=== PATIENT | female | born 1950 | race Caucasian/White ===

== ENCOUNTER 2016-09-23 23:29 | Emergency (ER) | payer OTHER ==
[~2016-09-23] VITALS: Ht 162.6 cm; Wt 63.5 kg
[~2016-09-23 23:29] MED LIST: CEPH500C2 PO; MIRT15TA7 PO; PRIM250T PO; RISP2TAB23 PO; SIMV10TA6 PO
[2016-09-24] MEDS ORDERED: IV NS 0.9% 500 ML BAG IV ONE
[2016-09-24] MEDS ORDERED: ONDANSETRON HCL/PF 4 MG/2 ML VIAL IVP ONE
[2016-09-24] MEDS ORDERED: IV NS 0.9% 500 ML IV ONE (00:31)
[2016-09-24] MEDS ORDERED: IV SET PRIMARY 1 EA INFUS.SET MC ONE (00:31)
[2016-09-24] MEDS ORDERED: ONDANSETRON HCL/PF 4 MG/2 ML VIAL ONE (00:31)
[2016-09-24 00:34] LABS: BASOPHILS % (AUTO) 0.4 % (0.0-2.0); DIFF TOTAL % 100 %; EOSINOPHILS # (AUTO) 0.3 /CMM (0.0-0.7); EOSINOPHILS % (AUTO) 2.9 % (0.0-6.0); HEMATOCRIT 34 % (33-45); HEMOGLOBIN 11.5 g/dL (11.5-14.8); LYMPHOCYTES # (AUTO) 3.5 /CMM (0.8-4.8); LYMPHOCYTES % (AUTO) 36.1 % (20.0-44.0); MEAN CORPUSCULAR HEMOGLOBIN 31 PG (26.0-33.0); MEAN CORPUSCULAR HGB CONC 34 g/dl (31.0-36.0); MEAN CORPUSCULAR VOLUME 91 fL (82-100); MONOCYTES # (AUTO) 0.5 /CMM (0.1-1.30); MONOCYTES % (AUTO) 5.1 % (2.0-12.0); NEUTROPHILS # (AUTO) 5.3 /CMM (1.8-8.9); NEUTROPHILS % (AUTO) 55.5 % (43.0-81.0); PLATELET COUNT (AUTO) 302 /CMM (150-450); RED BLOOD CELL COUNT(AUTO) 3.74 MIL/uL (4.0-5.2); WHITE BLOOD COUNT (AUTO) 9.6 K/uL (4.3-11.0)
[2016-09-24 00:47] LABS: ANION GAP 10 (5-14); CALCIUM, SERUM 8.6 mg/dL (8.5-10.1); CARBON DIOXIDE 27 mmol/L (21-32); CHLORIDE 97 mmol/L (98-107); CREATININE 0.6 mg/dL (0.6-1.3); GFR 100 mL/min (>60); GLUCOSE 104 mg/dL (74-106); POTASSIUM 3.8 mmol/L (3.5-5.1); SODIUM SERUM 130 mmol/L (136-145); UREA NITROGEN, BLOOD 11 mg/dL (7-18)
[2016-09-24] MEDS ORDERED: IOHEXOL-350 100 ML VIAL IV ONE (00:49)
[2016-09-24] MEDS ORDERED: IV NS 0.9% 250 ML IV ONE (00:49)
[2016-09-24] MEDS ORDERED: CT SWABBABLE VALVE TRANS SET 1 EA INFUS.SET MC ONE (00:49)
[2016-09-24 00:52] LABS: TROPONIN I < 0.017 ng/mL (0.00-0.056)
[2016-09-24 00:53] LABS: ALANINE AMINOTRANSFERASE 18 U/L (12-78); ALBUMIN 3.1 g/dL (3.4-5.0); ASPARTATE AMINOTRANSFERASE 13 U/L (15-37); BILIRUBIN,DIRECT 0.1 mg/dL (0.0-0.2); BILIRUBIN,TOTAL 0.2 mg/dL (0.2-1.0); INDIRECT BILIRUBIN 0.1 mg/dL (0.0-1.1); TOTAL PROTEIN, SERUM 6.6 g/dL (6.4-8.2)
[2016-09-24 00:56] LABS: INR 1.03 (0.87-1.13); PROTHROMBIN TIME 11.1 SECS (9.5-12.7)
[2016-09-24 01:17] LABS: KETONES,URINE NEGATIVE (NEGATIVE); LEUKOCYTE ESTERASE ,URINE NEGATIVE (NEGATIVE)
[2016-09-24 01:28] LABS: ADD UA MICROSCOPIC YES
[2016-09-24 01:30] LABS: ADD URINE CULTURE YES; RBC,URINE NONE SEEN /HPF (0-2); WBC,URINE 0-2 /HPF (0-3)
[2016-09-24 03:14] VITALS: BP 102/66
== END 2016-09-24 04:54 | disposition home or self-care (01) ==
LOC: ER 23:31
DX: K59.00 Constipation, unspecified (principal); I26.99 Other pulmonary embolism without acute cor pulmonale; K21.9 Gastro-esophageal reflux disease without esophagitis; I10 Essential (primary) hypertension; E11.9 Type 2 diabetes mellitus without complications; F17.200 Nicotine dependence, unspecified, uncomplicated; Z90.49 Acquired absence of other specified parts of digestive tract
CPT/HCPCS: 36415; 71275; 74176; 80048; 80076; 81001; 83690; 84484; 85025; 85730; 87086; 93005; 96374; 99285; A4606; J2405; J7040; J7050; Q9967; Z7610; 81000-TC; 87186-TC

== ENCOUNTER 2017-01-06 14:08 | Inpatient (IN) | payer OTHER ==
[~2017-01-06] VITALS: Ht 162.6 cm; Wt 54.4 kg
--- NOTE | 2017-01-06 14:10 | NUR ---
MARIA ANTONIA FROM STREET-- PER REPORT PATIENT WAS FOUND WANDERING. PATIENT RECEIVED, AWAKE,HOWEVER CONFUSED. APPEARS IN NO APPARENT DISTRESS. RESPIRATION EVEN AND UNLABORED. NO SOB, NO SI, NO HI NOTED. VSS,
[2017-01-06] MEDS ORDERED: OLANZAPINE 5 MG/TAB.RAPDIS ONE (14:24)
--- NOTE | 2017-01-06 14:24 | NUR ---
CALL PLACED TO ART RADIO TELEVISION TECHNICAL DIRECTOR FOR PSYCH EVAL
[2017-01-06] MEDS ORDERED: OLANZAPINE 5 MG TABLET ONE (14:28)
[2017-01-06] MEDS: OLANZAPINE 5 MG TABLET PO ONE ×2 (14:29→15:12)
[2017-01-06] MEDS ORDERED: OLANZAPINE 10 MG VIAL IM ONE ×2 (14:33→15:30)
[2017-01-06] MEDS ORDERED: WATER FOR INJECTION,STERILE 10 ML ONE (14:34)
--- NOTE | 2017-01-06 14:44 | NUR ---
PATIENT REFUSED OANH RAMIREZ,. PER MD GARCIA ORDER WILL BE CHANGED TO IM Addendum: 01/06/17 at 1612 by CHIQUIS REFUSED OANH P.O
[2017-01-06 14:50] LABS: BASOPHILS % (AUTO) 0.3 % (0.0-2.0); EOSINOPHILS # (AUTO) 0.1 /CMM (0.0-0.7); EOSINOPHILS % (AUTO) 0.8 % (0.0-6.0); HEMATOCRIT 36 % (33-45); HEMOGLOBIN 12.4 g/dL (11.5-14.8); LYMPHOCYTES # (AUTO) 1.1 /CMM (0.8-4.8); LYMPHOCYTES % (AUTO) 16.6 % (20.0-44.0); MEAN CORPUSCULAR HEMOGLOBIN 32 PG (26.0-33.0); MEAN CORPUSCULAR HGB CONC 35 g/dl (31.0-36.0); MEAN CORPUSCULAR VOLUME 92 fL (82-100); MONOCYTES # (AUTO) 0.3 /CMM (0.1-1.30); MONOCYTES % (AUTO) 3.9 % (2.0-12.0); NEUTROPHILS # (AUTO) 5.3 /CMM (1.8-8.9); NEUTROPHILS % (AUTO) 78.4 % (43.0-81.0); PLATELET COUNT (AUTO) 315 /CMM (150-450); RDW COEFFICIENT OF VARIATION 13.4 (11.5-15.0); RED BLOOD CELL COUNT(AUTO) 3.91 MIL/uL (4.0-5.2); WHITE BLOOD COUNT (AUTO) 6.8 K/uL (4.3-11.0)
[2017-01-06] MEDS ORDERED: SENN8.6T6 PO (14:54)
[2017-01-06] MEDS ORDERED: BISA10SU8 RC (14:54)
[2017-01-06] MEDS ORDERED: MORP15TA PO (14:54)
[2017-01-06] MEDS ORDERED: MULT-659 PO (14:54)
[2017-01-06] MEDS ORDERED: DOCU-25 PO (14:54)
[2017-01-06] MEDS ORDERED: NA P133E RC (14:54)
[2017-01-06] MEDS ORDERED: PRIM250T PO (14:54)
[2017-01-06] MEDS ORDERED: POLY17PO4 PO (14:54)
[2017-01-06] MEDS ORDERED: HYDR4TAB57 PO (14:54)
[2017-01-06] MEDS ORDERED: LORA0.5T PO (14:54)
[2017-01-06] MEDS ORDERED: ACET100V5 INH (14:54)
[2017-01-06] MEDS ORDERED: AMIN30LI4 PO (14:54)
[2017-01-06] MEDS ORDERED: LIDO30AD10 TP (14:54)
[2017-01-06] MEDS ORDERED: ALBU8.5H2 IH (14:54)
[2017-01-06] MEDS ORDERED: ZINC220C8 PO (14:54)
[2017-01-06] MEDS ORDERED: PANT40TA4 PO (14:54)
[2017-01-06] MEDS ORDERED: ASCO500T9 PO (14:54)
[2017-01-06] MEDS ORDERED: METO25TA6 PO (14:54)
[2017-01-06] MEDS ORDERED: PHEN20EL5 PO (14:54)
[2017-01-06] MEDS ORDERED: MAGN400O6 PO (14:54)
[2017-01-06] MEDS ORDERED: RISP0.2515 PO (14:54)
[2017-01-06 15:06] LABS: ALANINE AMINOTRANSFERASE 16 U/L (12-78); ALBUMIN 3.4 g/dL (3.4-5.0); ALCOHOL, BLOOD < 3 mg/dL (0-0); ALKALINE PHOSPHATASE 218 U/L (46-116); ASPARTATE AMINOTRANSFERASE 16 U/L (15-37); BILIRUBIN,DIRECT 0.1 mg/dL (0.0-0.2); BILIRUBIN,TOTAL 0.2 mg/dL (0.2-1.0); CALCIUM, SERUM 8.9 mg/dL (8.5-10.1); CARBON DIOXIDE 28 mmol/L (21-32); CHLORIDE 98 mmol/L (98-107); CREATININE 0.5 mg/dL (0.6-1.3); GLUCOSE 102 mg/dL (74-106); POTASSIUM 3.9 mmol/L (3.5-5.1); SODIUM SERUM 133 mmol/L (136-145); TOTAL PROTEIN, SERUM 7.4 g/dL (6.4-8.2); UREA NITROGEN, BLOOD 8 mg/dL (7-18)
[2017-01-06 15:07] LABS: ACETAMINOPHEN 0 ug/ml (10-30); SALICYLATE 2.1 mg/dL (2.8-20.0)
--- NOTE | 2017-01-06 16:12 | NUR ---
Patient is resting comfortably in bed with eyes closed. Easily aroused. VSS
--- NOTE | 2017-01-06 16:20 | NUR ---
MIGUEL A RN AT BEDSIDE FOR EVAL
--- NOTE | 2017-01-06 18:00 | NUR ---
PER MD GARCIA, NO NEED FOR IN AND OUT CATH-- CAN WAIT FOR PATIENT TO GIVE URINE SAMPLE
--- NOTE | 2017-01-06 18:08 | NUR ---
CALLED NURSING YARN TESTER FOR M/S BED
--- NOTE | 2017-01-06 19:04 | NUR ---
PT TRANSPORTED TO MS 2. VSS
[2017-01-06 19:15] VITALS: BP 144/82
--- NOTE | 2017-01-06 19:15 | NUR ---
RECEIVED NEW ADMISSION FROM ER WITH DX OF ACUTE PSYCHOSIS, ALERT AND ORIENTED X3 WITH EPISODES OF FORGETFULNESS, TALKING TO SELF, NO SOB, NO RESPIRATORY DISTRESS, TOLERATING ROOM AIR, SPO2 98%, COMPLAINING OF PAIN OF 8/10, PER REPORT AND CONFIRMED BY CAREGIVER, JIMMY, HAS CHRONIC PAIN AND IS A PAIN SEEKER. LUNG SOUNDS ARE CLEAR, ABDOMEN SOFT AND NON-TENDER, NOTED OLD VERTICAL SCAR FROM CHEST TO ABDOMEN, S/P RIGHT HIP REPLACEMENT ON 12/01/16, RIGHT LATERAL THIGH SX SITE WITH ANDRIA NOTED, NO DRAINAGE, SX SITE IS CLEAN AND DRY, CHANGED DRESSING AND PHOTO TAKEN. OVERALL SKIN CONDITION IS INTACT, RIGHT LOWER LEG HAS NON-PITTING EDEMA. FOUND A PACK OF CIGARETTES IN KARLIE POCKET, PATIENT DENIES SMOKING. PER CAREGIVER JIMMY, "SHE SMOKES A LOT". PATIENT STATED SHE HAS MULTIPLE CANCER IN LUNGS, LIVER, AGAIN, PER CAREGIVER, IT IS NOT TRUE. KEPT SAFE AND COMFORTABLE, GIVEN BED BATH, ORIENTED TO ROOM AND USE OF CALL LIGHT. WILL CONTINUE TO MONITOR.
[2017-01-06] MEDS ORDERED: MAG HYDROX/AL HYDROX/SIMETH 30 ML UDC PO PRN (19:30)
[2017-01-06] MEDS ORDERED: Z GUARD REMEDY 2 OZ OINT TP PRN (19:30)
[2017-01-06] MEDS ORDERED: LIDOCAINE 5% (PATCH) 1 EA PATCH TP SCH (19:30)
[2017-01-06] MEDS ORDERED: ALBUTEROL FS 2.5 MG/3 ML VIAL.NEB NEB PRN (19:30)
[2017-01-06] MEDS ORDERED: BISACODYL SUPP (10 MG) 10 MG/SUPP.RECT SUPP.RECT RC PRN (19:30)
[2017-01-06] MEDS ORDERED: MAGNESIUM HYDROXIDE 30 ML UDC PO PRN (19:30)
[2017-01-06] MEDS ORDERED: ACETAMINOPHEN 325 MG TABLET PO PRN (19:30)
[2017-01-06] MEDS ORDERED: NA PHOS,M-B/NA PHOS,DI-BA 1 EA ENEMA RC PRN (19:30)
[2017-01-06] MEDS ORDERED: ONDANSETRON HCL/PF 4 MG/2 ML VIAL IVP PRN (19:30)
[2017-01-06] MEDS ORDERED: SENNOSIDES 8.6 MG TABLET PO PRN (19:30)
[2017-01-06] MEDS: LORAZEPAM 0.5 MG TABLET PO PRN (19:54)
--- NOTE | 2017-01-06 20:34 | NUR ---
PLACED CALL TO DR. GABRIEL MELENDEZ PAIN MANAGEMENT TO VERIFY DOSE OF MORPHINE AND LIDODERM PATCH LOCATION
[2017-01-06] MEDS: ENOXAPARIN SODIUM 40 MG/0.4 ML DISP.SYRIN SQ SCH (20:46)
--- NOTE | 2017-01-06 21:00 | NUR ---
PER PATIENT, HAS $100 BILL, NO MONEY FOUND WITH BELONGINGS
[2017-01-06] MEDS: SIMVASTATIN 10 MG TABLET PO SCH (21:06)
[2017-01-06] MEDS: MIRTAZAPINE 15 MG TABLET PO SCH (21:06)
[2017-01-06] MEDS: DOCUSATE SODIUM 100 MG CAPSULE PO SCH (21:07)
--- NOTE | 2017-01-06 21:17 | NUR ---
DR. MELENDEZ CALLED BACK UNABLE TO VERIFY MORPHINE DOSE OVER THE PHONE, NO ACCESS TO PT'S FILE. WILL ENDORSED IN THE AM TO CALL OFFICE. LIDODERM PATCH VERIFIED TO BE PLACED ON LOWER BACK
--- NOTE | 2017-01-06 21:30 | NUR ---
UNABLE TO VERIFY PHENOBARBITAL DOSE, PHONE NUMBER LISTED FOR [facility] IS NON WORKING NUMBER.
[2017-01-06 22:14] VITALS: BP 144/88
--- NOTE | 2017-01-07 01:30 | NUR ---
RESTING COMFORTABLY, NO DISTRESS, RESPIRATION EVEN AND UNLABORED, BED ALARM TURNED ON, WILL CONTINUE TO MONITOR
--- NOTE | 2017-01-07 01:57 | NUR ---
PATIENT WOKE UP REQUESTING PAIN MEDICATION, EXPLAINED TO PATIENT NO PAIN MEDICATION ORDERED, BECOMES AGITATED. NOTIFIED MD, NO NEW ORDER.
[2017-01-07] MEDS: LORAZEPAM 0.5 MG TABLET PO PRN ×2 (02:13→19:48)
--- NOTE | 2017-01-07 03:30 | NUR ---
PATIENT AWAKEN, ASKING FOR PAIN MEDICATION, EXPLAINED TO PATIENT NO PAIN MEDICATION ORDERED, HAS TO VERIFY MORPHINE DOSE, PATIENT BECOMES AGITATED, TALKING TO THE WALL, REDIRECTED PATIENT TO LOOK AT RN, CONTINUED TALKING TO WALL AND CEILING.
--- NOTE | 2017-01-07 03:45 | NUR ---
PATIENT WENT BACK TO SLEEP, RESPIRATION EVEN AND UNLABORED, WILL CONTINUE TO MONITOR.
--- NOTE | 2017-01-07 06:39 | NUR ---
PATIENT IN BED, ALERT AND AWAKE, ASKING FOR PAIN MEDICATION, EXPLAINED TO PATIENT WILL HAVE TO VERIFY WITH PAIN MD THE MORPHINE DOSE, PATIENT STILL INSISTING TO GET PAIN MEDICATION. NO SOB, PROVIDED GOOD PERINEAL CARE, SLEPT FOR 6.5 HOURS INTERMITTENTLY, KEPT SAFE AND COMFORTABLE, CALL LIGHT WITHIN REACH.
[2017-01-07 06:51] LABS: BASOPHILS % (AUTO) 0.3 % (0.0-2.0); EOSINOPHILS % (AUTO) 0.3 % (0.0-6.0); HEMATOCRIT 37 % (33-45); HEMOGLOBIN 12.8 g/dL (11.5-14.8); LYMPHOCYTES # (AUTO) 1.4 /CMM (0.8-4.8); LYMPHOCYTES % (AUTO) 30.6 % (20.0-44.0); MEAN CORPUSCULAR HEMOGLOBIN 32 PG (26.0-33.0); MEAN CORPUSCULAR HGB CONC 34 g/dl (31.0-36.0); MEAN CORPUSCULAR VOLUME 93 fL (82-100); MONOCYTES # (AUTO) 0.2 /CMM (0.1-1.30); MONOCYTES % (AUTO) 4.6 % (2.0-12.0); NEUTROPHILS # (AUTO) 2.9 /CMM (1.8-8.9); NEUTROPHILS % (AUTO) 64.2 % (43.0-81.0); PLATELET COUNT (AUTO) 296 /CMM (150-450); RDW COEFFICIENT OF VARIATION 14.1 (11.5-15.0); RED BLOOD CELL COUNT(AUTO) 3.98 MIL/uL (4.0-5.2); WHITE BLOOD COUNT (AUTO) 4.5 K/uL (4.3-11.0)
[2017-01-07 07:00] LABS: CALCIUM, SERUM 8.7 mg/dL (8.5-10.1); CREATININE 0.4 mg/dL (0.6-1.3); MAGNESIUM 1.9 mg/dL (1.8-2.4); PHOSPHORUS 3.5 mg/dL (2.5-4.9); POTASSIUM 3.6 mmol/L (3.5-5.1)
[2017-01-07 07:05] LABS: THYROID STIMULATING HORMONE 0.907 uIU/mL (0.358-3.74)
[2017-01-07] MEDS ORDERED: PANTOPRAZOLE 40 MG TABLET.DR PO SCH (07:30)
[2017-01-07 08:00] VITALS: BP 140/73
--- NOTE | 2017-01-07 08:00 | NUR ---
RN OPENING NOTES RECEIVED PATIENT ON BED, AWAKE. ALERT AND ORIENTED X 3. PATIENT TALKING TO SELF. NO ACUTE DISTRESS, NO SHORTNESS OF BREATH NOTED. COMPLAINING PAIN, PAIN MEDICATION GIVEN ORDERED. IV SITE INTACT AND PATENT. BED IN LOWEST POSITION. CALL LIGHT WITHIN REACH. WILL CONTINUE TO MONITOR.
[2017-01-07] MEDS: PANTOPRAZOLE 40 MG TABLET.DR PO SCH (08:33)
[2017-01-07] MEDS: PRIMIDONE 250 MG TABLET PO SCH ×2 (08:33→17:31)
[2017-01-07] MEDS: ASCORBIC ACID 500 MG TABLET PO SCH (08:34)
[2017-01-07] MEDS: ZINC SULFATE 220 MG CAPSULE PO SCH (08:34)
[2017-01-07] MEDS: POLYETHYLENE GLYCOL 3350 17 GM POWD.PACK PO SCH (08:34)
[2017-01-07] MEDS: MULTIVITAMINS W-MINERALS 1 TAB TABLET PO SCH (08:34)
[2017-01-07] MEDS: MORPHINE SULFATE IR 15 MG TABLET PO SCH ×3 (08:36→20:58)
[2017-01-07] MEDS ORDERED: PHENOBARBITAL 20 MG/5 ML UDC PO SCH (09:00)
[2017-01-07] MEDS ORDERED: risperiDONE 0.25 MG TABLET PO SCH (09:00)
[2017-01-07] MEDS: PHENOBARBITAL 30 MG TABLET PO SCH ×2 (09:59→17:28)
[2017-01-07] MEDS: LIDOCAINE 5% (PATCH) 1 EA PATCH TP SCH (09:59)
[2017-01-07] MEDS: METOPROLOL TARTRATE 25 MG TABLET PO SCH ×2 (09:59→17:00)
--- NOTE | 2017-01-07 11:49 | NUR ---
[facility] CALLED SAYING THAT THE PT'S GALLBLADDER WAS SURGICALLY REMOVED BY REVIEWING PT'S CT SCAN SO THE US GALLBLADDER IS IMPOSSIBLE.NOTIFIED DR JOSE DEGROOT AND CANCELLED THE US GALLBLADDER PROCEDURE.
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
--- NOTE | 2017-01-07 13:00 | NUR ---
PATIENT ASKING FOR PAIN MEDICATION. PATIENT WAS ASKED WHERE THE PAIN IS AND PATIENT STARTED YELLING AT THE STAFF "I HAVE PAIN ALL OVER MY ABDOMEN AND BACK BECAUSE I HAVE CANCER". PATIENT STARTED TALKING TO SELF AND CURSING. EXPLAINED TO THE PATIENT THAT MEDICATION IS DUE IN THE NEXT 2 HOURS. PATIENT CONTINUED TO YELL AND CURSE, AND TALKING TO SELF. WILL CONTINUE TO MONITOR
--- NOTE | 2017-01-07 13:10 | NUR ---
PATIENT REFUSED LORAZEPAM 0.5MG AFTER OPENING IT. LORAZEPAM 0.5MG WASTED WITNESS BY RN, GABI CANTRELL.
--- NOTE | 2017-01-07 14:29 | NUR ---
GRICELDA contacted [facility] Guidry to speak with administration to inquire if Pt. can be admitted to their facility. GRICELDA was informed by that administration is closed and will be open on Tuesday. GRICELDA updated CRN Harlette. GRICELDA contacted DANIEL Hamm and informed her to follow through with the psych. consult and contact [facility] so pt. can be assessed by psychiatrist on-call.
--- NOTE | 2017-01-07 15:00 | NUR ---
PATIENT COMPLAIN OF PAIN IN THE ABDOMEN. MORPHINE IS SCHEDULED AT 1800, LAST DOSE WAS GIVEN AT 0836, MEDICATION IS EVERY 6 HOURS. VERIFIED PHARMACY,SELA. FAUST TO GIVE MEDICATIONS PER PHARMACYSELA..
[2017-01-07 16:00] VITALS: BP 108/66
--- NOTE | 2017-01-07 16:52 | NUR ---
PT COMFORTABLY SLEEPING WITH NO S/S OF PAIN OR DISTRESS.
--- NOTE | 2017-01-07 17:00 | NUR ---
PT WOKE UP TALKING TO HERSELF CONTINUOUSLY-PT REFUSED TO HAVE HER RT THIGH SURGICAL ANDRIA REMOVED TILL IT'S BEING SEEN BY AN ORTHO DOCTOR.NOTIFIED DR GARCIA.
[2017-01-07] MEDS: risperiDONE 1 MG TABLET PO SCH (17:31)
--- NOTE | 2017-01-07 18:19 | NUR ---
RN CLOSING NOTES PATIENT ON BED SLEEPING. RESPIRATIONS EVEN AND UNLABORED. NO ACUTE DISTRESS NOTED. BED IN LOWEST POSITION, SIDERAILS UP X2. CALL LIGHT WITHIN REACH. WILL ENDORSE TO REFERRAL SPECIALIST RN FOR CONTINUITY OF CARE.
--- NOTE | 2017-01-07 19:20 | NUR ---
EDER SEEN PATIENT COMING OUT OF HER ROOM WITH FFW, VERBALIZING MEDS SHE NEED TO TAKE APPARENTLY WAS OVERDUE. REVIEWED WITH PATIENT MEDS SHE IS TAKING AND TIME FRAME. APPEARS TO UNDERSTAND, STATED WILL TAKE HER MEDS AT DUE TIME. ASSISTED BACK TO ROOM, ALL NEEDS ATTENDED.
--- NOTE | 2017-01-07 19:50 | NUR ---
MSRN CALLED FOR ATIVAN, 1 TAB 0.5MG PO ADMINISTERED. TALKS TO SELF ALL THE TIME.
[2017-01-07 20:00] VITALS: BP 100/65
--- NOTE | 2017-01-07 20:15 | NUR ---
EDER QUIET THIS TIME, CLOSELY WATCHED.
[2017-01-07] MEDS: SIMVASTATIN 10 MG TABLET PO SCH (20:59)
[2017-01-07] MEDS: MIRTAZAPINE 15 MG TABLET PO SCH (21:03)
[2017-01-07] MEDS: ENOXAPARIN SODIUM 40 MG/0.4 ML DISP.SYRIN SQ SCH (21:03)
[2017-01-07] MEDS: DOCUSATE SODIUM 100 MG CAPSULE PO SCH (21:04)
--- NOTE | 2017-01-07 21:05 | NUR ---
MSRN AWAKENED, DUE MEDS ADMINISTERED EXCEPT COLACE. STATED HAD 2 BM TODAY. VERBALIZING BOTH HIPS PAINFUL . MS IR GIVEN ORDERED. NO OTHER NEEDS MADE.
--- NOTE | 2017-01-07 22:54 | NUR ---
MSRN SLEEPING APPEARS COMFORTABLE. CLOSELY WATCHED.
--- NOTE | 2017-01-08 00:43 | NUR ---
MSRN AWAKENED, ABLE TO PROVIDE URINE SPECIMEN, VERBALIZES PAIN REMINDED OF TIME FRAME, AGREED. WELL UNDERSTOOD. ASKED IF SHE CAN HAVE ATIVAN, EXPLAINED NOT TIME YET TO HAVE ANOTHER DOSE OF ATIVAN. GOOD LISTENER. TRYING TO GO BACK TO SLEEP.
[2017-01-08] MEDS: MORPHINE SULFATE IR 15 MG TABLET PO SCH ×4 (03:33→21:02)
--- NOTE | 2017-01-08 03:45 | NUR ---
MSRN DUE MS IR 75 MG PO ADMINISTERED ORDERED. WENT OUT OF THE ROOM ,AMBULATE FEW STEPS, THEN BACK TO BED. HAS BEEN COOPERATIVE. TALKS TO SELF MOST OF THE TIME AFTER TAKING HER ROUTINE MS.
--- NOTE | 2017-01-08 07:34 | NUR ---
RN OPENING NOTES RECEIVED PATIENT ON BED, AWAKE. ALERT AND ORIENTED X 3. PATIENT TALKING TO SELF. RESPIRATIONS EVEN AND UNLABORED, NO ACUTE DISTRESS NOTED. IV SITE INTACT AND PATENT. BED IN LOWEST POSITION. CALL LIGHT WITHIN REACH. WILL CONTINUE TO MONITOR.
[2017-01-08] MEDS: PANTOPRAZOLE 40 MG TABLET.DR PO SCH (07:52)
[2017-01-08 08:00] VITALS: BP 115/69
[2017-01-08] MEDS: METOPROLOL TARTRATE 25 MG TABLET PO SCH ×2 (09:00→16:33)
[2017-01-08] MEDS: MULTIVITAMINS W-MINERALS 1 TAB TABLET PO SCH (09:37)
[2017-01-08] MEDS: ZINC SULFATE 220 MG CAPSULE PO SCH (09:37)
[2017-01-08] MEDS: ASCORBIC ACID 500 MG TABLET PO SCH (09:38)
[2017-01-08] MEDS: PHENOBARBITAL 30 MG TABLET PO SCH ×2 (09:38→16:32)
[2017-01-08] MEDS: PRIMIDONE 250 MG TABLET PO SCH ×2 (09:38→16:31)
[2017-01-08] MEDS: risperiDONE 1 MG TABLET PO SCH ×2 (09:40→17:54)
[2017-01-08] MEDS: POLYETHYLENE GLYCOL 3350 17 GM POWD.PACK PO SCH (09:40)
[2017-01-08] MEDS: LIDOCAINE 5% (PATCH) 1 EA PATCH TP SCH (09:49)
--- NOTE | 2017-01-08 11:20 | NUR ---
FOLLOW UP MADE WITH DR RAPHAEL WHO STATED THAT HE IS GOING TO SEE THE PT NOT TILL LATER AND WANTS THE ANDRIA ON RT HIP BE REMOVED.INFORMED PT ABOUT DR MOSELEY'S VISIT AND AGREED TO HAVE THE ANDRIA BE REMOVED.
--- NOTE | 2017-01-08 11:50 | NUR ---
REMOVED PT'S RT LATERAL HIP SURGICAL ANDRIA S/P SX FOR 1 MONTH-ABLE TO REMOVE 80 ANDRIA WITH MINIMAL BLEEDING AND NOTED SOME 3 ANDRIA SITES WITH MINIMAL PUS AND BLOOD DRAINING OUT OF THE SITE.CLEANSED SURGICAL SITE WITH NS.PT TOLERATED WELL.APPLIED STERI STRIPS AND COVERED WITH SURGICAL DRESSING.
[2017-01-08 16:00] VITALS: BP 108/61
--- NOTE | 2017-01-08 16:53 | NUR ---
INFORMED PT REGARDING MRSA POSITIVE NARES AND PT TEACHING DONE.PLACED PT ON CONTACT ISOLATION PRECAUTIONS.PT VERBALIZED UNDERSTANDING OF PRECAUTIONS.
--- NOTE | 2017-01-08 17:21 | NUR ---
SEEN BY DR RAPHAEL WITH ORDERS FOR RT FEMUR XRAY AND CARRIED OUT.
--- NOTE | 2017-01-08 18:10 | NUR ---
RN CLOSING NOTES PATIENT ON BED RESTING. PATIENT IS CALM, TALKING TO SELF. RESPIRATIONS EVEN AND UNLABORED. NO ACUTE DISTRESS NOTED. ALL NEEDS ATTENDED AND PROVIDED. KEPT PATIENT CLEAN AND COMFORTABLE. MAINTAINED A SAFE ENVIRONMENT. BED IN LOW POSITION, CALL LIGHTS IN REACH. WILL ENDORSED TO THE HEEL COVERER RN FOR CONTINUITY OF CARE.
--- NOTE | 2017-01-08 19:56 | NUR ---
PATIENT N BED, ALERT AND ORIENTED X2, CALM AT THIS TIME, COOPERATIVE, WITH EPISODES OF AGITATION AND TALKING TO SELF, NO SOB, COMPLAINING OF 7/10 TO LOWER BACK AND RIGHT LEG, RECEIVED MORPHINE SCHEDULED FROM PRIOR SHIFT, ABDOMEN SOFT AND NON-TENDER, RIGHT LATERAL THIGH SURGICAL SITE IS SECURED WITH DRESSING, NO BLEEDING NOTED, ABLE TO USE BEDPAN, BP IS 95/51 HR 77, PUT PATIENT ON TRENDELENBERG POSITION. WILL CHECK BP AGAIN. KEPT SAFE AND COMFORTABLE, CALL LIGHT WITHIN REACH.
[2017-01-08 20:00] VITALS: BP 95/51
[2017-01-08] MEDS: SIMVASTATIN 10 MG TABLET PO SCH (21:02)
[2017-01-08] MEDS: MIRTAZAPINE 15 MG TABLET PO SCH (21:02)
[2017-01-08] MEDS: DOCUSATE SODIUM 100 MG CAPSULE PO SCH (21:02)
[2017-01-08] MEDS: ENOXAPARIN SODIUM 40 MG/0.4 ML DISP.SYRIN SQ SCH (21:03)
[2017-01-08] MEDS: MUPIROCIN OINT 2% 22 GM TUBE SCH (21:09)
[2017-01-08] MEDS ORDERED: QUETIAPINE FUMARATE 25 MG TABLET PO SCH (22:00)
--- NOTE | 2017-01-09 01:41 | NUR ---
PATIENT AWAKE, RESTLESS, NOT IN APPARENT DISTRESS, REDIRECTABLE, KEPT SAFE, WILL CONTINUE TO MONITOR.
[2017-01-09] MEDS: MORPHINE SULFATE IR 15 MG TABLET PO SCH ×4 (03:04→20:48)
--- NOTE | 2017-01-09 03:07 | NUR ---
PATIENT COUNTING THE HOURS FOR NEXT MORPHINE DOSE. GIVEN MORPHINE, PATIENT IS ALERT AND AWAKE, PER PATIENT PAIN IS ON THE ABDOMEN, PUT ON 2LPM VIA NC, KEPT HOB ELEVATED, WILL CONTINUE TO MONITOR.
--- NOTE | 2017-01-09 07:00 | NUR ---
PATIENT IN BED, ALERT AND AWAKE, WITH EPISODES OF RESTLESSNESS, TALKING TO SELF, NO SOB, NO RESPIRATORY DISTRESS, NO RESIDUAL DROWSINESS FROM MORPHINE, V/S REMAINED STABLE, 02 SAT ABOVE 93%, PUT ON 2LPM VIA NC WHILE ON MORPHINE. NO ADVERSE CHANGE OF CONDITION DURING SHIFT, ALL DUE MEDICATIONS GIVEN, KEPT SAFE, CALL LIGHT WITHIN REACH.
--- NOTE | 2017-01-09 07:31 | NUR ---
MS RN NOTES RECEIVED REPORT. PATIENT IS A/OX2-3, PATIENT IS TALKING TO HERSELF. PATIENT RESTING COMFORTABLY IN BED. NO S/S OF ACUTE DISTRESS NOTED. NO S/S OF SOB NOTED. IV IS PATENT AND INTACT. CALL LIGHT IS WITHIN REACH. BED IS IN LOWEST, LOCKED POSITION. WILL CONTINUE TO MONITOR THROUGHOUT SHIFT.
[2017-01-09 08:00] VITALS: BP 103/63
[2017-01-09] MEDS: ASCORBIC ACID 500 MG TABLET PO SCH (08:39)
[2017-01-09] MEDS: MULTIVITAMINS W-MINERALS 1 TAB TABLET PO SCH (08:39)
[2017-01-09] MEDS: risperiDONE 1 MG TABLET PO SCH ×2 (08:39→17:09)
[2017-01-09] MEDS: PHENOBARBITAL 30 MG TABLET PO SCH ×2 (08:40→17:09)
[2017-01-09] MEDS: ZINC SULFATE 220 MG CAPSULE PO SCH (08:40)
[2017-01-09] MEDS: PANTOPRAZOLE 40 MG TABLET.DR PO SCH (08:40)
[2017-01-09] MEDS: PRIMIDONE 250 MG TABLET PO SCH ×2 (08:40→17:09)
[2017-01-09] MEDS: POLYETHYLENE GLYCOL 3350 17 GM POWD.PACK PO SCH (08:41)
[2017-01-09] MEDS: MUPIROCIN OINT 2% 22 GM TUBE SCH ×2 (08:47→21:09)
[2017-01-09] MEDS: METOPROLOL TARTRATE 25 MG TABLET PO SCH ×2 (08:48→17:00)
[2017-01-09] MEDS: LIDOCAINE 5% (PATCH) 1 EA PATCH TP SCH (09:45)
[2017-01-09 15:50] VITALS: BP_SYST 93; BP_SYST 99; BP_DIAS 48; BP_DIAS 54
--- NOTE | 2017-01-09 19:10 | NUR ---
MS RN NOTES PATIENT IS A/OX2. PATIENT HAS SOME PERIODS OF CONFUSION AND TENDS TO TALK TO HERSELF AT TIMES. NO DISTRESS NOTED. NO SOB NOTED. IV PATENT AND INTACT. CALL LIGHT WITHIN REACH. BED IS IN LOWEST, LOCKED POSITION. WILL ENDORSE CARE TO PM SHIFT.
--- NOTE | 2017-01-09 19:30 | NUR ---
PATIENT IN BED, ALERT AND AWAKE, WITH EPISODES OF RESTLESSNESS, TALKING TO SELF, NO SOB, NO RESPIRATORY DISTRESS. V/S REMAINED STABLE, 02 SAT ABOVE 93%, PUT ON 2LPM VIA NC WHILE BED LOCKED AND IN LOWEST POSITION. SIDE RAILS UP, CALL LIGHT WITHIN REACH. WILL CONTINUE TO MONITOR.
[2017-01-09 20:00] VITALS: BP 90/53
[2017-01-09] MEDS: ENOXAPARIN SODIUM 40 MG/0.4 ML DISP.SYRIN SQ SCH (20:48)
[2017-01-09] MEDS: DOCUSATE SODIUM 100 MG CAPSULE PO SCH (21:09)
[2017-01-09] MEDS: QUETIAPINE FUMARATE 100 MG TABLET PO SCH (21:09)
[2017-01-09] MEDS: SIMVASTATIN 10 MG TABLET PO SCH (21:09)
[2017-01-09] MEDS ORDERED: QUETIAPINE FUMARATE 25 MG TABLET PO SCH (22:00)
[2017-01-10] MEDS: MORPHINE SULFATE IR 15 MG TABLET PO SCH ×4 (04:13→20:36)
--- NOTE | 2017-01-10 07:24 | NUR ---
AM RN NOTE Received patient awake lying in her bed. No acute distress noted resp even and non-labored. IV site intact and patent. Will continue to monitor. Bed in low locked position.
[2017-01-10 08:00] VITALS: BP 116/63
[2017-01-10] MEDS: PHENOBARBITAL 30 MG TABLET PO SCH ×2 (08:12→16:31)
[2017-01-10] MEDS: POLYETHYLENE GLYCOL 3350 17 GM POWD.PACK PO SCH (08:12)
[2017-01-10] MEDS: ZINC SULFATE 220 MG CAPSULE PO SCH (08:12)
[2017-01-10] MEDS: PANTOPRAZOLE 40 MG TABLET.DR PO SCH (08:12)
[2017-01-10] MEDS: risperiDONE 1 MG TABLET PO SCH ×2 (08:12→16:31)
[2017-01-10] MEDS: MULTIVITAMINS W-MINERALS 1 TAB TABLET PO SCH (08:12)
[2017-01-10] MEDS: ASCORBIC ACID 500 MG TABLET PO SCH (08:12)
[2017-01-10] MEDS: METOPROLOL TARTRATE 25 MG TABLET PO SCH ×2 (08:13→16:32)
[2017-01-10] MEDS: LIDOCAINE 5% (PATCH) 1 EA PATCH TP SCH (08:15)
[2017-01-10] MEDS: PRIMIDONE 250 MG TABLET PO SCH ×2 (08:16→16:31)
[2017-01-10] MEDS: MUPIROCIN OINT 2% 22 GM TUBE SCH ×2 (08:18→20:33)
[2017-01-10] MEDS ORDERED: QUET100T PO (11:20)
[2017-01-10] MEDS ORDERED: PHEN30TA40 PO (11:21)
[2017-01-10] MEDS ORDERED: RISP1TAB7 PO (11:21)
--- NOTE | 2017-01-10 15:00 | NUR ---
AM RN NOTE Discharge order given by Dr. Sam. Dunaway (CM) working on placement.
--- NOTE | 2017-01-10 15:27 | NUR ---
AM RN NOTE Received call from Kim COE) for CXR for placement, order placed.
[2017-01-10 16:00] VITALS: BP_SYST 100; BP_SYST 88; BP_DIAS 55; BP_DIAS 59
--- NOTE | 2017-01-10 18:00 | NUR ---
AM RN NOTE Gume (OMAR) spoke with pt regarding discharging her to [facility] in [place]. Pt started to yell and scream and does not want to go there.
--- NOTE | 2017-01-10 18:43 | NUR ---
AM RN NOTE Pt awake, calm and eating her dinner in her room. Will endorse care to next shift.
--- NOTE | 2017-01-10 19:30 | NUR ---
MS RN OPENING NOTES: PT IN BED, AOX2, ON ROOM AIR, BREATHING EVEN AND UNLABORED. APPEARS CONFUSED, SPEAKING TO SELF, ANSWERS ERRATICALLY TO QUESTIONS. STATES THAT SHE HAS PAIN OVER HER HIP, BUT ALSO OVER HER RIBS WHICH SHE TERMED "CANCER". WHEN ASKED ABOUT BEING DISCHARGED TO [facility], PATIENT STATES THAT SHE IS GETTING UPSET AND THAT SHE WANTS TO GO TO HER PREFERRED [facility], [facility] IN [place], AND THAT SHE WILL BE STAYING HERE FOR TONIGHT. PIV OVER LAC G 20 INTACT AND PATENT TO FLUSH. PROVIDED FOR COMFORT AND SAFETY. WILL CONT TO MONITOR.
--- NOTE | 2017-01-10 19:51 | NUR ---
RN NOTES: ABRAHAN ART MD BALL SHAGGER TO INFORM ABOUT PATIENT'S REFUSAL TO GO TO [facility] FOR HER, AND THAT SHE WANTS TO GO TO ANOTHER [facility] ( [facility] IN [place], AT [facility]).
[2017-01-10 20:00] VITALS: BP 97/59
--- NOTE | 2017-01-10 20:02 | NUR ---
RN NOTES: DR HANSON CALLED BACK, INFORMED MD OF PATIENT'S REFUSAL TO GO TO THE CARE HOME THAT ACCEPTED HER, AND HER PLAN TO STAY HERE FOR TONIGHT BEFORE GOING TO HER PREFERRED CARE HOME TOMORROW. PER MD, SEE IF PATIENT HAS A POA, HOWEVER, PATIENT ONLY HAS 1 STAMPING MILL TENDER ON FILE, SISTER VINAYAK IZAGUIRRE [phone]. PATIENT STILL CONFUSED AND TALKING TO HERSELF.
[2017-01-10] MEDS: ENOXAPARIN SODIUM 40 MG/0.4 ML DISP.SYRIN SQ SCH (20:41)
--- NOTE | 2017-01-10 20:57 | NUR ---
RN NOTES: INFORMED NURSE LIQUEFACTION AND REGASIFICATION HELPER REGARDING PATIENT'S REFUSAL TO BE TRANSFERRED TO [facility], AND THAT NO DPOA WAS ABLE TO BE CONTACTED.
[2017-01-10] MEDS: SIMVASTATIN 10 MG TABLET PO SCH ×2 (22:00→23:40)
[2017-01-10] MEDS: QUETIAPINE FUMARATE 100 MG TABLET PO SCH ×2 (22:00→23:40)
[2017-01-10] MEDS: DOCUSATE SODIUM 100 MG CAPSULE PO SCH ×2 (22:00→23:40)
--- NOTE | 2017-01-10 22:00 | NUR ---
RN NOTES: MEDS SCHEDULED FOR 2200 PM NOT YET ADMINISTERED PATIENT IS ASLEEP.
--- NOTE | 2017-01-10 23:02 | NUR ---
RN NOTES: PATIENT WOKE UP FOR A LITTLE WHILE BUT WENT BACK TO SLEEP IMMEDIATELY, MEDS SCHEDULED FOR 2200 PM NOT ADMINISTERED AT THIS TIME.
[2017-01-11] MEDS: MORPHINE SULFATE IR 15 MG TABLET PO SCH ×3 (03:59→14:34)
[2017-01-11 04:00] VITALS: BP 105/81
--- NOTE | 2017-01-11 06:34 | NUR ---
MS RN CLOSING NOTES: PATIENT IN BED, AOX2, ON ROOM AIR, BREATHING EVEN AND UNLABORED. STILL APPEARS CONFUSED BUT CALM. COMPLAINS OF INTERMITTENT PAIN OVER HER R HIP SCALED AT 6/10, CONTINUED WITH CURRENT PAIN MEDS. R HIP DRESSING CLEAN AND INTACT. MORNING CARE RENDERED. DUE MEDS GIVEN. PROVIDED FOR COMFORT AND SAFETY. NO ACUTE CHANGE IN CONDITION NOTED THROUGH SHIFT. WILL ENDORSE TO AM RN FOR SHARON.
[2017-01-11] MEDS: PANTOPRAZOLE 40 MG TABLET.DR PO SCH (06:41)
--- NOTE | 2017-01-11 07:15 | NUR ---
MS RN OPENING NOTES: PATIENT RECEIVED ASLEEP IN BED, EASILY AWAKENS. ALERT AND ORIENTED X2, VERBALLY RESPONSIVE WITH NO C/O PAIN OR DISCOMFORTS AT THIS TIME. ON ROOM AIR, BREATHING EVEN AND UNLABORED. IV ACCESS ON LAC G #20 INTACT AND PATENT. CALL LIGHT WITHIN REACH. BED LOW AND LOCKED. ALL SAFETY PRECAUTIONS WILL BE MAINTAINED. WILL CONT TO MONITOR ACCORDINGLY.
[2017-01-11 08:00] VITALS: BP 110/69
[2017-01-11] MEDS: MUPIROCIN OINT 2% 22 GM TUBE SCH (08:45)
[2017-01-11] MEDS: MULTIVITAMINS W-MINERALS 1 TAB TABLET PO SCH (08:46)
[2017-01-11] MEDS: POLYETHYLENE GLYCOL 3350 17 GM POWD.PACK PO SCH (08:46)
[2017-01-11] MEDS: PRIMIDONE 250 MG TABLET PO SCH ×2 (08:47→16:22)
[2017-01-11] MEDS: PHENOBARBITAL 30 MG TABLET PO SCH ×2 (08:47→16:21)
[2017-01-11] MEDS: risperiDONE 1 MG TABLET PO SCH ×2 (08:48→16:21)
[2017-01-11] MEDS: METOPROLOL TARTRATE 25 MG TABLET PO SCH ×2 (08:48→16:23)
[2017-01-11] MEDS: ZINC SULFATE 220 MG CAPSULE PO SCH (08:51)
[2017-01-11] MEDS: LIDOCAINE 5% (PATCH) 1 EA PATCH TP SCH (08:51)
[2017-01-11] MEDS: ASCORBIC ACID 500 MG TABLET PO SCH (08:51)
--- NOTE | 2017-01-11 15:52 | NUR ---
RN NOTES PATIENT WITH ORDER FOR DISCHARGE TODAY AT [facility] AND CARE AT [facility] BUT PT REFUSING TO GO AND STARTED CURSING STAFF. CAMPAIGN ASSOCIATE ALREADY SPOKE TO JIMMY, THE CAREGIVER/CONSULTING HR PROFESSIONAL OF [facility] AND EXPECTING THE PT IN THE SAID BOARD AND [facility] WHEN SHE IS DISCHARGE. I CALLED JIMMY TO GIVE EXACT ADDRESS AND GAVE ME THE ADDRESS: [address] [place] [address]. WILL PREPARE PATIENT FOR DISCHARGE.
[2017-01-11 16:00] VITALS: BP_SYST 96; BP_SYST 98; BP_DIAS 58
[2017-01-11 16:23] VITALS: BP 96/58
--- NOTE | 2017-01-11 16:23 | NUR ---
MS RN NOTES PARK INTERPRETIVE RANGER WENT TO PATIENT AND EXPLAINED THAT SHE'S TO BE DISCHARGED AND JIMMY EXPECTING HER AT THE BOARD AND CARE BUT SHE'S REFUSING AND CURSING. PARK INTERPRETIVE RANGER SAID TO CALL SECURITY. PARK INTERPRETIVE RANGER LEFT ROOM TO CALL SECURITY.
--- NOTE | 2017-01-11 17:00 | NUR ---
MS/RN DISCHARGED NOTES PATIENT DISCHARGED TO [facility] AND [facility] MED[facility] ST[facility]. PATIENT REFUSING ASSISTANCE FROM STAFF WHILE PREPARING AND CHANGING CLOTHES. SHE DIDN'T WANT ALSO TO BE TOUCH. SHE LEFT UNIT AT 1445H VIA WHEELCHAIR ACCOMPANIED BY THIS SUPERVISORY CLERK AND [facility] TO [facility] SHE'S CONTINUOUSLY CURSING WHILE BEING TRANSPORTED FROM THE FLOOR TO THE TAXI. PT ALSO REFUSED PHOTOS OF SKIN TO BE TAKEN. TRIED TO GIVE HEALTH TEACHINGS BUT SHE'S NOT LISTENING, SAME REFUSING TO SIGN DISCHARGE INSTRUCTIONS. ALL DISCHARGE PAPERS AND DOCUMENTS GIVEN WHILE IN THE TAXI. MD AWARE OF DISCHARGE.
== END 2017-01-11 16:45 | disposition home or self-care (01) | DRG 751 ==
LOC: ER 14:09 → MEDSG2 18:55
DX: F23 Brief psychotic disorder (principal); J44.9 Chronic obstructive pulmonary disease, unspecified; F31.2 Bipolar disorder, current episode manic severe with psychotic features; I10 Essential (primary) hypertension; E11.9 Type 2 diabetes mellitus without complications; K21.9 Gastro-esophageal reflux disease without esophagitis; F17.210 Nicotine dependence, cigarettes, uncomplicated; Z96.641 Presence of right artificial hip joint; Z86.711 Personal history of pulmonary embolism; Z79.899 Other long term (current) drug therapy; Z85.89 Personal history of malignant neoplasm of other organs and systems
CPT/HCPCS: 36415; 71010-TC; 73552; 80048-TC; 80061-TC; 80076-TC; 80305; 83735-TC; 84100-TC; 84443-TC; 85025-TC; 87081-TC; 97001-TC; A4606; G0480; J1650; J3490; Z7610

== ENCOUNTER 2017-04-02 00:09 | Emergency (ER) | payer MEDICAID, OTHER ==
[~2017-04-02] VITALS: Ht 162.6 cm; Wt 52.2 kg
[~2017-04-02 00:09] MED LIST changes: +ALBU8.5H2 IH; +AMIN30LI4 PO; +ASCO500T9 PO; +BISA10SU8 RC; -CEPH500C2 PO; +DOCU-25 PO; +LIDO30AD10 TP; +LORA0.5T PO; +MAGN400O6 PO; +METO25TA6 PO; -MIRT15TA7 PO; +MORP15TA PO; +MULT-659 PO; +NA P133E RC; +PANT40TA4 PO; +PHEN30TA40 PO; +POLY17PO4 PO; +QUET100T PO; +RISP1TAB7 PO; -RISP2TAB23 PO; +SENN8.6T6 PO; +ZINC220C8 PO
--- NOTE | 2017-04-02 00:15 | NUR ---
To bed 2 [facility] paramedics c/o RLQ abdominal pain. She states moderate dysuria (burning) only with urination, no radiation. denies back pain,fever,chills, denies vaginal bleeding or discharge. Pt aaox4 no acute distress noted, resp even and unlabored. pending er md shah.
--- NOTE | 2017-04-02 00:20 | NUR ---
urine sample collected and sent to lab.
[2017-04-02 01:43] LABS: APPEARANCE,URINE SL CLOUDY (CLEAR); BILIRUBIN,URINE NEGATIVE (NEGATIVE); BLOOD, URINE NEGATIVE Ery/uL (NEGATIVE); COLOR,URINE YELLOW (YELLOW); KETONES,URINE NEGATIVE (NEGATIVE); LEUKOCYTE ESTERASE ,URINE NEGATIVE (NEGATIVE); NITRITE, URINE POSITIVE (NEGATIVE); PROTEIN,URINE NEGATIVE (NEGATIVE); UGLUCOSE NEGATIVE (NEGATIVE); UROBILINOGEN,URINE 0.2 EU/dL (0.2)
[2017-04-02 01:49] LABS: BACTERIA,URINE 3+ /HPF (None Seen); RBC,URINE 0-2 /HPF (0-2); SQUAMOUS EPITHELIAL CELL,UR Moderate /HPF (None Seen); WBC,URINE 0-2 /HPF (0-3)
--- NOTE | 2017-04-02 01:55 | NUR ---
PT ASLEEP, NO ACUTE DISTRESS NOTED, RESP EVEN AND UNLABORED. CALL LIGHT WITHIN REACH.
--- NOTE | 2017-04-02 02:47 | NUR ---
CALLED [facility] AND [facility], . UNABLE TO LEAVE .
--- NOTE | 2017-04-02 03:37 | NUR ---
CALLED [facility], . UNABLE TO REACH STAFF OR LEAVE .
--- NOTE | 2017-04-02 05:00 | NUR ---
MULTIPLE CALLS TO [facility] MADE. UNABLE TO REACH STAFF.
--- NOTE | 2017-04-02 06:02 | NUR ---
CALLED [facility], NO ANSWER.
--- NOTE | 2017-04-02 06:26 | NUR ---
CALLED [facility], NO ANSWER.
--- NOTE | 2017-04-02 07:21 | NUR ---
REPORT GIVEN TO ELIANE LYON.
--- NOTE | 2017-04-02 08:50 | NUR ---
REPORT GIVEN TO FRANKY SANCHEZ,[facility] HCW FOR SHARON,HOA CALLED FOR [place]
[2017-04-02 09:15] VITALS: BP 126/77
--- NOTE | 2017-04-02 09:25 | NUR ---
REPORT GIVEN TO EMT FOR SHARON
== END 2017-04-02 09:31 | disposition home or self-care (01) ==
LOC: ER 00:11
DX: N30.90 Cystitis, unspecified without hematuria (principal); E11.9 Type 2 diabetes mellitus without complications; I10 Essential (primary) hypertension; Z90.49 Acquired absence of other specified parts of digestive tract; F17.200 Nicotine dependence, unspecified, uncomplicated
CPT/HCPCS: 81000-TC; 87086-TC; 87186-TC; A4606; Z7610

== ENCOUNTER 2018-10-08 13:42 | Emergency (ER) | payer SELFPAY ==
[~2018-10-08] VITALS: Ht 162.6 cm; Wt 72.1 kg
[~2018-10-08 13:42] MED LIST changes: -ALBU8.5H2 IH; +ALBU8.5H8 IH; +DOCU-141 PO; -DOCU-25 PO; +SENN-168 PO; -SENN8.6T6 PO
--- NOTE | 2018-10-08 13:48 | NUR ---
PT BBRA FROM [facility] FOR PELVIC PAIN AND CP RADIATING TO ARMPIT PAIN; PT AAOX2-3, PT ON MONITOR ,VSS, PENDING MD CAMARILLO
[2018-10-08 14:18] LABS: BASOPHILS # (AUTO) 0.1 /CMM (0.0-0.2); EOSINOPHILS % (AUTO) 2.8 % (0.0-6.0); HEMATOCRIT 39 % (33-45); HEMOGLOBIN 13.2 g/dL (11.5-14.8); LYMPHOCYTES # (AUTO) 2.9 /CMM (0.8-4.8); LYMPHOCYTES % (AUTO) 53.2 % (20.0-44.0); MEAN CORPUSCULAR HGB CONC 34 g/dl (31.0-36.0); MEAN CORPUSCULAR VOLUME 91 fL (82-100); MONOCYTES # (AUTO) 0.4 /CMM (0.1-1.30); NEUTROPHILS # (AUTO) 1.9 /CMM (1.8-8.9); PLATELET COUNT (AUTO) 368 /CMM (150-450); RED BLOOD CELL COUNT(AUTO) 4.24 MIL/uL (4.0-5.2); WHITE BLOOD COUNT (AUTO) 5.4 K/uL (4.3-11.0)
[2018-10-08 14:47] LABS: CALCIUM, SERUM 9.1 mg/dL (8.5-10.1); CARBON DIOXIDE 29 mmol/L (21-32); CHLORIDE 96 mmol/L (98-107); CREATININE 0.5 mg/dL (0.6-1.3); GLUCOSE 91 mg/dL (74-106); POTASSIUM 4.1 mmol/L (3.5-5.1); SODIUM SERUM 131 mmol/L (136-145); UREA NITROGEN, BLOOD 7 mg/dL (7-18)
[2018-10-08] MEDS ORDERED: IV NS 0.9% 500 ML IV ONE (15:00)
[2018-10-08] MEDS ORDERED: MORPHINE SULFATE INJ 2 MG/ML DISP.SYRIN IV ONE (15:00)
[2018-10-08] MEDS ORDERED: MORPHINE SULFATE INJ 10 MG/ML DISP.SYRIN ONE (15:09)
[2018-10-08 15:48] LABS: APPEARANCE,URINE Clear (CLEAR); BILIRUBIN,URINE Negative (NEGATIVE); BLOOD, URINE Trace-intact Ery/uL (NEGATIVE); COLOR,URINE Yellow (YELLOW); KETONES,URINE Negative (NEGATIVE); LEUKOCYTE ESTERASE ,URINE Negative (NEGATIVE); NITRITE, URINE Positive (NEGATIVE); PROTEIN,URINE Negative (NEGATIVE); UGLUCOSE Negative (NEGATIVE); UROBILINOGEN,URINE 0.2 EU/dL (0.2)
[2018-10-08 15:56] LABS: BACTERIA,URINE 2+ /HPF (None Seen); SQUAMOUS EPITHELIAL CELL,UR Few /HPF (None Seen)
[2018-10-08] MEDS ORDERED: KETOROLAC TROMETHAMINE INJ 30 MG/ML VIAL IV ONE (17:00)
[2018-10-08] MEDS ORDERED: CEFTRIAXONE 1GM BAG (ER ONLY) 1 GM/50 ML PIGGYBACK IV ONE (17:00)
[2018-10-08] MEDS ORDERED: CEFTRIAXONE 1GM BAG (ER ONLY) 50 ML IV ONE (17:16)
[2018-10-08] MEDS ORDERED: KETOROLAC TROMETHAMINE INJ 30 MG/ML VIAL ONE (17:16)
--- NOTE | 2018-10-08 17:57 | NUR ---
CALLED [facility] 7:30PM TRIP [phone]
--- NOTE | 2018-10-08 20:00 | NUR ---
PT LEFT IN STABLE CONDITON, VSS, NAD, PT WILL BE TRANSPORTED TO [address] [place] [address] [facility]. PT LEFT VIA GURNEY WITH PRIVATE AMBULANCE WITH 2 RESOLUTION MANAGER.
[2018-10-08 21:04] VITALS: BP 122/64
== END 2018-10-08 21:04 ==
LOC: ER 13:44
DX: N39.0 Urinary tract infection, site not specified (principal); M25.551 Pain in right hip; I10 Essential (primary) hypertension; G40.909 Epilepsy, unspecified, not intractable, without status epilepticus; I25.10 Atherosclerotic heart disease of native coronary artery without angina pectoris; F20.0 Paranoid schizophrenia; F17.200 Nicotine dependence, unspecified, uncomplicated; Z79.899 Other long term (current) drug therapy; Z85.6 Personal history of leukemia
CPT/HCPCS: 36415; 71045; 72170; 80048; 81001; 84484; 85025; 87086; 93005; 96365; 96375; 99284; J0696; J1885; J2270; J7040; 81000-TC

== ENCOUNTER 2018-10-19 15:45 | Emergency (ER) | payer SELFPAY | END 2018-10-19 17:07 | disposition left against medical advice (07) | LOC: ER 15:53 | DX: Z53.21 Procedure and treatment not carried out due to patient leaving prior to being seen by health care provider (principal) ==

== ENCOUNTER 2018-10-25 18:44 | Emergency (ER) | payer SELFPAY ==
[~2018-10-25] VITALS: Ht 162.6 cm; Wt 67.6 kg
--- NOTE | 2018-10-25 18:44 | NUR ---
BIBRA 860 C/O RIGHT LEG PAIN, DENIES RECENT TRAUMA OR INJURY, TO ER BED 1, HOOKED TO MONITOR, AWAITING MD CAMARILLO.
--- NOTE | 2018-10-25 19:29 | NUR ---
REPORT GIVEN TO SAMUEL SANCHEZ FOR SHARON
--- NOTE | 2018-10-25 19:30 | NUR ---
XAVIER OTTO AT BEDSIDE.
[2018-10-25] MEDS ORDERED: ONDANSETRON 4 MG TAB.RAPDIS ONE (19:43)
[2018-10-25] MEDS ORDERED: MORPHINE SULFATE INJ 4 MG/ML DISP.SYRIN ONE (19:43)
--- NOTE | 2018-10-25 19:46 | NUR ---
XRAY AT BEDSIDE.
[2018-10-25] MEDS ORDERED: MORPHINE SULFATE INJ 2 MG/ML DISP.SYRIN IM ONE (20:00)
[2018-10-25] MEDS ORDERED: ONDANSETRON 4 MG TAB.RAPDIS SL ONE (20:00)
--- NOTE | 2018-10-25 21:13 | NUR ---
PT TAKEN TO CT.
--- NOTE | 2018-10-25 21:15 | NUR ---
PT RETURNED FROM CT.
--- NOTE | 2018-10-25 21:25 | NUR ---
PT PUT ON BEDPAN. URINE SAMPLE OBTAINED AND SENT TO LAB.
[2018-10-25 21:49] LABS: APPEARANCE,URINE Clear (CLEAR); BILIRUBIN,URINE Negative (NEGATIVE); BLOOD, URINE Negative Ery/uL (NEGATIVE); COLOR,URINE Yellow (YELLOW); KETONES,URINE Negative (NEGATIVE); LEUKOCYTE ESTERASE ,URINE Trace (NEGATIVE); NITRITE, URINE Negative (NEGATIVE); PROTEIN,URINE Negative (NEGATIVE); UGLUCOSE Negative (NEGATIVE); UROBILINOGEN,URINE 0.2 EU/dL (0.2)
[2018-10-25 21:53] LABS: BACTERIA,URINE Few /HPF (None Seen); RBC,URINE 0-2 /HPF (0-2); SQUAMOUS EPITHELIAL CELL,UR Few /HPF (None Seen); URINE AMORPHOUS URATE Few /HPF (None Seen); WBC,URINE 2-3/HPF /HPF (0-3)
--- NOTE | 2018-10-25 22:40 | NUR ---
[facility] CALLED ETA [phone]. TRANSPORT #[id number]
--- NOTE | 2018-10-25 22:49 | NUR ---
SHEEBA AT [facility] NOTIFIED THAT PT WILL BE RETURNING.
--- NOTE | 2018-10-25 23:30 | NUR ---
PT RESTING IN BED COMFORTABLY, NAD NOTED. WILL CONTINUE TO MONITOR.
[2018-10-26 00:16] VITALS: BP 115/81
== END 2018-10-26 00:21 | disposition home or self-care (01) ==
LOC: ER 18:46
DX: M25.551 Pain in right hip (principal); I10 Essential (primary) hypertension; I25.10 Atherosclerotic heart disease of native coronary artery without angina pectoris; F20.0 Paranoid schizophrenia; F17.200 Nicotine dependence, unspecified, uncomplicated; Z79.899 Other long term (current) drug therapy
CPT/HCPCS: 72170; 72192; 73551; 81001; 96372; 99284; J2270; Q0162; 73552; 81000-TC

== ENCOUNTER 2018-11-06 00:12 | Emergency (ER) | payer SELFPAY ==
[~2018-11-06] VITALS: Ht 162.6 cm; Wt 59.0 kg
--- NOTE | 2018-11-06 00:32 | NUR ---
PT BIBRA. C/O "HAVING BLOODY STOOLS FOR X2 HRS" -SOB -ACUTE DISTRESS. AXO4. AMBULATORY
[2018-11-06] MEDS ORDERED: ONDANSETRON HCL/PF 4 MG/2 ML VIAL ONE (00:38)
[2018-11-06] MEDS ORDERED: MORPHINE SULFATE INJ 4 MG/ML DISP.SYRIN ONE (00:38)
[2018-11-06 00:55] LABS: BASOPHILS # (AUTO) 0.1 /CMM (0.0-0.2); EOSINOPHILS % (AUTO) 3.1 % (0.0-6.0); HEMATOCRIT 37 % (33-45); HEMOGLOBIN 12.8 g/dL (11.5-14.8); LYMPHOCYTES # (AUTO) 3.2 /CMM (0.8-4.8); LYMPHOCYTES % (AUTO) 52.8 % (20.0-44.0); MEAN CORPUSCULAR HGB CONC 35 g/dl (31.0-36.0); MEAN CORPUSCULAR VOLUME 91 fL (82-100); MONOCYTES # (AUTO) 0.4 /CMM (0.1-1.30); MONOCYTES % (AUTO) 7.5 % (2.0-12.0); NEUTROPHILS # (AUTO) 2.1 /CMM (1.8-8.9); NEUTROPHILS % (AUTO) 35.6 % (43.0-81.0); PLATELET COUNT (AUTO) 317 /CMM (150-450); RED BLOOD CELL COUNT(AUTO) 4.09 MIL/uL (4.0-5.2)
[2018-11-06] MEDS ORDERED: ONDANSETRON HCL/PF 4 MG/2 ML VIAL IVP ONE (01:00)
[2018-11-06] MEDS ORDERED: IV NS 0.9% 500 ML BAG IV ONE (01:00)
[2018-11-06] MEDS ORDERED: MORPHINE SULFATE INJ 2 MG/ML DISP.SYRIN IV ONE (01:00)
[2018-11-06 01:03] LABS: CARBON DIOXIDE 27 mmol/L (21-32); CHLORIDE 98 mmol/L (98-107); CREATININE 0.5 mg/dL (0.6-1.3); GLUCOSE 83 mg/dL (74-106); POTASSIUM 3.8 mmol/L (3.5-5.1); SODIUM SERUM 133 mmol/L (136-145); UREA NITROGEN, BLOOD 6 mg/dL (7-18)
[2018-11-06 01:09] LABS: ALANINE AMINOTRANSFERASE 27 U/L (12-78); ALBUMIN 3.7 g/dL (3.4-5.0); ALKALINE PHOSPHATASE 91 U/L (46-116); ASPARTATE AMINOTRANSFERASE 15 U/L (15-37); BILIRUBIN,TOTAL 0.2 mg/dL (0.2-1.0); LIPASE 107 U/L (73-393); TOTAL PROTEIN, SERUM 7.2 g/dL (6.4-8.2)
--- NOTE | 2018-11-06 03:42 | NUR ---
[facility] CALLED ETA 30 MIN. TRIP#[id number]
[2018-11-06 04:00] VITALS: BP 112/71
== END 2018-11-06 04:02 | disposition home or self-care (01) ==
LOC: ER 00:16
DX: R10.84 Generalized abdominal pain (principal); G40.909 Epilepsy, unspecified, not intractable, without status epilepticus; I10 Essential (primary) hypertension; I25.10 Atherosclerotic heart disease of native coronary artery without angina pectoris; F20.0 Paranoid schizophrenia; F17.200 Nicotine dependence, unspecified, uncomplicated; Z85.6 Personal history of leukemia; Z60.2 Problems related to living alone
CPT/HCPCS: 36415; 71045; 74176; 80048; 80076; 83690; 84484; 85025; 85730; 86850; 93005; 96374; 96375; 99284; J2270; J2405; J7030 ×2; J7040

== ENCOUNTER 2018-11-09 20:45 | Emergency (ER) | payer SELFPAY ==
[~2018-11-09] VITALS: Ht 162.6 cm; Wt 49.9 kg
[2018-11-09 20:49] VITALS: BP 136/74
[2018-11-09] MEDS ORDERED: HYDROMORPHONE HCL 2 MG TABLET PO PRN (21:30)
[2018-11-09] MEDS ORDERED: HYDROMORPHONE HCL 2 MG TABLET ONE (21:33)
[2018-11-09 21:46] LABS: APPEARANCE,URINE Cloudy (CLEAR); BILIRUBIN,URINE Negative (NEGATIVE); BLOOD, URINE Negative Ery/uL (NEGATIVE); COLOR,URINE Yellow (YELLOW); KETONES,URINE Negative (NEGATIVE); LEUKOCYTE ESTERASE ,URINE Small (NEGATIVE); NITRITE, URINE Positive (NEGATIVE); PH,URINE 6.5 (5.0-8.0); PROTEIN,URINE Negative (NEGATIVE); UGLUCOSE Negative (NEGATIVE); UROBILINOGEN,URINE 0.2 EU/dL (0.2)
[2018-11-09 21:53] LABS: BACTERIA,URINE Few /HPF (None Seen); RBC,URINE 0-2 /HPF (0-2); SQUAMOUS EPITHELIAL CELL,UR Few /HPF (None Seen)
--- NOTE | 2018-11-09 22:22 | NUR ---
CALLED [facility] FOR TRANSPORTATION. ETA [phone]. TRIP NUMBER [id number]
== END 2018-11-09 23:29 ==
LOC: ER 20:49
DX: G89.29 Other chronic pain (principal); I10 Essential (primary) hypertension; I25.10 Atherosclerotic heart disease of native coronary artery without angina pectoris; F20.0 Paranoid schizophrenia; F17.200 Nicotine dependence, unspecified, uncomplicated; Z60.2 Problems related to living alone; Z95.818 Presence of other cardiac implants and grafts; Z79.899 Other long term (current) drug therapy
CPT/HCPCS: 81000-TC

== ENCOUNTER 2018-11-10 15:40 | Emergency (ER) | payer SELFPAY ==
[~2018-11-10] VITALS: Ht 162.6 cm; Wt 68.0 kg
--- NOTE | 2018-11-10 16:06 | NUR ---
PATIENT FROM [facility]. SPOKE TO AMADO-DIVING SUPERVISOR AT [phone], STATED "THE PATIENT FREQUENTLY CALLS 911. I CALLED 911/PD TODAY BECAUSE PATIENT BECAME AGGRESSIVE TO US". PER ADMIN, THEY ONLY PROVIDE PATIENT WITH GABAPENTIN. PRIMARY NURSE AND DR. ZUNIGA AWARE.
--- NOTE | 2018-11-10 16:15 | NUR ---
JUAN DORMAN AT BED SIDE.
[2018-11-10] MEDS ORDERED: OLANZAPINE 5 MG TABLET ONE (16:22)
[2018-11-10] MEDS ORDERED: HYDROCODONE/APAP 10/325MG 1 EA TABLET ONE (16:22)
--- NOTE | 2018-11-10 16:29 | NUR ---
Social service consult requested by ER. Pt. is a 68 years old female who was admitted to the [facility] ER for behavioral concerns. SW met with pt. at ER bedside. Pt. was sitting up in her bed. Pt. is engaged in the visit but appears confused at times. Pt. is oriented x 3. Pt. currently resides at [facility] at [address] [place] [address]. . Pt. emergency contact is listed at her sister, Yeni Garcia , but pt. states she is no longer her emergency contact and she does not have one at this time. Pt. states that she receives income and believes that she has [facility]. Pt. is dissatisfied with her current placement and would like to move to a different facility. Pt. is interested in speaking with a [employer]. GRICELDA notified [facility] [employer] Kim with the aforementioned information. No other services requested at this time. GRICELDA is available if needed.
[2018-11-10] MEDS ORDERED: HYDROCODONE/APAP 10/325MG 1 EA TABLET PO ONE (16:30)
[2018-11-10] MEDS ORDERED: OLANZAPINE 5 MG TABLET PO ONE (16:30)
--- NOTE | 2018-11-10 18:23 | NUR ---
CALLED [facility] FOR TRANSPORT ETA OF 1450 WAS GIVEN. TRIP#[id number]
--- NOTE | 2018-11-10 18:40 | NUR ---
DISCHARGE INSTRUCTIONS PROVIDED TO PATIENT AND VERBALIZED UNDERSTANDING. RX PROVIDED. AWAITING FOR TRANSPORTATION.
--- NOTE | 2018-11-10 19:31 | NUR ---
ENDORSED TO KYREE SANCHEZ FOR [facility]. PATIENT IS WAITING FOR TRANSPORTATION.
[2018-11-10 21:43] VITALS: BP 109/67
== END 2018-11-10 21:53 ==
LOC: ER 15:45
DX: G89.29 Other chronic pain (principal); I10 Essential (primary) hypertension; I25.10 Atherosclerotic heart disease of native coronary artery without angina pectoris; F20.0 Paranoid schizophrenia; F17.200 Nicotine dependence, unspecified, uncomplicated; Z95.818 Presence of other cardiac implants and grafts; Z60.2 Problems related to living alone; Z79.899 Other long term (current) drug therapy

== ENCOUNTER 2018-11-21 07:35 | Emergency (ER) | payer SELFPAY ==
[~2018-11-21] VITALS: Ht 162.6 cm; Wt 75.3 kg
[2018-11-21] MEDS ORDERED: KETOROLAC TROMETHAMINE INJ 30 MG/ML VIAL IM ONE (08:00)
[2018-11-21] MEDS ORDERED: KETOROLAC TROMETHAMINE INJ 30 MG/ML VIAL ONE (08:01)
[2018-11-21 08:37] LABS: BASOPHILS # (AUTO) 0.1 /CMM (0.0-0.2); BASOPHILS % (AUTO) 0.6 % (0.0-2.0); HEMATOCRIT 36 % (33-45); HEMOGLOBIN 12.8 g/dL (11.5-14.8); LYMPHOCYTES # (AUTO) 3.5 /CMM (0.8-4.8); LYMPHOCYTES % (AUTO) 42.4 % (20.0-44.0); MEAN CORPUSCULAR HGB CONC 35 g/dl (31.0-36.0); MEAN CORPUSCULAR VOLUME 91 fL (82-100); MONOCYTES # (AUTO) 0.5 /CMM (0.1-1.30); MONOCYTES % (AUTO) 6.5 % (2.0-12.0); NEUTROPHILS % (AUTO) 48.5 % (43.0-81.0); PLATELET COUNT (AUTO) 286 /CMM (150-450); RED BLOOD CELL COUNT(AUTO) 3.98 MIL/uL (4.0-5.2); WHITE BLOOD COUNT (AUTO) 8.2 K/uL (4.3-11.0)
--- NOTE | 2018-11-21 08:40 | NUR ---
patient presented to the ER from [facility] c/o generalized weakness when she woke up this morning. On room air, breathing evenly and unlabored. Connected to the monitor and pulse ox. kept comfortable, will continue to monitor accordingly.
[2018-11-21 08:43] LABS: CALCIUM, SERUM 8.8 mg/dL (8.5-10.1); CARBON DIOXIDE 31 mmol/L (21-32); CHLORIDE 95 mmol/L (98-107); CREATININE 0.5 mg/dL (0.6-1.3); GLUCOSE 99 mg/dL (74-106); POTASSIUM 4.1 mmol/L (3.5-5.1); SODIUM SERUM 129 mmol/L (136-145); UREA NITROGEN, BLOOD 13 mg/dL (7-18)
--- NOTE | 2018-11-21 09:59 | NUR ---
ER REGISTRAR CALLED FOR ASSISTANCE W/ TX BACK TO FACILITY
--- NOTE | 2018-11-21 11:00 | NUR ---
Social work consult: social work therapist met with pt regarding her possible discharge back to her assisted living [facility]. Pt gave social work therapist her social security number, social work therapist spoke with admission who stated they have ran both social security numbers pt has provided, admission has also contacted facility and used all face sheet information to verify insurance for discharge back to facility. No insurance has been confirmed, social work therapist spoke with central office repairer supervisor that only option is to dispatch an ambulance from hospital contract. fiber worker forwarded information to RN.
--- NOTE | 2018-11-21 11:11 | NUR ---
TRIP NUMBER [id number] ETA IS 1300 PER JONEL
[2018-11-21 12:52] VITALS: BP 115/82
--- NOTE | 2018-11-21 12:53 | NUR ---
Patient discharged to [facility] in stable condition. Written and verbal after care instructions given. Patient verbalizes understanding of instruction.
== END 2018-11-21 12:53 ==
LOC: ER 07:37
DX: R07.89 Other chest pain (principal); G40.909 Epilepsy, unspecified, not intractable, without status epilepticus; I10 Essential (primary) hypertension; I25.10 Atherosclerotic heart disease of native coronary artery without angina pectoris; F20.0 Paranoid schizophrenia; F17.200 Nicotine dependence, unspecified, uncomplicated; Z60.2 Problems related to living alone; Z95.818 Presence of other cardiac implants and grafts; Z79.899 Other long term (current) drug therapy
CPT/HCPCS: 36415; 71045; 80048; 84484; 85025; 93005; 96372; 99284; 99406; J1885

== ENCOUNTER 2018-11-25 20:14 | Emergency (ER) | payer SELFPAY ==
[~2018-11-25] VITALS: Ht 162.6 cm; Wt 55.3 kg
[2018-11-25 20:24] VITALS: BP 112/76
--- NOTE | 2018-11-25 20:30 | NUR ---
PT BIBRA C/O HEADACHE. PT DOES NOT GIVE CLEAR ANSWERS DURING ASSESSMENT. NOTED MULTIPLE WRISTBANDS FROM [facility] ON ARM. NO ACUTE DISTRESS NOTED AT THIS TIME. WAITING MD CAMARILLO
--- NOTE | 2018-11-25 20:40 | NUR ---
MD AT BEDSIDE FOR EVALUATION
[2018-11-25] MEDS ORDERED: KETOROLAC TROMETHAMINE INJ 30 MG/ML VIAL ONE (20:46)
--- NOTE | 2018-11-25 20:52 | NUR ---
PT REQUESTING FOR MORPHINE ONLY. STATES "TORADOL DOESN'T HELP MY BRAIN". INFORMED PT THE MD WILL NOT ORDER MORPHINE, PT ACCEPTED TORADOL DOSE. MD AWARE.
--- NOTE | 2018-11-25 20:56 | NUR ---
Patient discharged to home in stable condition. Written and verbal after care instructions given. Patient verbalizes understanding of instruction. Pt ambulatory with a steady gait
[2018-11-25] MEDS ORDERED: KETOROLAC TROMETHAMINE INJ 60 MG/2 ML VIAL IM ONE (21:00)
== END 2018-11-25 20:57 | disposition home or self-care (01) ==
LOC: ER 20:25
DX: G89.29 Other chronic pain (principal); F11.20 Opioid dependence, uncomplicated; R51 Headache; G40.909 Epilepsy, unspecified, not intractable, without status epilepticus; I10 Essential (primary) hypertension; I25.10 Atherosclerotic heart disease of native coronary artery without angina pectoris; F20.0 Paranoid schizophrenia; F17.200 Nicotine dependence, unspecified, uncomplicated; Z95.818 Presence of other cardiac implants and grafts; Z60.2 Problems related to living alone; Z79.899 Other long term (current) drug therapy
CPT/HCPCS: 96372; 99283; J1885

== ENCOUNTER 2018-12-03 13:58 | Emergency (ER) | payer SELFPAY ==
[~2018-12-03] VITALS: Ht 162.6 cm; Wt 55.3 kg
--- NOTE | 2018-12-03 14:10 | NUR ---
[id number], FROM HOME, C/O ABD PAIN SINCE THIS MORNING 02/24 PS. A/OX3, BREATHING EVEN AND UNLABORED, NO SOB NOTED, PLACED ON THE MONITOR. WAITING FOR MD CAMARILLO.
[2018-12-03] MEDS ORDERED: MORPHINE SULFATE INJ 2 MG/ML DISP.SYRIN IV ONE (14:30)
[2018-12-03] MEDS ORDERED: MORPHINE SULFATE INJ 2 MG/ML DISP.SYRIN ONE (14:35)
[2018-12-03 14:36] LABS: BASOPHILS # (AUTO) 0.1 /CMM (0.0-0.2); BASOPHILS % (AUTO) 0.9 % (0.0-2.0); EOSINOPHILS % (AUTO) 3.1 % (0.0-6.0); HEMATOCRIT 39 % (33-45); HEMOGLOBIN 13.5 g/dL (11.5-14.8); LYMPHOCYTES # (AUTO) 2.8 /CMM (0.8-4.8); LYMPHOCYTES % (AUTO) 40.6 % (20.0-44.0); MEAN CORPUSCULAR HGB CONC 35 g/dl (31.0-36.0); MEAN CORPUSCULAR VOLUME 92 fL (82-100); MONOCYTES # (AUTO) 0.6 /CMM (0.1-1.30); MONOCYTES % (AUTO) 8.2 % (2.0-12.0); NEUTROPHILS # (AUTO) 3.2 /CMM (1.8-8.9); NEUTROPHILS % (AUTO) 47.2 % (43.0-81.0); PLATELET COUNT (AUTO) 369 /CMM (150-450); RED BLOOD CELL COUNT(AUTO) 4.25 MIL/uL (4.0-5.2); WHITE BLOOD COUNT (AUTO) 6.8 K/uL (4.3-11.0)
[2018-12-03 14:43] LABS: CALCIUM, SERUM 9.1 mg/dL (8.5-10.1); CARBON DIOXIDE 31 mmol/L (21-32); CHLORIDE 96 mmol/L (98-107); CREATININE 0.7 mg/dL (0.6-1.3); GLUCOSE 98 mg/dL (74-106); SODIUM SERUM 134 mmol/L (136-145); UREA NITROGEN, BLOOD 9 mg/dL (7-18)
[2018-12-03 14:49] LABS: ALANINE AMINOTRANSFERASE 39 U/L (12-78); ALBUMIN 3.9 g/dL (3.4-5.0); ALKALINE PHOSPHATASE 100 U/L (46-116); ASPARTATE AMINOTRANSFERASE 18 U/L (15-37); BILIRUBIN,TOTAL 0.2 mg/dL (0.2-1.0); LIPASE 143 U/L (73-393); TOTAL PROTEIN, SERUM 7.7 g/dL (6.4-8.2)
[2018-12-03] MEDS ORDERED: LOPE2TAB25 PO (14:55)
[2018-12-03] MEDS ORDERED: AMLO2.5T2 PO (14:55)
[2018-12-03] MEDS ORDERED: ARIP20TA4 PO (14:55)
[2018-12-03] MEDS ORDERED: TEMA15CA PO (14:55)
[2018-12-03] MEDS ORDERED: FAMO20TA80 PO (14:55)
[2018-12-03] MEDS ORDERED: HYDR4TAB57 PO (14:55)
[2018-12-03] MEDS ORDERED: PHEN16.22 PO (14:55)
[2018-12-03] MEDS ORDERED: MAGN400O6 PO (14:55)
[2018-12-03] MEDS ORDERED: IBUP-1953 PO (14:55)
[2018-12-03] MEDS ORDERED: SODI100037 PO (14:55)
[2018-12-03] MEDS ORDERED: ONDA4TAB11 PO (14:55)
[2018-12-03] MEDS ORDERED: FURO-145 PO (14:55)
[2018-12-03] MEDS ORDERED: TYL2T PO (14:55)
[2018-12-03] MEDS ORDERED: MORP15TA7 PO (14:55)
[2018-12-03] MEDS ORDERED: GABA-536 PO (14:55)
[2018-12-03 14:56] LABS: APPEARANCE,URINE Clear (CLEAR); BILIRUBIN,URINE Negative (NEGATIVE); BLOOD, URINE Negative Ery/uL (NEGATIVE); COLOR,URINE Yellow (YELLOW); KETONES,URINE Negative (NEGATIVE); LEUKOCYTE ESTERASE ,URINE Negative (NEGATIVE); NITRITE, URINE Negative (NEGATIVE); PROTEIN,URINE Negative (NEGATIVE); UGLUCOSE Negative (NEGATIVE); UROBILINOGEN,URINE 0.2 EU/dL (0.2)
--- NOTE | 2018-12-03 16:00 | NUR ---
[facility]IVA CALLED TRIP NUMBER #[id number] ETA 2606 SPOKE TO CHRISTI
--- NOTE | 2018-12-03 16:19 | NUR ---
PATIENT A/OX4, BREATHING EVEN AND UNLABORED, NO SOB NOTED, DENIES PAIN OR DISCOMFORT AT THIS TIME. CLEARED FOR DISCHARGE. WAITING FOR TRANSPORTATION.
[2018-12-03 16:34] VITALS: BP 119/63
--- NOTE | 2018-12-03 18:03 | NUR ---
Patient discharged to snf in stable condition picked up by ambulance, NAD, VSS. Written and verbal after care instructions given. Patient verbalizes understanding of instruction.
== END 2018-12-03 18:04 ==
LOC: ER 14:05
DX: R10.84 Generalized abdominal pain (principal); G40.909 Epilepsy, unspecified, not intractable, without status epilepticus; R51 Headache; I25.10 Atherosclerotic heart disease of native coronary artery without angina pectoris; F20.0 Paranoid schizophrenia; F17.200 Nicotine dependence, unspecified, uncomplicated; Z85.6 Personal history of leukemia; Z95.5 Presence of coronary angioplasty implant and graft; Z60.2 Problems related to living alone
CPT/HCPCS: 36415; 70450; 74176; 80048; 80076; 80184 ×2; 80188; 81001; 83690; 84484; 85025; 93005; 96374; 99285; J2270; 81000-TC

== ENCOUNTER 2018-12-10 06:59 | Emergency (ER) ==
[~2018-12-10] VITALS: Ht 162.6 cm; Wt 59.9 kg
[~2018-12-10 06:59] MED LIST changes: -ALBU8.5H8 IH; -AMIN30LI4 PO; +AMLO2.5T2 PO; +ARIP20TA4 PO; -ASCO500T9 PO; -BISA10SU8 RC; -DOCU-141 PO; +FAMO20TA80 PO; +FURO-145 PO; +GABA-536 PO; +HYDR4TAB57 PO; +IBUP-1953 PO; -LIDO30AD10 TP; +LOPE2TAB25 PO; -LORA0.5T PO; -METO25TA6 PO; -MORP15TA PO; +MORP15TA7 PO; -MULT-659 PO; -NA P133E RC; +ONDA4TAB11 PO; -PANT40TA4 PO; +PHEN16.22 PO; -PHEN30TA40 PO; -POLY17PO4 PO; -QUET100T PO; -RISP1TAB7 PO; -SENN-168 PO; -SIMV10TA6 PO; +SODI100037 PO; +TEMA15CA PO; +TYL2T PO; -ZINC220C8 PO
--- NOTE | 2018-12-10 07:03 | NUR ---
PT MARIA ANTONIA FROM [facility] BLEED; PT AAOX4, PT ON MONITOR, VSS, NAD NOTED, PENDING MD CAMARILLO
[2018-12-10 07:43] LABS: BASOPHILS # (AUTO) 0.1 /CMM (0.0-0.2); BASOPHILS % (AUTO) 0.7 % (0.0-2.0); EOSINOPHILS % (AUTO) 1.7 % (0.0-6.0); HEMATOCRIT 36 % (33-45); HEMOGLOBIN 12.7 g/dL (11.5-14.8); LYMPHOCYTES % (AUTO) 41.4 % (20.0-44.0); MEAN CORPUSCULAR HGB CONC 36 g/dl (31.0-36.0); MEAN CORPUSCULAR VOLUME 91 fL (82-100); MONOCYTES # (AUTO) 0.6 /CMM (0.1-1.30); MONOCYTES % (AUTO) 7.8 % (2.0-12.0); NEUTROPHILS # (AUTO) 3.5 /CMM (1.8-8.9); NEUTROPHILS % (AUTO) 48.4 % (43.0-81.0); PLATELET COUNT (AUTO) 353 /CMM (150-450); WHITE BLOOD COUNT (AUTO) 7.1 K/uL (4.3-11.0)
[2018-12-10 07:58] LABS: CALCIUM, SERUM 8.5 mg/dL (8.5-10.1); CREATININE 0.5 mg/dL (0.6-1.3); POTASSIUM 3.8 mmol/L (3.5-5.1)
[2018-12-10 08:04] LABS: ALBUMIN 3.5 g/dL (3.4-5.0); BILIRUBIN,DIRECT 0.1 mg/dL (0.0-0.2); BILIRUBIN,TOTAL 0.2 mg/dL (0.2-1.0); TOTAL PROTEIN, SERUM 6.8 g/dL (6.4-8.2)
--- NOTE | 2018-12-10 08:38 | NUR ---
[facility] PAUL. ETA 0900, TRIP # [id number]
--- NOTE | 2018-12-10 08:39 | NUR ---
Patient discharged to home in stable condition. Written and verbal after care instructions given. Patient verbalizes understanding of instruction.
[2018-12-10 08:41] VITALS: BP 132/60
--- NOTE | 2018-12-10 09:02 | NUR ---
[facility] CALLED WITH NEW ETA IS 8125.
--- NOTE | 2018-12-10 10:36 | NUR ---
Patient discharged to home in stable condition. Written and verbal after care instructions given. Patient verbalizes understanding of instruction. IV removed. Catheter intact and site benign. Pressure and 4x4 applied to site. No bleeding noted.
== END 2018-12-10 10:37 | disposition home or self-care (01) ==
LOC: ER 07:32
DX: K62.5 Hemorrhage of anus and rectum (principal); G40.909 Epilepsy, unspecified, not intractable, without status epilepticus; I10 Essential (primary) hypertension; I25.10 Atherosclerotic heart disease of native coronary artery without angina pectoris; F20.0 Paranoid schizophrenia; F17.200 Nicotine dependence, unspecified, uncomplicated; Z95.818 Presence of other cardiac implants and grafts; Z60.2 Problems related to living alone; Z79.899 Other long term (current) drug therapy
CPT/HCPCS: 36415; 80048-TC; 80076-TC; 85025-TC; 85730-TC; 86850-TC

== ENCOUNTER 2018-12-13 19:47 | Emergency (ER) | payer SELFPAY ==
[~2018-12-13] VITALS: Ht 162.6 cm; Wt 54.4 kg
--- NOTE | 2018-12-13 20:30 | NUR ---
MARIA ANTONIA [facility] FOR [facility], AFRAID PEOPLE WANT TO KILL HER, C/O RECTAL BLEEDING, NO N/V, NO ABD PAIN. PT AAOX3, VSS. DENIES CP, SOB, DIZZINESS AT THIS TIME. WILL CONT TO MONITOR.
[2018-12-13 21:53] LABS: BASOPHILS # (AUTO) 0.1 /CMM (0.0-0.2); BASOPHILS % (AUTO) 1.3 % (0.0-2.0); EOSINOPHILS % (AUTO) 2.4 % (0.0-6.0); HEMATOCRIT 36 % (33-45); HEMOGLOBIN 12.8 g/dL (11.5-14.8); LYMPHOCYTES # (AUTO) 3.5 /CMM (0.8-4.8); LYMPHOCYTES % (AUTO) 43.8 % (20.0-44.0); MEAN CORPUSCULAR HGB CONC 36 g/dl (31.0-36.0); MEAN CORPUSCULAR VOLUME 92 fL (82-100); MONOCYTES # (AUTO) 0.6 /CMM (0.1-1.30); MONOCYTES % (AUTO) 7.8 % (2.0-12.0); NEUTROPHILS # (AUTO) 3.6 /CMM (1.8-8.9); NEUTROPHILS % (AUTO) 44.7 % (43.0-81.0); PLATELET COUNT (AUTO) 333 /CMM (150-450)
[2018-12-13 22:03] LABS: CALCIUM, SERUM 8.8 mg/dL (8.5-10.1); CARBON DIOXIDE 26 mmol/L (21-32); CHLORIDE 96 mmol/L (98-107); CREATININE 0.5 mg/dL (0.6-1.3); GLUCOSE 97 mg/dL (74-106); POTASSIUM 3.9 mmol/L (3.5-5.1); SODIUM SERUM 131 mmol/L (136-145); UREA NITROGEN, BLOOD 12 mg/dL (7-18)
--- NOTE | 2018-12-13 22:04 | NUR ---
URINE COLLECTED & SENT TO LAB.
[2018-12-13 22:06] LABS: APPEARANCE,URINE Slightly Cloudy (CLEAR); BILIRUBIN,URINE Negative (NEGATIVE); BLOOD, URINE Negative Ery/uL (NEGATIVE); COLOR,URINE Yellow (YELLOW); KETONES,URINE Negative (NEGATIVE); LEUKOCYTE ESTERASE ,URINE Negative (NEGATIVE); NITRITE, URINE Positive (NEGATIVE); PROTEIN,URINE Negative (NEGATIVE); UGLUCOSE Negative (NEGATIVE); UROBILINOGEN,URINE 0.2 EU/dL (0.2)
[2018-12-13 22:09] LABS: ALANINE AMINOTRANSFERASE 29 U/L (12-78); ALBUMIN 3.4 g/dL (3.4-5.0); ALKALINE PHOSPHATASE 81 U/L (46-116); ASPARTATE AMINOTRANSFERASE 16 U/L (15-37); BILIRUBIN,TOTAL 0.2 mg/dL (0.2-1.0); SALICYLATE 5.3 mg/dL (2.8-20.0); TOTAL PROTEIN, SERUM 6.8 g/dL (6.4-8.2)
[2018-12-13 22:13] LABS: ACETAMINOPHEN 0 ug/ml (10-30); ALCOHOL, BLOOD < 3 mg/dL (0-0)
--- NOTE | 2018-12-13 22:25 | NUR ---
CALLED [facility] FOR PSYCH EVAL, ETA WITHIN THE HOUR.
[2018-12-13 22:33] LABS: RBC,URINE 0-2 /HPF (0-2)
[2018-12-13 22:34] LABS: BACTERIA,URINE Many /HPF (None Seen); SQUAMOUS EPITHELIAL CELL,UR Few /HPF (None Seen)
[2018-12-13] MEDS ORDERED: OLANZAPINE 5 MG TABLET PO ONE (23:00)
[2018-12-13] MEDS ORDERED: OLANZAPINE 5 MG TABLET ONE (23:15)
--- NOTE | 2018-12-13 23:41 | NUR ---
CALLED [facility] FOR TRANSPORT BACK TO [facility], ETA 0115 AM, TRIP #[id number]
--- NOTE | 2018-12-14 02:17 | NUR ---
pt ok to be discharged home per ace bush at bedside for transport back to [facility].
[2018-12-14 02:18] VITALS: BP 124/80
== END 2018-12-14 02:19 ==
LOC: ER 19:47
DX: F22 Delusional disorders (principal); N39.0 Urinary tract infection, site not specified; I10 Essential (primary) hypertension; G40.909 Epilepsy, unspecified, not intractable, without status epilepticus; I25.10 Atherosclerotic heart disease of native coronary artery without angina pectoris; F17.200 Nicotine dependence, unspecified, uncomplicated; Z79.899 Other long term (current) drug therapy
CPT/HCPCS: 36415; 80048; 80076; 80305; 80307; 80329; 81001; 85025; 87086; 99284; G0480; 81000-TC

== ENCOUNTER 2019-03-26 15:49 | Emergency (ER) | payer MEDICAID ==
[~2019-03-26] VITALS: Ht 175.3 cm; Wt 68.0 kg
[2019-03-26 15:56] VITALS: BP 152/89
[2019-03-26] MEDS ORDERED: HYDROCODONE/APAP 10/325MG 1 EA TABLET ONE (16:19)
[2019-03-26] MEDS ORDERED: HYDROCODONE/APAP 10/325MG 1 EA TABLET PO ONE (16:30)
--- NOTE | 2019-03-26 16:58 | NUR ---
CALLED [facility] FOR TRANSPORT BACK TO [facility], ETA 90 MIN, TRIP #[id number]
== END 2019-03-26 18:51 ==
LOC: ER 15:49
DX: S52.531D Colles' fracture of right radius, subsequent encounter for closed fracture with routine healing (principal); I10 Essential (primary) hypertension; G40.909 Epilepsy, unspecified, not intractable, without status epilepticus; I25.10 Atherosclerotic heart disease of native coronary artery without angina pectoris; F20.0 Paranoid schizophrenia; F17.200 Nicotine dependence, unspecified, uncomplicated; Z79.899 Other long term (current) drug therapy; X58.XXXD Exposure to other specified factors, subsequent encounter

== ENCOUNTER 2019-04-02 13:28 | Emergency (ER) | payer MEDICAID ==
[~2019-04-02] VITALS: Ht 175.3 cm; Wt 68.9 kg
--- NOTE | 2019-04-02 13:40 | NUR ---
CALLED FACILITY (SNF) TO VERIFY IF PATIENT FOLLOWED UP WITH ORTHO. PER STAFF WILL GIVE US A CALL BACK.
--- NOTE | 2019-04-02 13:48 | NUR ---
PRABHJOT RILEY AT BEDSIDE.
--- NOTE | 2019-04-02 13:51 | NUR ---
FACILITY CALLED BACK RE: PATIENT.
[2019-04-02] MEDS ORDERED: HYDROCODONE/APAP 10/325MG 1 EA TABLET ONE (14:00)
[2019-04-02] MEDS ORDERED: HYDROCODONE/APAP 10/325MG 1 EA TABLET PO ONE (14:00)
[2019-04-02 14:16] LABS: BASOPHILS % (AUTO) 0.4 % (0.0-2.0); HEMATOCRIT 38 % (33-45); HEMOGLOBIN 12.4 g/dL (11.5-14.8); LYMPHOCYTES # (AUTO) 2.7 /CMM (0.8-4.8); LYMPHOCYTES % (AUTO) 49.2 % (20.0-44.0); MEAN CORPUSCULAR HGB CONC 33 g/dl (31.0-36.0); MEAN CORPUSCULAR VOLUME 95 fL (82-100); MONOCYTES # (AUTO) 0.5 /CMM (0.1-1.30); MONOCYTES % (AUTO) 8.2 % (2.0-12.0); NEUTROPHILS # (AUTO) 2.2 /CMM (1.8-8.9); NEUTROPHILS % (AUTO) 39.2 % (43.0-81.0); PLATELET COUNT (AUTO) 322 /CMM (150-450); RED BLOOD CELL COUNT(AUTO) 3.98 MIL/uL (4.0-5.2); WHITE BLOOD COUNT (AUTO) 5.5 K/uL (4.3-11.0)
--- NOTE | 2019-04-02 14:27 | NUR ---
PATIENT REFUSED TO GIVE URINE SAMPLE
[2019-04-02 14:31] LABS: CALCIUM, SERUM 9.4 mg/dL (8.5-10.1); CARBON DIOXIDE 26 mmol/L (21-32); CHLORIDE 100 mmol/L (98-107); CREATININE 0.5 mg/dL (0.6-1.3); GLUCOSE 97 mg/dL (74-106); POTASSIUM 3.9 mmol/L (3.5-5.1); SODIUM SERUM 135 mmol/L (136-145); UREA NITROGEN, BLOOD 5 mg/dL (7-18)
[2019-04-02 14:39] LABS: ALANINE AMINOTRANSFERASE 22 U/L (12-78); ALBUMIN 3.6 g/dL (3.4-5.0); ALCOHOL, BLOOD < 3 mg/dL (0-0); ALKALINE PHOSPHATASE 107 U/L (46-116); ASPARTATE AMINOTRANSFERASE 21 U/L (15-37); BILIRUBIN,DIRECT 0.1 mg/dL (0.0-0.2); BILIRUBIN,TOTAL 0.2 mg/dL (0.2-1.0); SALICYLATE 6.6 mg/dL (2.8-20.0); TOTAL PROTEIN, SERUM 7.4 g/dL (6.4-8.2)
[2019-04-02 14:40] LABS: ACETAMINOPHEN 0 ug/ml (10-30)
[2019-04-02] MEDS ORDERED: OLAN10TA3 PO (14:53)
[2019-04-02 15:02] LABS: APPEARANCE,URINE Slightly Cloudy (CLEAR); BILIRUBIN,URINE Negative (NEGATIVE); BLOOD, URINE Negative Ery/uL (NEGATIVE); COLOR,URINE Other (YELLOW); KETONES,URINE Negative (NEGATIVE); LEUKOCYTE ESTERASE ,URINE Small (NEGATIVE); NITRITE, URINE Positive (NEGATIVE); PROTEIN,URINE Negative (NEGATIVE); UGLUCOSE Negative (NEGATIVE); UROBILINOGEN,URINE 0.2 EU/dL (0.2)
[2019-04-02 15:05] LABS: BACTERIA,URINE 3+ /HPF (None Seen); RBC,URINE 0-2 /HPF (0-2); SQUAMOUS EPITHELIAL CELL,UR Few /HPF (None Seen); WBC,URINE 21-50 /HPF (0-3)
[2019-04-02] MEDS ORDERED: CEPHALEXIN MONOHYDRATE 500 MG CAPSULE PO ONE ×2 (16:00→16:05)
--- NOTE | 2019-04-02 16:00 | NUR ---
CALLED [facility] FOR PSYCH EVAL, NO ANSWER, LEFT MESSAGE ON VOICEMAIL.
--- NOTE | 2019-04-02 17:28 | NUR ---
CALLED [facility] FOR TRANSPORT BACK TO [facility], ETA 2 HOURS, TRIP #[id number]
--- NOTE | 2019-04-02 19:16 | NUR ---
PATIENT IN STABLE CONDITION. ENDORSED TO MARK FOR SHARON.
--- NOTE | 2019-04-02 20:00 | NUR ---
RECEIVED CALL FROM SHIVA [place] [phone]
--- NOTE | 2019-04-02 20:37 | NUR ---
GAVE REPORT TO SHIVA Valenzuela FOR TRANSPORTATION SHARON
--- NOTE | 2019-04-02 20:42 | NUR ---
PT WAS PICKED UP WITH [facility] VIA GURNEY IN STABLE CONDITION TOWARD [facility]
[2019-04-02 20:43] VITALS: BP 134/79
== END 2019-04-02 20:43 | disposition home or self-care (01) ==
LOC: ER 13:31
DX: S52.571D Other intraarticular fracture of lower end of right radius, subsequent encounter for closed fracture with routine healing (principal); S52.611D Displaced fracture of right ulna styloid process, subsequent encounter for closed fracture with routine healing; N39.0 Urinary tract infection, site not specified; G40.909 Epilepsy, unspecified, not intractable, without status epilepticus; I10 Essential (primary) hypertension; I25.10 Atherosclerotic heart disease of native coronary artery without angina pectoris; F17.200 Nicotine dependence, unspecified, uncomplicated; F20.0 Paranoid schizophrenia; Z95.818 Presence of other cardiac implants and grafts; Z79.899 Other long term (current) drug therapy; W18.39XD Other fall on same level, subsequent encounter
CPT/HCPCS: 29125; 36415; 73110; 80048; 80076; 80305; 80307; 80329; 81001; 85025; 87086; 99284; G0480; 81000-TC; 87186-TC

== ENCOUNTER 2019-04-29 07:43 | Emergency (ER) | payer MEDICAID ==
[~2019-04-29] VITALS: Ht 162.6 cm; Wt 78.0 kg
[~2019-04-29 07:43] MED LIST changes: -ARIP20TA4 PO; +OLAN10TA3 PO
[2019-04-29] MEDS ORDERED: MORPHINE SULFATE INJ 2 MG/ML DISP.SYRIN IV ONE (08:30)
[2019-04-29] MEDS ORDERED: IV NS 0.9% 500 ML BAG IV ONE (08:30)
[2019-04-29] MEDS ORDERED: ONDANSETRON HCL/PF 4 MG/2 ML VIAL IVP ONE (08:30)
[2019-04-29] MEDS ORDERED: ONDANSETRON HCL/PF 4 MG/2 ML VIAL ONE (08:53)
[2019-04-29] MEDS ORDERED: MORPHINE SULFATE INJ 4 MG/ML DISP.SYRIN ONE (08:53)
[2019-04-29 09:45] LABS: BASOPHILS % (AUTO) 0.7 % (0.0-2.0); EOSINOPHILS % (AUTO) 2.6 % (0.0-6.0); HEMATOCRIT 35 % (33-45); HEMOGLOBIN 12.2 g/dL (11.5-14.8); LYMPHOCYTES # (AUTO) 2.3 /CMM (0.8-4.8); LYMPHOCYTES % (AUTO) 31.3 % (20.0-44.0); MEAN CORPUSCULAR HGB CONC 35 g/dl (31.0-36.0); MEAN CORPUSCULAR VOLUME 91 fL (82-100); MONOCYTES # (AUTO) 0.5 /CMM (0.1-1.30); MONOCYTES % (AUTO) 7.5 % (2.0-12.0); NEUTROPHILS # (AUTO) 4.2 /CMM (1.8-8.9); NEUTROPHILS % (AUTO) 57.9 % (43.0-81.0); PLATELET COUNT (AUTO) 326 /CMM (150-450); RED BLOOD CELL COUNT(AUTO) 3.82 MIL/uL (4.0-5.2); WHITE BLOOD COUNT (AUTO) 7.3 K/uL (4.3-11.0)
--- NOTE | 2019-04-29 09:45 | NUR ---
UNABLE TO ESTABLISH PIV AFTER MULTIPLE ATTEMPTS,MIDLINE NURSE NOT AVAILABLE UNTIL 1200 NOON, EJ, RIGHT ESTABLISHED ASEPTICALLY UNDER MD SUPERVISION
[2019-04-29 09:53] LABS: CALCIUM, SERUM 9.1 mg/dL (8.5-10.1); CREATININE 0.5 mg/dL (0.6-1.3); POTASSIUM 4.2 mmol/L (3.5-5.1)
[2019-04-29 10:01] LABS: ALBUMIN 3.6 g/dL (3.4-5.0); BILIRUBIN,DIRECT 0.1 mg/dL (0.0-0.2); BILIRUBIN,TOTAL 0.1 mg/dL (0.2-1.0); TOTAL PROTEIN, SERUM 7.4 g/dL (6.4-8.2)
--- NOTE | 2019-04-29 10:35 | NUR ---
IV STARTED LEFT NECK LABS SENT TO LAB MEDS GIVEN PER MD ORDER CON T TO SE[facility] AWAITING EVALUATION BY ER PROVIDER.
--- NOTE | 2019-04-29 10:58 | NUR ---
PT FEELING BETTER PENDING D/C CALLED SNF FOR TRANSFER
--- NOTE | 2019-04-29 11:00 | NUR ---
pt rec'd to er via ems abd pain and rt arm dressing loose pt stated falling 2 weeks ago iv started labs sent to lab AWAITING EVALUATION BY ER PROVIDER.
--- NOTE | 2019-04-29 11:30 | NUR ---
meds given per md order pos given tolatered well
--- NOTE | 2019-04-29 12:24 | NUR ---
called for transfportation
--- NOTE | 2019-04-29 12:24 | NUR ---
pt stted feeling bettr pending d/c
--- NOTE | 2019-04-29 13:38 | NUR ---
[facility] called spoke with gave reoprt pt stable for transfer back.IV removed. Catheter intact and site benign. Pressure and 4x4 applied to site. No bleeding noted.Patient discharged to home in stable condition. Written and verbal after care instructions given. Patient verbalizes understanding of instruction.
[2019-04-29 13:43] VITALS: BP 128/73
== END 2019-04-29 13:44 | disposition home or self-care (01) ==
LOC: ER 07:55
DX: R10.84 Generalized abdominal pain (principal); R19.7 Diarrhea, unspecified; G40.909 Epilepsy, unspecified, not intractable, without status epilepticus; I10 Essential (primary) hypertension; I25.10 Atherosclerotic heart disease of native coronary artery without angina pectoris; F20.0 Paranoid schizophrenia; F17.200 Nicotine dependence, unspecified, uncomplicated; Z95.818 Presence of other cardiac implants and grafts; Z79.899 Other long term (current) drug therapy
CPT/HCPCS: 36415; 80048; 80076; 83690; 85025; 96361; 96374; 96375; 99283; J2270; J2405; J7040; J7030

== ENCOUNTER 2019-05-08 03:34 | Emergency (ER) | payer MEDICAID ==
[~2019-05-08] VITALS: Ht 162.6 cm; Wt 78.5 kg
--- NOTE | 2019-05-08 03:37 | NUR ---
PT BIB EMS C/O R SIDED CP X1 WEEK. AOX4. NAD NOTED RESP EVEN AND UNLABORED. PT AFEBRILE. R ARM CAST BREASTFEEDING PEER COUNSELOR. PT ON MONITOR IN BED 4. WILL CONTINUE TO MONITOR.
[2019-05-08 04:38] LABS: BASOPHILS # (AUTO) 0.1 /CMM (0.0-0.2); BASOPHILS % (AUTO) 0.9 % (0.0-2.0); EOSINOPHILS % (AUTO) 2.4 % (0.0-6.0); HEMATOCRIT 37 % (33-45); HEMOGLOBIN 12.9 g/dL (11.5-14.8); LYMPHOCYTES # (AUTO) 2.3 /CMM (0.8-4.8); LYMPHOCYTES % (AUTO) 37.6 % (20.0-44.0); MEAN CORPUSCULAR HGB CONC 35 g/dl (31.0-36.0); MEAN CORPUSCULAR VOLUME 90 fL (82-100); MONOCYTES # (AUTO) 0.5 /CMM (0.1-1.30); MONOCYTES % (AUTO) 7.4 % (2.0-12.0); NEUTROPHILS # (AUTO) 3.2 /CMM (1.8-8.9); NEUTROPHILS % (AUTO) 51.7 % (43.0-81.0); PLATELET COUNT (AUTO) 342 /CMM (150-450); RED BLOOD CELL COUNT(AUTO) 4.08 MIL/uL (4.0-5.2); WHITE BLOOD COUNT (AUTO) 6.1 K/uL (4.3-11.0)
[2019-05-08 04:45] LABS: CALCIUM, SERUM 8.9 mg/dL (8.5-10.1); CARBON DIOXIDE 28 mmol/L (21-32); CHLORIDE 92 mmol/L (98-107); CREATININE 0.6 mg/dL (0.6-1.3); GLUCOSE 104 mg/dL (74-106); POTASSIUM 4.3 mmol/L (3.5-5.1); SODIUM SERUM 128 mmol/L (136-145); UREA NITROGEN, BLOOD 6 mg/dL (7-18)
[2019-05-08] MEDS ORDERED: CT SWABBABLE VALVE TRANS SET 1 EA INFUS.SET MC ONE ×2 (05:04→05:21)
[2019-05-08] MEDS ORDERED: IV NS 0.9% 0 ML IV ONE (05:04)
[2019-05-08] MEDS ORDERED: IOHEXOL-350 100 ML VIAL IV ONE ×2 (05:04→05:21)
--- NOTE | 2019-05-08 05:16 | NUR ---
PT BROUGHT BY RADIOLOGY TO CT
[2019-05-08] MEDS ORDERED: IV NS 0.9% 250 ML IV ONE (05:21)
--- NOTE | 2019-05-08 05:33 | NUR ---
PT RETURNED FROM RADIOLOGY VIA [facility]
[2019-05-08 06:10] VITALS: BP 153/96
--- NOTE | 2019-05-08 06:49 | NUR ---
[facility] ETA [phone]
--- NOTE | 2019-05-08 07:36 | NUR ---
Patient discharged to home in stable condition. Written and verbal after care instructions given. Patient verbalizes understanding of instruction.
== END 2019-05-08 07:37 | disposition home or self-care (01) ==
LOC: ER 03:36
DX: R07.89 Other chest pain (principal); I25.10 Atherosclerotic heart disease of native coronary artery without angina pectoris; G40.909 Epilepsy, unspecified, not intractable, without status epilepticus; I10 Essential (primary) hypertension; F20.0 Paranoid schizophrenia; F17.200 Nicotine dependence, unspecified, uncomplicated; Z95.5 Presence of coronary angioplasty implant and graft; Z79.899 Other long term (current) drug therapy
CPT/HCPCS: 36415; 71275; 80048; 84484; 85025; 93005 ×2; 99284; 99406; J7050; Q9967

== ENCOUNTER 2019-06-21 10:18 | Emergency (ER) | payer MEDICAID ==
[~2019-06-21] VITALS: Ht 167.6 cm; Wt 78.9 kg
--- NOTE | 2019-06-21 10:18 | NUR ---
PT BIB RA [facility] C/O CHEST PAIN AND SOB SINCE THIS MORNING, PT IS AAOX4, NOT IN RESPIRATORY DISTRESS, HOOKED TO UNIX SYSTEMS ADMINISTRATOR, V/S STABLE, KEPT RESTED AND COMFORTABLE, WILL CONTINUE TO MONITOR.
--- NOTE | 2019-06-21 10:30 | NUR ---
AT BEDSIDE FOR EVAL.
[2019-06-21] MEDS ORDERED: KETOROLAC TROMETHAMINE 15 MG/ML VIAL ONE (10:58)
[2019-06-21] MEDS ORDERED: KETOROLAC TROMETHAMINE INJ 30 MG/ML VIAL IV ONE (11:00)
--- NOTE | 2019-06-21 11:02 | NUR ---
IV LINE ESTABLISHED, BLOOD DRAWN AND SENT TO LAB.
--- NOTE | 2019-06-21 11:05 | NUR ---
OUTLET MANAGER AT BEDSIDE FOR XRAY.
[2019-06-21 11:08] LABS: BASOPHILS % (AUTO) 0.6 % (0.0-2.0); EOSINOPHILS % (AUTO) 2.4 % (0.0-6.0); HEMATOCRIT 40 % (33-45); HEMOGLOBIN 13.5 g/dL (11.5-14.8); LYMPHOCYTES # (AUTO) 2.8 /CMM (0.8-4.8); LYMPHOCYTES % (AUTO) 45.6 % (20.0-44.0); MEAN CORPUSCULAR HGB CONC 34 g/dl (31.0-36.0); MEAN CORPUSCULAR VOLUME 92 fL (82-100); MONOCYTES # (AUTO) 0.5 /CMM (0.1-1.30); MONOCYTES % (AUTO) 7.6 % (2.0-12.0); NEUTROPHILS # (AUTO) 2.6 /CMM (1.8-8.9); NEUTROPHILS % (AUTO) 43.8 % (43.0-81.0); PLATELET COUNT (AUTO) 296 /CMM (150-450); RED BLOOD CELL COUNT(AUTO) 4.31 MIL/uL (4.0-5.2)
[2019-06-21 11:15] LABS: CALCIUM, SERUM 9.1 mg/dL (8.5-10.1); CARBON DIOXIDE 26 mmol/L (21-32); CHLORIDE 98 mmol/L (98-107); CREATININE 0.6 mg/dL (0.6-1.3); GLUCOSE 99 mg/dL (74-106); POTASSIUM 4.1 mmol/L (3.5-5.1); SODIUM SERUM 134 mmol/L (136-145); UREA NITROGEN, BLOOD 9 mg/dL (7-18)
--- NOTE | 2019-06-21 11:15 | NUR ---
SW AT BEDSIDE FOR EVAL.
[2019-06-21 11:21] LABS: ALANINE AMINOTRANSFERASE 34 U/L (12-78); ALBUMIN 3.9 g/dL (3.4-5.0); ALKALINE PHOSPHATASE 98 U/L (46-116); ASPARTATE AMINOTRANSFERASE 23 U/L (15-37); BILIRUBIN,TOTAL 0.1 mg/dL (0.2-1.0); LIPASE 136 U/L (73-393); TOTAL PROTEIN, SERUM 7.7 g/dL (6.4-8.2)
--- NOTE | 2019-06-21 11:26 | NUR ---
URINE SPECIMEN COLLECTED AND SENT TO LAB.
[2019-06-21 11:29] LABS: APPEARANCE,URINE Slightly Cloudy (CLEAR); BILIRUBIN,URINE Negative (NEGATIVE); BLOOD, URINE Negative Ery/uL (NEGATIVE); COLOR,URINE Yellow (YELLOW); KETONES,URINE Negative (NEGATIVE); LEUKOCYTE ESTERASE ,URINE Small (NEGATIVE); NITRITE, URINE Positive (NEGATIVE); PH,URINE 6.5 (5.0-8.0); PROTEIN,URINE Negative (NEGATIVE); UGLUCOSE Negative (NEGATIVE); UROBILINOGEN,URINE 0.2 EU/dL (0.2)
[2019-06-21 11:39] LABS: BACTERIA,URINE Many /HPF (None Seen); RBC,URINE 0-3 /HPF (0-2); SQUAMOUS EPITHELIAL CELL,UR Few /HPF (None Seen); WBC,URINE 15-20 /HPF (0-3); YEAST,URINE Few /HPF (None Seen)
[2019-06-21 12:08] LABS: PHENOBARBITAL 14 ug/ml (15-39)
--- NOTE | 2019-06-21 13:06 | NUR ---
PER TESTS SUPERINTENDENT SHE WILL MAKE A EPS REPORT. AWARE.
[2019-06-21] MEDS ORDERED: HYDROCODONE/APAP 5/325MG 1 EACH TABLET ONE (13:10)
[2019-06-21] MEDS ORDERED: CEPHALEXIN MONOHYDRATE 500 MG CAPSULE PO ONE ×2 (13:11→13:30)
[2019-06-21] MEDS ORDERED: PHENOBARBITAL 30 MG TABLET ONE (13:12)
--- NOTE | 2019-06-21 13:23 | NUR ---
CALLED [facility] FOR TRANSPORT TO [facility]. ETA 1530 TRIP [id number].
[2019-06-21] MEDS ORDERED: PHENOBARBITAL 30 MG TABLET PO ONE (13:30)
[2019-06-21] MEDS ORDERED: HYDROCODONE/APAP 5/325MG 1 EACH TABLET PO ONE (13:30)
--- NOTE | 2019-06-21 13:32 | NUR ---
ER social service consult requested by Marta Huber MD for failure of appropriate care at senior care. Pt. is a 69 year old female who was admitted to the [facility] ER for shortness of breath. SW met with pt. at ER bedside. Pt. was sitting up in her bed. Pt. is engaged in the visit but appears confused at times. Pt. is oriented x 3 [person, place, situation]. Pt. currently resides at [facility] at [address] [place] [address]. . Pt. emergency contact is listed at her sister, Yeni Garcia , but pt. states she does not get along with her sister and all she does is lie about me. Pt. states that she does not have any income. Pt. is dissatisfied with her current placement and would like to move to a different facility. Per ER MD, pt has an arm fracture and has failed to receive follow-up care with an orthopedic, and is concerned that pt is not receiving appropriate care at her living assisted facility. GRICELDA spoke with linux vmware administrator, Marium Bull [[phone]], who faxed notes on the facilitys attempt to schedule an orthopedic appointment for pt. Per notes, pt is refusing to pay out of pocket for services, orthopedic surgeon does not take her insurance. GRICELDA consulted with Dominga Ballard LCSW, BCMigel, DSW, Director Clinical Social Work, and a report was submitted to [facility] Prote[facility] of [facility] at 1:28pm. APS Intake ID # [id number]. ER staff and MD has been informed of APS report.
--- NOTE | 2019-06-21 14:30 | NUR ---
CALLED [facility] FOR TRANSPORT. ETA 1500.
[2019-06-21 15:29] VITALS: BP 138/72
--- NOTE | 2019-06-21 15:29 | NUR ---
REPORT GIVEN TO EMT FOR PT TRANSFER BACK TO [address] [place] [address]
== END 2019-06-21 15:30 | disposition home or self-care (01) ==
LOC: ER 10:22
DX: R07.89 Other chest pain (principal); N39.0 Urinary tract infection, site not specified; M25.531 Pain in right wrist; G40.909 Epilepsy, unspecified, not intractable, without status epilepticus; I10 Essential (primary) hypertension; I25.10 Atherosclerotic heart disease of native coronary artery without angina pectoris; F20.0 Paranoid schizophrenia; F17.200 Nicotine dependence, unspecified, uncomplicated; Z79.899 Other long term (current) drug therapy; Z95.818 Presence of other cardiac implants and grafts
CPT/HCPCS: 36415; 71045; 80048; 80076; 80184; 81001; 83690; 84484; 85025; 85730; 87077; 87086; 87186; 93005 ×2; 96374; 99284; J1885; 81000-TC

== ENCOUNTER 2020-01-21 21:25 | Inpatient (IN) | payer MEDICAID ==
[~2020-01-21] VITALS: Ht 162.6 cm; Wt 72.6 kg
--- NOTE | 2020-01-21 22:00 | NUR ---
RIGGING FOREMAN AT BEDSIDE FOR BLOOD DRAW
--- NOTE | 2020-01-21 22:00 | NUR ---
Bailey mckenna in [facility] - 01/21/20 at 2204 by LEONARDA TRIMMER SORTER AT BEDSIDE BLOOD RAW
--- NOTE | 2020-01-21 22:26 | NUR ---
MARIA ANTONIA FROM [facility] TO ER BED 6. AAOX4. NOT IN RESP DISTRESS, BREATHING EVEN AND UNLABORED. AMBULATORY. CAME IN FOR ABDOMINAL PAIN, NAUSEA, VOMMITING, COUGH AND PT THINKS SHE HAS A LUNG INFECTION. PT STATES THAT SHE FEELS BAD. WAS AT THE BEDSIDE FOR EVAL. ORDERS RECEIVED NOTED AND CARRIED OUT. CERTIFIED FIRST ASSISTANT AT BEDSIDE FOR BLOOD DRAW
[2020-01-21 22:27] LABS: BASOPHILS % (AUTO) 0.7 % (0.0-2.0); EOSINOPHILS % (AUTO) 2.5 % (0.0-6.0); HEMATOCRIT 35 % (33-45); HEMOGLOBIN 12.1 g/dL (11.5-14.8); LYMPHOCYTES # (AUTO) 2.7 /CMM (0.8-4.8); LYMPHOCYTES % (AUTO) 38.2 % (20.0-44.0); MEAN CORPUSCULAR HGB CONC 35 g/dl (31.0-36.0); MEAN CORPUSCULAR VOLUME 91 fL (82-100); MONOCYTES # (AUTO) 0.6 /CMM (0.1-1.30); NEUTROPHILS # (AUTO) 3.6 /CMM (1.8-8.9); NEUTROPHILS % (AUTO) 50.6 % (43.0-81.0); PLATELET COUNT (AUTO) 289 /CMM (150-450); RED BLOOD CELL COUNT(AUTO) 3.81 MIL/uL (4.0-5.2)
[2020-01-21 22:41] LABS: CALCIUM, SERUM 9.3 mg/dL (8.5-10.1); CARBON DIOXIDE 26 mmol/L (21-32); CHLORIDE 97 mmol/L (98-107); CREATININE 0.6 mg/dL (0.6-1.3); GLUCOSE 110 mg/dL (74-106); SODIUM SERUM 131 mmol/L (136-145); UREA NITROGEN, BLOOD 9 mg/dL (7-18)
[2020-01-21 22:48] LABS: ACETAMINOPHEN 1 ug/ml (10-30); ALANINE AMINOTRANSFERASE 25 U/L (12-78); ALBUMIN 3.7 g/dL (3.4-5.0); ALCOHOL, BLOOD < 3 mg/dL (0-0); ALKALINE PHOSPHATASE 78 U/L (46-116); ASPARTATE AMINOTRANSFERASE 14 U/L (15-37); BILIRUBIN,TOTAL 0.1 mg/dL (0.2-1.0); SALICYLATE 6.3 mg/dL (2.8-20.0); TOTAL PROTEIN, SERUM 7.1 g/dL (6.4-8.2)
[2020-01-21] MEDS ORDERED: ONDANSETRON 4 MG TAB.RAPDIS SL ONE (23:00)
[2020-01-21] MEDS ORDERED: HYDROMORPHONE HCL 2 MG TABLET ONE (23:08)
[2020-01-21] MEDS ORDERED: ONDANSETRON 4 MG TAB.RAPDIS ONE (23:08)
--- NOTE | 2020-01-21 23:08 | NUR ---
PT TO CT ON JAMEL
[2020-01-21] MEDS: HYDROMORPHONE HCL 2 MG TABLET PO PRN (23:38)
--- NOTE | 2020-01-21 23:39 | NUR ---
URINE COLLECTED AND SENT TO LAB
[2020-01-21 23:44] LABS: APPEARANCE,URINE SL CLOUDY (CLEAR); BILIRUBIN,URINE NEGATIVE (NEGATIVE); BLOOD, URINE NEGATIVE Ery/uL (NEGATIVE); COLOR,URINE YELLOW (YELLOW); KETONES,URINE NEGATIVE (NEGATIVE); LEUKOCYTE ESTERASE ,URINE MODERATE (NEGATIVE); NITRITE, URINE POSITIVE (NEGATIVE); PROTEIN,URINE NEGATIVE (NEGATIVE); UGLUCOSE NEGATIVE (NEGATIVE); UROBILINOGEN,URINE 0.2 EU/dL (0.2)
--- NOTE | 2020-01-21 23:47 | NUR ---
REPORT RECEIVED FROM LION FOR SHARON
[2020-01-21 23:52] LABS: BACTERIA,URINE Many /HPF (None Seen); RBC,URINE 0-2 /HPF (0-2); SQUAMOUS EPITHELIAL CELL,UR Few /HPF (None Seen); WBC,URINE TOO NUMEROUS TO COUN /HPF (0-3)
--- NOTE | 2020-01-21 23:57 | NUR ---
CALLED LAB FOR SWABS
[2020-01-21] MEDS ORDERED: CEFTRIAXONE 1GM BAG (ER ONLY) 50 ML IV ONE (23:59)
[2020-01-22] VITALS (7 sets, daily range): BP systolic 109–155; BP diastolic 60–90
[2020-01-22] MEDS ORDERED: CEFTRIAXONE 1GM BAG (ER ONLY) 1 GM/50 ML PIGGYBACK IV ONE
--- NOTE | 2020-01-22 00:25 | NUR ---
COVID,RSV, INFLUENZA SWABS SENT TO LAB
[2020-01-22 00:52] LABS: D-DIMER 0.64 mg/L(FEU (0.17-0.50)
[2020-01-22] MEDS ORDERED: MORPHINE SULFATE INJ 2 MG/ML DISP.SYRIN IV PRN (01:30)
[2020-01-22] MEDS ORDERED: MAG HYDROX/AL HYDROX/SIMETH 30 ML UDC PO PRN (01:30)
[2020-01-22] MEDS ORDERED: MAGNESIUM HYDROXIDE 30 ML UDC PO PRN (01:30)
[2020-01-22] MEDS ORDERED: Z GUARD REMEDY 2 OZ OINT TP PRN (01:30)
[2020-01-22] MEDS ORDERED: ACETAMINOPHEN 325 MG TABLET PO PRN (01:30)
[2020-01-22] MEDS ORDERED: ZOLPIDEM TARTRATE 5 MG TABLET PO PRN (01:30)
[2020-01-22 01:36] LABS: B-TYPE NATRIURETIC PEPTIDE 100 PG/ML (0-125); CREATINE KINASE, TOTAL 65 U/L (26-192); FERRITIN 142 ng/mL (8-388); LIPASE 89 U/L (73-393)
--- NOTE | 2020-01-22 01:45 | NUR ---
TELE/RN RECEIVED PATIENT SLIGHTLY LETHARGIC POSSIBLE DUE PAIN MEDICATION ADMINISTERED. PATIENT IS STILL ABLE TO RESPOND AND FOLLOWS COMMANDS. PATIENT IS ON ROOM AIR WITH NO COMPLAINTS OF ANY SOB SATURATING AT 94%. PATIENT DOES COMPLAIN OF ABDOMEN PAIN IN ALL QUADRANTS OF AN 8 OUT OF 10. RAC IV INTACT AND PATENT #20G WITH NO SIGN OF ANY INFILTRATION. PATIENT HAS EXTREMITY STRENGTH WITH NO COMPLAINTS OF WEAKNESS. PATIENT DOES STATE THAT SHE USES A WALKER AT HOME. ALL PATIENT BELONGING HAVE BEEN ACCOUNTED FOR AND DOCUMENTED. CHANNEL MARKETING MANAGER AND CIGARETTES PLACED AT THE NURSES STATION. CALL LIGHT WITHIN REACH AND ALL SAFETY PRECAUTIONS APPLIED. WILL CONTINUE TO MONITOR.
--- NOTE | 2020-01-22 03:35 | NUR ---
Received endorsement report from DANIEL HALL for SHARON
--- NOTE | 2020-01-22 06:45 | NUR ---
RN CLOSING NOTE: PATIENT REMAINS IN ROOM. NO SIGNS OF RESPIRATORY DISTRESS. SAFETY MEASURES IMPLEMENTED, BED IN LOWEST POSITION, LOCKED, SIDE RAILS UP, CALL LIGHT WITHIN REACH. ALL NEEDS AND ORDERS ADDRESSED DURING THE SHIFT. PATIENT KEPT CLEAN AND COMFORTABLE WITHIN THE SHIFT. ENDORSED TO INCOMING SHIFT RN FOR CONTINUITY OF CARE.
[2020-01-22] MEDS: PANTOPRAZOLE 40 MG TABLET.DR PO SCH (07:46)
--- NOTE | 2020-01-22 08:02 | NUR ---
TELE/RN OPENING NOTES RECEIVED PATIENT ON BED SLEEPING, EASILY AROUSABLE BY NAME AND TOUCH, ALERT AND ORIENTED X3. DENIES PAIN AT THIS TIME. NO APPARENT RESPIRATORY DISTRESS NOTED. PATIENT WITH TELE MONITOR IN PLACE SR 70-80 BPM. IV ACCESS AT THE RIGHT AC # 20 WITH PATENT AND INTACT. WILL CONTINUE TO MONITOR.
[2020-01-22] MEDS ORDERED: OMEP20TA5 PO (08:43)
[2020-01-22] MEDS ORDERED: PRIM250T8 PO (08:43)
[2020-01-22] MEDS: HYDROMORPHONE HCL 2 MG TABLET PO PRN ×3 (09:53→18:01)
--- NOTE | 2020-01-22 09:53 | NUR ---
TELE/RN NOTES PATIENT COMPLAINED OF HEADACHE AND ABDOMINAL PAIN RATED 10/10. DILAUDID 4MG PO WAS GIVEN. WILL CONTINUE TO MONITOR.
--- NOTE | 2020-01-22 14:41 | NUR ---
TELE/RN NOTES PATIENT VTE SCORE [address] LIGHT WIRER IS AWARE. NO ORDER AT THIS TIME.
[2020-01-22] MEDS: SODIUM CHLORIDE 1000 MG TABLET PO SCH (14:47)
[2020-01-22] MEDS: AMLODIPINE BESYLATE 2.5 MG TABLET PO SCH (14:49)
--- NOTE | 2020-01-22 16:05 | NUR ---
TELE/RN NOTES GIVEN REPORT ISIS HERRERA.
[2020-01-22] MEDS: DULOXETINE HCL 30 MG CAPSULE.DR PO SCH (16:51)
[2020-01-22] MEDS: GABAPENTIN 400 MG CAPSULE PO SCH (16:51)
[2020-01-22] MEDS: OLANZAPINE 10 MG TABLET PO SCH (16:51)
[2020-01-22] MEDS: ONDANSETRON HCL/PF 4 MG/2 ML VIAL IVP PRN ×2 (16:51→22:40)
[2020-01-22] MEDS ORDERED: PHENOBARBITAL 20 MG/5 ML UDC PO SCH (17:00)
[2020-01-22] MEDS ORDERED: PHENOBARBITAL 60 MG/15 ML UDC PO SCH (17:00)
[2020-01-22] MEDS ORDERED: PHENOBARBITAL 30 MG TABLET PO SCH (17:05)
--- NOTE | 2020-01-22 17:15 | NUR ---
RN NOTES PHENOBARBITAL 20MG/5ML UNADMINISTER DUE TO OUT OF STOCK ON BOTH OMNICELL. PHARMACY AWARE.
[2020-01-22] MEDS: PHENOBARBITAL 30 MG TABLET PO SCH (18:23)
--- NOTE | 2020-01-22 19:31 | NUR ---
RN CLOSING NOTE: PATIENT REMAINS IN ROOM SLEEPING. PATIENT ON ROOM AIR SATURATING AT 94%. NO SIGNS OF RESPIRATORY DISTRESS. SAFETY MEASURES IMPLEMENTED, BED IN LOWEST POSITION, LOCKED, SIDE RAILS UP, CALL LIGHT WITHIN REACH. ALL NEEDS AND ORDERS ADDRESSED DURING THE SHIFT. PATIENT KEPT CLEAN AND COMFORTABLE WITHIN THE SHIFT. ENDORSED TO INCOMING SHIFT RN FOR CONTINUITY OF CARE.
[2020-01-22] MEDS: MORPHINE SULFATE INJ 2 MG/ML DISP.SYRIN IV PRN ×2 (19:57→23:51)
[2020-01-22] MEDS: TEMAZEPAM 15 MG CAPSULE PO SCH (22:10)
[2020-01-22] MEDS: CEFTRIAXONE 1 G in IV D5W 50 ML IV SCH (22:10)
[2020-01-22] MEDS: HYDROCODONE/APAP 5/325MG 1 EACH TABLET PO PRN (22:23)
[2020-01-23] VITALS: BP 153/85
[2020-01-23 04:00] VITALS: BP 139/71
[2020-01-23] MEDS: MORPHINE SULFATE INJ 2 MG/ML DISP.SYRIN IV PRN ×4 (05:56→23:27)
[2020-01-23 06:44] LABS: CREATININE 0.7 mg/dL (0.6-1.3); MAGNESIUM 2.1 mg/dL (1.8-2.4); PHOSPHORUS 4.1 mg/dL (2.5-4.9); POTASSIUM 3.6 mmol/L (3.5-5.1)
[2020-01-23 06:49] LABS: BASOPHILS # (AUTO) 0.1 /CMM (0.0-0.2); BASOPHILS % (AUTO) 0.5 % (0.0-2.0); EOSINOPHILS % (AUTO) 0.1 % (0.0-6.0); HEMATOCRIT 41 % (33-45); HEMOGLOBIN 13.9 g/dL (11.5-14.8); LYMPHOCYTES # (AUTO) 2.7 /CMM (0.8-4.8); LYMPHOCYTES % (AUTO) 26.4 % (20.0-44.0); MEAN CORPUSCULAR HGB CONC 34 g/dl (31.0-36.0); MEAN CORPUSCULAR VOLUME 92 fL (82-100); MONOCYTES # (AUTO) 0.3 /CMM (0.1-1.30); MONOCYTES % (AUTO) 2.7 % (2.0-12.0); NEUTROPHILS # (AUTO) 7.3 /CMM (1.8-8.9); NEUTROPHILS % (AUTO) 70.3 % (43.0-81.0); PLATELET COUNT (AUTO) 334 /CMM (150-450); WHITE BLOOD COUNT (AUTO) 10.4 K/uL (4.3-11.0)
--- NOTE | 2020-01-23 06:50 | NUR ---
RN CLOSING NOTES PT ON BED ASLEEP EASY TO AWAKE NO SIGN AND SYMPTOMS OF RESPIRATORY DISTRESS, NO SIGNIFICANT CHANGES ON CONDITION NOTED,DROPLET ISOLATION MAINTAINED FOR R/O COVID ALL NEEDS ATTENDED SAFETY MEASURE MAINTAINED WILL ENDORSED TO AM SHIFT NURSE
[2020-01-23] MEDS: HYDROCODONE/APAP 5/325MG 1 EACH TABLET PO PRN (07:07)
[2020-01-23] MEDS: PANTOPRAZOLE 40 MG TABLET.DR PO SCH (07:07)
--- NOTE | 2020-01-23 07:30 | NUR ---
RN MS NOTES PT IN BED, ASLEEP, EASY TO AROUSE, ALERT AND VERBALLY RESPONSIVE, CALL LIGHT WITHIN REACH, NO COMPLAINT OF PAIN AT THIS TIME, BREATHING PATTERN NORMAL, NEEDS ATTENDED.
[2020-01-23 08:00] VITALS: BP 96/55
--- NOTE | 2020-01-23 08:26 | NUR ---
PATIENT NEGATIVE COVID NURSING SUP NOTIFIED FOR CLEAN BED PER MD.
[2020-01-23] MEDS: FUROSEMIDE 20 MG TABLET PO SCH (09:00)
[2020-01-23] MEDS: AMLODIPINE BESYLATE 2.5 MG TABLET PO SCH (09:00)
[2020-01-23] MEDS: PHENOBARBITAL 30 MG TABLET PO SCH ×2 (09:03→17:00)
[2020-01-23] MEDS: DULOXETINE HCL 30 MG CAPSULE.DR PO SCH (09:03)
[2020-01-23] MEDS: PRIMIDONE 250 MG TABLET PO SCH (09:03)
[2020-01-23] MEDS: OLANZAPINE 10 MG TABLET PO SCH ×2 (09:03→17:00)
[2020-01-23] MEDS: SODIUM CHLORIDE 1000 MG TABLET PO SCH (09:03)
[2020-01-23] MEDS: GABAPENTIN 400 MG CAPSULE PO SCH ×3 (09:03→17:01)
[2020-01-23 09:18] LABS: CHOLESTEROL 280 mg/dL (<200); HDL CHOLESTEROL 56 mg/dL (40-60); LDL 205 mg/dL (0-99); TRIGLYCERIDES 81 mg/dL (30-150)
[2020-01-23 11:20] VITALS: BP 102/64
--- NOTE | 2020-01-23 11:20 | NUR ---
RN NOTES PATIENT TRANSFERRED FROM [facility] REPORT GET MARK POLLOCK. PATIENT 69 Y/OLD FEMALE ROOM AIR, NO ACUTE RESPIRATORY DISTRESS, WAS COMPLAINING OF PAIN GENERALIZED 02/24. PATIENT NEEDY,A/OX3 , UNKEMPT. BELONGING CHECKED. PATIENT HAS MONEY $269 DOLLARS AND PREFERRED TO KEEP WITH HER, ALSO WEARING BOOTS AND LATS OF JEWELRY REFUSED TO REMOVE. IV ACCESS ON RIGHT UA INTACT. CALL LIGHT WITHIN TO REACH. CONTINUED MONITORING.
--- NOTE | 2020-01-23 11:23 | NUR ---
RN MS NOTES PT FOR TRANSFER TO [facility] RM 205, REPORT GIVEN TO MIKE, PT INFORMED, VERBALIZED UNDERSTANDING, BELONGINGS CHECKED, TRANSPORTED PT TO ROOM 205 WITH ALL MEDS AND BELONGINGS.
--- NOTE | 2020-01-23 12:11 | NUR ---
RN NOTES ADMINISTERED MORPHINE SULFATE 4 MG/ML IV PUSH FOR GENERALIZED PAIN 03/27 PER PATIENT REQUEST, V/S TAKEN BP 102/64, P-84, R-18, PATIENT NEEDY, VERBALLY ABUSIVE, ALSO ADMINISTERED SCHEDULED MEDICATION. CALL LIGHT WITHIN TO REACH, CONTINUED MONITORING.
--- NOTE | 2020-01-23 13:15 | NUR ---
RN NOTES MEDICATION WERE ADMINISTERED FOR PAIN EFFECTIVE, PATIENT RESTING IN THE BED. SEEN HOSPITALIST DAVID SAAB. PER HOSPITALIST AFTER SEEN PAIN MANAGEMENT MD TODAY PATIENT WILL DISCHARGE BACK TO THE SNF. CONTINUED MONITORING.
[2020-01-23 16:20] VITALS: BP 105/63
--- NOTE | 2020-01-23 17:01 | NUR ---
rn notes ADMINISTERED MORPHINE SULFATE 4 MG/ML IV PUSH FOR GENERALIZED PAIN 10 PER PATIENT REQUEST. V/S TAKEN BP-105/65,P-80, ALSO ADMINISTERED SCHEDULED MEDICATION, CALL LIGHT WITHIN TO REACH. CONTINUED MONITORING.
--- NOTE | 2020-01-23 18:00 | NUR ---
rn notes patient in the bed stable refused pain at this time,. tolerated dinner 75 %, needs attended and anticipated, call light within to reach. endorsed oncoming nurse follow plan of care.
[2020-01-23 20:00] VITALS: BP 128/68
[2020-01-23] MEDS: TEMAZEPAM 15 MG CAPSULE PO SCH (23:27)
[2020-01-23] MEDS: CEFTRIAXONE 1 G in IV D5W 50 ML IV SCH (23:47)
[2020-01-24] MEDS: MORPHINE SULFATE INJ 2 MG/ML DISP.SYRIN IV PRN ×3 (03:27→13:43)
--- NOTE | 2020-01-24 06:22 | NUR ---
MS RN NOTES AWAKE & RESPONSIVE. NOT IN ANY DISTRESS. NO SOB NOTED. DENIES ANY PAIN OR DISCOMFORT AT THIS TIME. WITH IV-HL PATENT & INTACT. AM CARE DONE. MONITORED ACCORDINGLY. CALL LIGHT WITHIN REACH. BED IN LOWEST POSITION. SR UP X 3 WITH BED ALARM ON FOR SAFETY. WILL ENDORSE TO NEXT SHIFT.
--- NOTE | 2020-01-24 07:15 | NUR ---
MS RN OPENING NOTES RECEIVED PT IN BED, ASLEEP, EASILY AROUSED, A/OX 3-4. PT TOLERATING RA, WITH NO ACUTE RESPIRATORY DISTRESS NOTED. PT STATED ABDOMINAL PAIN.BUT DENIES ANY CONCERNS OR QUESTIONS AT THIS TIME. PIV TO MENDY 20G, FLUSHED WITH NS, INTACT AND OPERATIONAL. PT KEPT COMFORTABLE. CALL LIGHT KEPT WITHIN REACH. CALL LIGHT KEPT WITHIN REACH. PT'S BED IN LOWEST, LOCKED POSITION WITH SR X3.
[2020-01-24] MEDS: PANTOPRAZOLE 40 MG TABLET.DR PO SCH (07:58)
[2020-01-24 08:00] VITALS: BP 149/84
[2020-01-24] MEDS: FUROSEMIDE 20 MG TABLET PO SCH (08:00)
[2020-01-24] MEDS: GABAPENTIN 400 MG CAPSULE PO SCH ×3 (08:00→17:05)
[2020-01-24] MEDS: DULOXETINE HCL 30 MG CAPSULE.DR PO SCH (08:00)
[2020-01-24] MEDS: OLANZAPINE 10 MG TABLET PO SCH ×2 (08:00→17:06)
[2020-01-24] MEDS: AMLODIPINE BESYLATE 2.5 MG TABLET PO SCH (08:00)
[2020-01-24] MEDS: SODIUM CHLORIDE 1000 MG TABLET PO SCH (08:00)
[2020-01-24] MEDS: PHENOBARBITAL 30 MG TABLET PO SCH ×2 (08:01→17:06)
[2020-01-24] MEDS: PRIMIDONE 250 MG TABLET PO SCH (08:44)
[2020-01-24] MEDS: HYDROCODONE/APAP 5/325MG 1 EACH TABLET PO PRN ×2 (09:16→17:11)
[2020-01-24] MEDS: DOCUSATE SODIUM 100 MG CAPSULE PO SCH ×2 (12:41→17:05)
[2020-01-24] MEDS ORDERED: PRIM250T8 PO (13:29)
[2020-01-24] MEDS ORDERED: MAG30ORA PO (13:29)
[2020-01-24] MEDS ORDERED: DULO30CA2 PO (13:29)
[2020-01-24] MEDS ORDERED: DOCU-270 PO (13:29)
[2020-01-24] MEDS ORDERED: MAGN400O6 PO (13:29)
[2020-01-24] MEDS ORDERED: PHEN30TA40 PO (13:29)
[2020-01-24] MEDS ORDERED: NITR100C PO (13:31)
[2020-01-24 16:00] VITALS: BP 110/73
--- NOTE | 2020-01-24 17:35 | NUR ---
MS PRODUCT SAFETY TECHNICAL ASSISTANT NOTES PT AWAKE, A/OX 3-4. PT TOLERATING RA, WITH NO ACUTE RESPIRATORY DISTRESS NOTED. PT STATED ABDOMINAL PAIN BUT TOLERABLE. PT ASKED FOR NORCO 5/325 BUT CHANGED HER MIND AT BEDSIDE. PILL/NORCO WASTED IN THE MED BIN, WITNESSED BY ANOTHER RN/RT. PT INSTRUCTED AND SIGNED DISCHARGE INSTRUCTIONS AND INVENTORY LIST. ALL BELONGINGS WITH THE PT. PIV TO MENDY 20G, REMOVED AND APPLIED DRY DRESSING. SKIN ASSESSED, INTACT, NO PICTURES TAKEN AND FILED. ALL NEEDS AND CARE ATTENDED AND PROVIDED. AMBULANCE CAME TO PICK PT UP TO TRANSPORT BACK TO [address] [place] [address] [facility]. HOSPITALIST/MK AWARE OF DISCHARGE. VS STABLE. LEFT THE UNIT AT 1730.
== END 2020-01-24 17:30 | DRG 463 ==
LOC: ER 21:26 → TELE1 01-22 00:18 → MEDSG2 01-23 10:01
PROVIDERS: ADMIT Nurse Practitioner Acute Care; ATTEND Nurse Practitioner Acute Care
DX: N39.0 Urinary tract infection, site not specified (principal); E87.1 Hypo-osmolality and hyponatremia; K59.00 Constipation, unspecified; R10.9 Unspecified abdominal pain; G89.29 Other chronic pain; G40.909 Epilepsy, unspecified, not intractable, without status epilepticus; Z86.718 Personal history of other venous thrombosis and embolism; Z95.828 Presence of other vascular implants and grafts; Z86.711 Personal history of pulmonary embolism; F20.0 Paranoid schizophrenia; F17.210 Nicotine dependence, cigarettes, uncomplicated; E11.9 Type 2 diabetes mellitus without complications; I25.10 Atherosclerotic heart disease of native coronary artery without angina pectoris; Z90.49 Acquired absence of other specified parts of digestive tract; Z95.5 Presence of coronary angioplasty implant and graft; Z71.6 Tobacco abuse counseling; K21.9 Gastro-esophageal reflux disease without esophagitis; V89.2XXS Person injured in unspecified motor-vehicle accident, traffic, sequela; E86.1 Hypovolemia; I11.0 Hypertensive heart disease with heart failure; I50.9 Heart failure, unspecified; Z79.891 Long term (current) use of opiate analgesic; B96.20 Unspecified Escherichia coli [E. coli] as the cause of diseases classified elsewhere; Z85.72 Personal history of non-Hodgkin lymphomas; Z85.6 Personal history of leukemia; Z96.641 Presence of right artificial hip joint
CPT/HCPCS: 36415; 70450-TC; 71250-TC; 80048-TC; 80061-TC; 80076-TC; 80305; 81000-TC; 82550-TC; 82728-TC; 83615-TC; 83690-TC; 83735-TC; 83880; 84100-TC; 84484-TC; 85025-TC; 85378-TC; 85385-TC; 85730-TC; 86140-TC; 87081-TC; 87086-TC; 87186-TC; 93307-TC; G0378; G0480; J0696; J2270; J2405; J7050; J7060; Q0162; U0003-CS

== ENCOUNTER 2020-02-19 21:26 | Inpatient (IN) | payer MEDICAID ==
[~2020-02-19] VITALS: Ht 162.6 cm; Wt 71.7 kg
[~2020-02-19 21:26] MED LIST changes: +DOCU-270 PO; +DULO30CA2 PO; -HYDR4TAB57 PO; -IBUP-1953 PO; -LOPE2TAB25 PO; +MAG30ORA PO; -MORP15TA7 PO; +NITR100C PO; +OMEP20TA5 PO; -PHEN16.22 PO; +PHEN30TA40 PO; -PRIM250T PO; +PRIM250T8 PO; -TEMA15CA PO
[2020-02-19 21:58] LABS: BASOPHILS % (AUTO) 0.7 % (0.0-2.0); EOSINOPHILS % (AUTO) 3.2 % (0.0-6.0); HEMATOCRIT 37 % (33-45); HEMOGLOBIN 12.6 g/dL (11.5-14.8); LYMPHOCYTES # (AUTO) 2.8 /CMM (0.8-4.8); LYMPHOCYTES % (AUTO) 45.9 % (20.0-44.0); MEAN CORPUSCULAR HGB CONC 34 g/dl (31.0-36.0); MEAN CORPUSCULAR VOLUME 93 fL (82-100); MONOCYTES # (AUTO) 0.4 /CMM (0.1-1.30); MONOCYTES % (AUTO) 6.9 % (2.0-12.0); NEUTROPHILS # (AUTO) 2.6 /CMM (1.8-8.9); NEUTROPHILS % (AUTO) 43.3 % (43.0-81.0); PLATELET COUNT (AUTO) 282 /CMM (150-450); RED BLOOD CELL COUNT(AUTO) 3.99 MIL/uL (4.0-5.2); WHITE BLOOD COUNT (AUTO) 6.1 K/uL (4.3-11.0)
--- NOTE | 2020-02-19 22:02 | NUR ---
BIB EMS C/O "COUGH, CONGESTION, SOB X3 MONTHS". PT AAOX3, VSS. RR EVEN & UNLABORED. DENIES CP, DIZZINESS, N/V/D, WEAKNESS AT THIS TIME. PT SEEN & EVAL'D BY DR. VILLARREAL. PLACED ON DEBT COUNSELOR, SR. WILL CONT TO MONITOR.
[2020-02-19 22:22] LABS: B-TYPE NATRIURETIC PEPTIDE 68 PG/ML (0-125); CALCIUM, SERUM 8.8 mg/dL (8.5-10.1); CARBON DIOXIDE 26 mmol/L (21-32); CHLORIDE 95 mmol/L (98-107); CREATININE 0.6 mg/dL (0.6-1.3); GLUCOSE 106 mg/dL (74-106); POTASSIUM 5.2 mmol/L (3.5-5.1); SODIUM SERUM 129 mmol/L (136-145); UREA NITROGEN, BLOOD 11 mg/dL (7-18)
--- NOTE | 2020-02-19 23:12 | NUR ---
COVID19 TESTING DONE & SENT TO LAB.
--- NOTE | 2020-02-19 23:29 | NUR ---
[facility] LLAMAS NP HOSPITALIST AT BED SIDE
--- NOTE | 2020-02-19 23:35 | NUR ---
REPORT GIVEN TO JOHNNIE ON FIRST FLOOR
[2020-02-20] VITALS: BP 127/82
[2020-02-20] MEDS ORDERED: ZOLPIDEM TARTRATE 5 MG TABLET PO PRN
[2020-02-20] MEDS ORDERED: Z GUARD REMEDY 2 OZ OINT TP PRN
[2020-02-20] MEDS ORDERED: IV NS 0.9% 500 ML IV ONE
[2020-02-20] MEDS ORDERED: ACETAMINOPHEN 325 MG TABLET PO PRN
[2020-02-20] MEDS ORDERED: MAG HYDROX/AL HYDROX/SIMETH 30 ML UDC PO PRN
[2020-02-20] MEDS ORDERED: ONDANSETRON HCL/PF 4 MG/2 ML VIAL IVP PRN
[2020-02-20] MEDS ORDERED: CEFEPIME 1 GM in IV D5W 50 ML IV SCH ×2
[2020-02-20] MEDS ORDERED: MAGNESIUM HYDROXIDE 30 ML UDC PO PRN
--- NOTE | 2020-02-20 | NUR ---
DISPATCH MANAGER ADMISSION NOTE ADMITTED 69 YO F FROM ER WITH A DX OF PNEUMONIA BY [facility] HERNANDEZ. PT AAOX3 RAPID COVID NEGATIVE WAITING PCR COVID RESULT. ISOLATION PRECAUTION TAKEN. NO SOB NOTED PATIENT CO ABD PAIN 02/24, WILL CHECK MEDICATION ORDERS. SKIN ASSESSMENT DONE. IV 20G LAC PATIENT AND FLUSHED AND SALINE LOCKED. TELE MONITOR NSR 82. ORIENTED PATIENT TO HER ROOM. PT HAS UNSTEADY GATE. FALL RISK. BEDSIDE COMMODE PLACED NEXT TO THE BED. CALL LIGHT WITHIN REACH. SIDE RAILS UP X2. VSS CONTINUE TO MONITOR.
--- NOTE | 2020-02-20 00:02 | NUR ---
PT WAS TRANSFERRED TO 102 UNDER ACLS
[2020-02-20] MEDS: IV NS 0.9% 1,000 ML IV PRN ×2 (00:38→21:43)
[2020-02-20] MEDS: MORPHINE SULFATE INJ 2 MG/ML DISP.SYRIN IV PRN ×5 (00:41→17:30)
[2020-02-20] MEDS ORDERED: CEFEPIME 1 GM VIAL ONE (01:01)
--- NOTE | 2020-02-20 03:30 | NUR ---
DERRICK FOLLOWER NOTES PATIENT COMPLAINS ON LOWER ABDOMINAL PAIN 02/24. MORPHINE SULFATE 4MG IVP GIVEN. WILL CONTINUE TO MONITOR.
--- NOTE | 2020-02-20 04:00 | NUR ---
WOOD BUFFER NOTES LOWER ABDOMEN PAIN SUBSIDED /. PT FALLING ASLEEP. IVF INFUSING WELL. NO SS OF ANY INFILTRATION. WILL CONTINUE TO MONITOR.
--- NOTE | 2020-02-20 05:25 | NUR ---
CABLE MOCK UP ASSEMBLER NOTES PT STATES SHE HAS 8/10 ABD PAIN. GAVE 4MG MORPHINE SULFATE IVP PRN. WILL CONTINUE TO MONITOR
--- NOTE | 2020-02-20 06:42 | NUR ---
RECONCILIATION ANALYST CLOSING NOTE PT IS SLEEPING IN BED IN NO DISTRESS OR DISCOMFORT. DENIES PAIN. 02 SATURATION IS 97% ON ROOM AIR. TELE NSR 62. IVF NS INFUSING AT 75ML/HR. NO SS OF INFILTRATION NOTED. HOB ELEVATED. KEPT HER DRY AND CLEAN. SIDE RAILS UP X2. BED ALARM ON. CALL LIGHT IS IN REACH. WILL ENDORSE TO DAY SHIFT RN ACCORDINGLY.
[2020-02-20 07:11] LABS: BASOPHILS % (AUTO) 0.6 % (0.0-2.0); EOSINOPHILS % (AUTO) 3.8 % (0.0-6.0); HEMATOCRIT 41 % (33-45); HEMOGLOBIN 13.6 g/dL (11.5-14.8); LYMPHOCYTES % (AUTO) 48.8 % (20.0-44.0); MEAN CORPUSCULAR HGB CONC 34 g/dl (31.0-36.0); MEAN CORPUSCULAR VOLUME 94 fL (82-100); MONOCYTES # (AUTO) 0.5 /CMM (0.1-1.30); MONOCYTES % (AUTO) 7.6 % (2.0-12.0); NEUTROPHILS # (AUTO) 2.5 /CMM (1.8-8.9); NEUTROPHILS % (AUTO) 39.2 % (43.0-81.0); PLATELET COUNT (AUTO) 287 /CMM (150-450); RED BLOOD CELL COUNT(AUTO) 4.33 MIL/uL (4.0-5.2); WHITE BLOOD COUNT (AUTO) 6.2 K/uL (4.3-11.0)
[2020-02-20 07:50] LABS: CALCIUM, SERUM 8.9 mg/dL (8.5-10.1); CREATININE 0.4 mg/dL (0.6-1.3); MAGNESIUM 2.6 mg/dL (1.8-2.4); PHOSPHORUS 4.2 mg/dL (2.5-4.9); POTASSIUM 4.5 mmol/L (3.5-5.1)
[2020-02-20 08:00] VITALS: BP 123/72
--- NOTE | 2020-02-20 08:00 | NUR ---
RN OPENING NOTE Patient is resting in bed, A/O x3, showing no signs of acute distress or SOB, saturating 94% on RA. Patient is complaining 9/10 chronic pain in all quadrants of the abdomen. Patient requests for morphine when it is due. IV line in the LAC #20g is clean and intact showing no signs of infiltration. Bed is in lowest position, side rails x3 in upright position call light is within reach, fall safety, seizure and aspiration precautions enforced. Will continue with plan of care.
[2020-02-20] MEDS: AMLODIPINE BESYLATE 2.5 MG TABLET PO SCH (08:46)
[2020-02-20] MEDS: FUROSEMIDE 20 MG TABLET PO SCH (08:46)
[2020-02-20] MEDS: DOCUSATE SODIUM 100 MG CAPSULE PO SCH ×2 (08:46→16:52)
[2020-02-20] MEDS: SODIUM CHLORIDE 1000 MG TABLET PO SCH (08:46)
[2020-02-20] MEDS: PRIMIDONE 250 MG TABLET PO SCH (08:46)
[2020-02-20] MEDS: PHENOBARBITAL 30 MG TABLET PO SCH ×2 (08:47→16:52)
[2020-02-20] MEDS: OLANZAPINE 10 MG TABLET PO SCH ×2 (08:47→16:52)
[2020-02-20] MEDS: GABAPENTIN 400 MG CAPSULE PO SCH ×3 (08:47→16:52)
[2020-02-20] MEDS: DOXYCYCLINE HYCLATE (100 MG) 100 MG TABLET PO SCH ×2 (08:47→20:10)
[2020-02-20] MEDS: DULOXETINE HCL 30 MG CAPSULE.DR PO SCH (08:47)
[2020-02-20] MEDS: CEFEPIME 2 GM in IV D5W 100 ML IV SCH ×2 (08:47→20:10)
[2020-02-20] MEDS: PANTOPRAZOLE 40 MG TABLET.DR PO SCH (08:48)
[2020-02-20 10:37] LABS: C-REACTIVE PROTEIN 0.4 mg/dL (0.0-0.9)
[2020-02-20] MEDS: HYDROCODONE/APAP 5/325MG 1 EACH TABLET PO PRN (11:10)
[2020-02-20] MEDS: ENOXAPARIN SODIUM 40 MG/0.4 ML DISP.SYRIN SQ SCH (11:11)
[2020-02-20 12:00] VITALS: BP 96/64
--- NOTE | 2020-02-20 13:30 | NUR ---
RN NOTE URINE SPECIMEN SENT TO LAB.
[2020-02-20 14:24] LABS: APPEARANCE,URINE SL CLOUDY (CLEAR); BILIRUBIN,URINE NEGATIVE (NEGATIVE); BLOOD, URINE NEGATIVE Ery/uL (NEGATIVE); COLOR,URINE YELLOW (YELLOW); KETONES,URINE NEGATIVE (NEGATIVE); LEUKOCYTE ESTERASE ,URINE SMALL (NEGATIVE); NITRITE, URINE NEGATIVE (NEGATIVE); PH,URINE 7.5 (5.0-8.0); PROTEIN,URINE NEGATIVE (NEGATIVE); UGLUCOSE NEGATIVE (NEGATIVE); UROBILINOGEN,URINE 0.2 EU/dL (0.2)
[2020-02-20] MEDS: IPRATROPIUM/ALBUTEROL INHALER IH SCH ×2 (14:29→20:22)
[2020-02-20 16:00] VITALS: BP 104/63
--- NOTE | 2020-02-20 16:02 | NUR ---
RN NOTE Patient O2 sat went down to 91% on RA. Patient put on 2L NC saturating 98-100% at this time.
[2020-02-20 16:33] LABS: BACTERIA,URINE 1+ /HPF (None Seen); RBC,URINE 0-2 /HPF (0-2); SQUAMOUS EPITHELIAL CELL,UR Few /HPF (None Seen); WBC,URINE 51-80 /HPF (0-3)
--- NOTE | 2020-02-20 18:26 | NUR ---
RN CLOSING NOTE Patient is resting in bed, A/O x3, showing no signs of acute distress or SOB, saturating 100% on RA. IV line in the LAC #20g is clean and intact showing no signs of infiltration. All patient needs met, all due medications given, patient kept clean and dry throughout shift. Bed is in lowest position, side rails x3 in upright position call light is within reach, fall safety, seizure and aspiration precautions enforced. Will endorse to retail shift manager.
[2020-02-20 20:00] VITALS: BP 113/63
--- NOTE | 2020-02-20 20:00 | NUR ---
RECEIVED COVID RESULTS. COVID SWAB CAME OUT NEGATIVE. INFORMED [facility] LLAMAS NP AND APPROVED FOR PATIENT TO BE TRANSFERRED TO [facility] FLOOR
--- NOTE | 2020-02-20 21:35 | NUR ---
DATA ENTRY SPECIALIST NOTES RECEIVED PATIENT FROM [facility], ALERT AND ORIENTED X 2-3. VERBALLY RESPONSIVE AND ABLE TO FOLLOW DIRECTIONS. BREATHING REGULAR AND UNLABORED ON OXYGEN AT 2L/MIN VIA NASAL CANNULA. LEFT AC G20 IV LINE INTACT AND PATENT, FLUSHING WELL WITH NO BLEEDING OR S/S OF INFILTRATION NOTED. SKIN ASSESSMENT DONE, SKIN INTACT CLEAN AND DRY. VITAL SIGNS AND BELONGINGS CHECKED. COMPLAINED OF ABDOMINAL PAIN, NON-PHARMACOLOGICAL INTERVENTIONS PROVIDED. DENIES SUICIDAL IDEATION. ATTACHED TO JACK SPINNER WITH NSR AT 64bpm. BED LOW AND LOCKED ON SEMI FOWLERS POSITION. CALL LIGHT IN REACH. WILL CONTINUE TO MONITOR.
--- NOTE | 2020-02-20 21:45 | NUR ---
GROUND PRODUCTS DIRECTOR NOTES COMPLAINED OF 8/10 ABDOMINAL PAIN BUT SBP<100mmHg. IV FLUIDS STARTED AND INFUSING WELL. BLE ELEVATED. WILL RECHECK BP AFTER 30MINS. NON-PHARMACOLOGICAL INTERVENTIONS PROVIDED.
[2020-02-20 22:00] VITALS: BP 97/57
--- NOTE | 2020-02-20 22:15 | NUR ---
EVALUATION SPECIALIST NOTES CAME BACK TO RECHECK PATIENT'S VITAL SIGNS AND PAIN LEVEL BUT FOUND HER SLEEPING. WILL CONTINUE TO MONITOR.
[2020-02-21] VITALS: BP 143/78
[2020-02-21] MEDS: MORPHINE SULFATE INJ 2 MG/ML DISP.SYRIN IV PRN ×2 (01:24→06:08)
[2020-02-21] MEDS: IPRATROPIUM/ALBUTEROL INHALER IH SCH ×4 (01:28→18:44)
--- NOTE | 2020-02-21 01:30 | NUR ---
SHAREPOINT ADMINISTRATOR NOTES COMPLAINED OF 8/10 ABDOMINAL PAIN, MORPHINE 4MG GIVEN VIA IV PUSH. NON-PHARMACOLOGICAL INTERVENTIONS PROVIDED. VITAL SIGNS WNL. WILL CONTINUE TO MONITOR.
[2020-02-21] MEDS: HYDROCODONE/APAP 5/325MG 1 EACH TABLET PO PRN ×2 (03:58→09:20)
[2020-02-21 04:00] VITALS: BP_SYST 141; BP_SYST 83; BP_DIAS 83
--- NOTE | 2020-02-21 06:30 | NUR ---
TEXTILE SLITTING MACHINE OPERATOR CLOSING NOTES PATIENT IN BED ALERT AND ORIENTED X 2-3 WITH EPISODES OF CONFUSION, FORGETFUL. AFEBRILE WITH NO S/S OF DISTRESS OBSERVED. LEFT AC G20 IV LINE PATENT AND INFUSING WELL. COMPLAINED OF 9/10 ABDOMINAL PAIN, MORPHINE 4MG GIVEN VIA IV PUSH. NON-PHARMACOLOGICAL INTERVENTIONS PROVIDED. MAINTAINED ON CARDIAC MONITORING WITH SINUS TACHYCARDIA AT 104bpm. BED LOW AND LOCKED ON SEMI FOWLERS POSITION. CALL LIGHT IN REACH. WILL ENDORSE TO MORNING SHIFT FOR SHARON.
[2020-02-21 06:43] LABS: BASOPHILS % (AUTO) 0.4 % (0.0-2.0); EOSINOPHILS % (AUTO) 0.6 % (0.0-6.0); HEMATOCRIT 41 % (33-45); HEMOGLOBIN 13.8 g/dL (11.5-14.8); LYMPHOCYTES # (AUTO) 1.4 /CMM (0.8-4.8); MEAN CORPUSCULAR HGB CONC 34 g/dl (31.0-36.0); MEAN CORPUSCULAR VOLUME 92 fL (82-100); MONOCYTES # (AUTO) 0.3 /CMM (0.1-1.30); MONOCYTES % (AUTO) 2.8 % (2.0-12.0); NEUTROPHILS # (AUTO) 7.3 /CMM (1.8-8.9); NEUTROPHILS % (AUTO) 80.2 % (43.0-81.0); PLATELET COUNT (AUTO) 279 /CMM (150-450); RED BLOOD CELL COUNT(AUTO) 4.38 MIL/uL (4.0-5.2)
[2020-02-21 07:02] LABS: THYROID STIMULATING HORMONE 2.446 uIU/mL (0.358-3.74); URIC ACID 3.4 mg/dL (2.6-7.2)
[2020-02-21 07:22] LABS: CREATININE 0.5 mg/dL (0.6-1.3); MAGNESIUM 2.2 mg/dL (1.8-2.4); PHOSPHORUS 3.9 mg/dL (2.5-4.9); POTASSIUM 4.2 mmol/L (3.5-5.1)
[2020-02-21 08:00] VITALS: BP 152/81
--- NOTE | 2020-02-21 08:00 | NUR ---
MS RN OPENING NOTES Received Patient resting in bed. A/O x 1-2 with episode of confusion and forgetfulness. VS stable with no acute distress. Breathing even and unlabored on room air with no respiratory distress. Patient stated pain level 10/10 on abdomen. Will intervene as ordered. 20g PIV on LAC clean, intact, patent and flushing well with NS infusing at 75ml/hr. Safety precautions in place. Bed locked and set to lowest position with side rails x 2 up. All needs rendered at this time. Call light within reach. Will continue to monitor.
[2020-02-21] MEDS: CEFEPIME 2 GM in IV D5W 100 ML IV SCH ×2 (09:03→21:04)
[2020-02-21] MEDS: PANTOPRAZOLE 40 MG TABLET.DR PO SCH (09:03)
[2020-02-21] MEDS: DOCUSATE SODIUM 100 MG CAPSULE PO SCH ×2 (09:04→16:31)
[2020-02-21] MEDS: AMLODIPINE BESYLATE 2.5 MG TABLET PO SCH (09:04)
[2020-02-21] MEDS: DULOXETINE HCL 30 MG CAPSULE.DR PO SCH (09:04)
[2020-02-21] MEDS: FUROSEMIDE 20 MG TABLET PO SCH (09:04)
[2020-02-21] MEDS: PRIMIDONE 250 MG TABLET PO SCH (09:04)
[2020-02-21] MEDS: GABAPENTIN 400 MG CAPSULE PO SCH ×3 (09:04→16:31)
[2020-02-21] MEDS: SODIUM CHLORIDE 1000 MG TABLET PO SCH (09:06)
[2020-02-21] MEDS: OLANZAPINE 10 MG TABLET PO SCH ×2 (09:06→16:32)
[2020-02-21] MEDS: ENOXAPARIN SODIUM 40 MG/0.4 ML DISP.SYRIN SQ SCH (09:06)
[2020-02-21] MEDS: PHENOBARBITAL 30 MG TABLET PO SCH ×2 (09:06→16:31)
[2020-02-21] MEDS: DOXYCYCLINE HYCLATE (100 MG) 100 MG TABLET PO SCH ×2 (09:06→21:04)
--- NOTE | 2020-02-21 09:06 | NUR ---
MS RN NOTES Wasted partial dose of phenobarbital per MD order. Witnessed with Haleigh SANCHEZ.
[2020-02-21 16:00] VITALS: BP 148/85
--- NOTE | 2020-02-21 16:31 | NUR ---
MS RN NOTES Wasted partial dose of phenobarbital per MD order. Witnessed with Marifer SANCHEZ.
--- NOTE | 2020-02-21 18:42 | NUR ---
MS RN CLOSING NOTES Patient resting and asleep in bed. A/O x 1-2 with episode of confusion and forgetfulness. VS stable with no acute distress. Breathing even and unlabored on room air with no respiratory distress. Denies pain. No signs and symptoms pain. 20g PIV on LAC clean, intact, patent and flushing well with NS infusing at 75ml/hr. Safety precautions in place. Bed locked and set to lowest position with side rails x 2 up. All needs rendered at this time. Call light within reach. Will endorse plan of care to oncoming shift.
--- NOTE | 2020-02-21 19:40 | NUR ---
MS RN NOTES RECEIVED ON SOUND ASLEEP,BREATHING EASY,NO SOB,IVF NS AT 75ML/HR RATE IN PROGRESS,SITE PATENT ON LEFT AC.FALL RISK,BED ALARM,BED ON LOWEST POSITION AND LOCKED.CALL LIGHT IN REACH,NEEDS ANTICIPATED.
[2020-02-21 20:00] VITALS: BP 137/95
[2020-02-21 20:14] VITALS: BP 137/95
--- NOTE | 2020-02-21 21:30 | NUR ---
MS RN NOTES LEON THOMPSON
[2020-02-22] MEDS: MORPHINE SULFATE INJ 2 MG/ML DISP.SYRIN IV PRN ×2 (00:06→08:59)
--- NOTE | 2020-02-22 00:06 | NUR ---
MS RN NOTES C/O LOWER ABDOMINAL PAIN 10/10 ON PAIN SCALE,MEDICATED WITH MORPHINE 4MG IV ORDERED.
--- NOTE | 2020-02-22 01:00 | NUR ---
MS RN NOTES IVF HELD THIS TIME PER PATIENT REQUEST.
[2020-02-22] MEDS: IPRATROPIUM/ALBUTEROL INHALER IH SCH ×3 (01:30→13:24)
--- NOTE | 2020-02-22 05:00 | NUR ---
MS RN NOTES NEW SALINE LOCK PLACE ON LEFT FOREARM #24,SAME IVF RE STARTED.PAIN TOLERABLE AT THE MOMENT.ON BED CALM AND QUIET.WITH EPISODE OF TALKING TO SELF AT TIMES.NO FALL,NO INJURY.CALL LIGHT IN REACH,DISCHARGE PLANNING BACK TO [facility],COVID TEST (-).WILL ENDORSE TO DAY NURSE FOR SHARON.
[2020-02-22 06:16] LABS: BASOPHILS % (AUTO) 0.3 % (0.0-2.0); EOSINOPHILS % (AUTO) 0.8 % (0.0-6.0); HEMATOCRIT 40 % (33-45); HEMOGLOBIN 13.5 g/dL (11.5-14.8); LYMPHOCYTES # (AUTO) 2.5 /CMM (0.8-4.8); LYMPHOCYTES % (AUTO) 32.3 % (20.0-44.0); MEAN CORPUSCULAR HGB CONC 34 g/dl (31.0-36.0); MEAN CORPUSCULAR VOLUME 91 fL (82-100); MONOCYTES # (AUTO) 0.5 /CMM (0.1-1.30); MONOCYTES % (AUTO) 6.5 % (2.0-12.0); NEUTROPHILS # (AUTO) 4.7 /CMM (1.8-8.9); NEUTROPHILS % (AUTO) 60.1 % (43.0-81.0); PLATELET COUNT (AUTO) 305 /CMM (150-450); RED BLOOD CELL COUNT(AUTO) 4.36 MIL/uL (4.0-5.2); WHITE BLOOD COUNT (AUTO) 7.8 K/uL (4.3-11.0)
[2020-02-22 06:47] LABS: CALCIUM, SERUM 8.9 mg/dL (8.5-10.1); CREATININE 0.5 mg/dL (0.6-1.3); MAGNESIUM 2.2 mg/dL (1.8-2.4); PHOSPHORUS 2.7 mg/dL (2.5-4.9); POTASSIUM 3.6 mmol/L (3.5-5.1)
[2020-02-22] MEDS: PANTOPRAZOLE 40 MG TABLET.DR PO SCH ×2 (07:30→07:39)
--- NOTE | 2020-02-22 07:30 | NUR ---
RN Opening note Received patient in bed, sleeping, able to responds all stimuli. Skin is warm to touch, kept clean/dry, intact new IV site . Respiratory even and unlabored on room air, no distress observed. Keep bed in locked with elevated HOB for ensure airway and aspiration precaution. Call light within reach, will continue to monitor.
[2020-02-22 08:00] VITALS: BP 164/98
[2020-02-22] MEDS: DOXYCYCLINE HYCLATE (100 MG) 100 MG TABLET PO SCH (08:08)
[2020-02-22] MEDS: GABAPENTIN 400 MG CAPSULE PO SCH ×3 (08:08→17:12)
[2020-02-22] MEDS: SODIUM CHLORIDE 1000 MG TABLET PO SCH (08:08)
[2020-02-22] MEDS: DOCUSATE SODIUM 100 MG CAPSULE PO SCH ×2 (08:08→17:12)
[2020-02-22] MEDS: FUROSEMIDE 20 MG TABLET PO SCH (08:08)
[2020-02-22] MEDS: OLANZAPINE 10 MG TABLET PO SCH ×2 (08:08→17:12)
[2020-02-22 08:09] VITALS: BP 164/98
[2020-02-22] MEDS: AMLODIPINE BESYLATE 2.5 MG TABLET PO SCH (08:09)
[2020-02-22] MEDS: PHENOBARBITAL 30 MG TABLET PO SCH ×2 (08:30→17:12)
[2020-02-22] MEDS: ENOXAPARIN SODIUM 40 MG/0.4 ML DISP.SYRIN SQ SCH (08:31)
[2020-02-22] MEDS: CEFEPIME 2 GM in IV D5W 100 ML IV SCH (08:33)
[2020-02-22] MEDS: PRIMIDONE 250 MG TABLET PO SCH (08:56)
[2020-02-22] MEDS: IV NS 0.9% 1,000 ML IV PRN (09:12)
[2020-02-22] MEDS ORDERED: LEVO500T23 PO (10:13)
[2020-02-22] MEDS ORDERED: PRIM250T8 PO (10:27)
--- NOTE | 2020-02-22 13:45 | NUR ---
Patient going discharge to [facility], given report Carole SANCHEZ.
--- NOTE | 2020-02-22 17:45 | NUR ---
Patient left facility accompanied by staff to the [facility] pt in stable condition.
--- NOTE | 2020-02-22 18:00 | NUR ---
Given phenobarbital half tab/15mg at 0900 and 1700, wasted rest of half tab(15mg) to the pharmaceutical box.
== END 2020-02-22 17:50 | DRG 137 ==
LOC: ER 21:26 → TELE1 23:23 → TELE 02-20 21:16 → MED 02-21 07:54
PROVIDERS: ADMIT Nurse Practitioner Acute Care; ATTEND Nurse Practitioner Acute Care
DX: J15.6 Pneumonia due to other Gram-negative bacteria (principal); E22.2 Syndrome of inappropriate secretion of antidiuretic hormone; E86.0 Dehydration; E87.5 Hyperkalemia; F17.210 Nicotine dependence, cigarettes, uncomplicated; G40.909 Epilepsy, unspecified, not intractable, without status epilepticus; I10 Essential (primary) hypertension; Z90.49 Acquired absence of other specified parts of digestive tract; Z95.828 Presence of other vascular implants and grafts; N39.0 Urinary tract infection, site not specified; E11.9 Type 2 diabetes mellitus without complications; E86.1 Hypovolemia; G89.4 Chronic pain syndrome; I25.10 Atherosclerotic heart disease of native coronary artery without angina pectoris; K21.9 Gastro-esophageal reflux disease without esophagitis; Z86.711 Personal history of pulmonary embolism; Z86.718 Personal history of other venous thrombosis and embolism; Z96.641 Presence of right artificial hip joint; Z95.5 Presence of coronary angioplasty implant and graft; F05 Delirium due to known physiological condition; F32.9 Major depressive disorder, single episode, unspecified; T42.3X5A Adverse effect of barbiturates, initial encounter; Y92.9 Unspecified place or not applicable; J96.01 Acute respiratory failure with hypoxia; F60.9 Personality disorder, unspecified; F25.0 Schizoaffective disorder, bipolar type; J42 Unspecified chronic bronchitis
CPT/HCPCS: 36415; 71045-TC; 80048-TC; 81000-TC; 82378; 82728-TC; 83735-TC; 83880; 84100-TC; 84443-TC; 84484-TC; 84550-TC; 85025-TC; 85378-TC; 86140-TC; 86301; 87081-TC; 87086-TC; 97110-TC; 97116-TC; 97530-TC; G0378; J0692; J1650; J2270; J2405; J7030; J7050; J7060; U0003-CS

== ENCOUNTER 2020-04-19 19:08 | Emergency (ER) | payer MEDICAID ==
[~2020-04-19] VITALS: Ht 162.6 cm; Wt 54.4 kg
[~2020-04-19 19:08] MED LIST changes: -DULO30CA2 PO; +LEVO500T23 PO; -NITR100C PO
--- NOTE | 2020-04-19 19:54 | NUR ---
blood collected and sent to the lab.
[2020-04-19] MEDS ORDERED: IV NS 0.9% 250 ML IV ONE (20:01)
[2020-04-19] MEDS ORDERED: IOHEXOL-350 100 ML VIAL IV ONE ×2 (20:01→20:13)
--- NOTE | 2020-04-19 20:22 | NUR ---
C/O SUDDEN ONSET ABDOMINAL PAIN, NO N/V. AAOX3, VSS. PT INITIALLY REPORTED CP BUT DENIES @ THIS TIME. RR EVEN & UNLABORED. DENIES SOB, DIZZINESS, N/V/D AT THIS TIME. PT SEEN & EVAL'D BY ROSEMARY HAYNES. PLACED ON CONCRETE BUILDINGS ASSEMBLER, SR. WILL CONT TO MONITOR.
[2020-04-19 20:23] LABS: BASOPHILS # (AUTO) 0.1 /CMM (0.0-0.2); BASOPHILS % (AUTO) 0.8 % (0.0-2.0); EOSINOPHILS % (AUTO) 2.9 % (0.0-6.0); HEMATOCRIT 36 % (33-45); HEMOGLOBIN 12.7 g/dL (11.5-14.8); LYMPHOCYTES # (AUTO) 2.8 /CMM (0.8-4.8); MEAN CORPUSCULAR HGB CONC 35 g/dl (31.0-36.0); MEAN CORPUSCULAR VOLUME 91 fL (82-100); MONOCYTES # (AUTO) 0.4 /CMM (0.1-1.30); MONOCYTES % (AUTO) 7.4 % (2.0-12.0); NEUTROPHILS # (AUTO) 2.6 /CMM (1.8-8.9); NEUTROPHILS % (AUTO) 42.9 % (43.0-81.0); PLATELET COUNT (AUTO) 289 /CMM (150-450); RED BLOOD CELL COUNT(AUTO) 3.98 MIL/uL (4.0-5.2)
[2020-04-19 20:30] LABS: CARBON DIOXIDE 26 mmol/L (21-32); CHLORIDE 97 mmol/L (98-107); CREATININE 0.6 mg/dL (0.6-1.3); GLUCOSE 105 mg/dL (74-106); POTASSIUM 4.3 mmol/L (3.5-5.1); SODIUM SERUM 132 mmol/L (136-145); UREA NITROGEN, BLOOD 9 mg/dL (7-18)
[2020-04-19] MEDS ORDERED: ONDANSETRON HCL/PF 4 MG/2 ML VIAL IV ONE (20:30)
[2020-04-19] MEDS ORDERED: KETOROLAC TROMETHAMINE INJ 30 MG/ML VIAL IV ONE (20:30)
[2020-04-19] MEDS ORDERED: KETOROLAC TROMETHAMINE INJ 60 MG/2 ML VIAL IM ONE (20:40)
[2020-04-19] MEDS ORDERED: ONDANSETRON HCL/PF 4 MG/2 ML VIAL ONE (20:40)
[2020-04-19] MEDS ORDERED: KETOROLAC TROMETHAMINE INJ 30 MG/ML VIAL ONE (20:41)
[2020-04-19 20:51] LABS: ALBUMIN 3.6 g/dL (3.4-5.0); BILIRUBIN,TOTAL 0.1 mg/dL (0.2-1.0); TOTAL PROTEIN, SERUM 7.3 g/dL (6.4-8.2)
--- NOTE | 2020-04-19 22:12 | NUR ---
[facility]ED [facility]. AWAITING ETA, COULD TAKE UP TO 3 HOURS. RUN #[id number]
--- NOTE | 2020-04-20 02:40 | NUR ---
CALLED [facility] ETA [phone]
--- NOTE | 2020-04-20 07:30 | NUR ---
REPORT GIVEN TO EMS FOR TRANSFER BACK TO SNF.
[2020-04-20 07:44] VITALS: BP 131/76
== END 2020-04-20 07:44 | disposition home or self-care (01) ==
LOC: ER 19:16
DX: R07.89 Other chest pain (principal); R10.84 Generalized abdominal pain; R11.0 Nausea; G40.909 Epilepsy, unspecified, not intractable, without status epilepticus; I10 Essential (primary) hypertension; F60.0 Paranoid personality disorder; F17.200 Nicotine dependence, unspecified, uncomplicated; Z79.899 Other long term (current) drug therapy
CPT/HCPCS: 36415; 71045; 71275; 74176; 80048; 80076; 83690; 84484; 85025; 93005; 96374; 96375; 99285; J1885; J2405; J7050; Q9967

== ENCOUNTER 2020-04-25 18:28 | Emergency (ER) | payer MEDICAID ==
[~2020-04-25] VITALS: Ht 165.1 cm; Wt 72.1 kg
--- NOTE | 2020-04-25 19:05 | NUR ---
PT SENT FROM FACILITY C/O COUGHING BRIGHT RED BLOOD SINCE THIS MORNING. PT AAOX4, VSS, RESPIRATIONS EVEN AND UNLABORED ON RA W/ AND NOTED. PT CONNECTED TO THE MONITOR AND POX
[2020-04-25] MEDS ORDERED: KETOROLAC TROMETHAMINE INJ 30 MG/ML VIAL ONE (19:50)
--- NOTE | 2020-04-25 19:54 | NUR ---
PT MEDICATED ORDERED
[2020-04-25] MEDS ORDERED: KETOROLAC TROMETHAMINE INJ 60 MG/2 ML VIAL IM ONE (20:00)
--- NOTE | 2020-04-25 20:45 | NUR ---
Dr. Kush Tobar MD called, no voicemail set-up, unable to leave message.
--- NOTE | 2020-04-25 21:23 | NUR ---
CALLED [facility] [place]. THEY WILL CALL WITH ETA AND AMBULANCE INFO. CONFIRMATION NUMBER [id number]
--- NOTE | 2020-04-25 21:53 | NUR ---
eta 1045 [facility] amb
--- NOTE | 2020-04-25 23:00 | NUR ---
PT MEDICALLY CLEARED TO BE DISCHARGED BACK TO FACILITY.Written and verbal after care instructions given. Patient verbalizes understanding of instruction.
[2020-04-26 00:12] VITALS: BP 114/61
== END 2020-04-26 00:12 ==
LOC: ER 18:37
DX: J40 Bronchitis, not specified as acute or chronic (principal); G40.909 Epilepsy, unspecified, not intractable, without status epilepticus; I10 Essential (primary) hypertension; Z85.6 Personal history of leukemia; Z85.72 Personal history of non-Hodgkin lymphomas; Z95.5 Presence of coronary angioplasty implant and graft; Z85.05 Personal history of malignant neoplasm of liver; Z85.841 Personal history of malignant neoplasm of brain; Z79.899 Other long term (current) drug therapy
CPT/HCPCS: 71045; 96372; 99283; J1885

== ENCOUNTER 2020-05-03 16:55 | Emergency (ER) | payer MEDICAID ==
[~2020-05-03] VITALS: Ht 162.6 cm; Wt 54.4 kg
--- NOTE | 2020-05-03 16:59 | NUR ---
, from home, coughing blood x 2 weeks, also c/o generalized body aches. to ER bed 8, hooked to monitor, changed to hosp gown, warm blanket provided, patient aao X 4, breathing even and unlabored, awaiting MD shah
--- NOTE | 2020-05-03 17:07 | NUR ---
Dr Church at bedside for eval
[2020-05-03] MEDS ORDERED: IV NS 0.9% 1,000 ML BAG IV ONE (17:30)
[2020-05-03 17:45] LABS: BASOPHILS # (AUTO) 0.1 /CMM (0.0-0.2); BASOPHILS % (AUTO) 1.2 % (0.0-2.0); EOSINOPHILS % (AUTO) 3.3 % (0.0-6.0); HEMATOCRIT 35 % (33-45); HEMOGLOBIN 12.3 g/dL (11.5-14.8); LYMPHOCYTES # (AUTO) 3.4 /CMM (0.8-4.8); LYMPHOCYTES % (AUTO) 61.6 % (20.0-44.0); MEAN CORPUSCULAR HGB CONC 35 g/dl (31.0-36.0); MEAN CORPUSCULAR VOLUME 91 fL (82-100); MONOCYTES # (AUTO) 0.5 /CMM (0.1-1.30); MONOCYTES % (AUTO) 8.7 % (2.0-12.0); NEUTROPHILS # (AUTO) 1.4 /CMM (1.8-8.9); NEUTROPHILS % (AUTO) 25.2 % (43.0-81.0); PLATELET COUNT (AUTO) 294 /CMM (150-450); RED BLOOD CELL COUNT(AUTO) 3.86 MIL/uL (4.0-5.2); WHITE BLOOD COUNT (AUTO) 5.5 K/uL (4.3-11.0)
[2020-05-03] MEDS ORDERED: MORPHINE SULFATE INJ 4 MG/ML DISP.SYRIN ONE (17:50)
[2020-05-03] MEDS ORDERED: ONDANSETRON HCL/PF 4 MG/2 ML VIAL ONE (17:50)
[2020-05-03 17:54] LABS: CALCIUM, SERUM 8.4 mg/dL (8.5-10.1); CREATININE 0.6 mg/dL (0.6-1.3); POTASSIUM 3.9 mmol/L (3.5-5.1)
[2020-05-03] MEDS ORDERED: MORPHINE SULFATE INJ 10 MG/ML DISP.SYRIN IV ONE (18:00)
[2020-05-03] MEDS ORDERED: ONDANSETRON HCL/PF 4 MG/2 ML VIAL IV ONE ×2 (18:00)
[2020-05-03] MEDS ORDERED: MORPHINE SULFATE INJ 2 MG/ML DISP.SYRIN IV ONE ×2 (18:00→20:00)
[2020-05-03 18:02] LABS: ALBUMIN 3.5 g/dL (3.4-5.0); BILIRUBIN,TOTAL 0.1 mg/dL (0.2-1.0); TOTAL PROTEIN, SERUM 6.9 g/dL (6.4-8.2)
[2020-05-03] MEDS ORDERED: CT SWABBABLE VALVE TRANS SET 1 EA INFUS.SET MC ONE (18:32)
[2020-05-03] MEDS ORDERED: IOHEXOL-350 100 ML VIAL IV ONE (18:32)
[2020-05-03] MEDS ORDERED: IV NS 0.9% 250 ML IV ONE (18:32)
[2020-05-03 18:36] LABS: EOSINOPHILS % (MANUAL) 5 % (0-4); LYMPHOCYTES % (MANUAL) 50 % (16-48); MONOCYTES % (MANUAL) 8 % (0-11.0); NEUTROPHILS % (MANUAL) 34 (42-76); REACTIVE LYMPHOCYTES 3 % (0-0)
--- NOTE | 2020-05-03 18:36 | NUR ---
PATIENT PICKED UP BY ROBOT TECHNICIAN FOR CT PULMO ANGIOGRAM
--- NOTE | 2020-05-03 19:10 | NUR ---
PT AAOX4, VSS, RESPIRATIONS EVEN AND UNLABORED W/ NAD NOTED. PT CONNECTED TO THE TEST DEVELOPMENT ENGINEER AND POX. PT COMPLAINS OF GENERALIZED BODY PAIN. MD PEARSON
--- NOTE | 2020-05-03 19:34 | NUR ---
REPORT GIVEN TO FERNANDA SANCHEZ FOR SHARON
[2020-05-03] MEDS ORDERED: MORPHINE SULFATE INJ 2 MG/ML DISP.SYRIN ONE (20:00)
--- NOTE | 2020-05-03 20:04 | NUR ---
[id number] TRIP NUMBER. Tackk S
--- NOTE | 2020-05-03 20:55 | NUR ---
[facility] ambulance eta 90 minutes.
--- NOTE | 2020-05-03 22:21 | NUR ---
[facility] HERE FOR AUDIT ASSOCIATE
[2020-05-03 22:33] VITALS: BP 124/69
--- NOTE | 2020-05-03 22:33 | NUR ---
Patient discharged to home in stable condition. Written and verbal after care instructions given. Patient verbalizes understanding of instruction.
== END 2020-05-03 22:34 | disposition home or self-care (01) ==
LOC: ER 16:57
DX: R05 Cough (principal); Z76.5 Malingerer [conscious simulation]; R06.02 Shortness of breath; G40.909 Epilepsy, unspecified, not intractable, without status epilepticus; I10 Essential (primary) hypertension; F20.9 Schizophrenia, unspecified; I25.10 Atherosclerotic heart disease of native coronary artery without angina pectoris; Z79.899 Other long term (current) drug therapy
CPT/HCPCS: 36415; 71045; 71275; 80048; 80076; 83690; 85007; 85025; 85730; 96361; 96374; 96375; 96376; 99285; J2270 ×2; J2405; J7030 ×2; J7050; Q9967

== ENCOUNTER 2020-05-08 21:58 | Emergency (ER) | payer MEDICAID ==
[~2020-05-08] VITALS: Ht 162.6 cm; Wt 54.4 kg
[2020-05-08 22:13] VITALS: BP 122/81
--- NOTE | 2020-05-08 22:29 | NUR ---
XRAY AT BEDSIDE.
--- NOTE | 2020-05-08 23:37 | NUR ---
CALLED [facility] FOR TRANSPORTATION, WILL CALL BACK WITH ROSA
--- NOTE | 2020-05-08 23:40 | NUR ---
CALLED PED[facility] (ONE OF THE [facility] REGARDING PATIENT'S RETURN AND REPORT GIVEN.
--- NOTE | 2020-05-08 23:57 | NUR ---
ETA 0030, [facility]
--- NOTE | 2020-05-09 00:21 | NUR ---
report given to transport team for sarah. and transferring responsibilties.
--- NOTE | 2020-05-09 00:22 | NUR ---
Patient discharged to home in stable condition. Written and verbal after care instructions given. Patient verbalizes understanding of instruction.
== END 2020-05-09 00:25 | disposition home or self-care (01) ==
LOC: ER 21:58
DX: R05 Cough (principal); G40.909 Epilepsy, unspecified, not intractable, without status epilepticus; I10 Essential (primary) hypertension; Z76.5 Malingerer [conscious simulation]; Z95.5 Presence of coronary angioplasty implant and graft; Z85.05 Personal history of malignant neoplasm of liver; Z85.841 Personal history of malignant neoplasm of brain; Z79.899 Other long term (current) drug therapy
CPT/HCPCS: 71045-TC

== ENCOUNTER 2020-06-01 18:33 | Inpatient (IN) | payer MEDICAID ==
[~2020-06-01] VITALS: Ht 162.6 cm; Wt 72.6 kg
--- NOTE | 2020-06-01 18:33 | NUR ---
PT BIBRA FROM SNF C/O ON AND OFF ABDOMINAL PAIN FOR 2 DAYS. PT IS AAOX4, NOT IN RESPIRATORY DISTRESS, HOOKED TO CUTTING SUPERVISOR, KEPT RESTED AND COMFORTABLE. WILL CONTINUE TO MONITOR.
--- NOTE | 2020-06-01 18:49 | NUR ---
SEEN AND EXAMINED BY SANDRO MOODY NP.
[2020-06-01] MEDS ORDERED: MORPHINE SULFATE INJ 4 MG/ML DISP.SYRIN ONE ×2 (18:58→20:19)
[2020-06-01] MEDS ORDERED: ONDANSETRON HCL/PF 4 MG/2 ML VIAL ONE (18:58)
--- NOTE | 2020-06-01 18:59 | NUR ---
MECHANICAL ENGINEERING DRAFTSPERSON AT BEDSIDE FOR XRAY.
[2020-06-01] MEDS ORDERED: IV NS 0.9% 1,000 ML BAG IV ONE (19:00)
[2020-06-01] MEDS ORDERED: ONDANSETRON HCL/PF 4 MG/2 ML VIAL IVP ONE (19:00)
[2020-06-01] MEDS ORDERED: MORPHINE SULFATE INJ 2 MG/ML DISP.SYRIN IV ONE ×2 (19:00→20:30)
--- NOTE | 2020-06-01 19:09 | NUR ---
PHLEBTOMIST AT BEDSIDE FOR BLOOD WORK.
[2020-06-01] MEDS ORDERED: OLAN15TA3 PO (19:23)
[2020-06-01] MEDS ORDERED: LORA10TA7 PO (19:23)
[2020-06-01] MEDS ORDERED: OXYC-133 PO (19:23)
[2020-06-01] MEDS ORDERED: TEMA15CA PO (19:23)
[2020-06-01] MEDS ORDERED: IBUP-1953 PO (19:23)
[2020-06-01] MEDS ORDERED: LOPE2CAP PO (19:23)
[2020-06-01] MEDS ORDERED: MAGN400O6 PO (19:23)
[2020-06-01] MEDS ORDERED: PRIM250T32 PO (19:23)
[2020-06-01] MEDS ORDERED: ONDA4TAB5 PO (19:23)
[2020-06-01] MEDS ORDERED: PHEN20EL5 PO (19:23)
[2020-06-01 19:35] LABS: BASOPHILS # (AUTO) 0.7 /CMM (0.0-0.2); EOSINOPHILS % (AUTO) 2.8 % (0.0-6.0); HEMATOCRIT 35 % (33-45); HEMOGLOBIN 11.8 g/dL (11.5-14.8); LYMPHOCYTES # (AUTO) 3.1 /CMM (0.8-4.8); LYMPHOCYTES % (AUTO) 55.6 % (20.0-44.0); MEAN CORPUSCULAR HGB CONC 34 g/dl (31.0-36.0); MEAN CORPUSCULAR VOLUME 93 fL (82-100); MONOCYTES # (AUTO) 0.5 /CMM (0.1-1.30); MONOCYTES % (AUTO) 8.7 % (2.0-12.0); NEUTROPHILS # (AUTO) 1.1 /CMM (1.8-8.9); NEUTROPHILS % (AUTO) 20.2 % (43.0-81.0); PLATELET COUNT (AUTO) 246 /CMM (150-450); RED BLOOD CELL COUNT(AUTO) 3.74 MIL/uL (4.0-5.2); WHITE BLOOD COUNT (AUTO) 5.6 K/uL (4.3-11.0)
[2020-06-01 19:36] LABS: BASOPHILS % (AUTO) 12.7 % (0.0-2.0)
[2020-06-01 19:45] LABS: ALANINE AMINOTRANSFERASE 15 U/L (12-78); ALBUMIN 3.2 g/dL (3.4-5.0); ALKALINE PHOSPHATASE 73 U/L (46-116); ASPARTATE AMINOTRANSFERASE 17 U/L (15-37); BILIRUBIN,TOTAL 0.1 mg/dL (0.2-1.0); CALCIUM, SERUM 8.3 mg/dL (8.5-10.1); CARBON DIOXIDE 23 mmol/L (21-32); CHLORIDE 97 mmol/L (98-107); CREATININE 0.6 mg/dL (0.6-1.3); GLUCOSE 95 mg/dL (74-106); POTASSIUM 3.6 mmol/L (3.5-5.1); SODIUM SERUM 128 mmol/L (136-145); TOTAL PROTEIN, SERUM 6.6 g/dL (6.4-8.2); UREA NITROGEN, BLOOD 7 mg/dL (7-18)
[2020-06-01 19:57] LABS: EOSINOPHILS % (MANUAL) 6 % (0-4); LYMPHOCYTES % (MANUAL) 56 % (16-48); MONOCYTES % (MANUAL) 7 % (0-11.0); NEUTROPHILS % (MANUAL) 31 (42-76)
--- NOTE | 2020-06-01 22:33 | NUR ---
EMT AT BEDSIDE FOR EKG
--- NOTE | 2020-06-01 23:28 | NUR ---
Patient is resting comfortably in bed with eyes closed. Easily aroused. VSS
[2020-06-02] MEDS ORDERED: MAG HYDROX/AL HYDROX/SIMETH 30 ML UDC PO PRN
[2020-06-02] MEDS ORDERED: ZOLPIDEM TARTRATE 5 MG TABLET PO PRN
[2020-06-02] MEDS ORDERED: LOPERAMIDE HCL (2 MG CAP) 2 MG CAPSULE PO PRN
[2020-06-02] MEDS ORDERED: ACETAMINOPHEN 325 MG TABLET PO PRN ×2
[2020-06-02] MEDS ORDERED: HYDROCODONE/APAP 5/325MG TABLET PO PRN
[2020-06-02] MEDS ORDERED: ONDANSETRON HCL/PF 4 MG/2 ML VIAL IVP PRN
[2020-06-02] MEDS ORDERED: IBUPROFEN 400 MG TABLET PO PRN
[2020-06-02] MEDS ORDERED: Z GUARD REMEDY 2 OZ OINT TP PRN
[2020-06-02] MEDS ORDERED: MAGNESIUM HYDROXIDE 30 ML UDC PO PRN ×2
--- NOTE | 2020-06-02 00:35 | NUR ---
RN NOTES REPORT RECEIVED FROM LUPILLO FOR PATIENT COMING TO ROOM 206-1 TELE.
--- NOTE | 2020-06-02 00:44 | NUR ---
REPORT GIVEN TO MACIEL SANCHEZ FOR SHARON
[2020-06-02] MEDS ORDERED: ONDANSETRON 4 MG TAB.RAPDIS PO PRN (01:30)
--- NOTE | 2020-06-02 02:10 | NUR ---
TELE/RN NOTES RECEIVED PATIENT FROM ER BROUGHT TO ROOM 206 VIA GURNEY BY DANIEL WESLEY AND ANTHONY. PATIENT SUSTAINED NO INJURIES DURING TRANSPORT. PATIENT TRANSFERRED TO BED SAFELY. PATIENT IS ALERT AND ORIENTED X 2-3. PATIENT IS STABLE ON ROOM AIR, TOLERATING WELL. NO SIGNS OF SOB OR RESPIRATORY DISTRESS NOTED. BREATHING IS EVEN AND UNLABORED. PATIENT STATES GENERAL BODY PAIN AND ACHING. V/S ARE WITHIN NORMAL LIMITS. PATIENT HAS LEFT FOREARM #20G INTACT SL. PATIENTS SKIN IS INTACT, PATIENT STATES SHE WOULD LIKE TO HAVE HER CLOTH ON AND NOT REMOVE HER SHOES. PATIENT SIGNED BELONGING LIST. PATIENT CAN AMBULATE TO RESTROOM. SAFETY MEASURES ARE IN PLACE, BED IS LOCKED AND PLACED IN THE LOW POSITION, SIDE RAILS UP X 2, BED ALARM ON. CALL LIGHT IS WITHIN REACH.
--- NOTE | 2020-06-02 02:14 | NUR ---
PT TRANSFERED PER ACLS PROTOCOL
--- NOTE | 2020-06-02 02:45 | NUR ---
RN NOTES/IMMUNIZATION: WILL FOLLOW UP IN THE MORNING REGARDING IMMUNIZATION STATUS. PT FROM [facility].
[2020-06-02 03:00] VITALS: BP 143/74
--- NOTE | 2020-06-02 04:40 | NUR ---
rn notes/immunization follow up: contacted [facility] at [phone], to ask about pt's immunization status, pt stated she's unsure if she received the flu vaccine and pna vaccine. called the facility but no ones answering the call. contacted twice but same thing, no response. will try to call again in am, if not, will request day rn to please follow up with records from facility, as pt has no documets/paperworks from facility when she came.
--- NOTE | 2020-06-02 06:45 | NUR ---
TELE/RN CLOSING NOTES PATIENT IN BED SLEEPING, EASILY TO AROUSE. PATIENT IS ALERT AND ORIENTED X 2. NO SIGNS OF SOB OR RESPIRATORY DISTRESS NOTED. BREATHING IS EVEN AND UNLABORED, TOLERATING ROOM AIR WELL. PATIENT IN NO SIGNS OF DISTRESS. TELE READING SR 90. PATIENT HAS IV ACCESS ON LEFT FOREARM #20G INTACT. ALL NEEDS HAVE BEEN MET DURING SHIFT. SAFETY MEASURES ARE IN PLACE, BED IS LOCKED AND PLACED IN THE LOW POSITION, SIDE RAILS UP X 2, BED ALARM ON. CALL LIGHT IS WITHIN REACH. WILL ENDORSE CARE TO DAY SHIFT.
[2020-06-02 07:30] LABS: BASOPHILS % (AUTO) 0.7 % (0.0-2.0); EOSINOPHILS % (AUTO) 2.2 % (0.0-6.0); HEMATOCRIT 39 % (33-45); HEMOGLOBIN 13.2 g/dL (11.5-14.8); LYMPHOCYTES % (AUTO) 47.9 % (20.0-44.0); MEAN CORPUSCULAR HGB CONC 34 g/dl (31.0-36.0); MEAN CORPUSCULAR VOLUME 91 fL (82-100); MONOCYTES # (AUTO) 0.4 /CMM (0.1-1.30); MONOCYTES % (AUTO) 5.9 % (2.0-12.0); NEUTROPHILS # (AUTO) 2.7 /CMM (1.8-8.9); NEUTROPHILS % (AUTO) 43.3 % (43.0-81.0); PLATELET COUNT (AUTO) 334 /CMM (150-450); RED BLOOD CELL COUNT(AUTO) 4.25 MIL/uL (4.0-5.2); WHITE BLOOD COUNT (AUTO) 6.3 K/uL (4.3-11.0)
[2020-06-02] MEDS: oxyCODONE/APAP (5/325 MG) 1 UDTAB TABLET PO PRN (07:30)
[2020-06-02 07:46] LABS: CALCIUM, SERUM 8.9 mg/dL (8.5-10.1); CREATININE 0.6 mg/dL (0.6-1.3); MAGNESIUM 2.4 mg/dL (1.8-2.4); PHOSPHORUS 3.4 mg/dL (2.5-4.9); POTASSIUM 4.2 mmol/L (3.5-5.1)
--- NOTE | 2020-06-02 07:49 | NUR ---
CERTIFIED ORTHOTIST PRACTICE MANAGER OPEN NOTES PATIENT IS AWAKE IN BED A/O X 3-4 WITH NO SIGNS OF DISTRESS IN ROOM AIR. TELE MONITOR SR 90'S. IV L FA #20G INTACT. COMPLAINED OF ABDOMINAL PAIN 03/27. GAVE PRN PAIN MEDICATION ORDERED. SAFETY MEASURES ARE APPLIED, BED IS IN THE LOWEST POSITION, LOCKED, AND SIDE RAILS UP X 2. CALL LIGHT WITHIN REACH. WILL CONTINUE TO MONITOR.
[2020-06-02 08:00] VITALS: BP 150/87
[2020-06-02] MEDS ORDERED: PHENOBARBITAL 20 MG/5 ML UDC PO SCH (09:00)
[2020-06-02] MEDS: SODIUM CHLORIDE 1000 MG TABLET PO SCH ×2 (09:37→17:28)
[2020-06-02] MEDS: GABAPENTIN 400 MG CAPSULE PO SCH ×3 (09:37→17:29)
[2020-06-02] MEDS: OLANZAPINE 10 MG TABLET PO SCH (09:38)
[2020-06-02] MEDS: PRIMIDONE 250 MG TABLET PO SCH ×2 (09:38→17:28)
[2020-06-02] MEDS: LORATADINE 10 MG TABLET PO SCH (09:38)
[2020-06-02] MEDS: AMLODIPINE BESYLATE 2.5 MG TABLET PO SCH (09:38)
[2020-06-02] MEDS: PANTOPRAZOLE 40 MG TABLET.DR PO SCH (09:40)
[2020-06-02] MEDS: PHENOBARBITAL 30 MG TABLET PO SCH ×2 (09:52→17:29)
--- NOTE | 2020-06-02 10:40 | NUR ---
Called [facility] [phone] confirmed patient did not have FLU shot yet.
[2020-06-02] MEDS ORDERED: INFLUENZA VACCINE 2020-21 0.5 ML DISP.SYRIN IM ONE (11:30)
--- NOTE | 2020-06-02 11:40 | NUR ---
PATIENT REFUSED THE FLU VACCINE, I EDUCATED THE PATIENT ABOUT THE FLU VACCINE THE RISKS AND BENEFITS AND PATIENT STILL REFUSED FLU VACCINE.
[2020-06-02 12:00] VITALS: BP 155/73
--- NOTE | 2020-06-02 12:40 | NUR ---
PSYCH CONSULT ORDERED WITH DR. SWATHI Fitzpatrick, AND FACE SHEET FAXED TO [employer] FAXED FACE SHEET RECEIVED AND CONFIRMED BY ROBERTO.
[2020-06-02 16:00] VITALS: BP 160/69
[2020-06-02] MEDS: CLONIDINE HCL 0.1 MG TABLET PO SCH ×2 (17:29→21:29)
--- NOTE | 2020-06-02 17:47 | NUR ---
PATIENT BP 160/69 PULSE 107 INFORMED GAVIN RAMAN. ORDERED CLONIDINE 0.1MG PO Q8H. NOTED AND CARRIED OUT.
--- NOTE | 2020-06-02 18:51 | NUR ---
INSPECTOR INTEGRATED CIRCUITS CLOSING NOTES PATIENT IS AWAKE IN BED A/O X 3-4 WITH NO SIGNS OF DISTRESS IN ROOM AIR. TELE MONITOR. NO COMPLAINS OF PAIN AT THIS TIME. PATIENT REMAINED STABLE THROUGH OUT SHIFT. PATIENT KEPT CLEAN AND DRY. ALL NEEDS, CARE, TREATMENT AND MEDICATIONS ADMINISTERED ANTICIPATED PER ORDER. SAFETY MEASURES ARE APPLIED. BED IS IN LOWEST LOCKED POSITION WITH SIDE RAILS UP X 2 FOR SAFETY. CALL LIGHT IS WITHIN REACH. WILL ENDORSE TO THE ELECTRIC SOLDERER NURSE.
[2020-06-02 20:00] VITALS: BP 161/94
--- NOTE | 2020-06-02 20:12 | NUR ---
RN OPENING NOTES PATIENT RECEIVED SLEEPING. STABLE ON RA WITH BREATHING EVEN AND UNLABORED, NO SOB NOTED. NO SIGNS OF ACUTE DISTRESS. NO COMPLAINTS OF PAIN OR DISCOMFORT AT THE MOMENT. TELE MONITOR READING SR. IV LOCATED ON L FA #[address] SL. SAFETY PRECAUTIONS IN PLACE WITH BED IN LOWEST POSITION, CALL LIGHT WITHIN REACH, BREAKS ON, SIDE RAILS UP. WILL CONTINUE TO MONITOR THROUGHOUT THE NIGHT.
[2020-06-02] MEDS ORDERED: TEMAZEPAM 15 MG CAPSULE PO SCH (22:00)
[2020-06-02] MEDS ORDERED: OLANZAPINE 5 MG TABLET PO SCH (22:00)
[2020-06-03] VITALS: BP 165/92
[2020-06-03 01:09] VITALS: BP 165/92
[2020-06-03] MEDS: oxyCODONE/APAP (5/325 MG) 1 UDTAB TABLET PO PRN (03:05)
[2020-06-03 04:00] VITALS: BP 131/75
[2020-06-03] MEDS: CLONIDINE HCL 0.1 MG TABLET PO SCH ×2 (05:00→12:50)
--- NOTE | 2020-06-03 05:15 | NUR ---
RN NOTES SCHEDULED CLONIDINE NON- ADMINISTERED BP IS 131/75. DOSING INSTRUCTIONS FOR BP >150
--- NOTE | 2020-06-03 05:25 | NUR ---
RN NOTE RECIEVED REPORT FROM DANIEL DUNBAR, FOR SHARON, PATIENT COMING TO ROOM 306-1.
--- NOTE | 2020-06-03 06:10 | NUR ---
RN NOTES PATIENT TRANSPORTED TO ROOM 306-2. ENDORSED SHARON TO DANIEL GARCIA.
--- NOTE | 2020-06-03 06:15 | NUR ---
TELE/RN NOTES RECEIVED PATIENT, WITH NO INJURIES SUSTAINED DURING TRANSPORT. PATIENT IS ALERT AND ORIENTED X 3, NO SIGNS OF SOB, IN NO DISTRESS. V/S BP 155/84 HR 88 RR 20 02 94% RA TEMP 98.7.
--- NOTE | 2020-06-03 06:35 | NUR ---
TELE/RN CLOSING NOTES PATIENT IN BED SLEEPING, EASILY TO AROUSE. PATIENT IS ALERT AND ORIENTED X 2. NO SIGNS OF SOB OR RESPIRATORY DISTRESS NOTED. BREATHING IS EVEN AND UNLABORED, TOLERATING ROOM AIR WELL. PATIENT IN NO SIGNS OF DISTRESS. TELE READING SR 85. PATIENT HAS IV ACCESS ON LEFT FOREARM #20G INTACT. ALL NEEDS HAVE BEEN MET DURING SHIFT. SAFETY MEASURES ARE IN PLACE, BED IS LOCKED AND PLACED IN THE LOW POSITION, SIDE RAILS UP X 2, BED ALARM ON. CALL LIGHT IS WITHIN REACH. WILL ENDORSE CARE TO DAY SHIFT.
--- NOTE | 2020-06-03 07:45 | NUR ---
Tele/RN - Assessment Patient in bed awake, A/O x 3, denies pain at this time, stable on room air, afebrile, no seizure activity noted, tele shows SR. Saline lock on the LFA is patent, intact, with no signs of infiltration. No labs ordered for today. Pending psych consult with Dr. Dorantes. Possible discharge back to [facility] today. Fall and seizure precautions maintained. All needs attended. Will continue with current plan of care.
[2020-06-03 08:00] VITALS: BP 118/76
[2020-06-03] MEDS: PHENOBARBITAL 30 MG TABLET PO SCH ×2 (08:15→16:37)
[2020-06-03] MEDS: GABAPENTIN 400 MG CAPSULE PO SCH ×3 (08:15→16:37)
[2020-06-03] MEDS: LORATADINE 10 MG TABLET PO SCH (08:15)
[2020-06-03] MEDS: OLANZAPINE 10 MG TABLET PO SCH (08:15)
[2020-06-03] MEDS: SODIUM CHLORIDE 1000 MG TABLET PO SCH ×2 (08:15→16:37)
[2020-06-03] MEDS: PANTOPRAZOLE 40 MG TABLET.DR PO SCH (08:15)
[2020-06-03] MEDS: AMLODIPINE BESYLATE 2.5 MG TABLET PO SCH (09:00)
[2020-06-03] MEDS: PRIMIDONE 250 MG TABLET PO SCH ×2 (09:08→16:37)
[2020-06-03 16:00] VITALS: BP 108/63
--- NOTE | 2020-06-03 18:05 | NUR ---
MS/RN - Discharge Patient is alert and oriented X 3, discharged to [facility], afebrile, denies chest pain, on room air without distress, no c/o weakness, denies dizziness. Reviewed discharge instructions with patient and she verbalized full understanding of all teachings including medications and follow-up care with PCP within 1 week. Patient was advised to seek immediate medical attention if she experience chest pain, shortness of breath, palpitations, abdominal pain/distention, intractable nausea and vomiting, diarrhea, weakness, or any other emergent concerns. All belongings with patient and she deny any missing items. Skin is intact. Saline lock removed on the LFA with catheter tip intact, no redness, no swelling noted at the site. Discharge paperwork signed and copies were given per protocol. Patient left the unit at 17:55 via ambulance.
== END 2020-06-03 18:00 | DRG 203 ==
LOC: ER 18:37 → TELE2 06-02 00:54 → TELE 06-03 06:17 → MED 06-03 09:45
PROVIDERS: ADMIT Nurse Practitioner Acute Care; ATTEND Nurse Practitioner Acute Care
DX: M94.0 Chondrocostal junction syndrome [Tietze] (principal); I25.10 Atherosclerotic heart disease of native coronary artery without angina pectoris; E87.1 Hypo-osmolality and hyponatremia; F20.0 Paranoid schizophrenia; K21.9 Gastro-esophageal reflux disease without esophagitis; G89.4 Chronic pain syndrome; G40.909 Epilepsy, unspecified, not intractable, without status epilepticus; I10 Essential (primary) hypertension; Z95.5 Presence of coronary angioplasty implant and graft; Z85.841 Personal history of malignant neoplasm of brain; Z80.3 Family history of malignant neoplasm of breast; Z80.8 Family history of malignant neoplasm of other organs or systems; Z79.899 Other long term (current) drug therapy; Z90.710 Acquired absence of both cervix and uterus; Z95.828 Presence of other vascular implants and grafts; Z96.641 Presence of right artificial hip joint; Z90.49 Acquired absence of other specified parts of digestive tract; Z86.718 Personal history of other venous thrombosis and embolism; Z86.711 Personal history of pulmonary embolism; Z51.5 Encounter for palliative care; I70.0 Atherosclerosis of aorta; F32.9 Major depressive disorder, single episode, unspecified; E86.1 Hypovolemia; F17.200 Nicotine dependence, unspecified, uncomplicated; E11.9 Type 2 diabetes mellitus without complications; M85.80 Other specified disorders of bone density and structure, unspecified site; Z76.5 Malingerer [conscious simulation]; F41.0 Panic disorder [episodic paroxysmal anxiety]; F29 Unspecified psychosis not due to a substance or known physiological condition; Z85.830 Personal history of malignant neoplasm of bone; Z85.05 Personal history of malignant neoplasm of liver
CPT/HCPCS: 36415; 71045-TC; 80048-TC; 80061-TC; 80076-TC; 83735-TC; 84100-TC; 84484-TC; 85025-TC; 85730-TC; 87081-TC; G0378; J2270; J2405; J7030; U0003

== ENCOUNTER 2020-08-18 21:31 | Emergency (ER) | payer MEDICAID ==
[~2020-08-18] VITALS: Ht 162.6 cm; Wt 72.6 kg
[~2020-08-18 21:31] MED LIST changes: -DOCU-270 PO; -FAMO20TA80 PO; -FURO-145 PO; +IBUP-1953 PO; -LEVO500T23 PO; +LOPE2CAP PO; +LORA10TA7 PO; -MAG30ORA PO; +OLAN15TA3 PO; -ONDA4TAB11 PO; +ONDA4TAB5 PO; +OXYC-133 PO; +PHEN20EL5 PO; -PHEN30TA40 PO; +PRIM250T32 PO; -PRIM250T8 PO; +TEMA15CA PO
[2020-08-18 21:42] VITALS: BP 116/84
[2020-08-18 22:21] LABS: BASOPHILS # (AUTO) 0.1 /CMM (0.0-0.2); EOSINOPHILS % (AUTO) 3.8 % (0.0-6.0); HEMATOCRIT 38 % (33-45); HEMOGLOBIN 12.7 g/dL (11.5-14.8); LYMPHOCYTES # (AUTO) 2.6 /CMM (0.8-4.8); LYMPHOCYTES % (AUTO) 48.6 % (20.0-44.0); MEAN CORPUSCULAR HGB CONC 34 g/dl (31.0-36.0); MEAN CORPUSCULAR VOLUME 92 fL (82-100); MONOCYTES # (AUTO) 0.4 /CMM (0.1-1.30); MONOCYTES % (AUTO) 7.9 % (2.0-12.0); NEUTROPHILS # (AUTO) 2.1 /CMM (1.8-8.9); NEUTROPHILS % (AUTO) 38.7 % (43.0-81.0); PLATELET COUNT (AUTO) 297 /CMM (150-450); RED BLOOD CELL COUNT(AUTO) 4.06 MIL/uL (4.0-5.2); WHITE BLOOD COUNT (AUTO) 5.3 K/uL (4.3-11.0)
--- NOTE | 2020-08-18 23:05 | NUR ---
SPOKE TO [facility]. TRANSPORT [place] 1-[place] [id number].
--- NOTE | 2020-08-19 00:23 | NUR ---
[facility] ETA 45-60MIN.
--- NOTE | 2020-08-19 01:12 | NUR ---
Patient discharged to home in stable condition. Written and verbal after care instructions given. Patient verbalizes understanding of instruction. ambulatory with a steady gait noted. pt aaox4 no acute distress noted, resp even and unlabored. Transport at bedside report given to emt transport.
== END 2020-08-19 01:14 | disposition home or self-care (01) ==
LOC: ER 21:33
DX: R07.89 Other chest pain (principal); I10 Essential (primary) hypertension; G40.909 Epilepsy, unspecified, not intractable, without status epilepticus; F60.0 Paranoid personality disorder; I25.10 Atherosclerotic heart disease of native coronary artery without angina pectoris; F17.200 Nicotine dependence, unspecified, uncomplicated; Z79.899 Other long term (current) drug therapy
CPT/HCPCS: 36415; 85025-TC

== ENCOUNTER 2020-09-10 13:11 | Emergency (ER) | payer MEDICAID ==
[~2020-09-10] VITALS: Ht 162.6 cm; Wt 73.5 kg
[2020-09-10] MEDS ORDERED: ONDANSETRON HCL/PF 4 MG/2 ML VIAL IVP ONE (13:30)
[2020-09-10] MEDS ORDERED: IV NS 0.9% 500 ML BAG IV ONE (13:30)
--- NOTE | 2020-09-10 13:30 | NUR ---
BIB RA [facility]78 FROM [facility],NAUSEA/VOMITING THIS MORNING. PATIENT A/OX4, BREATHING EVEN AND UNLABORED, NO SOB NOTED. NEEDS ATTENDED.
[2020-09-10] MEDS ORDERED: ONDANSETRON HCL/PF 4 MG/2 ML VIAL ONE (13:39)
[2020-09-10 14:10] LABS: BASOPHILS # (AUTO) 0.1 /CMM (0.0-0.2); BASOPHILS % (AUTO) 1.1 % (0.0-2.0); EOSINOPHILS % (AUTO) 3.3 % (0.0-6.0); HEMATOCRIT 40 % (33-45); HEMOGLOBIN 13.6 g/dL (11.5-14.8); LYMPHOCYTES # (AUTO) 3.2 /CMM (0.8-4.8); LYMPHOCYTES % (AUTO) 53.6 % (20.0-44.0); MEAN CORPUSCULAR HGB CONC 34 g/dl (31.0-36.0); MEAN CORPUSCULAR VOLUME 93 fL (82-100); MONOCYTES # (AUTO) 0.4 /CMM (0.1-1.30); MONOCYTES % (AUTO) 7.2 % (2.0-12.0); NEUTROPHILS # (AUTO) 2.1 /CMM (1.8-8.9); NEUTROPHILS % (AUTO) 34.8 % (43.0-81.0); PLATELET COUNT (AUTO) 339 /CMM (150-450); RED BLOOD CELL COUNT(AUTO) 4.28 MIL/uL (4.0-5.2)
--- NOTE | 2020-09-10 14:30 | NUR ---
PATIENT HAS NO EPISODE OF NAUSEA AND VOMITING.
[2020-09-10 14:34] LABS: CALCIUM, SERUM 9.5 mg/dL (8.5-10.1); CARBON DIOXIDE 23 mmol/L (21-32); CHLORIDE 99 mmol/L (98-107); CREATININE 0.7 mg/dL (0.6-1.3); GLUCOSE 103 mg/dL (74-106); POTASSIUM 3.7 mmol/L (3.5-5.1); SODIUM SERUM 135 mmol/L (136-145); UREA NITROGEN, BLOOD 8 mg/dL (7-18)
[2020-09-10] MEDS ORDERED: ONDANSETRON 4 MG TAB.RAPDIS ONE (14:39)
[2020-09-10 14:40] LABS: ALANINE AMINOTRANSFERASE 31 U/L (12-78); ALKALINE PHOSPHATASE 94 U/L (46-116); ASPARTATE AMINOTRANSFERASE 23 U/L (15-37); BILIRUBIN,DIRECT 0.1 mg/dL (0.0-0.2); BILIRUBIN,TOTAL 0.2 mg/dL (0.2-1.0); LIPASE 92 U/L (73-393)
--- NOTE | 2020-09-10 14:41 | NUR ---
DR. ELLIS RE-ASSESSED PATIENT'S LABS, AND PATIENT IS A HARDSTICK, STILL UNABLE TO INSERT PIV. RECEIVED ORDER FROM DR. ELLIS TO CHANGE ZOFRAN TO PO, AND TO DC THE FLUIDS.
[2020-09-10] MEDS ORDERED: ONDANSETRON HCL 4 MG/5 ML SOLUTION PO ONE (15:00)
--- NOTE | 2020-09-10 15:45 | NUR ---
Note undone in EDM - 09/10/20 at 1546 by ROALCANCES PATIENT A/OX3-4, BREATHING EVEN AND UNLABORED, NO SOB NOTED. PATIENT KEPT COMFORTABLE. REPORT GIVEN TO AWNING HANGER HELPER. PAPERWORK PROVIDED WITH COPIES OF XRAY. IV removed. Catheter intact and site benign. Pressure and 4x4 applied to site. No bleeding noted. Patient discharged to facility in stable condition. Written and verbal after care instructions given. Patient verbalizes understanding of instruction.
--- NOTE | 2020-09-10 16:27 | NUR ---
PATIENT ASLEEP, NO DISTRESS NOTED. VSS.
[2020-09-10] MEDS ORDERED: GUAI5SYR GT (16:46)
[2020-09-10] MEDS ORDERED: BENZ-13 PO (16:46)
--- NOTE | 2020-09-10 16:54 | NUR ---
[facility] 1743 ETA TRIP NUMBER [id number]
--- NOTE | 2020-09-10 18:14 | NUR ---
Patient discharged to snf in stable condition. Written and verbal after care instructions given. Patient verbalizes understanding of instruction.
[2020-09-10 18:15] VITALS: BP 105/64
== END 2020-09-10 18:15 ==
LOC: ER 13:19
DX: R05 Cough (principal); R10.9 Unspecified abdominal pain; R11.2 Nausea with vomiting, unspecified; G40.909 Epilepsy, unspecified, not intractable, without status epilepticus; I10 Essential (primary) hypertension; I25.10 Atherosclerotic heart disease of native coronary artery without angina pectoris; Z79.899 Other long term (current) drug therapy
CPT/HCPCS: 36415; 80048; 80076; 83690; 84484; 85025; 93005; 99284; J7040; Q0162; J2405

== ENCOUNTER 2020-10-25 04:13 | Emergency (ER) | payer MEDICAID ==
[~2020-10-25] VITALS: Ht 170.2 cm; Wt 73.5 kg
[~2020-10-25 04:13] MED LIST changes: +BENZ-13 PO; +GUAI5SYR GT
[2020-10-25] MEDS ORDERED: ONDANSETRON 4 MG TAB.RAPDIS ONE (04:49)
[2020-10-25] MEDS ORDERED: ONDANSETRON 4 MG TAB.RAPDIS SL ONE (05:00)
[2020-10-25 05:27] LABS: BASOPHILS # (AUTO) 0.1 /CMM (0.0-0.2); BASOPHILS % (AUTO) 2.1 % (0.0-2.0); EOSINOPHILS % (AUTO) 3.2 % (0.0-6.0); HEMATOCRIT 37 % (33-45); HEMOGLOBIN 12.7 g/dL (11.5-14.8); LYMPHOCYTES % (AUTO) 51.3 % (20.0-44.0); MEAN CORPUSCULAR HGB CONC 34 g/dl (31.0-36.0); MEAN CORPUSCULAR VOLUME 93 fL (82-100); MONOCYTES # (AUTO) 0.5 /CMM (0.1-1.30); MONOCYTES % (AUTO) 8.3 % (2.0-12.0); NEUTROPHILS # (AUTO) 2.1 /CMM (1.8-8.9); NEUTROPHILS % (AUTO) 35.1 % (43.0-81.0); PLATELET COUNT (AUTO) 267 /CMM (150-450); RED BLOOD CELL COUNT(AUTO) 4.04 MIL/uL (4.0-5.2); WHITE BLOOD COUNT (AUTO) 5.9 K/uL (4.3-11.0)
[2020-10-25 05:38] LABS: CALCIUM, SERUM 8.9 mg/dL (8.5-10.1); CREATININE 0.6 mg/dL (0.6-1.3); POTASSIUM 4.2 mmol/L (3.5-5.1)
--- NOTE | 2020-10-25 06:19 | NUR ---
CALLED [facility] FOR TRANSPORT BQCK TO FACILITY. RESERVATION #[id number]
--- NOTE | 2020-10-25 06:31 | NUR ---
rajiv garza from [facility] bls transport eta 1pm.
--- NOTE | 2020-10-25 08:20 | NUR ---
PT RESTING COMFORABLY VSS
--- NOTE | 2020-10-25 11:52 | NUR ---
[facility] ETA 2pm
--- NOTE | 2020-10-25 12:41 | NUR ---
PATIENT AWAKE RESTING IN BED. VITAL SIGNS STABLE. CONNECTED TO MONITOR.
[2020-10-25 13:40] VITALS: BP 125/69
--- NOTE | 2020-10-25 13:40 | NUR ---
Patient discharged to home in stable condition. Written and verbal after care instructions given. Patient verbalizes understanding of instruction.
== END 2020-10-25 13:40 | disposition home or self-care (01) ==
LOC: ER 04:16
DX: K92.0 Hematemesis (principal); Z76.5 Malingerer [conscious simulation]; G40.909 Epilepsy, unspecified, not intractable, without status epilepticus; I10 Essential (primary) hypertension; F60.0 Paranoid personality disorder; I25.10 Atherosclerotic heart disease of native coronary artery without angina pectoris; F17.200 Nicotine dependence, unspecified, uncomplicated; Z95.818 Presence of other cardiac implants and grafts; Z88.0 Allergy status to penicillin; Z88.8 Allergy status to other drugs, medicaments and biological substances; Z88.6 Allergy status to analgesic agent; Z79.899 Other long term (current) drug therapy
CPT/HCPCS: 36415; 80048; 85025; 99285; Q0162

== ENCOUNTER 2020-12-01 20:29 | Emergency (ER) | payer MEDICAID ==
[~2020-12-01] VITALS: Ht 170.2 cm; Wt 72.6 kg
--- NOTE | 2020-12-01 21:05 | NUR ---
BIBRA FROM SNF TO ER BED 6. AAOX4. NOT IN RESP DISTRESS. BROUGHT IN FOR INCREASING CHRONIC ABD PAIN. PT VERBALIZED "I NEED PAIN MEDS AND PAIN MANAGEMENT" WAST AT THE BEDSIDE FOR EVAL. ORDERS RECEIVED
--- NOTE | 2020-12-01 21:40 | NUR ---
URINE SENT TO LAB
[2020-12-01 21:52] LABS: BASOPHILS # (AUTO) 0.1 /CMM (0.0-0.2); BASOPHILS % (AUTO) 0.8 % (0.0-2.0); EOSINOPHILS % (AUTO) 3.6 % (0.0-6.0); HEMATOCRIT 35 % (33-45); HEMOGLOBIN 12.1 g/dL (11.5-14.8); LYMPHOCYTES # (AUTO) 3.2 /CMM (0.8-4.8); LYMPHOCYTES % (AUTO) 50.8 % (20.0-44.0); MEAN CORPUSCULAR HGB CONC 35 g/dl (31.0-36.0); MEAN CORPUSCULAR VOLUME 90 fL (82-100); MONOCYTES # (AUTO) 0.5 /CMM (0.1-1.30); MONOCYTES % (AUTO) 7.8 % (2.0-12.0); NEUTROPHILS # (AUTO) 2.4 /CMM (1.8-8.9); PLATELET COUNT (AUTO) 296 /CMM (150-450); RED BLOOD CELL COUNT(AUTO) 3.88 MIL/uL (4.0-5.2); WHITE BLOOD COUNT (AUTO) 6.4 K/uL (4.3-11.0)
[2020-12-01 21:57] LABS: BILIRUBIN,URINE NEGATIVE (NEGATIVE); COLOR,URINE YELLOW (YELLOW); LEUKOCYTE ESTERASE ,URINE NEGATIVE (NEGATIVE); NITRITE, URINE POSITIVE (NEGATIVE); PROTEIN,URINE NEGATIVE (NEGATIVE); UGLUCOSE NEGATIVE (NEGATIVE); UROBILINOGEN,URINE 0.2 EU/dL (0.2)
[2020-12-01 22:00] LABS: CALCIUM, SERUM 8.9 mg/dL (8.5-10.1); CREATININE 0.6 mg/dL (0.6-1.3); POTASSIUM 3.7 mmol/L (3.5-5.1)
[2020-12-01] MEDS ORDERED: ONDANSETRON 4 MG TAB.RAPDIS SL ONE (22:00)
[2020-12-01] MEDS ORDERED: HYDROCODONE/APAP 5/325MG TABLET PO ONE (22:00)
[2020-12-01 22:03] LABS: BACTERIA,URINE 4+ /HPF (None Seen); RBC,URINE 0-2 /HPF (0-2); SQUAMOUS EPITHELIAL CELL,UR Few /HPF (None Seen)
[2020-12-01] MEDS ORDERED: NITR100C15 PO (22:05)
[2020-12-01 22:07] LABS: ALBUMIN 3.6 g/dL (3.4-5.0); BILIRUBIN,TOTAL 0.2 mg/dL (0.2-1.0); TOTAL PROTEIN, SERUM 7.2 g/dL (6.4-8.2)
[2020-12-01] MEDS ORDERED: HYDROCODONE/APAP 5/325MG TABLET ONE (22:07)
[2020-12-01] MEDS ORDERED: ONDANSETRON 4 MG TAB.RAPDIS ONE (22:07)
[2020-12-01] MEDS ORDERED: NITROFURANTOIN/NITROFURAN MONOHYDRATE 100 MG CAPSULE ONE (22:07)
[2020-12-01] MEDS ORDERED: NITROFURANTOIN/NITROFURAN MONOHYDRATE 100 MG CAPSULE PO ONE (22:30)
--- NOTE | 2020-12-01 23:12 | NUR ---
ETA FOR TRANSPORT HOME IS BETWEEN 1 AND 3 HOURS. [id number] IS REFERENCE NUMBER.
--- NOTE | 2020-12-01 23:12 | NUR ---
SUDHA GONZALEZ AT THE FACILTY NOTIFIED THAT PT IS COMING BACK AND THAT SHE HAVE A RX FOR ATB FOR UTI
--- NOTE | 2020-12-02 02:43 | NUR ---
RES [id number] VIA [place] AT [facility], ETA FOR PICKUP IS UNKNOWN, FIRST TRIP WAS CENCELLED BY [email or web address] FOR UNKNOWN REASONS, THIS RESERVATION NUMBER IS CURRENT AND WILL BE CALLED BACK WITH ETA AND UNIT.
--- NOTE | 2020-12-02 03:52 | NUR ---
PER [facility], PT WILL BE PICKED UP AT 0600.
[2020-12-02 04:54] VITALS: BP 118/71
--- NOTE | 2020-12-02 04:55 | NUR ---
patient picked up by private ambulance in no distress, going back to snf.
== END 2020-12-02 04:55 ==
LOC: ER 20:32
DX: N30.90 Cystitis, unspecified without hematuria (principal); G89.29 Other chronic pain; G40.909 Epilepsy, unspecified, not intractable, without status epilepticus; I10 Essential (primary) hypertension; I25.10 Atherosclerotic heart disease of native coronary artery without angina pectoris; K21.9 Gastro-esophageal reflux disease without esophagitis; F32.9 Major depressive disorder, single episode, unspecified; F41.9 Anxiety disorder, unspecified; F20.0 Paranoid schizophrenia; Z95.818 Presence of other cardiac implants and grafts; Z90.49 Acquired absence of other specified parts of digestive tract; Z98.890 Other specified postprocedural states; Z90.89 Acquired absence of other organs; Z88.0 Allergy status to penicillin; Z88.8 Allergy status to other drugs, medicaments and biological substances; Z79.899 Other long term (current) drug therapy
CPT/HCPCS: 36415; 80048; 80076; 81001; 83690; 85025; 87086; 99284; Q0162; 87186-TC

== ENCOUNTER 2021-01-28 11:26 | Emergency (ER) | payer MEDICAID ==
[~2021-01-28] VITALS: Ht 162.6 cm; Wt 75.3 kg
[~2021-01-28 11:26] MED LIST changes: +NITR100C15 PO
--- NOTE | 2021-01-28 12:15 | NUR ---
AAOX4. NOT INRESP DISTRESS. BROUGHT INFOR ABD PAIN AND RECTAL BLEEDING. PER PT. PAINS STARETD THIS MORNING AND NOTED BLOOD WHEN WIPPING AFTER HAVING BM. MD WAS AT THE BEDSIDE FOR EVAL. ORDERS RECEIVED, NOTED AND CARRIED OUT. IV LINE ESTABLISHED ON L AC 20G. PHLEB AT BEDSIDE FOR BLOOD DRAW
[2021-01-28 12:22] LABS: BASOPHILS % (AUTO) 0.7 % (0.0-2.0); HEMATOCRIT 36 % (33-45); HEMOGLOBIN 12.4 g/dL (11.5-14.8); LYMPHOCYTES # (AUTO) 3.1 K/uL (0.8-4.8); LYMPHOCYTES % (AUTO) 51.3 % (20.0-44.0); MEAN CORPUSCULAR HGB CONC 34 g/dl (31.0-36.0); MEAN CORPUSCULAR VOLUME 91 fL (82-100); MONOCYTES # (AUTO) 0.5 K/uL (0.1-1.30); MONOCYTES % (AUTO) 8.1 % (2.0-12.0); NEUTROPHILS # (AUTO) 2.2 K/uL (1.8-8.9); NEUTROPHILS % (AUTO) 36.9 % (43.0-81.0); PLATELET COUNT (AUTO) 265 K/uL (150-450); RED BLOOD CELL COUNT(AUTO) 3.99 MIL/uL (4.0-5.2)
[2021-01-28 12:29] LABS: CALCIUM, SERUM 8.6 mg/dL (8.5-10.1); CREATININE 0.6 mg/dL (0.6-1.3); POTASSIUM 3.9 mmol/L (3.5-5.1)
[2021-01-28 12:35] LABS: ALBUMIN 3.5 g/dL (3.4-5.0); BILIRUBIN,DIRECT 0.1 mg/dL (0.0-0.2); BILIRUBIN,TOTAL 0.2 mg/dL (0.2-1.0)
[2021-01-28] MEDS ORDERED: CT SWABBABLE VALVE TRANS SET 1 EA INFUS.SET MC ONE (12:50)
[2021-01-28] MEDS ORDERED: IOHEXOL-300 100 ML VIAL IV ONE (12:50)
[2021-01-28] MEDS ORDERED: IV NS 0.9% 250 ML IV ONE (12:50)
--- NOTE | 2021-01-28 13:03 | NUR ---
BACK FROM CT. ADULT PROBATION OFFICER REPORED THAT IV INFILTRATED.
--- NOTE | 2021-01-28 14:53 | NUR ---
TRANSPORT CALLED [facility] WITH ETA OF 60 MINS.
--- NOTE | 2021-01-28 15:45 | NUR ---
Called to give report to [facility] but no answer. Report given to EMT transport.
--- NOTE | 2021-01-28 15:46 | NUR ---
Pt is in stable condition. Pt left with 2 emt on [facility].
[2021-01-28 15:47] VITALS: BP 126/90
== END 2021-01-28 15:47 | disposition home or self-care (01) ==
LOC: ER 12:10
DX: R10.9 Unspecified abdominal pain (principal); G89.29 Other chronic pain; G40.909 Epilepsy, unspecified, not intractable, without status epilepticus; I10 Essential (primary) hypertension; F60.0 Paranoid personality disorder; F17.200 Nicotine dependence, unspecified, uncomplicated; Z95.5 Presence of coronary angioplasty implant and graft; Z85.05 Personal history of malignant neoplasm of liver; Z85.841 Personal history of malignant neoplasm of brain; Z88.0 Allergy status to penicillin; Z88.5 Allergy status to narcotic agent; Z88.8 Allergy status to other drugs, medicaments and biological substances; Z79.899 Other long term (current) drug therapy
CPT/HCPCS: 36415; 74177; 80048; 80076; 83690; 85025; 85730; 99285; J7050; Q9967

== ENCOUNTER 2021-03-24 20:27 | Emergency (ER) | payer MEDICAID ==
[~2021-03-24] VITALS: Ht 167.6 cm; Wt 59.0 kg
--- NOTE | 2021-03-24 20:55 | NUR ---
PATIENT SMITH FROM [facility] WITH C/O ABD PAIN. PT WITH + COUGH, +N/V. PATIENT A/O X 4, RR EVEN AND UNLABORED, NO SOB NOTED. PATIENT CONNECTED TO FIELD IRRIGATION WORKER AND POX.
[2021-03-24] MEDS ORDERED: HYDROCODONE/APAP 5/325MG TABLET PO ONE (21:00)
[2021-03-24] MEDS ORDERED: ONDANSETRON 4 MG TAB.RAPDIS SL ONE (21:00)
[2021-03-24] MEDS ORDERED: HYDROCODONE/APAP 5/325MG TABLET ONE (21:27)
[2021-03-24] MEDS ORDERED: ONDANSETRON 4 MG TAB.RAPDIS ONE (21:28)
--- NOTE | 2021-03-24 22:04 | NUR ---
URINE COLLECTED AND SENT TO LAB
--- NOTE | 2021-03-24 22:10 | NUR ---
stock receiver at bedside
[2021-03-24 22:19] LABS: BILIRUBIN,URINE Negative (NEGATIVE); COLOR,URINE YELLOW (YELLOW); LEUKOCYTE ESTERASE ,URINE Negative (NEGATIVE); NITRITE, URINE Positive (NEGATIVE); PH,URINE 5.5 (5.0-8.0); PROTEIN,URINE Negative (NEGATIVE); UGLUCOSE Negative (NEGATIVE); UROBILINOGEN,URINE 0.2 EU/dL (0.2)
[2021-03-24 22:23] LABS: BASOPHILS # (AUTO) 0.1 K/uL (0.0-0.2); BASOPHILS % (AUTO) 0.7 % (0.0-2.0); EOSINOPHILS % (AUTO) 1.8 % (0.0-6.0); HEMATOCRIT 36 % (33-45); HEMOGLOBIN 12.1 g/dL (11.5-14.8); LYMPHOCYTES # (AUTO) 3.4 K/uL (0.8-4.8); LYMPHOCYTES % (AUTO) 48.1 % (20.0-44.0); MEAN CORPUSCULAR HGB CONC 34 g/dl (31.0-36.0); MEAN CORPUSCULAR VOLUME 90 fL (82-100); MONOCYTES # (AUTO) 0.5 K/uL (0.1-1.30); MONOCYTES % (AUTO) 7.5 % (2.0-12.0); NEUTROPHILS # (AUTO) 2.9 K/uL (1.8-8.9); NEUTROPHILS % (AUTO) 41.9 % (43.0-81.0); PLATELET COUNT (AUTO) 299 K/uL (150-450); RED BLOOD CELL COUNT(AUTO) 3.94 MIL/uL (4.0-5.2)
[2021-03-24 22:28] LABS: BACTERIA,URINE 2+ /HPF (None Seen); RBC,URINE NONE SEEN /HPF (0-2); SQUAMOUS EPITHELIAL CELL,UR Few /HPF (None Seen)
[2021-03-24 22:39] LABS: ALBUMIN 3.6 g/dL (3.4-5.0); BILIRUBIN,TOTAL 0.1 mg/dL (0.2-1.0); CALCIUM, SERUM 9.1 mg/dL (8.5-10.1); CREATININE 0.6 mg/dL (0.6-1.3); POTASSIUM 4.1 mmol/L (3.5-5.1); TOTAL PROTEIN, SERUM 7.2 g/dL (6.4-8.2)
[2021-03-24] MEDS ORDERED: SULFAMETH/TRIMETH 800/160 MG 1 UDTAB TABLET PO ONE (23:00)
[2021-03-24] MEDS ORDERED: SULF1TAB48 PO (23:00)
[2021-03-24] MEDS ORDERED: SULFAMETH/TRIMETH 800/160 MG 1 UDTAB TABLET ONE (23:02)
--- NOTE | 2021-03-24 23:18 | NUR ---
AMBULANCE TRANSPORT BACK TO FACILITY IS SET TO BE HERE IN 75-90 MINS VIA [facility] PER GALEN.
--- NOTE | 2021-03-25 01:20 | NUR ---
EMS AND BEDSIDE, REPORT GIVEN, PATIENT VSS.
[2021-03-25 01:25] VITALS: BP 128/74
== END 2021-03-25 01:25 ==
LOC: ER 20:32
DX: N39.0 Urinary tract infection, site not specified (principal); R05 Cough; G40.909 Epilepsy, unspecified, not intractable, without status epilepticus; I10 Essential (primary) hypertension; I25.10 Atherosclerotic heart disease of native coronary artery without angina pectoris; F60.0 Paranoid personality disorder; F17.200 Nicotine dependence, unspecified, uncomplicated; Z88.0 Allergy status to penicillin; Z88.8 Allergy status to other drugs, medicaments and biological substances; Z88.6 Allergy status to analgesic agent; Z79.899 Other long term (current) drug therapy
CPT/HCPCS: 36415; 71045; 80048; 80076; 81001; 83690; 85025; 87086; 99284; Q0162; 87186-TC

== ENCOUNTER 2021-06-18 03:33 | Emergency (ER) | payer MEDICAID ==
[~2021-06-18] VITALS: Ht 162.6 cm; Wt 56.7 kg
[~2021-06-18 03:33] MED LIST changes: +SULF1TAB48 PO
[2021-06-18 03:43] VITALS: BP 124/70
--- NOTE | 2021-06-18 04:08 | NUR ---
called [facility] eta 30min
[2021-06-18] MEDS ORDERED: IBUPROFEN 400 MG TABLET ONE (04:21)
--- NOTE | 2021-06-18 04:22 | NUR ---
report given to [facility]
--- NOTE | 2021-06-18 04:23 | NUR ---
patient being discharged in stable condition via ambulance.
[2021-06-18] MEDS ORDERED: IBUPROFEN 400 MG TABLET PO ONE (04:30)
== END 2021-06-18 04:31 | disposition home or self-care (01) ==
LOC: ER 03:38
DX: G89.29 Other chronic pain (principal); M54.6 Pain in thoracic spine; Z76.5 Malingerer [conscious simulation]; I10 Essential (primary) hypertension; G40.909 Epilepsy, unspecified, not intractable, without status epilepticus; F60.0 Paranoid personality disorder; F17.200 Nicotine dependence, unspecified, uncomplicated; Z88.0 Allergy status to penicillin; Z88.8 Allergy status to other drugs, medicaments and biological substances; Z88.6 Allergy status to analgesic agent; Z79.899 Other long term (current) drug therapy

== ENCOUNTER 2021-06-29 15:15 | Emergency (ER) | payer MEDICAID ==
[~2021-06-29] VITALS: Ht 162.6 cm; Wt 57.6 kg
[2021-06-29 15:41] VITALS: BP 120/71
--- NOTE | 2021-06-29 15:56 | NUR ---
SEEN AND EXAMINED BY .
--- NOTE | 2021-06-29 16:22 | NUR ---
NEW CAR DRIVER AT BEDSIDE FOR XRAY.
[2021-06-29] MEDS ORDERED: DICL50TA7 PO (16:55)
[2021-06-29] MEDS ORDERED: IBUPROFEN 600 MG TABLET ONE (16:57)
[2021-06-29] MEDS ORDERED: IBUPROFEN 600 MG TABLET PO ONE (17:00)
--- NOTE | 2021-06-29 17:30 | NUR ---
CALLED [facility] FOR TRANSPORT ETA 190 PER DANICA
--- NOTE | 2021-06-29 17:33 | NUR ---
CALLED [facility] TWICE NO ANSWER.
--- NOTE | 2021-06-29 19:10 | NUR ---
REPORT GIVEN TO EMS FOR PT TRANSFER BACK TO FACILITY.
== END 2021-06-29 19:12 | disposition home or self-care (01) ==
LOC: ER 15:18
DX: M79.672 Pain in left foot (principal); Z79.899 Other long term (current) drug therapy; Z88.0 Allergy status to penicillin; Z88.8 Allergy status to other drugs, medicaments and biological substances
CPT/HCPCS: 73630-TC

== ENCOUNTER 2021-10-06 04:19 | Inpatient (IN) | payer MEDICAID ==
[~2021-10-06] VITALS: Ht 162.6 cm; Wt 61.7 kg
[~2021-10-06 04:19] MED LIST changes: +DICL50TA7 PO
--- NOTE | 2021-10-06 04:28 | NUR ---
MARIA ANTONIA [facility] FROM [facility] FOR C/O SOB X 30 MIN SATTING 93-94% ON R/A ON TRIAGE. PATIENT PLACED IN BED 06 ON MONITOR AND POX. AWAITING MD CAMARILLO.
[2021-10-06] MEDS ORDERED: LEVOFLOXACIN 750 MG /D5W 150ML 150 ML IV ONE ×2 (05:00→05:19)
--- NOTE | 2021-10-06 05:10 | NUR ---
LAC #20G S/L; PATENT AND INTACT. BLOOD, COVID ANTIGEN, AND INFLUENZA SWAB COLLECTED AND SENT TO LAB
[2021-10-06 05:15] LABS: BASOPHILS # (AUTO) 0.1 K/uL (0.0-0.2); BASOPHILS % (AUTO) 1.3 % (0.0-2.0); EOSINOPHILS % (AUTO) 2.2 % (0.0-6.0); HEMATOCRIT 41 % (33-45); HEMOGLOBIN 13.8 g/dL (11.5-14.8); LYMPHOCYTES # (AUTO) 2.4 K/uL (0.8-4.8); LYMPHOCYTES % (AUTO) 42.7 % (20.0-44.0); MEAN CORPUSCULAR HGB CONC 34 g/dl (31.0-36.0); MEAN CORPUSCULAR VOLUME 90 fL (82-100); MONOCYTES # (AUTO) 0.3 K/uL (0.1-1.30); MONOCYTES % (AUTO) 5.7 % (2.0-12.0); NEUTROPHILS # (AUTO) 2.7 K/uL (1.8-8.9); NEUTROPHILS % (AUTO) 48.1 % (43.0-81.0); PLATELET COUNT (AUTO) 341 K/uL (150-450); RED BLOOD CELL COUNT(AUTO) 4.53 MIL/uL (4.0-5.2); WHITE BLOOD COUNT (AUTO) 5.7 K/uL (4.3-11.0)
--- NOTE | 2021-10-06 05:17 | NUR ---
CENTRIFUGE SEPARATOR TENDER AT PT'S BEDSIDE
--- NOTE | 2021-10-06 05:34 | NUR ---
RESP SPUTUM CULTURE COLLECTED AND SENT TO LAB
[2021-10-06 05:41] LABS: ALANINE AMINOTRANSFERASE 30 U/L (12-78); ALBUMIN 4.1 g/dL (3.4-5.0); ALKALINE PHOSPHATASE 126 U/L (46-116); ASPARTATE AMINOTRANSFERASE 25 U/L (15-37); BILIRUBIN,TOTAL 0.3 mg/dL (0.2-1.0); CALCIUM, SERUM 9.6 mg/dL (8.5-10.1); CARBON DIOXIDE 28 mmol/L (21-32); CHLORIDE 98 mmol/L (98-107); CREATININE 0.6 mg/dL (0.6-1.3); GLUCOSE 95 mg/dL (74-106); POTASSIUM 4.9 mmol/L (3.5-5.1); SODIUM SERUM 132 mmol/L (136-145); TOTAL PROTEIN, SERUM 8.6 g/dL (6.4-8.2); UREA NITROGEN, BLOOD 7 mg/dL (7-18)
--- NOTE | 2021-10-06 06:55 | NUR ---
US TECH AT BED SIDE
[2021-10-06] MEDS ORDERED: CT SWABBABLE VALVE TRANS SET 1 EA INFUS.SET MC ONE (07:13)
[2021-10-06] MEDS ORDERED: IV NS 0.9% 250 ML IV ONE (07:13)
[2021-10-06] MEDS ORDERED: IOHEXOL-350 100 ML VIAL IV ONE (07:13)
[2021-10-06] MEDS ORDERED: ONDANSETRON HCL/PF 4 MG/2 ML VIAL ONE (07:28)
[2021-10-06] MEDS ORDERED: HYDROMORPHONE 1 MG/1 ML DISP.SYRIN ONE (07:28)
[2021-10-06] MEDS ORDERED: ONDANSETRON HCL/PF - ER 4 MG/2 ML VIAL IV ONE (07:30)
[2021-10-06] MEDS ORDERED: MISCELLANEOUS MED 1 EA EA XX ONE (07:30)
--- NOTE | 2021-10-06 07:30 | NUR ---
PER DR COLUNGA VERBAL ORDER DILAUDID 0.5MG GIVEN ORDERED.
--- NOTE | 2021-10-06 07:39 | NUR ---
PT TAKEN TO CT VIA JAMEL
[2021-10-06] MEDS: SULFAMETH/TRIMETH 800/160 MG 1 UDTAB TABLET PO SCH ×2 (10:32→21:27)
[2021-10-06] MEDS: GUAIFENESIN LA 600 MG TABLET.SA PO SCH ×2 (10:32→21:27)
--- NOTE | 2021-10-06 10:41 | NUR ---
ROOM 117-1
[2021-10-06] MEDS ORDERED: MAGNESIUM HYDROXIDE 30 ML UDC PO PRN ×2 (11:00)
[2021-10-06] MEDS ORDERED: ACETAMINOPHEN 325 MG TABLET PO PRN ×2 (11:00)
[2021-10-06] MEDS ORDERED: HYDROCODONE/APAP 5/325MG TABLET PO PRN ×2 (11:00→16:00)
[2021-10-06] MEDS ORDERED: LOPERAMIDE HCL (2 MG CAP) 2 MG CAPSULE PO PRN (11:00)
[2021-10-06] MEDS ORDERED: Z GUARD REMEDY 4 OZ OINT TP PRN (11:00)
[2021-10-06] MEDS ORDERED: MAG HYDROX/AL HYDROX/SIMETH 30 ML UDC PO PRN (11:00)
[2021-10-06] MEDS ORDERED: TEMAZEPAM 15 MG CAPSULE PO PRN (11:00)
[2021-10-06] MEDS ORDERED: IBUPROFEN 400 MG TABLET PO PRN (11:00)
[2021-10-06] MEDS ORDERED: ONDANSETRON HCL/PF 4 MG/2 ML VIAL IVP PRN (11:00)
--- NOTE | 2021-10-06 11:01 | NUR ---
REPORT GIVEN TO MOSES FOR SHARON
[2021-10-06] MEDS: IPRATROPIUM NEB FS 0.5 MG/2.5 ML AMPUL.NEB NEB SCH ×4 (11:30→23:24)
[2021-10-06] MEDS: ALBUTEROL HALF STRENGTH 1.25 MG/3 ML VIAL.NEB NEB SCH ×4 (11:30→23:24)
--- NOTE | 2021-10-06 11:44 | NUR ---
THE PATIENT IS TRANSFERED TO ROOM 117-1 IN STABLE CONDITION AND PER ACLS POLICY.
--- NOTE | 2021-10-06 12:29 | NUR ---
telecom specialist note received patient room er with dx pna ,undr care vj skinner, alert oriented with somre forgetfulness, placed on tele monitor rt and lt ac hl intact and flushed well , bed in lowest and locked position , call light within reach, body check done, vs taken , , plan of care discussed with patient,on o2 2l as ordered ,no sob noted at this time , will cont to monitor
[2021-10-06 12:32] VITALS: BP 156/83
[2021-10-06] MEDS: GABAPENTIN 400 MG CAPSULE PO SCH ×2 (12:48→16:40)
--- NOTE | 2021-10-06 15:00 | NUR ---
LABORER TANBARK NOTE BREATHING TX DONE BY RT
--- NOTE | 2021-10-06 15:55 | NUR ---
paint trimmer pipe bowls notes seen by DR Mckinley, patient said she is in severe pain, also she said she is not allergic to dilaudid , DR Mckinley with order to give dilaudid 1 mg IV every 6 hours as needed for pain. order noted and carried out
[2021-10-06 16:05] VITALS: BP 110/66
[2021-10-06] MEDS: HYDROMORPHONE 1 MG/1 ML DISP.SYRIN IV PRN ×3 (16:23→22:24)
[2021-10-06] MEDS: SODIUM CHLORIDE 1000 MG TABLET PO SCH (16:40)
[2021-10-06] MEDS: PRIMIDONE 250 MG TABLET PO SCH (16:42)
[2021-10-06] MEDS: PHENOBARBITAL 30 MG TABLET PO SCH (16:50)
[2021-10-06] MEDS ORDERED: PHENOBARBITAL 30 MG TABLET PO SCH (17:00)
--- NOTE | 2021-10-06 18:47 | NUR ---
production miner closing notes RN CLOSING NOTES PT IN BED AWAKE, ALERT/ORIENTED X 4, VERBALLY RESPONSIVE. ON ROOM AIR, O2 SAT 99%AND PT no SOB noted. IV ACCESS ON JAYDA MIDLINE intact and flushed well. NO C/0 PAIN OR DISCOMFORT. NO ACUTE DISTRESS. ALL DUE MEDS GIVEN ORDERED., ALL SAFETY MEASURES IN PLACE, BED IN LOWEST POSITION AND LOCKED, SR UP X2, PLACE CALL LIGHT WITHIN REACH. WILL ENDORSE TO incoming SHIFT NURSE
--- NOTE | 2021-10-06 19:49 | NUR ---
RN OPENING NOTES RECEIVED PT IN BED, AWAKE. AOx2-3. ON 2LPM VIA NC AND TOLERATING WELL. NO SOB NOTED. NO S/SX OF RESPIRATORY DISTRESS NOTED. TELE MONITOR DETECTS SINUS RHYTHM. IV ACCESS IN RAC #20 AND LAC #20. IV IS INTACT, PATENT, AND FLUSHING WELL. SAFETY PRECAUTIONS IN PLACE: BED IN LOWEST, LOCKED POSITION, SIDERAILS UPx2, AND BRAKES ON. TABLE AND CALL LIGHT WITHIN REACH. WILL CONTINUE TO MONITOR.
[2021-10-06] MEDS: OLANZAPINE 10 MG TABLET PO SCH (21:27)
--- NOTE | 2021-10-06 22:24 | NUR ---
ADMINISTERED DILAUDID FOR PAIN PER MD ORDER. VS WNL. WILL CONTINUE TO MONITOR.
[2021-10-07] MEDS: ALBUTEROL HALF STRENGTH 1.25 MG/3 ML VIAL.NEB NEB SCH ×5 (03:49→20:17)
[2021-10-07] MEDS: IPRATROPIUM NEB FS 0.5 MG/2.5 ML AMPUL.NEB NEB SCH ×5 (03:49→20:17)
[2021-10-07] MEDS: HYDROMORPHONE 1 MG/1 ML DISP.SYRIN IV PRN ×3 (04:05→18:58)
--- NOTE | 2021-10-07 04:06 | NUR ---
ADMINISTERED DILAUDID FOR PAIN PER MD ORDER. VS WNL. WILL CONTINUE TO MONITOR.
--- NOTE | 2021-10-07 07:02 | NUR ---
RN CLOSING NOTES PT IN BED, AWAKE. AOx2-3, WITH CONFUSION AND HALLUCINATIONS. ON 2LPM VIA NC AND TOLERATING WELL. NO SOB NOTED. NO S/SX OF RESPIRATORY DISTRESS NOTED. TELE MONITOR DETECTS SINUS RHYTHM. IV ACCESS IN RAC #20 AND LAC #20. IV IS INTACT, PATENT, AND FLUSHING WELL. ALL NEEDS MET. PT KEPT CLEAN AND DRY. TREATED PAIN THROUGHOUT SHIFT. SAFETY PRECAUTIONS IN PLACE: BED IN LOWEST, LOCKED POSITION, SIDERAILS UPx2, AND BRAKES ON. TABLE AND CALL LIGHT WITHIN REACH. WILL ENDORSE TO ONCOMING SHIFT FOR SHARON.
[2021-10-07 07:08] LABS: BASOPHILS % (AUTO) 0.5 % (0.0-2.0); EOSINOPHILS % (AUTO) 1.1 % (0.0-6.0); HEMATOCRIT 38 % (33-45); HEMOGLOBIN 12.7 g/dL (11.5-14.8); LYMPHOCYTES # (AUTO) 3.1 K/uL (0.8-4.8); LYMPHOCYTES % (AUTO) 33.2 % (20.0-44.0); MEAN CORPUSCULAR HGB CONC 33 g/dl (31.0-36.0); MEAN CORPUSCULAR VOLUME 90 fL (82-100); MONOCYTES # (AUTO) 0.6 K/uL (0.1-1.30); MONOCYTES % (AUTO) 6.4 % (2.0-12.0); NEUTROPHILS # (AUTO) 5.6 K/uL (1.8-8.9); NEUTROPHILS % (AUTO) 58.8 % (43.0-81.0); PLATELET COUNT (AUTO) 297 K/uL (150-450); RED BLOOD CELL COUNT(AUTO) 4.23 MIL/uL (4.0-5.2); WHITE BLOOD COUNT (AUTO) 9.4 K/uL (4.3-11.0)
[2021-10-07 07:30] LABS: CALCIUM, SERUM 9.1 mg/dL (8.5-10.1); CARBON DIOXIDE 25 mmol/L (21-32); CHLORIDE 101 mmol/L (98-107); CREATININE 0.5 mg/dL (0.6-1.3); GLUCOSE 96 mg/dL (74-106); MAGNESIUM 2.2 mg/dL (1.8-2.4); PHOSPHORUS 4.8 mg/dL (2.5-4.9); POTASSIUM 4.2 mmol/L (3.5-5.1); SODIUM SERUM 134 mmol/L (136-145); UREA NITROGEN, BLOOD 10 mg/dL (7-18)
--- NOTE | 2021-10-07 07:30 | NUR ---
RN OPENING NOTES RECEIVED PT IN BED, AWAKE. AOx2-3. ON 2LPM VIA NC AND TOLERATING WELL. NO SOB NOTED. NO S/SX OF RESPIRATORY DISTRESS NOTED. TELE MONITOR READING SINUS RHYTHM. IV ACCESS IN RAC #20 AND LAC #20. IV IS INTACT, PATENT, AND FLUSHING WELL. SAFETY PRECAUTIONS IN PLACE: BED IN LOWEST, LOCKED POSITION, SIDE RAILS UPx2 AND LOCKED. TABLE AND CALL LIGHT WITHIN REACH. WILL CONTINUE TO MONITOR.
[2021-10-07] MEDS: PANTOPRAZOLE 40 MG TABLET.DR PO SCH (07:32)
[2021-10-07 07:44] LABS: THYROID STIMULATING HORMONE 3.808 uIU/mL (0.358-3.74)
[2021-10-07] MEDS: SODIUM CHLORIDE 1000 MG TABLET PO SCH ×2 (09:26→17:03)
[2021-10-07] MEDS: GUAIFENESIN LA 600 MG TABLET.SA PO SCH ×2 (09:26→21:22)
[2021-10-07] MEDS: PRIMIDONE 250 MG TABLET PO SCH ×2 (09:26→17:03)
[2021-10-07] MEDS: OLANZAPINE 10 MG TABLET PO SCH ×2 (09:26→21:23)
[2021-10-07] MEDS: LORATADINE 10 MG TABLET PO SCH (09:27)
[2021-10-07] MEDS: GABAPENTIN 400 MG CAPSULE PO SCH ×3 (09:27→17:05)
[2021-10-07] MEDS: AMLODIPINE BESYLATE 2.5 MG TABLET PO SCH (09:27)
[2021-10-07] MEDS: SULFAMETH/TRIMETH 800/160 MG 1 UDTAB TABLET PO SCH ×2 (09:27→21:23)
[2021-10-07] MEDS: PHENOBARBITAL 30 MG TABLET PO SCH ×2 (09:30→17:03)
--- NOTE | 2021-10-07 18:44 | NUR ---
RN OPENING NOTES PT IN BED, AWAKE. AOx2-3. ON 2LPM VIA NC AND TOLERATING WELL. NO SOB NOTED. NO S/SX OF RESPIRATORY DISTRESS NOTED. TELE MONITOR READING SINUS RHYTHM. IV ACCESS IN RAC #20 AND LAC #20. IV IS INTACT, PATENT, AND FLUSHING WELL.ALL DUE MEDS GIVEN ORDERED. SAFETY PRECAUTIONS IN PLACE: BED IN LOWEST, LOCKED POSITION, SIDE RAILS UPx2 AND LOCKED. TABLE AND CALL LIGHT WITHIN REACH. WILL ENDORSE FOR SHARON.
--- NOTE | 2021-10-07 19:30 | NUR ---
RN NOTE PT RECEIVED IN BED. PT IS ON 2L OF O2 VIA NC SHOWING NO S/S OF RESP DISTRESS. BREATHING EVEN AND UNLABORED. PT IS A/OX3, ABLE TO VERBALIZE NEEDS. IV ACCESS NOTED ON LEFT AND RIGHT AC #20, LINES FLUSHED, PATENT, AND INTACT WITH NO SIGNS OF INFILTRATION. ON CARDIAC DIET. ALL SAFETY MEASURES IMPLEMENTED. CALL LIGHT WITHIN REACH. BED ALARM OB. BED LOCKED AND IN LOWEST POSITION. SIDE RAILS UP. WILL CONTINUE TO MONITOR AND ASSESS FOR ANY CHANGES DURING SHIFT.
[2021-10-07 20:00] VITALS: BP 115/69
[2021-10-08] MEDS: IPRATROPIUM NEB FS 0.5 MG/2.5 ML AMPUL.NEB NEB SCH ×7 (00:07→23:36)
[2021-10-08] MEDS: ALBUTEROL HALF STRENGTH 1.25 MG/3 ML VIAL.NEB NEB SCH ×7 (00:07→23:36)
[2021-10-08] MEDS: HYDROMORPHONE 1 MG/1 ML DISP.SYRIN IV PRN ×5 (01:09→17:51)
[2021-10-08 04:00] VITALS: BP 130/62
--- NOTE | 2021-10-08 06:40 | NUR ---
RN NOTE NO CHANGES IN PT CONDITION DURING SHIFT. PT IS ON 2L OF O2 VIA NC SHOWING NO S/S OF RESP DISTRESS. BREATHING EVEN AND UNLABORED. PT IS A/OX3, ABLE TO VERBALIZE NEEDS. IV ACCESS NOTED ON LEFT AND RIGHT AC #20, LINES FLUSHED, PATENT, AND INTACT WITH NO SIGNS OF INFILTRATION. ON CARDIAC DIET. ALL SAFETY MEASURES IMPLEMENTED. ALL DUE MEDS GIVEN ORDERED. PT KEPT CLEAN AND COMFORTABLE. CALL LIGHT WITHIN REACH. BED ALARM OB. BED LOCKED AND IN LOWEST POSITION. SIDE RAILS UP. WILL ENDORSE TO MORNING SHIFT RN FOR SHARON.
[2021-10-08] MEDS ORDERED: HYDROMORPHONE 1 MG/1 ML DISP.SYRIN IV ONE (07:30)
[2021-10-08] MEDS: OLANZAPINE 10 MG TABLET PO SCH ×2 (08:25→21:58)
[2021-10-08] MEDS: GUAIFENESIN LA 600 MG TABLET.SA PO SCH ×2 (08:25→21:58)
[2021-10-08] MEDS: SULFAMETH/TRIMETH 800/160 MG 1 UDTAB TABLET PO SCH ×2 (08:26→21:57)
[2021-10-08] MEDS: PRIMIDONE 250 MG TABLET PO SCH ×2 (08:26→16:28)
[2021-10-08] MEDS: SODIUM CHLORIDE 1000 MG TABLET PO SCH ×2 (08:26→16:31)
[2021-10-08] MEDS: LORATADINE 10 MG TABLET PO SCH (08:27)
[2021-10-08] MEDS: PHENOBARBITAL 30 MG TABLET PO SCH ×2 (08:27→16:28)
[2021-10-08] MEDS: PANTOPRAZOLE 40 MG TABLET.DR PO SCH (08:27)
[2021-10-08] MEDS: GABAPENTIN 400 MG CAPSULE PO SCH ×3 (08:27→16:28)
[2021-10-08] MEDS: AMLODIPINE BESYLATE 2.5 MG TABLET PO SCH (08:35)
--- NOTE | 2021-10-08 11:25 | NUR ---
RESP TX DEFERRED PER PTS REQUEST. NO S/S OF SOB NOTED PT STATED SHE WANTED TO CONT SLEEPING AFTER BEING WOKEN UP. Addendum: 10/08/21 at 1126 by DEREK CAMACHO RT Amended: Links added.
[2021-10-08] MEDS: oxyCODONE/APAP (5/325 MG) 1 UDTAB TABLET PO PRN (12:41)
--- NOTE | 2021-10-08 14:41 | NUR ---
RN NOTE BOTH L AND R AC INFILTRATED. DILAUDID GIVEN BUT WAS SEEN TO INFILTRATE ON LEFT AC. REMOVED BOTH IVS. UNABLE TO PLACE PIV. MIDLINE ORDER PLACED.
--- NOTE | 2021-10-08 15:38 | NUR ---
PT ASLEEP AND IN NO DISTRESS. RESP TX DEFERRED DANIEL MEJIA AWARE Addendum: 10/08/21 at 1539 by DEREK CAMACHO RT Amended: Links added.
[2021-10-08] MEDS: ENSURE ENLIVE 237 ML LIQUID (VANILLA) PO SCH ×2 (16:28→16:32)
--- NOTE | 2021-10-08 17:04 | NUR ---
RN NOTE CORINNE BRUSH CLEARING LABORER PLACED MIDLINE RU #18. WILL ADMIN DILAUDID PREVIOUS DOSE INFILTRATED. PT AWARE AND WANTS DILAUDID PREVIOUS DOES NOT EFFECTIVE. CHARGE NURSE AWARE.
--- NOTE | 2021-10-08 19:30 | NUR ---
RN NOTE PT RECEIVED IN BED. PT IS ON 2L OF O2 VIA NC SHOWING NO S/S OF RESP DISTRESS. BREATHING EVEN AND UNLABORED. PT IS A/OX3, ABLE TO VERBALIZE NEEDS. IV ACCESS NOTED ON RIGHT UPPER ARM MIDLINE, LINES FLUSHED, PATENT, AND INTACT WITH NO SIGNS OF INFILTRATION. ALL SAFETY MEASURES IMPLEMENTED. CALL LIGHT WITHIN REACH. BED ALARM OB. BED LOCKED AND IN LOWEST POSITION. SIDE RAILS UP. WILL CONTINUE TO MONITOR AND ASSESS FOR ANY CHANGES DURING SHIFT.
[2021-10-08 20:00] VITALS: BP 145/70
[2021-10-09] MEDS: HYDROMORPHONE 1 MG/1 ML DISP.SYRIN IV PRN ×2 (00:31→10:47)
--- NOTE | 2021-10-09 00:51 | NUR ---
RN NOTE PT OXYGEN SATURATION WAS IN HIGH 80'S ON 5L NC. PT PLACED ON SIMPLE MASK AT 10L WITH CURRENT OXYGEN SAT BETWEEN 92-93%. WILL CONTINUE TO MONITOR AND ASSESS FOR ANY CHANGES.
--- NOTE | 2021-10-09 01:25 | NUR ---
RN NOTE PT RECEIVED IN BED. PT IS ON 2L OF O2 VIA NC SHOWING NO S/S OF RESP DISTRESS. BREATHING EVEN AND UNLABORED. PT IS A/OX3, ABLE TO VERBALIZE NEEDS. IV ACCESS NOTED ON RIGHT UPPER ARM MIDLINE, LINES FLUSHED, PATENT, AND INTACT WITH NO SIGNS OF INFILTRATION. ALL SAFETY MEASURES IMPLEMENTED. CALL LIGHT WITHIN REACH. BED ALARM OB. BED LOCKED AND IN LOWEST POSITION. SIDE RAILS UP. WILL CONTINUE TO MONITOR AND ASSESS FOR ANY CHANGES DURING SHIFT. Addendum: 10/09/21 at 0126 by DEON FLORES RN WRONG TIME. SUBMITTED FOR 1930.
[2021-10-09] MEDS: IPRATROPIUM NEB FS 0.5 MG/2.5 ML AMPUL.NEB NEB SCH ×6 (03:52→23:43)
[2021-10-09] MEDS: ALBUTEROL HALF STRENGTH 1.25 MG/3 ML VIAL.NEB NEB SCH ×6 (03:52→23:43)
[2021-10-09 04:00] VITALS: BP 105/60
--- NOTE | 2021-10-09 04:04 | NUR ---
RN NOTE SPOKE WITH DR. PINEDA REGARDING PATIENT DESATURATING AND LET HER KNOW SHE IS NOT IN DISTRESS AND NOT FEELING SOB. MIRIAM SAID NO NEED FOR ABG, BUT ORDERED CHEST XRAY. ORDER NOTED AND CARRIED OUT.
--- NOTE | 2021-10-09 06:50 | NUR ---
RN NOTE PT NOW ON NRB AT 15L DUE TO DESATURATION. DISTRICT MANAGER PRIMARY CARE SALES CYRUS AND DAYSHIFT DISTRICT MANAGER PRIMARY CARE SALES YELENA AWARE. PT SEEN BY RT. ENDORSED TO DAY SHIFT RN TO F/U.
--- NOTE | 2021-10-09 07:06 | NUR ---
RN NOTE PT IS NOW ON 15L OF O2 VIA NRB SHOWING NO S/S OF RESP DISTRESS. BREATHING EVEN AND UNLABORED. PT IS A/OX3, ABLE TO VERBALIZE NEEDS. IV ACCESS NOTED ON RIGHT UPPER ARM MIDLINE, LINES FLUSHED, PATENT, AND INTACT WITH NO SIGNS OF INFILTRATION. ALL SAFETY MEASURES IMPLEMENTED. CALL LIGHT WITHIN REACH. BED ALARM ON. BED LOCKED AND IN LOWEST POSITION. SIDE RAILS UP. ENDORSED TO DAYSHIFT RN.
--- NOTE | 2021-10-09 07:43 | NUR ---
RN OPENING NOTE PATIENT RECEIVED IN BED, AWAKE, WITH SOME CONFUSION AND UNCOOPERATIVE. PATIENT PLACED ON 15L O2 NRB BY GAMEROOM TECHNICIAN AFTER PATIENT KEPT DISATING DOWN TO 85% ON 10L SIMPLE MASK. PATIENT CURRENTLY SATING 96%. PATIENT KEEPTS ATTEMPTING TO REMOVE MASK, DESAT DOWN TO MID 80S WITHOUT MASK. RIGHT UA MIDLINE IN PLACE. BED LOCKED AND IN LOWEST POSITION, CALL LIGHT WITHIN REACH, 2 SIDE RAILS UP. WILL CONTINUE TO MONITOR.
[2021-10-09] MEDS: PANTOPRAZOLE 40 MG TABLET.DR PO SCH (08:25)
[2021-10-09] MEDS: LORATADINE 10 MG TABLET PO SCH (08:26)
[2021-10-09] MEDS: OLANZAPINE 10 MG TABLET PO SCH ×2 (08:26→23:12)
[2021-10-09] MEDS: GUAIFENESIN LA 600 MG TABLET.SA PO SCH ×2 (08:26→23:11)
[2021-10-09] MEDS: PRIMIDONE 250 MG TABLET PO SCH ×2 (08:26→17:06)
[2021-10-09] MEDS: SULFAMETH/TRIMETH 800/160 MG 1 UDTAB TABLET PO SCH ×2 (08:26→23:12)
[2021-10-09] MEDS: AMLODIPINE BESYLATE 2.5 MG TABLET PO SCH (08:26)
[2021-10-09] MEDS: PHENOBARBITAL 30 MG TABLET PO SCH ×2 (08:26→17:06)
[2021-10-09] MEDS: GABAPENTIN 400 MG CAPSULE PO SCH ×3 (08:26→17:06)
[2021-10-09] MEDS: SODIUM CHLORIDE 1000 MG TABLET PO SCH ×2 (08:26→17:06)
[2021-10-09] MEDS: ENSURE ENLIVE 237 ML LIQUID (VANILLA) PO SCH ×3 (08:37→17:06)
[2021-10-09 09:37] LABS: ABG BASE EXCESS 0.3 mmol/L; ABG OXYGEN SATURATION 89.5 % (92.0-98.5); ABG PCO2 35.4 mmHg (35.0-45.0); ABG PH 7.446 (7.350-7.450); ABG PO2 53.3 mmHg (75.0-100.0); AaDO2 624.3 mmHg; COHb 1.3 % (0.5-1.5); MetHb 0.3 % (0.0-1.5); O2Hb 88.1 % (94.0-97.0); SITE, ABG Right Radial; VENT MODE, BG NON REBREATHER
[2021-10-09 12:00] VITALS: BP 127/74
[2021-10-09 16:00] VITALS: BP 116/70
--- NOTE | 2021-10-09 18:39 | NUR ---
RN CLOSING NOTE PATIENT REMAINS IN BED, AWAKE, AGITATED AND REMOVING MASK. PATIENT PLACED ON 15L O2 NRB SATURATING 92% AT REST WITH MASK ON, DESATING TO 80% WITHOUT NRB. PER DAVID LLAMAS, HOLD DILAUDID WHILE OXYGEN SATURATION DOES NOT IMPROVE. RIGHT UA MIDLINE IN PLACE. BED LOCKED AND IN LOWEST POSITION, CALL LIGHT WITHIN REACH, 2 SIDE RAILS UP. WILL ENDORSE TO ELEMENTARY SCHOOL ART TEACHER NURSE.
[2021-10-09 20:00] VITALS: BP 159/89
--- NOTE | 2021-10-09 20:26 | NUR ---
MS/TELE/RN PATIENT IS BED AWAKE, ALERT, ORIENTED, COMFORTABLE, NO DISTRESS NOTED, ON NRM 100% O2, SATURATING 90-92%, JOSEPH ALEJANDRA WAS AWARE, FALL PRECAUTIONS, CALL LIGHT IN REACH, NEEDS ATTENDED, WILL MONITOR.
[2021-10-10 04:00] VITALS: BP 89/59
[2021-10-10] MEDS: IPRATROPIUM NEB FS 0.5 MG/2.5 ML AMPUL.NEB NEB SCH ×6 (04:11→23:51)
[2021-10-10] MEDS: ALBUTEROL HALF STRENGTH 1.25 MG/3 ML VIAL.NEB NEB SCH ×6 (04:11→23:51)
--- NOTE | 2021-10-10 06:37 | NUR ---
ANA/RN PATIENT IS STILL SLEEPING, APPEAR COMFORTABLE, NO SIGNS OF DISTRESS NOTED, ON NRM 15LPM O2, SATURATING 98%, ALL NEEDS ATTENDED AT THIS TIME, WILL CONTINUE TO MONITOR.
--- NOTE | 2021-10-10 07:32 | NUR ---
RN OPENING NOTE PATIENT RECEIVED IN BED, RESTING. PATIENT ON 15L NRB SATING 96% OF BEDSIDE MONITOR. RIGHT UA MIDLINE IN PLACE. NO SIGNS OF ACUTE DISTRESS NOTED AT THIS TIME. BED LOCKED AND IN LOWEST POSITION, 2 SIDE RAILS UP, CALL LIGHT WITHIN REACH. WILL CONTINUE TO MONITOR.
[2021-10-10] MEDS: AMLODIPINE BESYLATE 2.5 MG TABLET PO SCH (09:00)
[2021-10-10] MEDS: PANTOPRAZOLE 40 MG TABLET.DR PO SCH (09:27)
[2021-10-10] MEDS: OLANZAPINE 10 MG TABLET PO SCH ×2 (09:27→20:41)
[2021-10-10] MEDS: GUAIFENESIN LA 600 MG TABLET.SA PO SCH ×2 (09:27→20:38)
[2021-10-10] MEDS: PHENOBARBITAL 30 MG TABLET PO SCH ×2 (09:28→17:32)
[2021-10-10] MEDS: SODIUM CHLORIDE 1000 MG TABLET PO SCH ×2 (09:28→17:33)
[2021-10-10] MEDS: GABAPENTIN 400 MG CAPSULE PO SCH ×3 (09:28→17:32)
[2021-10-10] MEDS: PRIMIDONE 250 MG TABLET PO SCH ×2 (09:28→17:33)
[2021-10-10] MEDS: LORATADINE 10 MG TABLET PO SCH (09:28)
[2021-10-10] MEDS: SULFAMETH/TRIMETH 800/160 MG 1 UDTAB TABLET PO SCH ×2 (09:28→20:38)
[2021-10-10] MEDS: ENSURE ENLIVE 237 ML LIQUID (VANILLA) PO SCH ×3 (09:28→17:33)
[2021-10-10 12:00] VITALS: BP 90/56
[2021-10-10] MEDS: HYDROMORPHONE 1 MG/1 ML DISP.SYRIN IV PRN ×2 (14:20→20:40)
--- NOTE | 2021-10-10 14:23 | NUR ---
c/o abdominal pain medicated with dilaudid 0.5 mg ivp slowly ,call light with in reach will continue to assess and evaluate call light with in reach
[2021-10-10] MEDS ORDERED: IV NS 0.9% 500 ML IV ONE ×2 (16:00)
[2021-10-10 16:11] LABS: BASOPHILS % (AUTO) 0.1 % (0.0-2.0); EOSINOPHILS % (AUTO) 0.2 % (0.0-6.0); HEMATOCRIT 41 % (33-45); HEMOGLOBIN 13.4 g/dL (11.5-14.8); LYMPHOCYTES # (AUTO) 1.7 K/uL (0.8-4.8); LYMPHOCYTES % (AUTO) 11.2 % (20.0-44.0); MEAN CORPUSCULAR HGB CONC 33 g/dl (31.0-36.0); MEAN CORPUSCULAR VOLUME 90 fL (82-100); MONOCYTES # (AUTO) 0.9 K/uL (0.1-1.30); MONOCYTES % (AUTO) 5.9 % (2.0-12.0); NEUTROPHILS # (AUTO) 12.4 K/uL (1.8-8.9); NEUTROPHILS % (AUTO) 82.6 % (43.0-81.0); PLATELET COUNT (AUTO) 319 K/uL (150-450); RED BLOOD CELL COUNT(AUTO) 4.51 MIL/uL (4.0-5.2); WHITE BLOOD COUNT (AUTO) 15.1 K/uL (4.3-11.0)
--- NOTE | 2021-10-10 16:30 | NUR ---
RN NOTE PATIENT GIVEN 500CC NS BOLUS PER ORDER DUE TO LOW BP. BP 107/58 POST BOLUS. WILL CONTINUE TO MONITOR.
--- NOTE | 2021-10-10 18:28 | NUR ---
RN CLOSING NOTE PATIENT REMAINS IN BED, AWAKE, A&OX3. PATIENT ON 15L NRB SATING 98% OF BEDSIDE MONITOR. RIGHT UA MIDLINE IN PLACE. NO SIGNS OF ACUTE DISTRESS NOTED AT THIS TIME. BP STABILIZED WITH BOLUS AND ORAL INTAKE. ALL NEEDS ATTENDED DURING SHIFT. BED LOCKED AND IN LOWEST POSITION, 2 SIDE RAILS UP, CALL LIGHT WITHIN REACH. WILL ENDORSE TO PROCUREMENT FORESTER NURSE.
[2021-10-10 19:15] LABS: CREATININE 1.3 mg/dL (0.6-1.3); POTASSIUM 4.2 mmol/L (3.5-5.1)
[2021-10-10 20:00] VITALS: BP_SYST 107; BP_SYST 90; BP_DIAS 56; BP_DIAS 65
[2021-10-11] VITALS: BP 124/73
[2021-10-11] MEDS: ALBUTEROL HALF STRENGTH 1.25 MG/3 ML VIAL.NEB NEB SCH ×6 (03:33→23:54)
[2021-10-11] MEDS: IPRATROPIUM NEB FS 0.5 MG/2.5 ML AMPUL.NEB NEB SCH ×6 (03:33→23:54)
[2021-10-11 04:00] VITALS: BP 107/67
[2021-10-11] MEDS: HYDROMORPHONE 1 MG/1 ML DISP.SYRIN IV PRN ×3 (05:01→21:35)
--- NOTE | 2021-10-11 06:29 | NUR ---
RN notes Resting comfortably in bed with no distress noted. On O2 at 15lpm via non rebreather mask tolerating well. Alert and oriented. Verbally abler to communitcate needs. Complaint of right abdominal pain, dilaudid administered x 2 with relief. Vital signs wnl. Kept clean and dry Will endorse to next shift for continuity of care.
[2021-10-11 06:56] LABS: BASOPHILS % (AUTO) 0.5 % (0.0-2.0); EOSINOPHILS % (AUTO) 1.1 % (0.0-6.0); HEMATOCRIT 39 % (33-45); HEMOGLOBIN 13.1 g/dL (11.5-14.8); LYMPHOCYTES % (AUTO) 23.7 % (20.0-44.0); MEAN CORPUSCULAR HGB CONC 33 g/dl (31.0-36.0); MEAN CORPUSCULAR VOLUME 91 fL (82-100); MONOCYTES # (AUTO) 0.8 K/uL (0.1-1.30); MONOCYTES % (AUTO) 9.1 % (2.0-12.0); NEUTROPHILS # (AUTO) 5.4 K/uL (1.8-8.9); NEUTROPHILS % (AUTO) 65.6 % (43.0-81.0); PLATELET COUNT (AUTO) 273 K/uL (150-450); RED BLOOD CELL COUNT(AUTO) 4.33 MIL/uL (4.0-5.2); WHITE BLOOD COUNT (AUTO) 8.3 K/uL (4.3-11.0)
[2021-10-11 07:56] LABS: CALCIUM, SERUM 9.1 mg/dL (8.5-10.1); CREATININE 0.8 mg/dL (0.6-1.3); POTASSIUM 4.4 mmol/L (3.5-5.1)
[2021-10-11 08:00] VITALS: BP 94/48
--- NOTE | 2021-10-11 08:44 | NUR ---
pt. is awake and alert changed Oxygen settings from non rebreather to simple mask @ 8 lpm o2 flow. spo2 98% 15 minutes post changed. Addendum: 10/11/21 at 0854 by LUCAS GARCIA RT Amended: Links added.
[2021-10-11] MEDS: AMLODIPINE BESYLATE 2.5 MG TABLET PO SCH (09:00)
[2021-10-11] MEDS: PANTOPRAZOLE 40 MG TABLET.DR PO SCH (09:27)
[2021-10-11] MEDS: SULFAMETH/TRIMETH 800/160 MG 1 UDTAB TABLET PO SCH (09:27)
[2021-10-11] MEDS: PHENOBARBITAL 30 MG TABLET PO SCH ×2 (09:27→17:48)
[2021-10-11] MEDS: GABAPENTIN 400 MG CAPSULE PO SCH ×3 (09:27→17:48)
[2021-10-11] MEDS: OLANZAPINE 10 MG TABLET PO SCH ×2 (09:27→21:33)
[2021-10-11] MEDS: LORATADINE 10 MG TABLET PO SCH (09:27)
[2021-10-11] MEDS: GUAIFENESIN LA 600 MG TABLET.SA PO SCH ×2 (09:27→21:32)
[2021-10-11] MEDS: SODIUM CHLORIDE 1000 MG TABLET PO SCH ×2 (09:27→17:48)
[2021-10-11] MEDS: PRIMIDONE 250 MG TABLET PO SCH ×2 (09:28→17:48)
[2021-10-11] MEDS: ENSURE ENLIVE 237 ML LIQUID (VANILLA) PO SCH ×3 (09:28→17:48)
[2021-10-11] MEDS: CEFTRIAXONE 1 G in IV D5W 50 ML IV SCH (10:53)
--- NOTE | 2021-10-11 11:30 | NUR ---
RN NOTE PATIENT SATING 99/100% ON NONREBREATHER. SWITCHED TO NASAL CANULA 2L SATING 97%
[2021-10-11 12:00] VITALS: BP 103/63
--- NOTE | 2021-10-11 14:00 | NUR ---
RN NOTE PATIENT SIGNED CONSENT FOR U/S THORACENTESIS. UPDATED SISTERS CONTACT INFORMATION Addendum: 10/11/21 at 1659 by REYMUNDO TSANG RN SISTER VINAYAK IZAGUIRRE [phone]
--- NOTE | 2021-10-11 14:37 | NUR ---
o2 flow decreased from 8 lpm to 2 lpm o2 flow due to 98% spo2. 94% spo2 on 2 lpm nasal cannula. rn aware on oxygen titration
[2021-10-11 16:00] VITALS: BP 91/52
[2021-10-11] MEDS: oxyCODONE/APAP (5/325 MG) 1 UDTAB TABLET PO PRN (18:16)
[2021-10-11 20:00] VITALS: BP 92/52
--- NOTE | 2021-10-11 20:00 | NUR ---
SCRATCH POLISHER NOTE PT IN BED AWAKE. A/O X 2, NO SOB, NO DISTRESS OR DISCOMFORT NOTED. DENIES PAIN AT THIS TIME. ON TELE ST WITH PVC HR 103. MENDY MIDLINE INTACT AND PATENT. REPOSITION HER FOR COMFORT. SIDE RAILS UP X 2 AND CALL LIGHT WITHIN REACH. CONTINUE TO MONITOR HER.
[2021-10-12] VITALS: BP 93/50
[2021-10-12] MEDS: IPRATROPIUM NEB FS 0.5 MG/2.5 ML AMPUL.NEB NEB SCH ×6 (03:26→23:35)
[2021-10-12] MEDS: ALBUTEROL HALF STRENGTH 1.25 MG/3 ML VIAL.NEB NEB SCH ×6 (03:26→23:35)
[2021-10-12 04:00] VITALS: BP 116/67
[2021-10-12] MEDS: HYDROMORPHONE 1 MG/1 ML DISP.SYRIN IV PRN ×3 (06:22→18:37)
[2021-10-12 07:24] LABS: BASOPHILS % (AUTO) 0.4 % (0.0-2.0); EOSINOPHILS % (AUTO) 2.4 % (0.0-6.0); HEMATOCRIT 38 % (33-45); HEMOGLOBIN 12.5 g/dL (11.5-14.8); LYMPHOCYTES # (AUTO) 1.7 K/uL (0.8-4.8); LYMPHOCYTES % (AUTO) 19.4 % (20.0-44.0); MEAN CORPUSCULAR HGB CONC 33 g/dl (31.0-36.0); MEAN CORPUSCULAR VOLUME 91 fL (82-100); MONOCYTES # (AUTO) 0.7 K/uL (0.1-1.30); NEUTROPHILS % (AUTO) 69.8 % (43.0-81.0); PLATELET COUNT (AUTO) 264 K/uL (150-450); RED BLOOD CELL COUNT(AUTO) 4.15 MIL/uL (4.0-5.2); WHITE BLOOD COUNT (AUTO) 8.6 K/uL (4.3-11.0)
[2021-10-12 08:00] VITALS: BP 116/67
[2021-10-12 08:01] LABS: CALCIUM, SERUM 9.4 mg/dL (8.5-10.1); CREATININE 0.6 mg/dL (0.6-1.3); POTASSIUM 4.8 mmol/L (3.5-5.1)
[2021-10-12] MEDS: AMLODIPINE BESYLATE 2.5 MG TABLET PO SCH (09:00)
[2021-10-12] MEDS: oxyCODONE/APAP (5/325 MG) 1 UDTAB TABLET PO PRN ×3 (10:16→17:00)
[2021-10-12] MEDS: OLANZAPINE 10 MG TABLET PO SCH ×2 (10:16→22:01)
[2021-10-12] MEDS: LORATADINE 10 MG TABLET PO SCH (10:16)
[2021-10-12] MEDS: SODIUM CHLORIDE 1000 MG TABLET PO SCH ×2 (10:16→16:33)
[2021-10-12] MEDS: PRIMIDONE 250 MG TABLET PO SCH ×2 (10:16→16:33)
[2021-10-12] MEDS: PANTOPRAZOLE 40 MG TABLET.DR PO SCH (10:16)
[2021-10-12] MEDS: GUAIFENESIN LA 600 MG TABLET.SA PO SCH ×2 (10:17→22:00)
[2021-10-12] MEDS: PHENOBARBITAL 30 MG TABLET PO SCH ×2 (10:17→16:33)
[2021-10-12] MEDS: GABAPENTIN 400 MG CAPSULE PO SCH ×3 (10:17→16:34)
[2021-10-12] MEDS: ENSURE ENLIVE 237 ML LIQUID (VANILLA) PO SCH ×3 (10:17→16:34)
[2021-10-12] MEDS: CEFTRIAXONE 1 G in IV D5W 50 ML IV SCH (10:25)
[2021-10-12 12:00] VITALS: BP 97/52
[2021-10-12 16:00] VITALS: BP 97/52
--- NOTE | 2021-10-12 17:28 | NUR ---
PATIENT OFF OXYGEN AND RN COMFIRMED. ONLY TO BE PLACE ON O2 WHEN NEEDED Addendum: 10/12/21 at 1729 by ANGELICA GARCÍA RT Amended: Links added.
--- NOTE | 2021-10-12 18:55 | NUR ---
CHANGE OF SHIFT REPORT PT RESTING COMFORTABLY IN BED. NO S/S OR C/O PAIN OR DISTRESS NOTED. SIDE RAILS UP X2, CALL LIGHT LEFT WITHIN REACH. PT KEPT CLEAN, DRY, AND COMFORTABLE. NO SIGNIFICANT CHANGES SINCE PREVIOUS SHIFT.
[2021-10-12 20:00] VITALS: BP 100/58
--- NOTE | 2021-10-12 20:00 | NUR ---
ROCK SINGER NOTE RECEIVED PT ON BED, A/0 X 3, NO SOB, DISTRESS OR DISCOMFORT NOTED AT THIS TIME. DENIES PAIN. ON TELE SR WITH PVC, HR 91. MENDY MIDLINE INTACT AND PATENT. ALL NEEDS ATTENDED, SIDE RAILS UP X 2, CALL LIGHT WITHIN REACH, VSS CONTINUE TO MONITOR PT.
[2021-10-13] VITALS: BP 95/56
[2021-10-13] MEDS: HYDROMORPHONE 1 MG/1 ML DISP.SYRIN IV PRN ×3 (00:46→13:48)
--- NOTE | 2021-10-13 00:51 | NUR ---
GEOPHYSICAL LABORATORY CHIEF NOTE PT COMPLAINING OF GENERALIZED PAIN, 8/10, DULL AND ACHING. DILAUDID 0.5 MG IV PUSH GIVEN. WILL CONTINUE TO MONITOR.
[2021-10-13] MEDS: IPRATROPIUM NEB FS 0.5 MG/2.5 ML AMPUL.NEB NEB SCH ×4 (03:22→15:22)
[2021-10-13] MEDS: ALBUTEROL HALF STRENGTH 1.25 MG/3 ML VIAL.NEB NEB SCH ×4 (03:23→15:22)
[2021-10-13 04:00] VITALS: BP 139/47
--- NOTE | 2021-10-13 07:05 | NUR ---
CIVIL ENGINEER HELPER NOTE PT IN BED, AWAKE, NO DISTRESS AND NO DISCOMFORT NOTED. INCONTINENT CARE GIVEN. DENIES PAIN. ENDORSED TO DAY SHIFT NURSE TO CONTINUE CARE.
--- NOTE | 2021-10-13 07:48 | NUR ---
0700 Patient endorsed by outgoing nurse for continuity of care. Received patient in bed licked at lowest position with upper side rails raised and call light within reach. Patient A&OX3, Patient is verbalized and speak clearly. No sign of SOB or distress noted; breathing is even and unlabored, on ventilator. Regular heart rhythm. Patient has right upper arm midline. Non Ambulatory. incontinent GI bowel sound present in all quadrants, soft not distended. incontinent. Encouraged call light use and reinforced unit policies. Will Continue to monitor.
[2021-10-13 08:00] VITALS: BP 124/75
[2021-10-13] MEDS: GABAPENTIN 400 MG CAPSULE PO SCH ×3 (08:57→16:43)
[2021-10-13] MEDS: SODIUM CHLORIDE 1000 MG TABLET PO SCH ×2 (08:57→16:43)
[2021-10-13] MEDS: LORATADINE 10 MG TABLET PO SCH (08:57)
[2021-10-13] MEDS: PHENOBARBITAL 30 MG TABLET PO SCH ×2 (08:57→16:44)
[2021-10-13] MEDS: AMLODIPINE BESYLATE 2.5 MG TABLET PO SCH (08:58)
[2021-10-13] MEDS: ENSURE ENLIVE 237 ML LIQUID (VANILLA) PO SCH ×3 (08:58→16:43)
[2021-10-13] MEDS: GUAIFENESIN LA 600 MG TABLET.SA PO SCH (08:58)
[2021-10-13] MEDS: PRIMIDONE 250 MG TABLET PO SCH ×2 (08:58→16:44)
[2021-10-13] MEDS: PANTOPRAZOLE 40 MG TABLET.DR PO SCH (08:58)
[2021-10-13] MEDS: OLANZAPINE 10 MG TABLET PO SCH (08:58)
[2021-10-13] MEDS: CEFTRIAXONE 1 G in IV D5W 50 ML IV SCH (09:00)
[2021-10-13 12:00] VITALS: BP 123/70
[2021-10-13] MEDS ORDERED: GUAI600T53 PO (14:15)
[2021-10-13] MEDS ORDERED: CEPH750C9 PO (14:15)
[2021-10-13 16:00] VITALS: BP 100/53
--- NOTE | 2021-10-13 18:01 | NUR ---
Patient signed all appropriate discharge papers and all belongings returned to patient. Education provided to patient verbalized understanding patient was discharged to boarding home facility and was taken with [facility] via [facility]. Patient's IV and Patient's ID band were removed. Patient had no complaints of pain and was in stable condition. Assistance was provided as needed. Addendum: 10/13/21 at 1836 by TREVOR SEYMOUR RN patient discharged to [facility]. Stephan at [facility] was given report and was notified that patient was being transported via ambulance. Patient was stable at time of discharge.
[2021-10-13] MEDS ORDERED: CEFTRIAXONE 2 G in IV D5W 100 ML IV SCH (21:00)
== END 2021-10-13 18:21 | DRG 139 ==
LOC: ER 04:20 → TRANSITION 07:20 → TELE1 10:45 → MEDSG1 10-07 12:08 → TELE1 10-09 09:00
PROVIDERS: ADMIT Nurse Practitioner Acute Care; ATTEND Registered Nurse
PROC: 05H933Z Insertion of Infusion Device into Right Brachial Vein, Percutaneous Approach (ICD-10-PCS; principal; 2021-10-08)
DX: J15.4 Pneumonia due to other streptococci (principal); J96.01 Acute respiratory failure with hypoxia; C79.51 Secondary malignant neoplasm of bone; E87.1 Hypo-osmolality and hyponatremia; F20.0 Paranoid schizophrenia; B95.3 Streptococcus pneumoniae as the cause of diseases classified elsewhere; E11.9 Type 2 diabetes mellitus without complications; G40.909 Epilepsy, unspecified, not intractable, without status epilepticus; I25.10 Atherosclerotic heart disease of native coronary artery without angina pectoris; F17.210 Nicotine dependence, cigarettes, uncomplicated; E03.8 Other specified hypothyroidism; F32.9 Major depressive disorder, single episode, unspecified; I10 Essential (primary) hypertension; Z20.822 Contact with and (suspected) exposure to COVID-19; Z95.5 Presence of coronary angioplasty implant and graft; Z90.49 Acquired absence of other specified parts of digestive tract; G89.4 Chronic pain syndrome; K21.9 Gastro-esophageal reflux disease without esophagitis; Z88.5 Allergy status to narcotic agent; Z88.0 Allergy status to penicillin; Z88.8 Allergy status to other drugs, medicaments and biological substances; Z79.899 Other long term (current) drug therapy; I70.0 Atherosclerosis of aorta; I25.2 Old myocardial infarction; J40 Bronchitis, not specified as acute or chronic; F41.0 Panic disorder [episodic paroxysmal anxiety]; Z80.3 Family history of malignant neoplasm of breast; Z85.05 Personal history of malignant neoplasm of liver; Y95 Nosocomial condition; Z85.72 Personal history of non-Hodgkin lymphomas; Z86.16 Personal history of COVID-19; J98.11 Atelectasis; J90 Pleural effusion, not elsewhere classified
CPT/HCPCS: 36415; 36600; 71045-TC; 76604-TC; 80048-TC; 80076-TC; 80184; 82803-TC; 83735-TC; 83880; 84100-TC; 84439-TC; 84443-TC; 84484-TC; 85025-TC; 85378-TC; 85610-TC; 87040-TC; 87070-TC; 87081-TC; 87186-TC; 93970-TC; 94762-TC; 94799-TC; 97116-TC; 97530-TC; C9803; G0378; J0696; J1170; J1956; J2405; J7040; J7050; J7060; Q9967

== ENCOUNTER 2021-11-16 20:13 | Inpatient (IN) | payer MEDICAID ==
[~2021-11-16] VITALS: Ht 167.6 cm; Wt 65.8 kg
[~2021-11-16 20:13] MED LIST changes: -BENZ-13 PO; +CEPH750C9 PO; -DICL50TA7 PO; -GUAI5SYR GT; +GUAI600T53 PO; -NITR100C15 PO; -SULF1TAB48 PO
--- NOTE | 2021-11-16 20:38 | NUR ---
[id number] C/O BILATERAL KNEE PAIN USUALLY AMBULATORY WITH ASSISTANCE HARDER TO WALK TODAY. PATIENT ALERT AND ORIENTED X3. PLACED IN BED 10 AWAITING MD CAMARILLO.
--- NOTE | 2021-11-16 21:58 | NUR ---
CARTOGRAPHIC DRAFTER AT PT'S BEDSIDE
--- NOTE | 2021-11-16 22:25 | NUR ---
US TECH AT PT'S BEDSIDE
--- NOTE | 2021-11-17 00:30 | NUR ---
DIRECTOR OF MATH AT PT'S BEDSIDE. COVID ANTIGEN SWAB COLLECTED AND SENT TO LAB
[2021-11-17 00:52] LABS: BASOPHILS # (AUTO) 0.1 K/uL (0.0-0.2); EOSINOPHILS % (AUTO) 2.9 % (0.0-6.0); HEMATOCRIT 32 % (33-45); HEMOGLOBIN 10.7 g/dL (11.5-14.8); LYMPHOCYTES # (AUTO) 2.1 K/uL (0.8-4.8); MEAN CORPUSCULAR HGB CONC 34 g/dl (31.0-36.0); MEAN CORPUSCULAR VOLUME 90 fL (82-100); MONOCYTES # (AUTO) 0.5 K/uL (0.1-1.30); MONOCYTES % (AUTO) 8.1 % (2.0-12.0); NEUTROPHILS # (AUTO) 3.3 K/uL (1.8-8.9); PLATELET COUNT (AUTO) 414 K/uL (150-450); RED BLOOD CELL COUNT(AUTO) 3.49 MIL/uL (4.0-5.2); WHITE BLOOD COUNT (AUTO) 6.1 K/uL (4.3-11.0)
[2021-11-17 00:55] LABS: CALCIUM, SERUM 8.9 mg/dL (8.5-10.1); CARBON DIOXIDE 28 mmol/L (21-32); CHLORIDE 100 mmol/L (98-107); CREATININE 0.6 mg/dL (0.6-1.3); GLUCOSE 96 mg/dL (74-106); POTASSIUM 3.8 mmol/L (3.5-5.1); SODIUM SERUM 134 mmol/L (136-145); UREA NITROGEN, BLOOD 5 mg/dL (7-18)
[2021-11-17] MEDS ORDERED: ENOXAPARIN SODIUM 60 MG/0.6 ML DISP.SYRIN SQ ONE ×3 (01:22→09:00)
[2021-11-17] MEDS ORDERED: HYDROCODONE/APAP 5/325MG TABLET PO ONE (01:30)
--- NOTE | 2021-11-17 01:44 | NUR ---
MENDY #22G S/L; PATENT AND INTACT.
[2021-11-17] MEDS ORDERED: HYDROCODONE/APAP 5/325MG TABLET ONE (01:45)
--- NOTE | 2021-11-17 01:50 | NUR ---
MRSA SWAB COLLECTED AND SENT TO LAB. PATIENT'S BELONGINGS LIST DONE.
--- NOTE | 2021-11-17 01:55 | NUR ---
Followed up with [facility] to follow up on US
[2021-11-17] MEDS ORDERED: MAGNESIUM HYDROXIDE 30 ML UDC PO PRN ×2 (02:00)
[2021-11-17] MEDS ORDERED: MAG HYDROX/AL HYDROX/SIMETH 30 ML UDC PO PRN (02:00)
[2021-11-17] MEDS ORDERED: ONDANSETRON HCL/PF 4 MG/2 ML VIAL IVP PRN (02:00)
[2021-11-17] MEDS ORDERED: Z GUARD REMEDY 4 OZ OINT TP PRN (02:00)
[2021-11-17] MEDS ORDERED: ZOLPIDEM TARTRATE 5 MG TABLET PO PRN (02:00)
[2021-11-17] MEDS ORDERED: ACETAMINOPHEN 325 MG TABLET PO PRN ×2 (02:00)
--- NOTE | 2021-11-17 03:15 | NUR ---
Follwoed up with Radiology regarding imaging to be sent to [facility]
--- NOTE | 2021-11-17 04:57 | NUR ---
room 104 ms
--- NOTE | 2021-11-17 05:15 | NUR ---
REPORT GIVEN TO ANA NURSE DANIEL CONNOLLY
--- NOTE | 2021-11-17 06:07 | NUR ---
TRANSFERED PATIENT TO ROOM 104 VIA [facility]
--- NOTE | 2021-11-17 06:08 | NUR ---
ADMIT NOTE RECEIVED PATIENT FROM ER, SAFELY TRANSFERRED TO BED IN ROOM 104. ADMITTING DX: DVT. HX: EPELEPSY, SEIZURE, HTN, NJ, STENT X2, GASTROENTERITIS, HEPATOCELLULAR CARCINOMA, PARANOIA, METASTATIC CANCER, PSYCH ILLNESS, RIGHT HIP SX, AND ABDOMINAL SX. PATIENT IS AWAKE, ALERT, AND ORIENTED X3. ON ROOM AIR, O2 SAT 96%. IV ACCESS ON MENDY #22, PATENT AND INTACT. SKIN ASSESSMENT DONE, SKIN IS INTACT. WITH BILATERAL EXTREMITY +4 PITTING EDEMA. UNABLE TO FULLY ASSESS PATIENT, PATIENT WON'T ANSWER QUESTIONS ACCORDINGLY AND IS REFUSING. PATIENT SCREAMING FOR MORPHINE FOR SEVERE LEG PAIN. WILL FOLLOW UP WITH GAVIN MARTINEZ. BED LOCKED AND IN LOWEST POSITION. SAFETY MEASURES MAINTAINED. CALL LIGHT WITHIN REACH. ALL NEEDS ANTICIPATED. 0615- NOTIFIED GAVIN WALLACE ANTENNA MACHINE OPERATOR, PATIENT IS IN SEVERE PAIN ON LEFT LEG AND IS REQUESTING FOR MORPHINE. RECEIVED NEW ORDERS FOR MORPHINE 1MG IV X1. NOTED AND CARRIED OUT.
[2021-11-17 06:20] VITALS: BP 128/68
[2021-11-17] MEDS ORDERED: MORPHINE SULFATE INJ 2 MG/ML DISP.SYRIN IV ONE (06:30)
--- NOTE | 2021-11-17 07:26 | NUR ---
RN NOTE PATIENT RESTING IN BED. REASSESSED LEFT LEG PAIN-10/25. ON ROOM AIR, NO SOB NOTED. ENDORSED TO DAY SHIFT FOR CONTINUITY OF CARE/ADMISSION. CALL LIGHT WITHIN REACH.
--- NOTE | 2021-11-17 07:52 | NUR ---
RN OPENING NOTE RECEIVED PATIENT RESTING IN BED A/0X3 IRRITABLE. ON ROOM AIR WITH NO COMPLAINS OF SOB. PATIENT HAS A MENDY 22g IV SITE. PATIENT ON CARDIAC DIET. HAS A DIAPER. SAFETY MEASURES IN PLACE BED ALARM ACTIVATED AND LOCKED IN THE LOWEST POSITION, CALL LIGHT WITHIN REACH, 2 SIDE RAILS UP AND IN SEMI FOWLERS POSITION.
[2021-11-17 08:00] VITALS: BP 146/69
[2021-11-17] MEDS: GABAPENTIN 400 MG CAPSULE PO SCH ×3 (08:06→16:55)
[2021-11-17] MEDS: oxyCODONE/APAP (5/325 MG) 1 UDTAB TABLET PO PRN (08:06)
[2021-11-17] MEDS: PANTOPRAZOLE 40 MG TABLET.DR PO SCH (08:06)
[2021-11-17] MEDS: AMLODIPINE BESYLATE 2.5 MG TABLET PO SCH (08:06)
[2021-11-17] MEDS: PRIMIDONE 250 MG TABLET PO SCH ×2 (08:06→16:55)
[2021-11-17] MEDS: OLANZAPINE 10 MG TABLET PO SCH (08:06)
[2021-11-17] MEDS: PHENOBARBITAL 30 MG TABLET PO SCH ×2 (08:41→16:55)
--- NOTE | 2021-11-17 10:00 | NUR ---
RN NOTE PATIENT REFUSED SKIN ASSESSMENT. EXPLAINED TO PATIENT THE NEED FOR A FULL SKIN ASSESSMENT PATIENT STILL REFUSED.
--- NOTE | 2021-11-17 13:00 | NUR ---
RN NOTE PATIENT REQUESTED MORPHINE FOR PAIN AND REFUSED PERCOCET. INFORMED PROVIDER DR LEON, RECEIVED ORDER FOR MORPHINE 2MG IV Q4 PRN. ORDERS PLACED.
[2021-11-17] MEDS: MORPHINE SULFATE INJ 2 MG/ML DISP.SYRIN IV PRN ×2 (13:58→21:18)
[2021-11-17 15:49] LABS: ALBUMIN 2.4 g/dL (3.4-5.0); BILIRUBIN,DIRECT 0.1 mg/dL (0.0-0.2); BILIRUBIN,TOTAL 0.2 mg/dL (0.2-1.0); TOTAL PROTEIN, SERUM 6.4 g/dL (6.4-8.2)
[2021-11-17 16:00] VITALS: BP 129/67
--- NOTE | 2021-11-17 18:44 | NUR ---
RN CLOSING NOTE PATIENT RESTING IN BED A/0X3 IRRITABLE. ON ROOM AIR WITH NO COMPLAINS OF SOB. PATIENT HAS A MENDY 22g IV SITE. PATIENT ON CARDIAC DIET. SAFETY MEASURES IN PLACE BED ALARM ACTIVATED AND LOCKED IN THE LOWEST POSITION ON, CALL LIGHT WITHIN REACH, 2 SIDE RAILS UP AND IN SEMI FOWLERS POSITION.
--- NOTE | 2021-11-17 19:30 | NUR ---
RN OPENING NOTE RECEIVED PATIENT SLEEPING IN BED, BUT EASILY AROUSABLE. A/0X3-4. ON ROOM AIR AND PATIENT TOLERATING WELL. IV ACCESS ON MENDY WITH 22g INTACT AND PATENT. NO S/S OF INFILTRATIONS. NO C/O PAIN OR DISCOMFORT AT THIS MOMENT. ALL SAFETY MEASURES IN PLACE. BED ALARM ON. BED IN LOWEST POSITION AND LOCKED. PLACE CALL LIGHT WITHIN REACH. SIDE RAILS UP X2, WILL CONTINUE TO MONITOR
[2021-11-17 20:00] VITALS: BP 136/72
[2021-11-17] MEDS: TEMAZEPAM 15 MG CAPSULE PO SCH (21:20)
[2021-11-17] MEDS: OLANZAPINE 5 MG TABLET PO SCH (21:20)
[2021-11-18] MEDS: MORPHINE SULFATE INJ 2 MG/ML DISP.SYRIN IV PRN ×4 (03:33→17:12)
--- NOTE | 2021-11-18 03:40 | NUR ---
RN NOTE PT C/O OF L LEG PAIN RATED 8/10 PAIN SCALE, MORPHINE GIVEN PRN ORDER, PT TOLERATED WELL. WILL CONT TO MONITOR.
[2021-11-18 04:00] VITALS: BP 137/84
[2021-11-18 06:35] LABS: BASOPHILS # (AUTO) 0.1 K/uL (0.0-0.2); EOSINOPHILS % (AUTO) 1.9 % (0.0-6.0); HEMATOCRIT 31 % (33-45); HEMOGLOBIN 10.4 g/dL (11.5-14.8); LYMPHOCYTES # (AUTO) 1.4 K/uL (0.8-4.8); LYMPHOCYTES % (AUTO) 29.3 % (20.0-44.0); MEAN CORPUSCULAR HGB CONC 34 g/dl (31.0-36.0); MEAN CORPUSCULAR VOLUME 89 fL (82-100); MONOCYTES # (AUTO) 0.3 K/uL (0.1-1.30); MONOCYTES % (AUTO) 6.4 % (2.0-12.0); NEUTROPHILS % (AUTO) 61.4 % (43.0-81.0); PLATELET COUNT (AUTO) 411 K/uL (150-450); RED BLOOD CELL COUNT(AUTO) 3.44 MIL/uL (4.0-5.2); WHITE BLOOD COUNT (AUTO) 4.9 K/uL (4.3-11.0)
--- NOTE | 2021-11-18 06:39 | NUR ---
RN CLOSING NOTE PATIENT AWAKE A/0X3-4. ON ROOM AIR AND PATIENT TOLERATING WELL. O2 SATURATION OF 97%, IV ACCESS ON MENDY WITH 22g INTACT AND PATENT. NO S/S OF INFILTRATIONS. STILL COMPLAINING OF PAIN, LAST MORPHINE GIVEN 332, ALL DUE MEDS GIVEN ALL SAFETY MEASURES IN PLACE. BED ALARM ON. BED IN LOWEST POSITION AND LOCKED. PLACE CALL LIGHT WITHIN REACH. SIDE RAILS UP X2, WILL ENDORSE TO DAY SHIFT NURSE.
--- NOTE | 2021-11-18 07:28 | NUR ---
RN OPENING NOTE RECEIVED PATIENT RESTING IN BED A/0X3 IRRITABLE. ON ROOM AIR WITH NO COMPLAINS OF SOB. PATIENT HAS A MENDY 22g IV SITE. PATIENT ON CARDIAC DIET. PATIENT REFUSED SKIN ASSESSMENT YESTERDAY WILL ATTEMPT TO DO IT TODAY IF PATIENT ALLOWS. SAFETY MEASURES IN PLACE BED ALARM ACTIVATED AND LOCKED IN THE LOWEST POSITION, CALL LIGHT WITHIN REACH, 2 SIDE RAILS UP AND IN SEMI FOWLERS POSITION.
[2021-11-18 07:51] LABS: CALCIUM, SERUM 8.9 mg/dL (8.5-10.1); CARBON DIOXIDE 25 mmol/L (21-32); CHLORIDE 103 mmol/L (98-107); CREATININE 0.5 mg/dL (0.6-1.3); GLUCOSE 76 mg/dL (74-106); MAGNESIUM 2.3 mg/dL (1.8-2.4); PHOSPHORUS 4.2 mg/dL (2.5-4.9); POTASSIUM 4.3 mmol/L (3.5-5.1); SODIUM SERUM 136 mmol/L (136-145); UREA NITROGEN, BLOOD 6 mg/dL (7-18)
[2021-11-18] MEDS: PRIMIDONE 250 MG TABLET PO SCH ×2 (08:03→17:12)
[2021-11-18] MEDS: GABAPENTIN 400 MG CAPSULE PO SCH ×3 (08:03→17:12)
[2021-11-18] MEDS: PANTOPRAZOLE 40 MG TABLET.DR PO SCH (08:04)
[2021-11-18] MEDS: OLANZAPINE 10 MG TABLET PO SCH (08:04)
[2021-11-18] MEDS: PHENOBARBITAL 30 MG TABLET PO SCH ×2 (08:04→17:12)
[2021-11-18] MEDS: AMLODIPINE BESYLATE 2.5 MG TABLET PO SCH (08:04)
--- NOTE | 2021-11-18 10:23 | NUR ---
RN NOTE PATIENT REFUSED SKIN ASSESSMENT, EXPLAINE REASON FOR ASSESSMENT TO PATIENT WILL ATTEMPT TO ASSESS AGAIN LATER TODAY.
[2021-11-18 16:00] VITALS: BP 145/73
[2021-11-18 18:28] LABS: THYROID STIMULATING HORMONE 0.991 uIU/mL (0.358-3.74)
--- NOTE | 2021-11-18 18:42 | NUR ---
RN CLOSING NOTE PATIENT RESTING IN BED A/0X3 IRRITABLE. ON ROOM AIR WITH NO COMPLAINS OF SOB. PATIENT HAS A MENDY 22g IV SITE. PATIENT ON CARDIAC DIET. SAFETY MEASURES IN PLACE BED ALARM ACTIVATED AND LOCKED IN THE LOWEST POSITION, CALL LIGHT WITHIN REACH, 2 SIDE RAILS UP AND IN SEMI FOWLERS POSITION. WILL ENDORSE TO NIGHT NURSE FOR SHARON.
--- NOTE | 2021-11-18 19:41 | NUR ---
RN OPENING NOTES, RECEIVED PATIENT IN BED, AWAKE, A/0 X2-3 AND VERBALLY RESPONSIVE. ON ROOM AIR AND PATIENT TOLERATING WELL. IV ACCESS ON MENDY#22G INTACT AND PATENT. NO S/S OF INFILTRATIONS. STILL C/O PAIN OR DISCOMFORT. MORPHINE GIVEN DURING PREVIOUS SHIFT. ALL SAFETY MEASURES IN PLACE. BED ALARM ON. BED IN LOWEST POSITION AND LOCKED. PLACE CALL LIGHT WITHIN REACH. SIDE RAILS UP X2, WILL CONTINUE TO MONITOR.
[2021-11-18 20:00] VITALS: BP 135/72
[2021-11-18] MEDS: ENOXAPARIN SODIUM 60 MG/0.6 ML DISP.SYRIN SQ SCH (21:43)
[2021-11-18] MEDS: TEMAZEPAM 15 MG CAPSULE PO SCH (21:44)
[2021-11-18] MEDS: OLANZAPINE 5 MG TABLET PO SCH (21:44)
[2021-11-19 04:00] VITALS: BP 155/87
[2021-11-19] MEDS: MORPHINE SULFATE INJ 2 MG/ML DISP.SYRIN IV PRN ×5 (04:53→22:40)
--- NOTE | 2021-11-19 04:57 | NUR ---
RN NOTE PT C/O OF L LEG PAIN, 9/10 PAIN SCALE, MORPHINE GIVEN PRN ORDER, PT TOLERATED WELL. WILL CONT TO MONITOR.
--- NOTE | 2021-11-19 06:30 | NUR ---
RN CLOSING NOTES, PATIENT IN BED, AWAKE, A/0 X2-3 AND VERBALLY RESPONSIVE. ON ROOM AIR, O2 SAT 97% AND PATIENT TOLERATING WELL. IV ACCESS ON MENDY#22G INTACT AND PATENT. NO S/S OF INFILTRATIONS. STILL C/O PAIN OR DISCOMFORT. MORPHINE GIVEN. ALL DUE MEDS GIVEN ORDERED. ALL SAFETY MEASURES IN PLACE. BED ALARM ON. BED IN LOWEST POSITION AND LOCKED. PLACE CALL LIGHT WITHIN REACH. SIDE RAILS UP X2, WILL ENDORSE TO MORNING SHIFT NURSE. .
--- NOTE | 2021-11-19 06:45 | NUR ---
RN NOTES: PT REMAIN NPO AFTER MIDNIGHT FOR CT WITH CONTRAST FOR CHEST ABDOMEN PELVIS. WILL CONTINUE TO MONITOR
[2021-11-19 07:07] LABS: IMMUNOGLOBULIN A, SERUM 124 mg/dL (64-422); IMMUNOGLOBULIN G, SERUM 1348 mg/dL (586-1602); IMMUNOGLOBULIN M, SERUM 153 mg/dL (26-217)
[2021-11-19] MEDS: PANTOPRAZOLE 40 MG TABLET.DR PO SCH (07:30)
--- NOTE | 2021-11-19 07:30 | NUR ---
RN OPENING NOTE PATIENT IN BED, AWAKE, A/0 X2-3 AND VERBALLY RESPONSIVE. ON ROOM AIR, O2 SAT 97% AND PATIENT TOLERATING WELL. BREATHING IS EVEN AND UNLABORED. IV ACCESS ON MENDY#22G INTACT AND PATENT. NO S/S OF INFILTRATIONS. PT C/O PAIN AND DISCOMFORT. MORPHINE Q4 LAST GIVEN AT 0453 PER ROLLER PRINT TENDER. PT ADVISED ON NON NARCOTIC PAIN MGMT TECHNIQUES. ALL SAFETY MEASURES IN PLACE. BED ALARM ON. BED IN LOWEST POSITION AND LOCKED. PLACE CALL LIGHT WITHIN REACH. SIDE RAILS UP X2, WILL CONTINUE TO MONITOR.
[2021-11-19] MEDS: PRIMIDONE 250 MG TABLET PO SCH ×2 (09:00→16:16)
[2021-11-19] MEDS: AMLODIPINE BESYLATE 2.5 MG TABLET PO SCH (09:00)
[2021-11-19] MEDS: PHENOBARBITAL 30 MG TABLET PO SCH ×2 (09:00→16:16)
[2021-11-19] MEDS: OLANZAPINE 10 MG TABLET PO SCH (09:00)
[2021-11-19] MEDS: GABAPENTIN 400 MG CAPSULE PO SCH ×3 (09:00→16:16)
[2021-11-19] MEDS: ENOXAPARIN SODIUM 60 MG/0.6 ML DISP.SYRIN SQ SCH ×2 (09:19→21:21)
--- NOTE | 2021-11-19 09:30 | NUR ---
RN NOTE ALL AM MEDS HELD DUE TO PATIENT BEING NPO FOR SCHEDULED CT CHEST/ABD/PELVIS W/ CONTRAST. WILL CONTINUE TO MONITOR AND UPDATE PRN.
[2021-11-19] MEDS ORDERED: CT SWABBABLE VALVE TRANS SET 1 EA INFUS.SET MC ONE (10:02)
[2021-11-19] MEDS ORDERED: IV NS 0.9% 500 ML IV ONE (10:02)
[2021-11-19] MEDS ORDERED: IOHEXOL-300 100 ML VIAL IV ONE (10:02)
[2021-11-19 12:00] VITALS: BP 138/78
[2021-11-19 13:07] LABS: *SPE A/G RATIO 0.8 (0.7-1.7); *SPE ALPHA-1-GLOBULIN 0.3 g/dL (0.0-0.4); *SPE M-SPIKE Not Observed g/dL (Not Observed)
[2021-11-19 14:36] LABS: BASOPHILS % (AUTO) 0.8 % (0.0-2.0); EOSINOPHILS % (AUTO) 2.2 % (0.0-6.0); HEMATOCRIT 33 % (33-45); HEMOGLOBIN 10.9 g/dL (11.5-14.8); LYMPHOCYTES # (AUTO) 1.8 K/uL (0.8-4.8); LYMPHOCYTES % (AUTO) 34.9 % (20.0-44.0); MEAN CORPUSCULAR HGB CONC 34 g/dl (31.0-36.0); MEAN CORPUSCULAR VOLUME 90 fL (82-100); MONOCYTES # (AUTO) 0.4 K/uL (0.1-1.30); NEUTROPHILS # (AUTO) 2.9 K/uL (1.8-8.9); NEUTROPHILS % (AUTO) 55.1 % (43.0-81.0); PLATELET COUNT (AUTO) 444 K/uL (150-450); RED BLOOD CELL COUNT(AUTO) 3.65 MIL/uL (4.0-5.2); WHITE BLOOD COUNT (AUTO) 5.2 K/uL (4.3-11.0)
[2021-11-19 14:54] LABS: CALCIUM, SERUM 8.9 mg/dL (8.5-10.1); CARBON DIOXIDE 24 mmol/L (21-32); CHLORIDE 103 mmol/L (98-107); CREATININE 0.5 mg/dL (0.6-1.3); GLUCOSE 122 mg/dL (74-106); MAGNESIUM 2.2 mg/dL (1.8-2.4); PHOSPHORUS 3.7 mg/dL (2.5-4.9); POTASSIUM 3.8 mmol/L (3.5-5.1); SODIUM SERUM 134 mmol/L (136-145); UREA NITROGEN, BLOOD 5 mg/dL (7-18)
[2021-11-19] MEDS: FERROUS SULFATE (325 MG) 325 MG/TAB TABLET PO SCH (16:16)
--- NOTE | 2021-11-19 18:53 | NUR ---
RN CLOSING NOTE PT REMAINED STABLE THROUGHOUT SHIFT. PATIENT IN BED, AWAKE, A/0 X2-3 AND VERBALLY RESPONSIVE. ON ROOM AIR, O2 SAT 98% AND PATIENT TOLERATING WELL. BREATHING IS EVEN AND UNLABORED. IV ACCESS ON MENDY#22G INTACT AND PATENT. NO S/S OF INFILTRATIONS. PT C/O PAIN AND DISCOMFORT. ALL SAFETY MEASURES IN PLACE. BED ALARM ON. BED IN LOWEST POSITION AND LOCKED. PLACE CALL LIGHT WITHIN REACH. SIDE RAILS UP X2, WILL ENDORSE TO ASSEMBLY INSTRUCTIONS WRITER RN.
--- NOTE | 2021-11-19 19:37 | NUR ---
RN OPENING NOTES, RECEIVED PATIENT IN BED, AWAKE, A/0 X2-3 AND VERBALLY RESPONSIVE. ON ROOM AIR AND PATIENT TOLERATING WELL. IV ACCESS ON MENDY#22G INTACT AND PATENT. NO S/S OF INFILTRATIONS. NO C/O PAIN OR DISCOMFORT AT THIS MOMENT. MORPHINE WAS GIVEN DURING PREVIOUS SHIFT. ALL SAFETY MEASURES IN PLACE. BED ALARM ON. BED IN LOWEST POSITION AND LOCKED. PLACE CALL LIGHT WITHIN REACH. SIDE RAILS UP X2, WILL CONTINUE TO MONITOR.
--- NOTE | 2021-11-19 21:22 | NUR ---
ANTICOAGULANT H/H PLT 444 Lovenox injection given co-signed by DANIEL Hernandez.
[2021-11-19] MEDS: TEMAZEPAM 15 MG CAPSULE PO SCH (21:24)
[2021-11-19] MEDS: OLANZAPINE 5 MG TABLET PO SCH (21:24)
[2021-11-19 21:30] VITALS: BP 119/62
[2021-11-20] MEDS: MORPHINE SULFATE INJ 2 MG/ML DISP.SYRIN IV PRN ×3 (02:36→11:13)
[2021-11-20 04:26] LABS: BILIRUBIN,URINE NEGATIVE (NEGATIVE); COLOR,URINE YELLOW (YELLOW); LEUKOCYTE ESTERASE ,URINE SMALL (NEGATIVE); NITRITE, URINE POSITIVE (NEGATIVE); PROTEIN,URINE NEGATIVE (NEGATIVE); UGLUCOSE NEGATIVE (NEGATIVE); UROBILINOGEN,URINE 0.2 EU/dL (0.2)
[2021-11-20 05:00] VITALS: BP 140/73
--- NOTE | 2021-11-20 06:06 | NUR ---
END OF SHIFT REPORT Patient is Alert Oriented x2-3 Forgetful. Maintaining Oxygenation 96% on room air. BLE edema. Hiren ears redness. Wound consult. Patient c/o pain, states "all over body" given Morphine with help. Patient NPO except medication after MN, planned for US Pelvic . Will endorse to oncoming RN.
--- NOTE | 2021-11-20 07:10 | NUR ---
DIET Patient NPO except medication after MN for planned procedure US Pelvic today. Diet order updated, endorsed to AM Primary nurse.
--- NOTE | 2021-11-20 07:25 | NUR ---
RN OPENING NOTES RECEIVED PATIENT IN BED AWAKE, A/O X3. ON RA WITH NO S/SX OF RESP DISTRESS NOTED. R UA G#22 INTACT AND PATENT. NO S/SX OF INFILTRATIONS. NO PAIN VERBALIZED AT THIS TIME. MORPHINE WAS GIVEN DURING PREVIOUS SHIFT. ALL SAFETY MEASURES IN PLACE. BED ALARM ON. BED IN LOWEST POSITION AND LOCKED. PLACE CALL LIGHT WITHIN REACH. SIDE RAILS UP X2. WILL CONTINUE PLAN OF CARE
[2021-11-20 07:49] LABS: RBC,URINE 0-2 /HPF (0-2)
[2021-11-20 07:50] LABS: BACTERIA,URINE Moderate /HPF (None Seen); SQUAMOUS EPITHELIAL CELL,UR Few /HPF (None Seen)
[2021-11-20] MEDS: FERROUS SULFATE (325 MG) 325 MG/TAB TABLET PO SCH ×2 (08:13→17:24)
[2021-11-20] MEDS: PRIMIDONE 250 MG TABLET PO SCH ×2 (08:13→17:24)
[2021-11-20] MEDS: GABAPENTIN 400 MG CAPSULE PO SCH ×3 (08:13→17:24)
[2021-11-20] MEDS: AMLODIPINE BESYLATE 2.5 MG TABLET PO SCH (08:13)
[2021-11-20] MEDS: OLANZAPINE 10 MG TABLET PO SCH (08:13)
[2021-11-20] MEDS: PHENOBARBITAL 30 MG TABLET PO SCH ×2 (08:14→17:24)
[2021-11-20] MEDS: PANTOPRAZOLE 40 MG TABLET.DR PO SCH (08:14)
[2021-11-20] MEDS: ENOXAPARIN SODIUM 60 MG/0.6 ML DISP.SYRIN SQ SCH ×2 (08:21→21:15)
--- NOTE | 2021-11-20 10:54 | NUR ---
WOUND CARE CONSULT: PT PRESENTS WITH WOUNDS TO POSTERIOR TOPS OF EARS, PRESENT ON ADMISSION. PT STATES IS FROM [place] PRIOR TO ADMISSION. RECOMMENDATIONS MADE FOR SKIN PROTECTION AND WOUND CARE. DISCUSSED WITH NURSING STAFF. MD IN AGREEMENT WITH PLAN OF CARE.
[2021-11-20] MEDS: NEOMY SULF/BACITRAC ZN/POLY 15 GM TUBE TP SCH (11:14)
[2021-11-20 12:00] VITALS: BP 151/77
[2021-11-20] MEDS ORDERED: FERR325T28 PO (12:58)
[2021-11-20] MEDS ORDERED: APIX5TAB PO (13:03)
[2021-11-20] MEDS: oxyCODONE/APAP (5/325 MG) 1 UDTAB TABLET PO PRN (17:24)
--- NOTE | 2021-11-20 19:10 | NUR ---
RN NOTES, RECEIVED PATIENT IN BED, AWAKE, A/0 X2-3 AND VERBALLY RESPONSIVE. ON ROOM AIR AND PATIENT TOLERATING WELL. NO C/O PAIN OR DISCOMFORT AT THIS MOMENT. ALL DUE MEDS GIVEN ORDERED. ALL SAFETY MEASURES IN PLACE. BED ALARM ON. BED IN LOWEST POSITION AND LOCKED. PLACE CALL LIGHT WITHIN REACH. SIDE RAILS UP X2, WILL CONTINUE TO MONITOR.
[2021-11-20 20:00] VITALS: BP 137/79
[2021-11-20] MEDS: TEMAZEPAM 15 MG CAPSULE PO SCH (21:16)
[2021-11-20] MEDS: OLANZAPINE 5 MG TABLET PO SCH (21:35)
[2021-11-21] MEDS: oxyCODONE/APAP (5/325 MG) 1 UDTAB TABLET PO PRN ×4 (03:11→18:26)
[2021-11-21 04:00] VITALS: BP 140/80
--- NOTE | 2021-11-21 06:49 | NUR ---
RN CLOSING NOTE PT REMAINED STABLE THROUGHOUT SHIFT. PATIENT IN BED, AWAKE, A/0 X2-3 AND VERBALLY RESPONSIVE. ON ROOM AIR, O2 SAT 98% AND PATIENT TOLERATING WELL. BREATHING IS EVEN AND UNLABORED. PT C/O PAIN AND DISCOMFORT. ALL SAFETY MEASURES IN PLACE. BED ALARM ON. BED IN LOWEST POSITION AND LOCKED. PLACE CALL LIGHT WITHIN REACH. SIDE RAILS UP X2, WILL ENDORSE TO MECHANICAL CAR CHECKER RN.
--- NOTE | 2021-11-21 07:22 | NUR ---
RN OPENING NOTE PATIENT RECEIVED IN BED, AWAKE, WITH SOME CONFUSION. ON ROOM AIR WITH NO SIGNS OF LABORED BREATHING AT THIS TIME. NO IV IN PLACE AT THIS TIME. NO SIGNS OF ACUTE DISTRESS NOTED AT THIS TIME. BED LOCKED AND IN LOWEST POSITION, CALL LIGHT WITHIN REACH, 2 SIDE RAILS UP. WILL CONTINUE TO MONITOR.
[2021-11-21 08:00] VITALS: BP 149/84
[2021-11-21] MEDS: AMLODIPINE BESYLATE 2.5 MG TABLET PO SCH (08:05)
[2021-11-21] MEDS: NEOMY SULF/BACITRAC ZN/POLY 15 GM TUBE TP SCH (08:05)
[2021-11-21] MEDS: PANTOPRAZOLE 40 MG TABLET.DR PO SCH (08:05)
[2021-11-21] MEDS: PHENOBARBITAL 30 MG TABLET PO SCH ×2 (08:05→16:55)
[2021-11-21] MEDS: FERROUS SULFATE (325 MG) 325 MG/TAB TABLET PO SCH ×2 (08:06→16:54)
[2021-11-21] MEDS: GABAPENTIN 400 MG CAPSULE PO SCH ×3 (08:06→16:54)
[2021-11-21] MEDS: PRIMIDONE 250 MG TABLET PO SCH ×2 (08:06→16:55)
[2021-11-21] MEDS: OLANZAPINE 10 MG TABLET PO SCH (08:06)
[2021-11-21] MEDS: ENOXAPARIN SODIUM 60 MG/0.6 ML DISP.SYRIN SQ SCH ×2 (08:08→21:04)
[2021-11-21] MEDS: MORPHINE SULFATE INJ 2 MG/ML DISP.SYRIN IV PRN ×3 (11:00→22:07)
[2021-11-21 16:00] VITALS: BP 129/73
--- NOTE | 2021-11-21 18:49 | NUR ---
RN CLOSING NOTE PATIENT REMAINS IN BED, AWAKE, WITH SOME CONFUSION. ON ROOM AIR WITH NO SIGNS OF LABORED BREATHING AT THIS TIME. NO IV IN PLACE AT THIS TIME. NO SIGNS OF ACUTE DISTRESS NOTED AT THIS TIME. BED LOCKED AND IN LOWEST POSITION, CALL LIGHT WITHIN REACH, 2 SIDE RAILS UP. ALL NEEDS ATTENDED DURING SHIFT. WILL ENDORSE TO PRODUCTION LEADER NURSE.
--- NOTE | 2021-11-21 19:10 | NUR ---
RN NOTES, RECEIVED PATIENT IN BED, AWAKE, A/0 X2-3 AND VERBALLY RESPONSIVE. ON ROOM AIR AND PATIENT TOLERATING WELL. NO C/O PAIN OR DISCOMFORT AT THIS MOMENT. WITH MENDY MIDLINE #18 PATENT FLUSHES WELL. ALL DUE MEDS GIVEN ORDERED. ALL SAFETY MEASURES IN PLACE. BED ALARM ON. BED IN LOWEST POSITION AND LOCKED. PLACE CALL LIGHT WITHIN REACH. SIDE RAILS UP X2, WILL CONTINUE TO MONITOR.
[2021-11-21] MEDS: TEMAZEPAM 15 MG CAPSULE PO SCH (21:03)
[2021-11-21] MEDS: OLANZAPINE 5 MG TABLET PO SCH (21:03)
--- NOTE | 2021-11-21 21:18 | NUR ---
RN notes Received report from DANIEL Ceballos. Primary nurse is aware and informed.
[2021-11-21 21:45] VITALS: BP 116/73
--- NOTE | 2021-11-21 21:45 | NUR ---
RN NOTES TRANSFER PATIENT TO [facility] ROOM 306.BEDSIDE REPORT GIVEN TO EDGARD SANCHEZ. ALL DUE MEDS GIVEN PRIOR TO TRANSFER. ALL BELONGINGS GIVEN.
--- NOTE | 2021-11-21 21:50 | NUR ---
TRANSFER NOTES PT ARRIVED VIA BED WITH RN AND WORKERS' COMPENSATION MAGISTRATE AT APPROXIMATELY 2145. BEDSIDE REPORT FROM DANIEL GRAY. AOx2-3, WITH PERIODS OF CONFUSION. ON RA AND TOLERATING WELL. NO SOB NOTED. NO S/SX OF RESPIRATORY DISTRESS NOTED. IV ACCESS IN MENDY MIDLINE. IV IS INTACT, PATENT, AND FLUSHING WELL. STATED SHE HAS 8/10 PAIN. SAFETY PRECAUTIONS IN PLACE: BED IN LOWEST, LOCKED POSITION, SIDERAILS UPx2, AND BRAKES ON. TABLE AND CALL LIGHT WITHIN REACH. WILL CONTINUE TO MONITOR.
--- NOTE | 2021-11-21 22:08 | NUR ---
ADMINISTERED MORPHINE FOR PAIN PER MD ORDER. VS WNL. WILL CONTINUE TO MONITOR.
[2021-11-22] MEDS: MORPHINE SULFATE INJ 2 MG/ML DISP.SYRIN IV PRN ×5 (03:06→21:12)
[2021-11-22] MEDS: oxyCODONE/APAP (5/325 MG) 1 UDTAB TABLET PO PRN ×2 (05:30→09:10)
--- NOTE | 2021-11-22 05:31 | NUR ---
ADMINISTERED PERCOCET @ 0530 PER MD ORDER. VS WNL. WILL CONTINUE TO MONITOR. Addendum: 11/22/21 at 06 by VALENTE RODAS RN WENT TO ADMINISTER PERCOCET AND PATIENT REFUSED SAYING "YOU WON'T GIVE ME MORPHINE FOR 4 HOURS AFTER THAT". EXPLAINED THAT MORPHINE WAS NOT DUE UNTIL APPROXIMATELY 0700. PATIENT STATED "YOU HAVEN'T GIVEN ME MORPHINE IN 6 HOURS". EMAR STATES OTHERWISE AND MORPHINE WAS ADMINISTERED 0306. WILL CONTINUE TO MONITOR. Addendum: 11/22/21 at 0601 by VALENTE RODAS RN DID NOT ADMINISTER PERCOCET BECAUSE PATIENT REFUSED IT.
--- NOTE | 2021-11-22 06:41 | NUR ---
ADMINISTERED MORPHINE FOR PAIN PER MD ORDER. VS WNL. WILL CONTINUE TO MONITOR.
--- NOTE | 2021-11-22 07:23 | NUR ---
RN CLOSING NOTES PT IN BED, AWAKE. AOx2-3, WITH PERIODS OF CONFUSION AND PARANOIA. ON RA AND TOLERATING WELL. NO SOB NOTED. NO S/SX OF RESPIRATORY DISTRESS NOTED. IV ACCESS IN MENDY MIDLINE. IV IS INTACT, PATENT, AND FLUSHING WELL. ALL NEEDS MET. ALL ORDERS CARRIED OUT. PT KEPT CLEAN AND DRY. TREATED PAIN THROUGHOUT SHIFT. SAFETY PRECAUTIONS IN PLACE: BED IN LOWEST, LOCKED POSITION, SIDERAILS UPx2, AND BRAKES ON. TABLE AND CALL LIGHT WITHIN REACH. WILL ENDORSE TO ONCOMING SHIFT FOR SHARON.
--- NOTE | 2021-11-22 07:30 | NUR ---
RN OPENING NOTES RECEIVED PATIENT IN BED, AWAKE, VERBALLY RESPONSIVE, NO SIGNS OF ACUTE DISTRESS NOTED. ON ROOM AIR, NO SOB NOTED, BREATHING EVEN AND UNLABORED. NOTED WITH RIGHT UPPER ARM MIDLINE #18G, INTACT AND PATENT, SALINE LOCKED. NO C/O PAIN AT THIS TIME. SAFETY MEASURE IN PLACE. BED IN LOWEST AND LOCKED POSITION, SR UP X2, CALL LIGHT PLACED WITHIN EASY REACH. WILL CONTINUE TO MONITOR PATIENT.
[2021-11-22] MEDS: PANTOPRAZOLE 40 MG TABLET.DR PO SCH (08:03)
[2021-11-22] MEDS: OLANZAPINE 10 MG TABLET PO SCH (08:22)
[2021-11-22] MEDS: AMLODIPINE BESYLATE 2.5 MG TABLET PO SCH (08:22)
[2021-11-22] MEDS: FERROUS SULFATE (325 MG) 325 MG/TAB TABLET PO SCH ×2 (08:22→16:26)
[2021-11-22] MEDS: PRIMIDONE 250 MG TABLET PO SCH ×2 (08:22→16:26)
[2021-11-22] MEDS: PHENOBARBITAL 30 MG TABLET PO SCH ×2 (08:22→16:26)
[2021-11-22] MEDS: GABAPENTIN 400 MG CAPSULE PO SCH ×3 (08:22→16:26)
[2021-11-22] MEDS: ENOXAPARIN SODIUM 60 MG/0.6 ML DISP.SYRIN SQ SCH ×2 (08:24→21:13)
[2021-11-22 08:36] VITALS: BP 147/85
[2021-11-22] MEDS: NEOMY SULF/BACITRAC ZN/POLY 15 GM TUBE TP SCH (09:04)
[2021-11-22] MEDS: OLANZAPINE 5 MG TABLET PO SCH ×2 (12:06→22:15)
[2021-11-22 15:45] LABS: EOSINOPHILS % (AUTO) 2.9 % (0.0-6.0); HEMATOCRIT 32 % (33-45); HEMOGLOBIN 10.6 g/dL (11.5-14.8); LYMPHOCYTES # (AUTO) 2.1 K/uL (0.8-4.8); LYMPHOCYTES % (AUTO) 42.9 % (20.0-44.0); MEAN CORPUSCULAR HGB CONC 34 g/dl (31.0-36.0); MEAN CORPUSCULAR VOLUME 89 fL (82-100); MONOCYTES # (AUTO) 0.4 K/uL (0.1-1.30); MONOCYTES % (AUTO) 7.8 % (2.0-12.0); NEUTROPHILS # (AUTO) 2.3 K/uL (1.8-8.9); NEUTROPHILS % (AUTO) 45.4 % (43.0-81.0); PLATELET COUNT (AUTO) 429 K/uL (150-450); RED BLOOD CELL COUNT(AUTO) 3.55 MIL/uL (4.0-5.2)
[2021-11-22 15:47] LABS: CALCIUM, SERUM 8.6 mg/dL (8.5-10.1); CARBON DIOXIDE 27 mmol/L (21-32); CHLORIDE 101 mmol/L (98-107); CREATININE 0.5 mg/dL (0.6-1.3); GLUCOSE 87 mg/dL (74-106); MAGNESIUM 2.3 mg/dL (1.8-2.4); PHOSPHORUS 4.9 mg/dL (2.5-4.9); POTASSIUM 4.1 mmol/L (3.5-5.1); SODIUM SERUM 133 mmol/L (136-145); UREA NITROGEN, BLOOD 10 mg/dL (7-18)
[2021-11-22 16:35] VITALS: BP 88/46
--- NOTE | 2021-11-22 18:43 | NUR ---
RN CLOSING NOTES PATIENT RESTING IN BED, EASILY AROUSED. NO SIGNS OF ACUTE DISTRESS NOTED. A/O X2-3. REMAINS STABLE ON ROOM AIR, NO SOB NOTED, BREATHING EVEN AND UNLABORED. RIGHT UPPER ARM MIDLINE #18G, INTACT AND PATENT, SALINE LOCKED. ALL DUE MEDS GIVEN, TOLERATED WELL. MEDICATED FOR PAIN NEEDED. SAFETY MEASURE MAINTAINED. BED IN LOWEST AND LOCKED POSITION, SR UP X2, CALL LIGHT PLACED WITHIN EASY REACH. WILL ENDORSE TO NEXT SHIFT FOR CONTINUITY OF CARE.
--- NOTE | 2021-11-22 19:32 | NUR ---
RN OPENING NOTES PATIENT RESTING IN BED, EASILY AROUSED. NO SIGNS OF ACUTE DISTRESS NOTED. A/O X2-3. STABLE ON ROOM AIR, NO SOB NOTED, BREATHING EVEN AND UNLABORED. RIGHT UPPER ARM MIDLINE #18G, INTACT AND PATENT, SALINE LOCKED. SAFETY MEASURE MAINTAINED. BED IN LOWEST AND LOCKED POSITION, SR UP X2, CALL LIGHT PLACED WITHIN EASY REACH. ALL NEEDS MET AT THIS TIME. WILL CONTINUE TO MONITOR.
[2021-11-22 20:00] VITALS: BP 99/47
--- NOTE | 2021-11-22 21:17 | NUR ---
RN NOTES PRN MORPHINE GIVEN FOR 10/10 PAIN TOLERATED WELL. ALL NEED SMET AT THIS ITME WILL CONTINUE TO MONITOR.
[2021-11-22 22:05] VITALS: BP 99/47
[2021-11-22] MEDS: TEMAZEPAM 15 MG CAPSULE PO SCH (22:15)
[2021-11-23] MEDS: oxyCODONE/APAP (5/325 MG) 1 UDTAB TABLET PO PRN ×4 (00:40→18:58)
--- NOTE | 2021-11-23 01:17 | NUR ---
MS RN NOTES PRN PERCOCET GIVEN FOR PAIN 01/24 TOLERATED WELL. ALL NEEDS MET AT THIS TIME WILL CONTINUE TO MONITOR,
[2021-11-23] MEDS: MORPHINE SULFATE INJ 2 MG/ML DISP.SYRIN IV PRN ×5 (02:41→23:37)
--- NOTE | 2021-11-23 02:45 | NUR ---
MS RN NOTES PT PRN MORPHINE GIVEN FOR 8/10 PAIN TOLERATED WELL. WILL CONTINUE TO MONITOR. ALL NEEDS MET AT THIS TIME.
--- NOTE | 2021-11-23 05:30 | NUR ---
MS RN NOTES PT REFUSING LABS TOLD ASSAYER " I WILL NOT GIVE YOU MY BLOOD UNLESS THE NURSE GIVES ME MY MORPHINE NOW" SPOKE TO PT REGARDING WHY WE NEED HER BLOOD FOR TESTING. PT FINALLY AGREED TO HAVE BLOOD TAKEN HOWEVER STILL UPSET SHE DIDN'T GET THE MORPHINE SHE WANTED. WILL CONTINUE TO MONITOR,
--- NOTE | 2021-11-23 05:32 | NUR ---
MS RN NOTES PRN PERCOCET GIVEN FOR 7/10 PAIN TOLERATED WELL. ALL NEEDS MET. CALL LIGHT WITHIN REACH.
--- NOTE | 2021-11-23 06:00 | NUR ---
MS RN NOTES PT ASKING FOR PRN MORPHINE EXPLAINED TO PT THE MEDICATION WASN'T DUE AND THAT THE PERCOCET WAS JUST GIVEN 30 MINS AGO AND I COULDN'T GIVE HER ANY OTHER PAIN MEDICATION AT THIS TIME PT SAID " YOU FAT BITCH YOU'VE BEEN STEALING MY MORPHINE ALL NIGHT AND SHOOTING UP I KNOW IT YOU HAVEN'T GIVEN ME MORPHINE OR PERCOCET FOR OVER 6 HOURS YOUR A LIAR" CHARGE NURSE AWARE AND WITNESSED ADMINISTRATION OF PAIN MEDS ACCORDINGLY. REPOSITIONING PROVIDED AT THIS TIME.
[2021-11-23 06:41] LABS: BASOPHILS % (AUTO) 1.3 % (0.0-2.0); EOSINOPHILS % (AUTO) 3.9 % (0.0-6.0); HEMATOCRIT 32 % (33-45); HEMOGLOBIN 10.6 g/dL (11.5-14.8); LYMPHOCYTES # (AUTO) 2.1 K/uL (0.8-4.8); LYMPHOCYTES % (AUTO) 55.8 % (20.0-44.0); MEAN CORPUSCULAR HGB CONC 33 g/dl (31.0-36.0); MEAN CORPUSCULAR VOLUME 89 fL (82-100); MONOCYTES # (AUTO) 0.3 K/uL (0.1-1.30); MONOCYTES % (AUTO) 7.9 % (2.0-12.0); NEUTROPHILS # (AUTO) 1.2 K/uL (1.8-8.9); NEUTROPHILS % (AUTO) 31.1 % (43.0-81.0); PLATELET COUNT (AUTO) 432 K/uL (150-450); RED BLOOD CELL COUNT(AUTO) 3.58 MIL/uL (4.0-5.2); WHITE BLOOD COUNT (AUTO) 3.7 K/uL (4.3-11.0)
--- NOTE | 2021-11-23 07:00 | NUR ---
RN CLOSING NOTES PATIENT RESTING IN BED, EASILY AROUSED. NO SIGNS OF ACUTE DISTRESS NOTED. A/O X2-3 NOTED WITH PARANOIA AND CONFUSION AT TIMES. STABLE ON ROOM AIR, NO SOB NOTED, BREATHING EVEN AND UNLABORED. RIGHT UPPER ARM MIDLINE #18G, INTACT AND PATENT, SALINE LOCKED. SAFETY MEASURE MAINTAINED. BED IN LOWEST AND LOCKED POSITION, SR UP X2, CALL LIGHT PLACED WITHIN EASY REACH. ALL NEEDS MET AT THIS TIME. KEPT CLEAN AND DRY AT ALL TIMES. WILL ENDORSE CARE.
[2021-11-23 07:01] LABS: CALCIUM, SERUM 8.1 mg/dL (8.5-10.1); CARBON DIOXIDE 25 mmol/L (21-32); CHLORIDE 103 mmol/L (98-107); CREATININE 0.5 mg/dL (0.6-1.3); GLUCOSE 86 mg/dL (74-106); MAGNESIUM 2.1 mg/dL (1.8-2.4); PHOSPHORUS 4.6 mg/dL (2.5-4.9); POTASSIUM 4.3 mmol/L (3.5-5.1); SODIUM SERUM 135 mmol/L (136-145); UREA NITROGEN, BLOOD 11 mg/dL (7-18)
--- NOTE | 2021-11-23 07:19 | NUR ---
MS RN OPENING NOTE PATIENT RESTING IN BED, PATIENT IS ALERT AND OIRENTED X 2. PATIENT IS ON ROOM AIR WITH NO SIGNS OF ACUTE RESPIRATORY DISTRESS NOTED. WITH E\QUAL AND UNLABORED BREATHING. WITH RIGHT UPPER ARM MIDLINE #18G, INTACT AND PATENT, SALINE LOCKED. SAFETY MEASURE MAINTAINED. BED IN LOWEST AND LOCKED POSITION, SR UP X2, CALL LIGHT PLACED WITHIN EASY REACH. ALL NEEDS MET AT THIS TIME. COMFORT MEASURES PROVIDED.
[2021-11-23 08:00] VITALS: BP 103/63
[2021-11-23] MEDS: NEOMY SULF/BACITRAC ZN/POLY 15 GM TUBE TP SCH (08:27)
[2021-11-23] MEDS: AMLODIPINE BESYLATE 2.5 MG TABLET PO SCH (08:28)
[2021-11-23] MEDS: PANTOPRAZOLE 40 MG TABLET.DR PO SCH (08:28)
[2021-11-23] MEDS: PHENOBARBITAL 30 MG TABLET PO SCH ×2 (08:28→16:44)
[2021-11-23] MEDS: OLANZAPINE 5 MG TABLET PO SCH ×3 (08:28→22:00)
[2021-11-23] MEDS: GABAPENTIN 400 MG CAPSULE PO SCH ×3 (08:28→16:44)
[2021-11-23] MEDS: FERROUS SULFATE (325 MG) 325 MG/TAB TABLET PO SCH ×2 (08:28→16:44)
[2021-11-23] MEDS: PRIMIDONE 250 MG TABLET PO SCH ×2 (08:28→16:44)
[2021-11-23] MEDS: ENOXAPARIN SODIUM 60 MG/0.6 ML DISP.SYRIN SQ SCH ×2 (08:37→20:58)
[2021-11-23] MEDS: MEROPENEM 1 G in IV NS 0.9% 100 ML IV SCH ×2 (14:18→20:57)
[2021-11-23 16:00] VITALS: BP 85/52
--- NOTE | 2021-11-23 19:08 | NUR ---
MS RN OPENING NOTE PATIENT RESTING IN BED, PATIENT IS ALERT AND OIRENTED X 2. PATIENT IS ON ROOM AIR WITH NO SIGNS OF ACUTE RESPIRATORY DISTRESS NOTED. WITH EQUAL AND UNLABORED BREATHING. WITH RIGHT UPPER ARM MIDLINE #18G, INTACT AND PATENT, SALINE LOCKED. SAFETY MEASURE MAINTAINED. BED IN LOWEST AND LOCKED POSITION, SR UP X2, CALL LIGHT PLACED WITHIN EASY REACH. ALL NEEDS MET AT THIS TIME. COMFORT MEASURES PROVIDED.WILL CONTINUE TO MONITOR.
--- NOTE | 2021-11-23 19:10 | NUR ---
MS RN CLOSING NOTE PATIENT RESTING IN BED, PATIENT IS ALERT AND OIRENTED X 2. PATIENT IS ON ROOM AIR WITH NO SIGNS OF ACUTE RESPIRATORY DISTRESS NOTED. WITH E\QUAL AND UNLABORED BREATHING. WITH RIGHT UPPER ARM MIDLINE #18G, INTACT AND PATENT, SALINE LOCKED. SAFETY MEASURE MAINTAINED. BED IN LOWEST AND LOCKED POSITION, SR UP X2, CALL LIGHT PLACED WITHIN EASY REACH. ALL NEEDS MET AT THIS TIME. ENDORSED TO NEXT SHIFT FOR CONTINUITY OF CARE.
[2021-11-23 20:00] VITALS: BP 86/51
--- NOTE | 2021-11-23 21:00 | NUR ---
MS RN NOTES PT REFUSED TO TAKE SCHEDULED MEDICATIONS PER PT " I WILL NOT TAKE MY MEDICATIONS UNLESS YOU GIVE ME MY MORPHINE AND PERCOCET RIGHT NOW" EXPLAINED TO PT RISK OF DOING THAT AND ALSO THAT IT IS NOT TIME FOR HER PAIN MEDICATION. " THEN I WONT TAKE THOSE OTHER PILLS" RISK AND BENEFITS EXPLAINED X3 REFUSED X3. WILL CONTINUE TO MONITOR.
[2021-11-23] MEDS: TEMAZEPAM 15 MG CAPSULE PO SCH (22:00)
--- NOTE | 2021-11-23 23:43 | NUR ---
MS RN NOTES PRN MORPHINE GIVEN FOR 9/10 PAIN OBN A NUMERIC PAIN SCALE TOLERATED WELL. WILL CONTINUE TO MONITOR.
[2021-11-24] VITALS: BP 122/56
[2021-11-24] MEDS: oxyCODONE/APAP (5/325 MG) 1 UDTAB TABLET PO PRN ×3 (02:28→12:59)
--- NOTE | 2021-11-24 02:39 | NUR ---
MS RN NOTES PRN PERCOCET GIVEN FOR 7/10 PAIN ON A NUMERIC PAIN SCALE. TOLERATED WELL. WILL CONTINUE TO MONITOR. ALL NEEDS MET AT THIS TIME.
[2021-11-24] MEDS: MORPHINE SULFATE INJ 2 MG/ML DISP.SYRIN IV PRN ×4 (04:41→19:58)
--- NOTE | 2021-11-24 04:46 | NUR ---
MS RN NOTES PRN MORPHINE GIVEN FOR PAIN 9/10 ON A NUMERIC PAIN SCALE. TOLERATED WELL. ALL NEEDS MET AT THIS TIME WILL CONTINUE TO MONITOR,
[2021-11-24] MEDS: MEROPENEM 1 G in IV NS 0.9% 100 ML IV SCH ×3 (04:53→21:05)
--- NOTE | 2021-11-24 06:36 | NUR ---
MS RN CLOSING NOTE PATIENT RESTING IN BED, PATIENT IS ALERT AND ORIENTED X 2. PATIENT IS ON ROOM AIR WITH NO SIGNS OF ACUTE RESPIRATORY DISTRESS NOTED. WITH EQUAL AND UNLABORED BREATHING. WITH RIGHT UPPER ARM MIDLINE #18G, INTACT AND PATENT, SALINE LOCKED. SAFETY MEASURE MAINTAINED. BED IN LOWEST AND LOCKED POSITION, SR UP X2, CALL LIGHT PLACED WITHIN EASY REACH. ALL NEEDS MET AT THIS TIME PAIN MANAGEMENT PROVIDED NEEDED.COMFORT MEASURES PROVIDED.WILL CONTINUE TO MONITOR.
[2021-11-24 06:59] LABS: BASOPHILS % (AUTO) 0.9 % (0.0-2.0); EOSINOPHILS % (AUTO) 3.1 % (0.0-6.0); HEMATOCRIT 31 % (33-45); HEMOGLOBIN 10.3 g/dL (11.5-14.8); LYMPHOCYTES # (AUTO) 2.4 K/uL (0.8-4.8); LYMPHOCYTES % (AUTO) 47.6 % (20.0-44.0); MEAN CORPUSCULAR HGB CONC 33 g/dl (31.0-36.0); MEAN CORPUSCULAR VOLUME 90 fL (82-100); MONOCYTES # (AUTO) 0.4 K/uL (0.1-1.30); MONOCYTES % (AUTO) 7.7 % (2.0-12.0); NEUTROPHILS % (AUTO) 40.7 % (43.0-81.0); PLATELET COUNT (AUTO) 418 K/uL (150-450); RED BLOOD CELL COUNT(AUTO) 3.44 MIL/uL (4.0-5.2)
[2021-11-24 07:21] LABS: CALCIUM, SERUM 8.2 mg/dL (8.5-10.1); CARBON DIOXIDE 25 mmol/L (21-32); CHLORIDE 104 mmol/L (98-107); CREATININE 0.6 mg/dL (0.6-1.3); GLUCOSE 83 mg/dL (74-106); MAGNESIUM 2.2 mg/dL (1.8-2.4); PHOSPHORUS 3.6 mg/dL (2.5-4.9); POTASSIUM 4.3 mmol/L (3.5-5.1); SODIUM SERUM 136 mmol/L (136-145); UREA NITROGEN, BLOOD 16 mg/dL (7-18)
--- NOTE | 2021-11-24 07:30 | NUR ---
MS RN OPENING NOTES RECEIVED PATIENT ON BED AWAKE AND A/O X2-3. ON ROOM AIR TOLERATING WELL. NO SOB NOTED. NOT IN DISTRESS. WITH COMPLAINTS OF PAIN IN THE ABDOMEN AND IS ASKING FOR PAIN MEDS. COMFORT MEASURES PROVIDED. WITH IV ACCESS AT RIGHT UPPER ARM MIDLINE SALINE LOCKED, PATENT AND INTACT. SAFETY MEASURES IN PLACED. CALL LIGHT WITHIN REACH. BED ON LOWEST LOCKED POSITION, SIDE RAILS UP X2. WILL CONTINUE TO MONITOR.
[2021-11-24 08:12] VITALS: BP 87/58
[2021-11-24] MEDS: GABAPENTIN 400 MG CAPSULE PO SCH ×3 (08:21→16:06)
[2021-11-24] MEDS: PRIMIDONE 250 MG TABLET PO SCH ×2 (08:21→16:06)
[2021-11-24] MEDS: PANTOPRAZOLE 40 MG TABLET.DR PO SCH (08:22)
[2021-11-24] MEDS: FERROUS SULFATE (325 MG) 325 MG/TAB TABLET PO SCH ×2 (08:22→16:06)
[2021-11-24] MEDS: OLANZAPINE 5 MG TABLET PO SCH ×3 (08:23→22:00)
[2021-11-24] MEDS: PHENOBARBITAL 30 MG TABLET PO SCH ×2 (08:23→16:06)
[2021-11-24] MEDS: AMLODIPINE BESYLATE 2.5 MG TABLET PO SCH (08:23)
[2021-11-24] MEDS: NEOMY SULF/BACITRAC ZN/POLY 15 GM TUBE TP SCH (08:24)
[2021-11-24] MEDS: ENOXAPARIN SODIUM 60 MG/0.6 ML DISP.SYRIN SQ SCH ×2 (08:24→21:06)
[2021-11-24 10:07] LABS: *ANA ANTI-CENTROMERE B AB <0.2 AI (0.0-0.9); *ANA ANTI-DNA(DS) AB, QN <1 IU/mL (0-9); *ANA ANTI-JO-1 <0.2 AI (0.0-0.9); *ANA ANTICHROMATIN ANTIBODY <0.2 AI (0.0-0.9); *ANA RNP ANTIBODIES <0.2 AI (0.0-0.9); *ANA SJOGREN'S ANTI-SS-A <0.2 AI (0.0-0.9); *ANA SJOGREN'S ANTI-SS-B <0.2 AI (0.0-0.9); *ANAANTI-SCLERODERMA-70 AB <0.2 AI (0.0-0.9); *ANASMITH AB <0.2 AI (0.0-0.9)
[2021-11-24 16:10] VITALS: BP 124/64
--- NOTE | 2021-11-24 19:15 | NUR ---
RN opening notes Received Pt from morning nurse. Pt is laying in bed watching TV comfortably. Pt is alert and orientedX2-3. On room air. No SOB. No S/S of distress noted. IV site at MENDY midline is clean, intact, flushes well and SL. Safety precautions is maintained. Bed at low position, brakes locked, side rails up X3, hob elevated and call light is within reach. Will continue to monitor.
--- NOTE | 2021-11-24 19:30 | NUR ---
MS RN CLOSING NOTES PATIENT ON BED AWAKE AND A/O X2-3. ON ROOM AIR TOLERATING WELL. NO SOB NOTED. NOT IN DISTRESS. WITH COMPLAINTS OF PAIN IN THE ABDOMEN AND IS ASKING FOR PAIN MEDS. COMFORT MEASURES PROVIDED. WITH IV ACCESS AT RIGHT UPPER ARM MIDLINE SALINE LOCKED, PATENT AND INTACT. DUE MEDS GIVEN. SAFETY MEASURES IN PLACED. CALL LIGHT WITHIN REACH. BED ON LOWEST LOCKED POSITION, SIDE RAILS UP X2. WILL ENDORSE TO NEXT SHIFT FOR SHARON.
[2021-11-24 19:46] VITALS: BP 101/56
--- NOTE | 2021-11-24 19:58 | NUR ---
RN notes Pt is complaining of generalized pain 10/10 on pain scale. administered morphine 2 mg/iv push/prn as ordered for pain. safety precautions is maintained. will continue to monitor.
[2021-11-24 20:00] VITALS: BP 101/56
[2021-11-24] MEDS: TEMAZEPAM 15 MG CAPSULE PO SCH (22:00)
[2021-11-25] MEDS: MORPHINE SULFATE INJ 2 MG/ML DISP.SYRIN IV PRN ×4 (00:12→13:18)
[2021-11-25] MEDS: oxyCODONE/APAP (5/325 MG) 1 UDTAB TABLET PO PRN ×2 (02:21→12:33)
[2021-11-25] MEDS: MEROPENEM 1 G in IV NS 0.9% 100 ML IV SCH ×2 (04:09→12:31)
--- NOTE | 2021-11-25 06:35 | NUR ---
RN closing notes Pt is resting in bed comfortably. Pt is alert and orientedX2-3 with episode of confusion. On room air. No SOB. No S/S of distress noted. IV site at MENDY midline is clean, intact, SL. Routine meds were given as ordered including pain management. Kept Pt clean, dry and comfortable. Safety precautions is maintained. Bed at low position, brakes locked, side rails up X3, hob elevated and call light is within reach. Will endorse to am nurse for SHARON.
--- NOTE | 2021-11-25 07:30 | NUR ---
MS RN OPENING NOTES RECEIVED PATIENT ON BED AWAKE AND A/O X2-3. ON ROOM AIR TOLERATING WELL. NO SOB NOTED. NOT IN DISTRESS. WITH NO COMPLAINTS OF PAIN OR DISCOMFORT AT THIS TIME. WITH IV ACCESS AT RIGHT UPPER ARM MIDLINE SALINE LOCKED, PATENT AND INTACT. SAFETY MEASURES IN PLACED. CALL LIGHT WITHIN REACH. BED ON LOWEST LOCKED POSITION, SIDE RAILS UP X2. WILL CONTINUE TO MONITOR.
[2021-11-25 08:00] VITALS: BP 132/70
[2021-11-25] MEDS: PHENOBARBITAL 30 MG TABLET PO SCH (08:52)
[2021-11-25] MEDS: OLANZAPINE 5 MG TABLET PO SCH ×2 (08:52→12:33)
[2021-11-25] MEDS: GABAPENTIN 400 MG CAPSULE PO SCH ×2 (08:52→12:33)
[2021-11-25] MEDS: FERROUS SULFATE (325 MG) 325 MG/TAB TABLET PO SCH (08:52)
[2021-11-25] MEDS: PANTOPRAZOLE 40 MG TABLET.DR PO SCH (08:52)
[2021-11-25] MEDS: PRIMIDONE 250 MG TABLET PO SCH (08:53)
[2021-11-25] MEDS: NEOMY SULF/BACITRAC ZN/POLY 15 GM TUBE TP SCH (08:53)
[2021-11-25 08:54] VITALS: BP 132/70
[2021-11-25] MEDS: AMLODIPINE BESYLATE 2.5 MG TABLET PO SCH (08:54)
[2021-11-25] MEDS: ENOXAPARIN SODIUM 60 MG/0.6 ML DISP.SYRIN SQ SCH (09:08)
--- NOTE | 2021-11-25 13:50 | NUR ---
MS SUPERVISOR HISTOLOGY NOTES PATIENT WAS SEEN BY DR. MENCHACA AND ORDERED PATIENT FOR DISCHARGE. PATIENT IS FOR DISCHARGE TO ASSISTED LIVING FACILITY. DISCHARGE INSTRUCTION AND EDUCATION PROVIDED TO PATIENT AND EXPLAINED PROVIDED TO PATIENT AND EXPLAINED MEDICATIONS AND PRESCRIPTIONS. PATIENT VERBALIZED UNDERSTANDING. DISCHARGE FORM AND BELONGINGS LIST FORM SIGNED BY PATIENT. ALL BELONGINGS ACCOUNTED FOR. NAME WRIST BAND AND IV LINE REMOVED. PATIENT WAS PICKED UP BY AMBULANCE PERSONNEL IN STABLE CONDITION GOING TO [facility]. MD AND CHARGE NURSE ARE AWARE OF THE DISCHARGE.
== END 2021-11-25 13:50 | DRG 197 ==
LOC: ER 20:16 → TELE1 11-17 04:58 → MEDSG1 11-17 05:20 → MED 11-21 20:58
PROVIDERS: ADMIT Nurse Practitioner Acute Care; ATTEND Nurse Practitioner Acute Care
PROC: 05H933Z Insertion of Infusion Device into Right Brachial Vein, Percutaneous Approach (ICD-10-PCS; principal; 2021-11-21)
DX: I82.412 Acute embolism and thrombosis of left femoral vein (principal); D68.69 Other thrombophilia; C78.7 Secondary malignant neoplasm of liver and intrahepatic bile duct; F29 Unspecified psychosis not due to a substance or known physiological condition; F25.9 Schizoaffective disorder, unspecified; E88.09 Other disorders of plasma-protein metabolism, not elsewhere classified; E11.9 Type 2 diabetes mellitus without complications; D50.9 Iron deficiency anemia, unspecified; D64.9 Anemia, unspecified; G40.909 Epilepsy, unspecified, not intractable, without status epilepticus; I25.10 Atherosclerotic heart disease of native coronary artery without angina pectoris; I10 Essential (primary) hypertension; Z20.822 Contact with and (suspected) exposure to COVID-19; I25.2 Old myocardial infarction; Z95.5 Presence of coronary angioplasty implant and graft; Z95.828 Presence of other vascular implants and grafts; Z90.710 Acquired absence of both cervix and uterus; F60.0 Paranoid personality disorder; Z88.0 Allergy status to penicillin; Z88.8 Allergy status to other drugs, medicaments and biological substances; Z80.3 Family history of malignant neoplasm of breast; Z79.899 Other long term (current) drug therapy; F41.0 Panic disorder [episodic paroxysmal anxiety]; F17.200 Nicotine dependence, unspecified, uncomplicated; G89.4 Chronic pain syndrome; E04.2 Nontoxic multinodular goiter; Z85.72 Personal history of non-Hodgkin lymphomas; G31.84 Mild cognitive impairment of uncertain or unknown etiology; D72.819 Decreased white blood cell count, unspecified; K62.89 Other specified diseases of anus and rectum; K52.9 Noninfective gastroenteritis and colitis, unspecified; J98.11 Atelectasis
CPT/HCPCS: 36415; 71260-TC; 73564-TC; 76536-TC; 76856-TC; 80048-TC; 80076-TC; 81001; 82105; 82378; 82607-TC; 82728-TC; 82784; 83540-TC; 83615-TC; 83735-TC; 84100-TC; 84155; 84165; 84443-TC; 85025-TC; 85378-TC; 85610-TC; 85730-TC; 86225; 86235; 86304; 86334; 86431-TC; 86706; 86800; 86803; 87081-TC; 87086-TC; 87186-TC; 87340; 93970-TC; 97116-TC; 97530-TC; C9803; G0378; J1650; J2185; J2270; J7030; J7040; J7042; J7050; Q9967

== ENCOUNTER 2022-01-25 18:33 | Emergency (ER) | payer MEDICAID ==
[~2022-01-25] VITALS: Ht 167.6 cm; Wt 61.7 kg
[~2022-01-25 18:33] MED LIST changes: +APIX5TAB PO; -CEPH750C9 PO; +FERR325T28 PO; -GUAI600T53 PO; -LOPE2CAP PO; -MAGN400O6 PO
--- NOTE | 2022-01-25 19:30 | NUR ---
SMITH DIAZ FROM CARE FACILITY C/O "FULL BODY PAIN".PLACED COMFORTABLY IN BED. VITALS CHECKED.
--- NOTE | 2022-01-25 20:30 | NUR ---
PATIENT AT CT
--- NOTE | 2022-01-25 21:14 | NUR ---
UNABLE TO START IV
[2022-01-25 21:38] LABS: BASOPHILS % (AUTO) 0.6 % (0.0-2.0); HEMATOCRIT 31 % (33-45); HEMOGLOBIN 10.6 g/dL (11.5-14.8); LYMPHOCYTES # (AUTO) 2.2 K/uL (0.8-4.8); LYMPHOCYTES % (AUTO) 30.9 % (20.0-44.0); MEAN CORPUSCULAR HGB CONC 35 g/dl (31.0-36.0); MEAN CORPUSCULAR VOLUME 88 fL (82-100); MONOCYTES # (AUTO) 0.5 K/uL (0.1-1.30); MONOCYTES % (AUTO) 6.5 % (2.0-12.0); NEUTROPHILS # (AUTO) 4.2 K/uL (1.8-8.9); PLATELET COUNT (AUTO) 291 K/uL (150-450); RED BLOOD CELL COUNT(AUTO) 3.49 MIL/uL (4.0-5.2)
[2022-01-25 21:58] LABS: CALCIUM, SERUM 8.5 mg/dL (8.5-10.1); CARBON DIOXIDE 28 mmol/L (21-32); CHLORIDE 96 mmol/L (98-107); CREATININE 0.6 mg/dL (0.6-1.3); GLUCOSE 97 mg/dL (74-106); POTASSIUM 3.8 mmol/L (3.5-5.1); SODIUM SERUM 129 mmol/L (136-145); UREA NITROGEN, BLOOD 10 mg/dL (7-18)
[2022-01-25] MEDS ORDERED: HYDROCODONE/APAP 5/325MG TABLET PO ONE (22:00)
[2022-01-25 22:10] LABS: ALANINE AMINOTRANSFERASE 8 U/L (12-78); ALBUMIN 3.3 g/dL (3.4-5.0); ALKALINE PHOSPHATASE 93 U/L (46-116); ASPARTATE AMINOTRANSFERASE 11 U/L (15-37); BILIRUBIN,TOTAL 0.1 mg/dL (0.2-1.0); TOTAL PROTEIN, SERUM 7.2 g/dL (6.4-8.2)
[2022-01-25] MEDS ORDERED: HYDROCODONE/APAP 5/325MG TABLET ONE (23:42)
--- NOTE | 2022-01-26 01:54 | NUR ---
SPOKE TO CESAR AT [facility] AT [phone] REPORT GIVEN .
--- NOTE | 2022-01-26 01:57 | NUR ---
[facility] TRANSPORTATION BACK TO THE FACILITY IN 75-90 MIN
--- NOTE | 2022-01-26 03:27 | NUR ---
[facility] TRANSPO AT BED SIDE TO TELEPHONE TRIAGE NURSE THE PT
--- NOTE | 2022-01-26 03:36 | NUR ---
TRANSFERRED BACK TO THE FACILITY IN STABLE CONDITION
[2022-01-26 03:39] VITALS: BP 131/80
== END 2022-01-26 03:39 ==
LOC: ER 19:20
DX: G89.4 Chronic pain syndrome (principal); E87.1 Hypo-osmolality and hyponatremia; G40.909 Epilepsy, unspecified, not intractable, without status epilepticus; I25.2 Old myocardial infarction; F20.9 Schizophrenia, unspecified; Z20.822 Contact with and (suspected) exposure to COVID-19; Z85.89 Personal history of malignant neoplasm of other organs and systems; Z86.718 Personal history of other venous thrombosis and embolism; Z79.01 Long term (current) use of anticoagulants; E11.9 Type 2 diabetes mellitus without complications; Z95.5 Presence of coronary angioplasty implant and graft; I10 Essential (primary) hypertension; I25.10 Atherosclerotic heart disease of native coronary artery without angina pectoris; C79.9 Secondary malignant neoplasm of unspecified site; R55 Syncope and collapse; Z80.3 Family history of malignant neoplasm of breast; F17.200 Nicotine dependence, unspecified, uncomplicated
CPT/HCPCS: 99285; 70450; 71045; 87426; 93005; 85025; 80048; 80076; 36415; 84484 ×2; 83880; C9803

== ENCOUNTER 2022-02-15 20:02 | Inpatient (IN) | payer MEDICAID ==
[~2022-02-15] VITALS: Ht 162.6 cm; Wt 54.4 kg
--- NOTE | 2022-02-15 20:45 | NUR ---
BIBRA 878 FROM 4 SEASONS FOR C/O COUGH X 2 WEEKS. PLACED ON BED, AAOX4, BREATHING EVEN AND UNLABORED ATTACHED TO MONITOR SATURATING AT 95%RA.
--- NOTE | 2022-02-15 22:00 | NUR ---
CLINICAL FELLOW. AT BED SIDE, WSAB FOR COVID19 SENT TO LAB
[2022-02-15 22:20] LABS: BASOPHILS % (AUTO) 0.8 % (0.0-2.0); EOSINOPHILS % (AUTO) 3.1 % (0.0-6.0); HEMATOCRIT 38 % (33-45); HEMOGLOBIN 12.5 g/dL (11.5-14.8); LYMPHOCYTES # (AUTO) 3.1 K/uL (0.8-4.8); LYMPHOCYTES % (AUTO) 50.6 % (20.0-44.0); MEAN CORPUSCULAR HGB CONC 33 g/dl (31.0-36.0); MEAN CORPUSCULAR VOLUME 92 fL (82-100); MONOCYTES # (AUTO) 0.4 K/uL (0.1-1.30); MONOCYTES % (AUTO) 6.9 % (2.0-12.0); NEUTROPHILS # (AUTO) 2.3 K/uL (1.8-8.9); NEUTROPHILS % (AUTO) 38.6 % (43.0-81.0); PLATELET COUNT (AUTO) 242 K/uL (150-450); RED BLOOD CELL COUNT(AUTO) 4.13 MIL/uL (4.0-5.2); WHITE BLOOD COUNT (AUTO) 6.1 K/uL (4.3-11.0)
[2022-02-15] MEDS ORDERED: ASPIRIN 81 MG TAB.CHEW PO ONE (22:30)
[2022-02-15] MEDS ORDERED: ASPIRIN 81 MG TAB.CHEW ONE (22:35)
[2022-02-15 22:55] LABS: ALANINE AMINOTRANSFERASE 46 U/L (12-78); ALBUMIN 3.6 g/dL (3.4-5.0); ALKALINE PHOSPHATASE 122 U/L (46-116); ASPARTATE AMINOTRANSFERASE 33 U/L (15-37); BILIRUBIN,DIRECT 0.1 mg/dL (0.0-0.2); BILIRUBIN,TOTAL 0.2 mg/dL (0.2-1.0); CARBON DIOXIDE 25 mmol/L (21-32); CHLORIDE 103 mmol/L (98-107); CREATININE 0.7 mg/dL (0.6-1.3); GLUCOSE 93 mg/dL (74-106); POTASSIUM 4.3 mmol/L (3.5-5.1); SODIUM SERUM 136 mmol/L (136-145); TOTAL PROTEIN, SERUM 7.7 g/dL (6.4-8.2); UREA NITROGEN, BLOOD 19 mg/dL (7-18)
[2022-02-15] MEDS ORDERED: MORPHINE SULFATE INJ 2 MG/ML DISP.SYRIN IV ONE (23:00)
[2022-02-15] MEDS ORDERED: MORPHINE SULFATE INJ 4 MG/ML DISP.SYRIN ONE (23:15)
[2022-02-15] MEDS ORDERED: IOHEXOL-350 100 ML VIAL IV ONE (23:34)
[2022-02-15] MEDS ORDERED: CT SWABBABLE VALVE TRANS SET 1 EA INFUS.SET MC ONE (23:34)
[2022-02-15] MEDS ORDERED: IV NS 0.9% 250 ML IV ONE (23:34)
--- NOTE | 2022-02-16 00:51 | NUR ---
room 307-1
[2022-02-16] MEDS ORDERED: IBUPROFEN 400 MG TABLET PO PRN (01:00)
[2022-02-16] MEDS ORDERED: MAG HYDROX/AL HYDROX/SIMETH 30 ML UDC PO PRN (01:00)
[2022-02-16] MEDS ORDERED: MAGNESIUM HYDROXIDE 30 ML UDC PO PRN (01:00)
[2022-02-16] MEDS ORDERED: Z GUARD REMEDY 4 OZ OINT TP PRN (01:00)
[2022-02-16] MEDS ORDERED: ACETAMINOPHEN 325 MG TABLET PO PRN ×2 (01:00)
--- NOTE | 2022-02-16 01:04 | NUR ---
REPORT GIVEN TO AB HartW RN FOR SHARON
--- NOTE | 2022-02-16 01:15 | NUR ---
PATIENT TRANSFERRED UNDER ACLS
--- NOTE | 2022-02-16 01:15 | NUR ---
RN NOTES PT RECEIVED IN RM 307-1 FROM ER WITH JAMEL.AAOX4 LANCE WELL ON RM AIR NO,NO SIGN SOB/DISTRESS NOTED.NO COMPLAIN OF PAIN/DISCOMFORT AT THIS TIME.PT WAS REORIENT THE RM AND VERBALIZE UNDERSTANDING.IV ACCESS JAYDA 20G.PATENT AND INTACK.CALL LIGHT WITHIN REACH.SAFETY INPLACED.BED LOCKED AND LOW POSITION.CONTINUE TO MONITOR.
[2022-02-16] MEDS ORDERED: ONDANSETRON 4 MG TAB.RAPDIS PO PRN (01:30)
[2022-02-16] MEDS: IV NS 0.9% 1,000 ML IV PRN (03:13)
[2022-02-16] MEDS: MORPHINE SULFATE INJ 2 MG/ML DISP.SYRIN IV PRN ×5 (03:47→23:12)
[2022-02-16 04:44] VITALS: BP 118/69
--- NOTE | 2022-02-16 06:17 | NUR ---
RN CLOSING NOTES. PT IN BED SLEEPING,AOX4 LANCE WELL ON RM AIR ,NO SIGN SOB/DISTRESS NOTED.IV ACCESS JAYDA 20G.PATENT AND INTACK.DUE MEDS GIVEN ORDER,ALL NEEDS ATTENDED.CALL LIGHT WITHIN REACH.SAFETY INPLACED.BED LOCKED AND LOW POSITION.WILL ENDORESD TO NEXT SHIFT.
--- NOTE | 2022-02-16 07:30 | NUR ---
MILLWORK ESTIMATOR NOTES RECEIVED PATIENT AWAKE IN BED. PATIENT IS ALERT AND ORIENTED TIMES 4. NO SOB NOTED. NO DISTRESS NOTED. NO PAIN NOTED. IV ACCESS ON THE JAYDA G# 18 INTACT RUNNING NS AT 75 ML/HR. ALL SAFETY MEASURES IN PLACE. BED LOCKED IN THE LOWEST POSITION. CALL LIGHT AND TABLE IN EASY REACH. SIDE RAILS UP TIMES 2. WILL CONTINUE TO MONITOR.
[2022-02-16] MEDS: PANTOPRAZOLE 40 MG TABLET.DR PO SCH (07:40)
[2022-02-16] MEDS: PHENOBARBITAL 30 MG TABLET PO SCH ×2 (08:57→16:48)
[2022-02-16] MEDS: FERROUS SULFATE (325 MG) 325 MG/TAB TABLET PO SCH ×2 (08:57→16:48)
[2022-02-16] MEDS: GABAPENTIN 400 MG CAPSULE PO SCH ×3 (08:57→16:48)
[2022-02-16] MEDS: AMLODIPINE BESYLATE 2.5 MG TABLET PO SCH (08:57)
[2022-02-16] MEDS: LORATADINE 10 MG TABLET PO SCH (08:57)
[2022-02-16] MEDS: OLANZAPINE 10 MG TABLET PO SCH (08:57)
[2022-02-16] MEDS: PRIMIDONE 250 MG TABLET PO SCH ×2 (08:57→22:58)
[2022-02-16] MEDS: APIXABAN 5 MG TABLET PO SCH ×2 (08:59→22:57)
[2022-02-16] MEDS ORDERED: METOPROLOL TARTRATE INJ 5 MG/5 ML AMPUL ONE (14:46)
[2022-02-16] MEDS ORDERED: IOHEXOL-350 100 ML VIAL IV ONE (14:46)
[2022-02-16] MEDS ORDERED: CT SWABBABLE VALVE TRANS SET 1 EA INFUS.SET MC ONE (14:46)
[2022-02-16] MEDS ORDERED: NITROGLYCERIN 0.4 MG/TAB BOTTLE ONE (14:46)
[2022-02-16] MEDS ORDERED: IV NS 0.9% 250 ML IV ONE (14:47)
[2022-02-16] MEDS ORDERED: METOPROLOL TARTRATE INJ 5 MG/5 ML AMPUL IVP PRN (15:30)
[2022-02-16] MEDS ORDERED: NITROGLYCERIN 0.4 MG/TAB BOTTLE SL PRN (15:30)
[2022-02-16 17:01] LABS: THYROID STIMULATING HORMONE 1.069 uIU/mL (0.358-3.74)
--- NOTE | 2022-02-16 18:34 | NUR ---
MATERIAL DAMAGE APPRAISER CLOSING NOTES PATIENT AWAKE IN BED. PATIENT IS ALERT AND ORIENTED TIMES 4. NO SOB NOTED. NO DISTRESS NOTED. NO PAIN NOTED. IV ACCESS ON THE JAYDA G# 18 INTACT RUNNING NS AT 75 ML/HR. ALL DUE MEDS GIVEN ORDERED. NPO SINCE MIDNIGHT FOR US ABDOMEN IN THE MORNING.ALL SAFETY MEASURES IN PLACE. BED LOCKED IN THE LOWEST POSITION. CALL LIGHT AND TABLE IN EASY REACH. SIDE RAILS UP TIMES 2. WILL ENDORSE FOR SHARON..
[2022-02-16 21:08] VITALS: BP 112/62
[2022-02-16] MEDS: TEMAZEPAM 15 MG CAPSULE PO SCH (22:56)
[2022-02-16] MEDS: OLANZAPINE 5 MG TABLET PO SCH (22:58)
[2022-02-17 00:41] VITALS: BP 142/56
--- NOTE | 2022-02-17 01:19 | NUR ---
MS/TELE/RN PATIENT IS SLEEPING AT THIS TIME, NO SIGNS OF DISTRESS NOTED, CALL LIGHT IN REACH, NPO STATUS HAS BEEN STARTED ORDERED, WILL CONTINUE TO MONITOR.
[2022-02-17] MEDS: IV NS 0.9% 1,000 ML IV PRN (03:10)
[2022-02-17] MEDS: MORPHINE SULFATE INJ 2 MG/ML DISP.SYRIN IV PRN ×5 (03:20→20:16)
[2022-02-17 05:05] VITALS: BP 146/83
[2022-02-17 06:00] LABS: BASOPHILS % (AUTO) 0.6 % (0.0-2.0); EOSINOPHILS % (AUTO) 2.9 % (0.0-6.0); HEMATOCRIT 40 % (33-45); HEMOGLOBIN 13.6 g/dL (11.5-14.8); LYMPHOCYTES # (AUTO) 2.3 K/uL (0.8-4.8); LYMPHOCYTES % (AUTO) 41.8 % (20.0-44.0); MEAN CORPUSCULAR HGB CONC 34 g/dl (31.0-36.0); MEAN CORPUSCULAR VOLUME 89 fL (82-100); MONOCYTES # (AUTO) 0.3 K/uL (0.1-1.30); MONOCYTES % (AUTO) 5.7 % (2.0-12.0); NEUTROPHILS # (AUTO) 2.7 K/uL (1.8-8.9); PLATELET COUNT (AUTO) 248 K/uL (150-450); RED BLOOD CELL COUNT(AUTO) 4.57 MIL/uL (4.0-5.2); WHITE BLOOD COUNT (AUTO) 5.5 K/uL (4.3-11.0)
[2022-02-17 06:13] LABS: CALCIUM, SERUM 8.9 mg/dL (8.5-10.1); CARBON DIOXIDE 26 mmol/L (21-32); CHLORIDE 104 mmol/L (98-107); CREATININE 0.6 mg/dL (0.6-1.3); GLUCOSE 96 mg/dL (74-106); MAGNESIUM 2.2 mg/dL (1.8-2.4); POTASSIUM 4.3 mmol/L (3.5-5.1); SODIUM SERUM 136 mmol/L (136-145); UREA NITROGEN, BLOOD 12 mg/dL (7-18)
[2022-02-17 06:17] LABS: CHOLESTEROL 178 mg/dL (<200); HDL CHOLESTEROL 56 mg/dL (40-60); LDL 99 mg/dL (0-99); TRIGLYCERIDES 49 mg/dL (30-150)
--- NOTE | 2022-02-17 07:24 | NUR ---
RN OPENING NOTE RECEIVED PATIENT REPORT FROM N[employer]. PATIENT IS CURRENTLY AWAKE IN BED ALERT AND ORIENTED TIMES 4. ATTACHED TO EXTERNAL CARDIAC MONITORING READING SINUS RHYTHM. NO SHORTNESS OF BREATH NOTED. NPO STATUS NOTED. IV ACCESS ON LEFT UPPER ARM MIDLINE GAUGE 20 RUNNING NORMAL SALINE AT 75 MLS/HR. SAFETY MEASURES IN PLACE, BED IN LOWEST POSITION, SIDE RAILS UP, CALL LIGHT WITHIN REACH. WILL CONTINUE PLAN OF CARE AND ANTICIPATE NEEDS
[2022-02-17] MEDS: PANTOPRAZOLE 40 MG TABLET.DR PO SCH (07:30)
--- NOTE | 2022-02-17 07:57 | NUR ---
PATIENT REFUSED 0730 ADMINISTRATION OF PANTOPRAZOLE. PATIENT STATED "LET ME FUCKING SLEEP" WHEN ASKED IF SHE WOULD LIKE TO TAKE THE MEDICATION. WILL CONTINUE PLAN OF CARE AND ANTICIPATE NEEDS.
[2022-02-17 08:00] VITALS: BP 158/87
--- NOTE | 2022-02-17 08:52 | NUR ---
PATIENT IS REFUSING ULTRASOUND OF ABDOMEN AND PELVIS. PATIENT STATES "I AM TOO SICK, NOT RIGHT NOW" WILL CONTINUE PLAN OF CARE AND ANTICIPATE NEEDS.
[2022-02-17] MEDS: OLANZAPINE 10 MG TABLET PO SCH (09:05)
[2022-02-17] MEDS: GABAPENTIN 400 MG CAPSULE PO SCH ×3 (09:05→16:17)
[2022-02-17] MEDS: FERROUS SULFATE (325 MG) 325 MG/TAB TABLET PO SCH ×2 (09:06→16:17)
[2022-02-17] MEDS: AMLODIPINE BESYLATE 2.5 MG TABLET PO SCH (09:06)
[2022-02-17] MEDS: PRIMIDONE 250 MG TABLET PO SCH ×2 (09:06→23:08)
[2022-02-17] MEDS: PHENOBARBITAL 30 MG TABLET PO SCH ×2 (09:06→16:17)
[2022-02-17] MEDS: ONDANSETRON HCL/PF 4 MG/2 ML VIAL IVP PRN ×2 (09:06→15:14)
[2022-02-17] MEDS: LORATADINE 10 MG TABLET PO SCH (09:06)
--- NOTE | 2022-02-17 09:11 | NUR ---
08:00 PT REFUSED THE US PELVIC & ABD EXAM, USING VULGAR LANGUAGE. RN/ADELITA WAS INFORMED. HE WILL NOTIFY ORDERING MD.
[2022-02-17] MEDS: oxyCODONE/APAP (5/325 MG) 1 UDTAB TABLET PO PRN (10:03)
--- NOTE | 2022-02-17 10:07 | NUR ---
PATIENT REQUESTED PERCOCET BUT THEN REFUSED THE MEDICATION ONCE IT WAS PROVIDED. MEDICATION WAS DISPOSED OF IN THE MEDICATION WASTE BIN.
--- NOTE | 2022-02-17 14:02 | NUR ---
13:15 PT REFUSED AND STARTED VOMITING 13:45 PT REFUSED US EXAM, RNADELITA WAS INFORMED.
[2022-02-17 16:00] VITALS: BP 152/89
--- NOTE | 2022-02-17 18:45 | NUR ---
RN CLOSING NOTE PATIENT IS CURRENTLY AWAKE IN BED ALERT AND ORIENTED TIMES 4. ATTACHED TO EXTERNAL CARDIAC MONITORING READING SINUS RHYTHM. NO SHORTNESS OF BREATH NOTED. IV ACCESS ON RIGHT ANTECUBITAL 20 GAUGE RUNNING NORMAL SALINE AT 75 MLS/HR. SAFETY MEASURES IN PLACE, BED IN LOWEST POSITION, SIDE RAILS UP, CALL LIGHT WITHIN REACH. WILL ENDORSE TO IZAIAH FOR CONTINUATION OF CARE.
[2022-02-17 20:00] VITALS: BP 126/80
[2022-02-17] MEDS: TEMAZEPAM 15 MG CAPSULE PO SCH (23:08)
[2022-02-17] MEDS: OLANZAPINE 5 MG TABLET PO SCH (23:16)
[2022-02-17] MEDS ORDERED: HEPARIN SODIUM, PORCINE 5000 UNITS/1 ML VIAL IV ONE (23:30)
[2022-02-17] MEDS ORDERED: HEPARIN INFUSION/D5W 500 ML IV PRN (23:30)
[2022-02-18] VITALS: BP 137/84
[2022-02-18] MEDS ORDERED: HEPARIN INFUSION/D5W 500 ML IV ONE (00:02)
--- NOTE | 2022-02-18 00:56 | NUR ---
MS/TELE/RN HEPARIN DRIP STARTED ORDERED BY DR. QUIROS FOR BLE DVT. STARTING DOSE, AT 11OO UNITS PER HOUR PER HEPARIN DRIP PROTOCOL. WILL MONITOR PER PROTOCOL.
[2022-02-18] MEDS: MORPHINE SULFATE INJ 2 MG/ML DISP.SYRIN IV PRN ×5 (03:46→22:16)
[2022-02-18 04:00] VITALS: BP 133/71
[2022-02-18 06:05] LABS: BASOPHILS % (AUTO) 0.2 % (0.0-2.0); EOSINOPHILS % (AUTO) 0.2 % (0.0-6.0); HEMATOCRIT 37 % (33-45); HEMOGLOBIN 12.8 g/dL (11.5-14.8); LYMPHOCYTES # (AUTO) 2.1 K/uL (0.8-4.8); MEAN CORPUSCULAR HGB CONC 34 g/dl (31.0-36.0); MEAN CORPUSCULAR VOLUME 88 fL (82-100); MONOCYTES # (AUTO) 0.4 K/uL (0.1-1.30); MONOCYTES % (AUTO) 6.5 % (2.0-12.0); NEUTROPHILS # (AUTO) 4.2 K/uL (1.8-8.9); NEUTROPHILS % (AUTO) 62.1 % (43.0-81.0); PLATELET COUNT (AUTO) 251 K/uL (150-450); RED BLOOD CELL COUNT(AUTO) 4.26 MIL/uL (4.0-5.2); WHITE BLOOD COUNT (AUTO) 6.7 K/uL (4.3-11.0)
[2022-02-18 06:26] LABS: CALCIUM, SERUM 8.5 mg/dL (8.5-10.1); CARBON DIOXIDE 25 mmol/L (21-32); CHLORIDE 101 mmol/L (98-107); CREATININE 0.5 mg/dL (0.6-1.3); GLUCOSE 98 mg/dL (74-106); PHOSPHORUS 3.5 mg/dL (2.5-4.9); POTASSIUM 3.1 mmol/L (3.5-5.1); SODIUM SERUM 134 mmol/L (136-145); UREA NITROGEN, BLOOD 9 mg/dL (7-18)
--- NOTE | 2022-02-18 06:55 | NUR ---
MS/TELE/RN PATIENT IS SLEEPING, EASILY AROUSABLE, NO SIGNS OF DISTRESS NOTED, CALL LIGHT IN REACH, ALL NEEDS ATTENDED AT THIS TIME, WILL CONTINUE TO MONITOR.
--- NOTE | 2022-02-18 07:30 | NUR ---
LINE RUNNER OPENING NOTES PATIENT AWAKE IN BED. PATIENT IS ALERT AND ORIENTED TIMES 4. NO SOB NOTED. NO DISTRESS NOTED. C/O OF PAIN AND DISCOMFORT AND IV PAIN MEDS GIVEN . IV ACCESS ON THE JAYDA G# 18 INTACT RUNNING NS AT 75 ML/HR AND WITH HERPAIN DRIP . ALL DUE MEDS GIVEN ORDERED. .ALL SAFETY MEASURES IN PLACE. BED LOCKED IN THE LOWEST POSITION. CALL LIGHT AND TABLE IN EASY REACH. SIDE RAILS UP TIMES 2. WILL CONT TO MONITOR .
--- NOTE | 2022-02-18 07:39 | NUR ---
MS/TELE/RN AT 0530 PTT=23.4, PER HEPARIN DRIP PROTOCOL, CALL PHYSICIAN. SPOKE TO HENRI JOHNSON NP, PER HENRI HOLD HEPARIN, AND RECHECK PTT IN 4 HOURS. PER HENRI, COORDINATE WITH THE ONCOLOGIST REGARDING HEPARIN DRIP. ENDORSED TO DANIEL LYN.
--- NOTE | 2022-02-18 07:40 | NUR ---
ms rn received on bed, awake,alert,oriented x3,w/ episode of confusion,screaming for pain meds w/ pain 04/26, will look for pain meds due, received w/ on going heparin drip g20 at right ac with infiltrated access, removed and inserted g 22 at right upper arm, heparin not held as ordered by oncologist since iv was infiltrated from last shift,will rechecked ptt in 4 hours, will monitor patient.
[2022-02-18 08:00] VITALS: BP 144/86
--- NOTE | 2022-02-18 09:30 | NUR ---
MS RN WAS SEEN BY DR SHARON Dodge/ RENATE TO STOP HEPARIN DRIP AND START ON [place].
[2022-02-18] MEDS: FERROUS SULFATE (325 MG) 325 MG/TAB TABLET PO SCH ×2 (09:33→17:02)
[2022-02-18] MEDS: LORATADINE 10 MG TABLET PO SCH (09:33)
[2022-02-18] MEDS: PRIMIDONE 250 MG TABLET PO SCH ×2 (09:33→21:30)
[2022-02-18] MEDS: OLANZAPINE 10 MG TABLET PO SCH (09:33)
[2022-02-18] MEDS: GABAPENTIN 400 MG CAPSULE PO SCH ×3 (09:33→17:02)
[2022-02-18] MEDS: PHENOBARBITAL 30 MG TABLET PO SCH ×2 (09:33→17:02)
[2022-02-18] MEDS: AMLODIPINE BESYLATE 2.5 MG TABLET PO SCH (09:35)
[2022-02-18] MEDS: PANTOPRAZOLE 40 MG TABLET.DR PO SCH (09:37)
[2022-02-18] MEDS: POTASSIUM CHLORIDE 20 MEQ TAB.PRT.SR PO SCH ×2 (11:40→14:24)
[2022-02-18] MEDS: METOPROLOL TARTRATE 50 MG TABLET PO SCH ×2 (11:40→21:00)
[2022-02-18] MEDS: APIXABAN 5 MG TABLET PO SCH ×2 (11:42→17:04)
[2022-02-18 16:00] VITALS: BP 93/57
--- NOTE | 2022-02-18 16:00 | NUR ---
MS RN ON BED,NO DISTRESS NOTED.
--- NOTE | 2022-02-18 18:30 | NUR ---
MS DANIEL RICK SENIOR COST ANALYST ORDERED TO START PATIENT ON HEPARIN DRIP AGAIN, STAT PTT ORDERED, WAITING FOR THE TO DRAW PATIENT, WILL ENDORSED TO INSURANCE AGENTS SUPERVISOR FOR CONTINUITY OF CARE,NO DISTRESS NOTED.
--- NOTE | 2022-02-18 19:00 | NUR ---
REPLANTING MACHINE CREWMAN CLOSING NOTES PATIENT AWAKE IN BED. PATIENT IS ALERT AND ORIENTED TIMES 4. NO SOB NOTED. NO DISTRESS NOTED. C/O OF PAIN AND DISCOMFORT AND IV PAIN MEDS GIVEN ORDERED , IV ACCESS ON THE JAYDA G# 18 INTACT RUNNING ORDERED NG NS AT 75 ML/HR. ALL DUE MEDS GIVEN ORDERED. ON HEPARIN DRIP , CARDIAC DIET ORDERED .ALL SAFETY MEASURES IN PLACE. BED LOCKED IN THE LOWEST POSITION. CALL LIGHT AND TABLE IN EASY REACH. SIDE RAILS UP TIMES 2.ENDORSED TO NEXT SHIFT
--- NOTE | 2022-02-18 19:00 | NUR ---
ADDENDUM TO MERCHANDISER RETAIL REPRESENTATIVE CLOSING NOTES HEPARIN DRIP WAS D/C AT 1000 AND MD WITH NEW ORDER TO RESUME AGAIN AND ENDORSED TO NEXT SHIFT
--- NOTE | 2022-02-18 19:30 | NUR ---
TELE/RN OPENING NOTE RECEIVED PATIENT SLEEPING IN BED. ALERT AND ORIENTED X 4. ABLE TO MAKE NEEDS KNOWN. DENIES PAIN AT THIS TIME. CONTINUES ON ROOM AIR WITH NO S/SX OF RESPIRATORY DISTRESS NOTED. IV ACCESS TO RIGHT UPPER ARM #22G INTACT, PATENT AND SALINE LOCKED. CONTINUES ON TELE MONITOR WITH CURRENT READING SR. PER AM RN - PATIENT TO RESTART HEPARIN DRIP. WILL REVIEW MD ORDERS AND RESTART. CALL LIGHT WITHIN REACH. ASPIRATION, FALL AND SAFETY PRECAUTIONS MAINTAINED. ALL NEEDS ATTENDED TO AT THIS TIME.
[2022-02-18 20:00] VITALS: BP 105/65
--- NOTE | 2022-02-18 20:30 | NUR ---
TELE/RN NOTE PER PHARMACIST - MD WANTS HEPARIN DRIP TO START AT 0500. ORDERS IN PLACE. WILL DRAW PTT PRIOR TO STARTING HEPARIN DRIP.
[2022-02-18] MEDS: OLANZAPINE 5 MG TABLET PO SCH (21:29)
[2022-02-18] MEDS: TEMAZEPAM 15 MG CAPSULE PO SCH (21:30)
[2022-02-19] VITALS: BP 101/71
[2022-02-19] MEDS: MORPHINE SULFATE INJ 2 MG/ML DISP.SYRIN IV PRN ×5 (03:09→19:27)
[2022-02-19 04:00] VITALS: BP 107/63
[2022-02-19 04:22] LABS: BASOPHILS % (AUTO) 0.7 % (0.0-2.0); EOSINOPHILS % (AUTO) 2.2 % (0.0-6.0); HEMATOCRIT 36 % (33-45); HEMOGLOBIN 12.1 g/dL (11.5-14.8); LYMPHOCYTES # (AUTO) 2.6 K/uL (0.8-4.8); LYMPHOCYTES % (AUTO) 52.9 % (20.0-44.0); MEAN CORPUSCULAR HGB CONC 34 g/dl (31.0-36.0); MEAN CORPUSCULAR VOLUME 87 fL (82-100); MONOCYTES # (AUTO) 0.3 K/uL (0.1-1.30); MONOCYTES % (AUTO) 6.1 % (2.0-12.0); NEUTROPHILS # (AUTO) 1.9 K/uL (1.8-8.9); NEUTROPHILS % (AUTO) 38.1 % (43.0-81.0); PLATELET COUNT (AUTO) 255 K/uL (150-450); RED BLOOD CELL COUNT(AUTO) 4.11 MIL/uL (4.0-5.2); WHITE BLOOD COUNT (AUTO) 4.9 K/uL (4.3-11.0)
[2022-02-19 04:43] LABS: CALCIUM, SERUM 8.4 mg/dL (8.5-10.1); CARBON DIOXIDE 25 mmol/L (21-32); CHLORIDE 101 mmol/L (98-107); CREATININE 0.5 mg/dL (0.6-1.3); GLUCOSE 86 mg/dL (74-106); MAGNESIUM 2.1 mg/dL (1.8-2.4); PHOSPHORUS 3.4 mg/dL (2.5-4.9); POTASSIUM 4.1 mmol/L (3.5-5.1); SODIUM SERUM 133 mmol/L (136-145); UREA NITROGEN, BLOOD 14 mg/dL (7-18)
[2022-02-19] MEDS: oxyCODONE/APAP (5/325 MG) 1 UDTAB TABLET PO PRN ×3 (04:49→20:49)
[2022-02-19] MEDS ORDERED: HEPARIN SODIUM, PORCINE 5000 UNITS/1 ML VIAL SQ ONE (05:00)
--- NOTE | 2022-02-19 05:30 | NUR ---
TELE/RN NOTE PATIENTS PTT RESULT THIS AM IS 28.2. ADMINISTERED BOLUS DOSE OF HEPARIN PER MD ORDERS. INITIATED HEPARIN DRIP AT 1100UNIT/HR (22ML/HR) PER PROTOCOL TO IV SITE RIGHT AC #22G. NEXT PTT IN 6HRS @ 1000.
[2022-02-19] MEDS: HEPARIN INFUSION/D5W 500 ML IV PRN (05:31)
--- NOTE | 2022-02-19 06:30 | NUR ---
TELE/RN CLOSING NOTE PATIENT CURRENTLY RESTING IN BED. AWAKE, ALERT AND ORIENTED X 4. ABLE TO MAKE NEEDS KNOWN. DENIES PAIN AT THIS TIME. CONTINUES ON ROOM AIR WITH NO S/SX OF RESPIRATORY DISTRESS NOTED. IV ACCESS TO RIGHT UPPER ARM #22G INTACT AND PATENT. CONTINUES ON HEPARIN DRIP RUNNING AT 1100UNITS/HR (22ML/HR). NO S/SX OF BLEEDING NOTED. CONTINUES ON TELE MONITOR WITH CURRENT READING SR. CALL LIGHT WITHIN REACH. ASPIRATION, FALL AND SAFETY PRECAUTIONS MAINTAINED. WILL ENDORSE PLAN OF CARE TO ONCOMING SHIFT RN.
[2022-02-19] MEDS: PANTOPRAZOLE 40 MG TABLET.DR PO SCH (07:56)
[2022-02-19 08:00] VITALS: BP 124/66
--- NOTE | 2022-02-19 08:01 | NUR ---
TELE/RN OPENING NOTE RECEIVED PATIENT AWAKE IN BED. ALERT AND ORIENTED X 4. ABLE TO MAKE NEEDS KNOWN. PATIENT COMPLAINING OF GENERALIZED PAIN, NOC NURSE GAVE MORPHINE AT 0717, REASSESSMENT DONE AND PATIENT REPORT A DECREASE IN PAIN SENSATION SIGNIFICANTLY. CONTINUES ON ROOM AIR WITH NO S/SX OF RESPIRATORY DISTRESS NOTED. IV ACCESS TO RIGHT UPPER ARM #22G INTACT, PATENT AND SALINE LOCKED WITH HEPARIN AT 1100 UNIS PER HOUR. CONTINUES ON TELE MONITOR WITH CURRENT READING SR AT 67 BPM. PATIENT IS ON NPO EXCEPT MEDS ONLY SINCE MIDNIGHT FOR UPCOMING MRI OF THE ABD AND PELVIS. PT VERBALIZED UNDERSTANDING OF STRICT ADHERENCE. PATIENT TRAY TABLE AND CALL LIGHT WITHIN REACH, KEPT BED IN LOWEST POSITION WITH SIDE RAILS UP X3. WILL CONTINUE TO MONITOR FOR BLEEDING AND PAIN MANAGEMENT DURING MY SHIFT.
[2022-02-19] MEDS: PHENOBARBITAL 30 MG TABLET PO SCH ×2 (09:11→17:38)
[2022-02-19] MEDS: OLANZAPINE 10 MG TABLET PO SCH (09:11)
[2022-02-19] MEDS: GABAPENTIN 400 MG CAPSULE PO SCH ×3 (09:11→17:38)
[2022-02-19] MEDS: METOPROLOL TARTRATE 50 MG TABLET PO SCH ×2 (09:12→20:09)
[2022-02-19] MEDS: AMLODIPINE BESYLATE 2.5 MG TABLET PO SCH (09:12)
[2022-02-19] MEDS: PRIMIDONE 250 MG TABLET PO SCH ×2 (09:12→21:54)
[2022-02-19] MEDS: LORATADINE 10 MG TABLET PO SCH (09:12)
[2022-02-19] MEDS: FERROUS SULFATE (325 MG) 325 MG/TAB TABLET PO SCH ×2 (09:13→17:38)
--- NOTE | 2022-02-19 09:27 | NUR ---
RN NOTES TRANSFER TO MED/SURG WITH ALL MEDS ORDER CARRIED OUT. REMOVED TELE MONITORING AND RETURNED.
--- NOTE | 2022-02-19 12:35 | NUR ---
RN NOTES RECEIVED CALL FROM LAB THAT PT HAS CRITICAL HIGH 150.6, HEPARIN DRIP HELD. INFORMED DR JOHNSON WITH ORDER TO LET DR WHITE KNOW. DR WHITE WITH ORDER TO FOLLOW HEPARIN PROTOCOL, PTT TO BE RECHECKED AT 1805.
--- NOTE | 2022-02-19 12:40 | NUR ---
RN NOTES PATIENT REQUESTED FOR HER PERCOCET PRN, EXPLAINED THE TIMING VS MORPHINE AT 1117 AM. GAVE HER PRN PERCOCET Q6 AT 1233 PER MD ORDER. WILL CONTINUE TO MONITOR THE PATIENT.
--- NOTE | 2022-02-19 14:35 | NUR ---
RN NOTES RECEIVED AN ORDER FROM DR WHITE TO CANCEL MRI WITH CONTRAST AND DO CT SCAN WITH THE ABDOMEN AND PELVIS INSTEAD. NEW CONSENTS SECURED WITH THE PATIENT.
[2022-02-19] MEDS ORDERED: IOHEXOL-300 100 ML VIAL IV ONE (15:03)
[2022-02-19 16:00] VITALS: BP 97/61
[2022-02-19] MEDS ORDERED: GADOTERATE MEGLUMINE 10 MMOL/20 ML VIAL IV ONE (17:21)
--- NOTE | 2022-02-19 19:28 | NUR ---
MS RN CLOSING NOTES RECEIVED PATIENT AWAKE IN BED. ALERT AND ORIENTED X 4. ABLE TO MAKE NEEDS KNOWN. PATIENT COMPLAINING OF GENERALIZED PAIN, DUE PRN MEDS WERE GIVEN AND REASSESSMENTS DONE ACCORDINGLY. CONTINUES ON ROOM AIR WITH NO S/SX OF RESPIRATORY DISTRESS NOTED. IV ACCESS TO RIGHT UPPER ARM #22G INTACT PATENT AND SALINE LOCKED. HEPARIN IS STILL ON HOLD UNTIL NEXT PTT DRAW AT 1805 ORDERED BUT RODENT EXTERMINATOR GOT TO DRAW BLOOD AROUND 1858. WILL ENDORSE TO THE NEXT NURSE.PATIENT TRAY TABLE AND CALL LIGHT WITHIN REACH, KEPT BED IN LOWEST POSITION WITH SIDE RAILS UP X3. WILL ENDORSE TO THE NOC SHIFT.
--- NOTE | 2022-02-19 19:45 | NUR ---
MS RN NOTE PATIENT AWAKE IN BED, ALERT/ORIENTED X 4, PT ABLE TO MAKE NEEDS KNOWN. PT STABLE ON RA, NO S/S OF DISTRESS OR SOB NOTED, BREATHING EVEN AND UNLABORED. IV ON RAC #20G INTACT AND SALINE LOCKED. SAFETY MEASURES IN PLACE: CALL LIGHT WITHIN REACH, SIDE RAILS UP X 2, BED LOCKED IN LOWEST POSITION, BED ALARM ON. WILL CONTINUE TO MONITOR PATIENT
[2022-02-19 20:00] VITALS: BP 93/55
[2022-02-19] MEDS ORDERED: HEPARIN SODIUM, PORCINE 5000 UNITS/1 ML VIAL IV ONE (22:00)
[2022-02-19] MEDS: TEMAZEPAM 15 MG CAPSULE PO SCH (22:06)
[2022-02-19] MEDS: OLANZAPINE 5 MG TABLET PO SCH (22:06)
--- NOTE | 2022-02-19 22:10 | NUR ---
MS RN NOTE PTT RESULTS 27.2. PER PROTOCOL BOLUS OF 4600 UNITS GIVEN AND HEPARIN DRIP INCREASED BY 250 UNITS/HR. HEPARIN DRIP RESUMED @ 1350 UNITS/HOUR. NEXT PTT IN 6 HOURS @ 0400 AM. WILL CONTINUE TO MONITOR
--- NOTE | 2022-02-19 23:00 | NUR ---
MS RN NOTE IV SITE ON RAC #22G LEAKING AND PARTIALLY OUT. IV REMOVED AND PRESSURE AND DRESSING APPLIED UNTIL BLEEDING STOPPED. ATTEMPTED TO INSERT NEW IV MULTIPLE TRIES WITH CHARGE NURSE BUT UNSUCCESSFUL. ICU CALLED FOR IV INSERTION
--- NOTE | 2022-02-19 23:15 | NUR ---
MS RN NOTE NEW IV INSERTED BY ICU NURSE ON LEFT NECK #20G, GOOD BLOOD RETURN, FLUSHING WELL. CONNECTED TO HEPARIN DRIP @ 1350 UNITS/HOUR.
[2022-02-20] MEDS: MORPHINE SULFATE INJ 2 MG/ML DISP.SYRIN IV PRN ×3 (02:13→11:45)
[2022-02-20] MEDS: oxyCODONE/APAP (5/325 MG) 1 UDTAB TABLET PO PRN (05:03)
--- NOTE | 2022-02-20 05:28 | NUR ---
MS RN NOTE CALLED LAB BECAUSE PT WAS SUPPOSED TO HAVE LAB DRAW FOR PTT @ 4 AM BUT DIDN'T SEE IF LAB ANABELL IT ALREADY, PER LAB IT HASN'T BEEN DRAWN. SPOKE TO TRIAL MANAGEMENT ASSOCIATE ON FLOOR TO DRAW NOW
--- NOTE | 2022-02-20 05:56 | NUR ---
MS RN NOTE 2 MANAGER ENGLISH'S ATTEMPTED TO DRAW BLOOD BUT UNABLE TO, PATIENT HARD STICK. WILL CALL ANOTHER MANAGER ENGLISH TO TRY WELL
--- NOTE | 2022-02-20 07:30 | NUR ---
MS RN OPENING NOTE RECEIVED PT AWAKE IN BED. A/O X 4, PT ABLE TO MAKE NEEDS KNOWN. ON RA, TOLERATING WELL. NO SOB NOTED. NOT IN ANY SIGN OF RESPIRATORY DISTRESS. IV ON LEFT NECK #20G INTACT AND INFUSING HEPARIN @ 1350 UNITS/ HOUR. PER HOSIERY MENDER NURSE MEREDITH PTT WAS SUPPOSED TO BE DRAWN AT 0400, HOWEVER, GROCERY SHOPPER'S WERE UNABLE TO DRAW BECAUSE PT IS HARD STICK, STATED ANOTHER GROCERY SHOPPER WILL COME TO TRY. WILL FOLLOW UP WITH GROCERY SHOPPER. SAFETY MEASURES IN PLACE: BED IN LOWEST AND LOCKED POSITION, SIDE RAILS UP X2, AND CALL LIGHT WITHIN REACH. WILL CONTINUE TO MONITOR PT.
--- NOTE | 2022-02-20 07:35 | NUR ---
RN NOTE CALLED LAB UNIT TO FOLLOW UP ON THE PTT BLOOD DRAW AND SPOKE WITH KODAK, STOVE MECHANIC, PER KODAK, A STOVE MECHANIC WILL COME TO THE UNIT SOON TO DRAW THE PTT BLOOD.
--- NOTE | 2022-02-20 07:39 | NUR ---
MS RN CLOSING NOTE PATIENT AWAKE IN BED, ALERT/ORIENTED X 4, PT ABLE TO MAKE NEEDS KNOWN. PT STABLE ON RA, NO S/S OF DISTRESS OR SOB NOTED, BREATHING EVEN AND UNLABORED. IV ON LEFT NECK #20G INTACT AND INFUSING HEPARIN @ 1350 UNITS/ HOUR. PTT WAS SUPPOSED TO BE DRAWN AT 0400, HOWEVER, APPLICATION SECURITY ENGINEER'S WERE UNABLE TO DRAW BECAUSE PT IS HARD STICK, STATED ANOTHER APPLICATION SECURITY ENGINEER WILL COME TO TRY. MEDICATIONS GIVEN ORDERED, PATIENT NEEDS MET, PT CONSTANTLY COMPLAINING OF PAIN AND REQUESTING PAIN MEDS. SAFETY MEASURES IN PLACE: CALL LIGHT WITHIN REACH, SIDE RAILS UP X 2, BED LOCKED IN LOWEST POSITION, BED ALARM ON. ENDORSED TO DAY SHIFT NURSE FOR CONTINUITY OF CARE
[2022-02-20] MEDS: PANTOPRAZOLE 40 MG TABLET.DR PO SCH (08:05)
--- NOTE | 2022-02-20 08:30 | NUR ---
RN NOTE PT'S IV ACCESS IN LEFT NECK, INFILTRATED. INFUSION OF HEPARIN DRIP STOPPED AND IV ACCESS TO LEFT NECK REMOVED. WARM COMPRESS APPLIED AT THE AFFECTED SITE AND KEPT HEAD ELEVATED. MULTIPLE ATTEMPTS TRIED TO GET ANOTHER ACCESS AT DIFFERENT SITES BUT UNABLE TO BECAUSE PT IS A HARD STICK. MADE CHARGE NURSE AND MD AWARE, PER CHARGE NURSE, MIDLINE WILL BE INSERTED BY DANISHA ALVES. AWAITING FOR MIDLINE TO BE INSERTED.
[2022-02-20 09:00] VITALS: BP 100/58
[2022-02-20] MEDS: AMLODIPINE BESYLATE 2.5 MG TABLET PO SCH (09:00)
[2022-02-20] MEDS: METOPROLOL TARTRATE 50 MG TABLET PO SCH (09:00)
--- NOTE | 2022-02-20 09:00 | NUR ---
DANIEL CORRIGAN RECEIVED A CALL AT 0850 FROM INTERNAL AUDIT DIRECTOR STEPHAN REPORTING CRITICAL LAB VALUES OF PTT OF 92.5. PER PROTOCOL TO HOLD HEPARIN FOR AN HOUR THEN DECREASED DRIP BY 3UNITS/KG/H, WHICH WILL BE 200 UNITS/HR FOR THE PATIENT. PT'S HEPARIN DRIP DOSAGE WILL BE STARTED FROM 1350ML/HR TO 1150ML/HR (23ML/HR). CLARIFIED ORDERS WITH PHARMACIST PATRIC AND CHARGED NURSE LATRICIA AND AGREED TO THE DOSAGE. MD AWARE WELL. Addendum: 02/20/22 at 1138 by KATHERINE VINSON RN CORRECTION IT'S NOT ML, IT'S FROM 1350 UNITS/HR TO 1150 UNITS/HR (23ML/HR).
--- NOTE | 2022-02-20 09:30 | NUR ---
RN NOTE REASSESSED PT'S LEFT NECK, INFILTRATION. NO REDNESS NOTED. SWELLING DECREASED. WILL CONTINUE TO MONITOR PT.
[2022-02-20] MEDS: PHENOBARBITAL 30 MG TABLET PO SCH ×2 (09:36→17:00)
[2022-02-20] MEDS: GABAPENTIN 400 MG CAPSULE PO SCH ×3 (09:36→17:00)
[2022-02-20] MEDS: LORATADINE 10 MG TABLET PO SCH (09:37)
[2022-02-20] MEDS: FERROUS SULFATE (325 MG) 325 MG/TAB TABLET PO SCH ×2 (09:37→17:00)
[2022-02-20] MEDS: OLANZAPINE 10 MG TABLET PO SCH (09:37)
[2022-02-20] MEDS: PRIMIDONE 250 MG TABLET PO SCH (09:38)
--- NOTE | 2022-02-20 09:50 | NUR ---
RN NOTE UNABLE TO RESTART THE HEPARIN DRIP, STILL WAITING FOR LONG PEDRO NP TO INSERT THE MIDLINE IV ACCESS. CHARGED NURSE AND AWARE.
--- NOTE | 2022-02-20 11:01 | NUR ---
RN NOTE STILL UNABLE TO RESTART THE HEPARIN DRIP, STILL WAITING FOR LONG PEDRO NP TO INSERT THE MIDLINE IV ACCESS. CHARGED NURSE AND AWARE.
[2022-02-20] MEDS: HEPARIN INFUSION/D5W 500 ML IV PRN (11:17)
--- NOTE | 2022-02-20 11:17 | NUR ---
RN NOTE MIDLINE INSERTED BY LONG PEDRO TO JAY[facility] Greene #18 INTACT AND PATENT. RESTARTED HEPARIN DRIP INFUSION AT 1150ML/HR (23ML/HR) PER PROTOCOL. NEXT PTT WILL BE IN 6HRS AT 1717. CHARGED NURSE, PHARMACIST, AND MD AWARE OF DOSAGE. Addendum: 02/20/22 at 1139 by KATHERINE VINSON RN CORRECTION IT'S NOT ML, CORRECTION IT'S 1150 UNITS/HR (23ML/HR). Addendum: 02/20/22 at 1746 by KATHERINE VINSON RN ADDENDUM HEPARIN DRIP DOSAGE AND INFUSION IS WITNESSED BY DANIEL THOMPSON.
[2022-02-20] MEDS ORDERED: METO50TA16 PO (13:50)
[2022-02-20] MEDS ORDERED: RIVA10TA PO (13:50)
[2022-02-20] MEDS ORDERED: CIPR-262 PO (13:56)
[2022-02-20] MEDS ORDERED: METR500T PO (13:56)
--- NOTE | 2022-02-20 14:45 | NUR ---
RN NOTE RECEIVED A DISCHARGE ORDER FROM HENRI JOHNSON NP. MADE HER AWARE THAT HEPARIN DRIP IS CURRENTLY INFUSING AND CLARIFIED AND ASKED HER WHAT TIME DOES SHE WANT TO STOP THE HEPARIN DRIP SINCE PT WILL BE DISCHARGE AND BUNDLE CUTTER TIME WILL BE AT 1700 TODAY. HENRI STATED "HEPARIN DRIPS STOPS WHEN PT DCs". CHARGE NURSE LATRICIA PEARSON.
--- NOTE | 2022-02-20 17:10 | NUR ---
SPRINKLER HELPER NOTE PT DISCHARGED TO THE [facility] IN STABLE CONDITION. PT A/O X4, ABLE TO MAKE NEEDS KNOWN. ON RA, TOLERATING WELL WITH SPO2 9%. NO SOB NOTED. NOT IN ANY SIGN OF RESPIRATORY DISTRESS. VITAL SIGNS TAKEN, STABLE, AND RECORDED. PT REFUSED TO HAVE HER SKIN ASSESSED. ALL BELONGINGS ACCOUNTED FOR. DISCHARGED INSTRUCTIONS AND HEALTH TEACHINGS GIVEN TO PT AND PT VERBALIZED UNDERSTANDING. HEPARIN DRIP STOPPED AT THIS TIME ORDERED BY HENRI JOHNSON NP. IV ACCESS IN [facility] MIDLINE G #18 REMOVED WITH NO ACTIVE BLEEDING NOTED. DRY PRESSURE DRESSING APPLIED AT SITE. PT LEFT THE UNIT AT 1650 [facility]IA [employer], [employer] ACCOMPANIED BY 2 BACK WINDER. MD AND CHARGED NURSE AWARE OF DISCHARGED.
--- NOTE | 2022-02-20 17:11 | NUR ---
RN NOTE ALL MEDICATIONS SCHEDULED AT 1700 NOT ADMINISTERED PT IS DISCHARGED.
[2022-02-21 19:06] LABS: *CARD ANTI-CARDIOLIPIN AB IgG <9 GPL U/mL (0-14); *CARD ANTI-CARDIOLIPIN AB IgM 10 MPL U/mL (0-12)
[2022-02-22 20:06] LABS: *ANTITHROMBIN III AG 119 % (72-124); *DILUTE PROTHROMBIN TIME (dPT) 36.5 sec (0.0-47.6); *THROMBIN TIME 17.3 sec (0.0-23.0); *dPT CONFIRM RATIO 0.82 Ratio (0.00-1.34); *dRVVT 37.4 sec (0.0-47.0)
== END 2022-02-20 17:00 | DRG 198 ==
LOC: ER 20:04 → TELE 02-16 00:52 → MED 02-19 11:18
PROVIDERS: ADMIT Registered Nurse; ATTEND Registered Nurse
PROC: 05HC33Z Insertion of Infusion Device into Left Basilic Vein, Percutaneous Approach (ICD-10-PCS; principal; 2022-02-20)
DX: I25.10 Atherosclerotic heart disease of native coronary artery without angina pectoris (principal); C22.0 Liver cell carcinoma; I82.401 Acute embolism and thrombosis of unspecified deep veins of right lower extremity; E88.09 Other disorders of plasma-protein metabolism, not elsewhere classified; F29 Unspecified psychosis not due to a substance or known physiological condition; C79.9 Secondary malignant neoplasm of unspecified site; I82.412 Acute embolism and thrombosis of left femoral vein; I25.2 Old myocardial infarction; G40.909 Epilepsy, unspecified, not intractable, without status epilepticus; I10 Essential (primary) hypertension; Z20.822 Contact with and (suspected) exposure to COVID-19; Z95.828 Presence of other vascular implants and grafts; Z95.5 Presence of coronary angioplasty implant and graft; Z98.890 Other specified postprocedural states; Z96.641 Presence of right artificial hip joint; Z88.0 Allergy status to penicillin; Z88.8 Allergy status to other drugs, medicaments and biological substances; Z90.49 Acquired absence of other specified parts of digestive tract; Z90.710 Acquired absence of both cervix and uterus; Z91.410 Personal history of adult physical and sexual abuse; Z80.3 Family history of malignant neoplasm of breast; Z79.01 Long term (current) use of anticoagulants; Z79.899 Other long term (current) drug therapy; Z62.810 Personal history of physical and sexual abuse in childhood; F17.200 Nicotine dependence, unspecified, uncomplicated; G31.84 Mild cognitive impairment of uncertain or unknown etiology; F20.9 Schizophrenia, unspecified; F41.0 Panic disorder [episodic paroxysmal anxiety]; Z85.05 Personal history of malignant neoplasm of liver; Z87.19 Personal history of other diseases of the digestive system; D64.9 Anemia, unspecified; D72.819 Decreased white blood cell count, unspecified; E04.2 Nontoxic multinodular goiter; N32.9 Bladder disorder, unspecified; E11.9 Type 2 diabetes mellitus without complications; E61.1 Iron deficiency; I82.509 Chronic embolism and thrombosis of unspecified deep veins of unspecified lower extremity
CPT/HCPCS: 36410; 36415; 71045-TC; 74178; 75574; 76536-TC; 76700-TC; 76856-TC; 80048-TC; 80061-TC; 80076-TC; 81240; 81241; 82105; 82378; 83605-TC; 83735-TC; 83880; 84100-TC; 84439-TC; 84443-TC; 84484-TC; 85025-TC; 85300; 85301; 85303; 85378-TC; 85610-TC; 85613; 85670; 85705; 85730-TC; 85732; 86147; 86304; 86800; 87040-TC; 87081-TC; 93970-TC; A9575; C9803; G0378; J1644; J2270; J2405; J3490; J7030; J7050; Q0162; Q9967

== ENCOUNTER 2022-05-23 06:47 | Emergency (ER) | payer MEDICAID ==
[~2022-05-23] VITALS: Ht 170.2 cm; Wt 65.8 kg
[~2022-05-23 06:47] MED LIST changes: -APIX5TAB PO; +CIPR-262 PO; +METO50TA16 PO; +METR500T PO; +RIVA10TA PO; -SODI100037 PO
--- NOTE | 2022-05-23 07:18 | NUR ---
TO ER BED 1. [id number] FROM [facility] C/O BACK PAIN. HX CHRONIC BACK PAIN. PT IS AAOX4. RR EVEN AND NON LABORED, CONNECTED TO MONITOR. VSS
--- NOTE | 2022-05-23 07:20 | NUR ---
DR COLUNGA AT BEDSIDE FOR EVAL
[2022-05-23] MEDS ORDERED: ACETAMINOPHEN ES 500 MG TABLET PO ONE (07:30)
[2022-05-23] MEDS ORDERED: IV NS 0.9% 1,000 ML BAG IV ONE (07:30)
[2022-05-23] MEDS ORDERED: ACETAMINOPHEN ES 500 MG TABLET ONE (07:31)
--- NOTE | 2022-05-23 07:36 | NUR ---
PT PROVIDED URINE IN A BEDPAN, URINE COLLECTED AT BEDSIDE BY LAB
[2022-05-23 07:57] LABS: BASOPHILS # (AUTO) 0.1 K/uL (0.0-0.2); BASOPHILS % (AUTO) 0.7 % (0.0-2.0); EOSINOPHILS % (AUTO) 1.7 % (0.0-6.0); HEMATOCRIT 38 % (33-45); HEMOGLOBIN 12.8 g/dL (11.5-14.8); LYMPHOCYTES # (AUTO) 2.7 K/uL (0.8-4.8); LYMPHOCYTES % (AUTO) 29.2 % (20.0-44.0); MEAN CORPUSCULAR HGB CONC 34 g/dl (31.0-36.0); MEAN CORPUSCULAR VOLUME 93 fL (82-100); MONOCYTES # (AUTO) 0.5 K/uL (0.1-1.30); NEUTROPHILS # (AUTO) 5.8 K/uL (1.8-8.9); NEUTROPHILS % (AUTO) 63.4 % (43.0-81.0); PLATELET COUNT (AUTO) 371 K/uL (150-450); RED BLOOD CELL COUNT(AUTO) 4.03 MIL/uL (4.0-5.2); WHITE BLOOD COUNT (AUTO) 9.1 K/uL (4.3-11.0)
[2022-05-23 07:58] LABS: BILIRUBIN,URINE NEGATIVE (NEGATIVE); COLOR,URINE YELLOW (YELLOW); LEUKOCYTE ESTERASE ,URINE NEGATIVE (NEGATIVE); NITRITE, URINE POSITIVE (NEGATIVE); PROTEIN,URINE NEGATIVE (NEGATIVE); UGLUCOSE NEGATIVE (NEGATIVE); UROBILINOGEN,URINE 0.2 EU/dL (0.2)
--- NOTE | 2022-05-23 07:58 | NUR ---
ULTRASOUND AT BEDSIDE
[2022-05-23 08:13] LABS: ALBUMIN 3.9 g/dL (3.4-5.0); BILIRUBIN,DIRECT 0.1 mg/dL (0.0-0.2); BILIRUBIN,TOTAL 0.2 mg/dL (0.2-1.0); CALCIUM, SERUM 9.3 mg/dL (8.5-10.1); CREATININE 0.7 mg/dL (0.6-1.3)
--- NOTE | 2022-05-23 08:39 | NUR ---
PT TAKEN TO RADIOLOGY FOR CT
[2022-05-23 08:40] LABS: BACTERIA,URINE 3+ /HPF (None Seen); RBC,URINE 0-2 /HPF (0-2)
[2022-05-23] MEDS ORDERED: CEPH500C2 PO ×2 (09:48→11:15)
[2022-05-23] MEDS ORDERED: oxyCODONE/APAP (5/325 MG) 1 UDTAB TABLET PO ONE (11:00)
[2022-05-23] MEDS ORDERED: oxyCODONE/APAP (5/325 MG) 1 UDTAB TABLET ONE (11:01)
--- NOTE | 2022-05-23 11:19 | NUR ---
TRANSPORT ETA 1 HOUR 30 MINS VIA [facility].
[2022-05-23] MEDS ORDERED: CEFTRIAXONE 1GM BAG (ER ONLY) 50 ML IV ONE (11:20)
--- NOTE | 2022-05-23 11:22 | NUR ---
16FR HAN IN PLACE, URINE IS CLEAR, 50CC OF INITIAL URINE OUTPUT
[2022-05-23] MEDS ORDERED: CEFTRIAXONE 1 G in IV D5W 50 ML IV ONE (11:30)
--- NOTE | 2022-05-23 11:31 | NUR ---
CALLED [facility] TO GIVE REPORT TO THE NURSE, UNABLE TO SPEAK TO NURSE, LET THE OCEANOLOGIST KNOW THAT PT WILL BE RETURNING TOFACILITY AND HAS DISCHARGE PAPERS AND PRESCRIPTION
--- NOTE | 2022-05-23 12:28 | NUR ---
[facility] ARRIVED, REPORT GIVEN TO JUAN. IV REMOVED AND PRESSURE APPLIED. PT DISCHARGE IN STABLE CONDITON. DISCHARGE PAPERS AND RX WERE GIVEN TO [facility] TO GIVE TO FACILITY.
[2022-05-23 12:29] VITALS: BP 122/71
== END 2022-05-23 12:31 | disposition home or self-care (01) ==
LOC: ER 06:51
DX: G89.29 Other chronic pain (principal); R10.2 Pelvic and perineal pain; N39.0 Urinary tract infection, site not specified; R33.9 Retention of urine, unspecified; N13.30 Unspecified hydronephrosis; I10 Essential (primary) hypertension; I25.2 Old myocardial infarction; F41.9 Anxiety disorder, unspecified; F17.200 Nicotine dependence, unspecified, uncomplicated; Z86.69 Personal history of other diseases of the nervous system and sense organs; Z88.0 Allergy status to penicillin; Z88.8 Allergy status to other drugs, medicaments and biological substances; Z79.899 Other long term (current) drug therapy
CPT/HCPCS: 99285; 74176; 96365; 76705; 96361; 85025; 80048; 87086; 83690; 80076; 81001; 36415; 93005; 51701; J0696 ×2; J7060; J7030 ×2